=== PATIENT | male | born 1975 | race Caucasian/White ===

== ENCOUNTER 2017-07-29 07:54 | Emergency (ER) | payer OTHER, SELFPAY ==
[2017-07-29 07:55] VITALS: BP 154/94; PULSE 76; RESP 16; TEMP 36.4; O2SAT 98; BMI 36.8
--- NOTE | 2017-07-29 08:14 | ED.DCSUM_ITS ---
- ER Visit Summary Date of Service: 07/29/17 Chief Complaint: Abdominal pain with nausea, vomiting and diarrhea since night/Saturday morning History of Present Illness: The patient is a 41 M who presents with abdominal pain with nausea, vomiting diarrhea. Onset evening Saturday. He was concerned he had food poisoning and started taking Pepto-Bismol. No one else became ill. He denies fever, chills night sweats. He has not been on antibiotics in the past month. He has not been in contact or exposed to anyone who is been ill recently. The discomfort was initially diffuse. He now complains of pain in the right lower quadrant. The pain in the right lower quadrant is crampy and intermittent lasting up to 30 minutes. Walking and pushing on his abdomen intensify the discomfort. There is no radiation. He denies dysuria, frequency, urgency or hematuria. He reports decreased urine output and increased thirst. He also complains of dry mouth. He denies any hematemesis or hematochezia. He does not believe there was any mucus in his stool. He reports vomiting on average 7 times a day and numerous loose stools. He denies fever, chills night sweats. He denies any ocular, visual or auditory symptoms. He denies any cardiac or respiratory symptoms. He reports decreased urine output otherwise is negative. He denies any skin lesions. He denies history of diverticulosis or diverticulitis. Past medical history of type 2 diabetes and hypertension. Physical Examination: Vital signs are remarkable for a blood pressure 154/94. Head is atraumatic normocephalic. Pupils are equal round reactive. Extraocular muscles are intact. TMs are pearly white with landmarks noted. Nares patent with no drainage. Posterior pharynx without erythema or exudate. Uvula is midline. There is no dysphonia or dysphasia. Oral and buccal mucosa are dry. Trachea is midline. There is no stridor with auscultation of the neck. Heart is regular without murmur, gallop or rub. S1 and S2 are normal. Lungs are clear to auscultation with good movement of air bilaterally. Abdomen is soft with tenderness in the proximity McBurney's point. There is guarding. There is equivocal peritoneal findings. Negative Rovsing sign. There is no CVA tenderness noted. There are no skin lesions or evidence of trauma. Neuro exam is nonfocal. Test Results: CBC is normal. Electronic vitals unremarkable. Stool for occult blood was negative. Stool for fecal leukocytes is positive. Emergency Department Course and Treatment: IV was established she received 1 L of normal saline wide open. The black stool may be secondary to the Pepto- Bismol. Will assess stool for blood and fecal leukocytes. Because he is diabetic and BMP was obtained to assess his glucose since he has not checked his glucose and greater than 24 hours and more importantly his BUN and creatinine. White count was obtained as well. With him having discomfort in the right lower quadrant this may represent an atypical presentation for appendicitis. This may also represent mesenteric adenitis or other cause. Treatment Plan: Nausea vomiting has resolved. He did have one loose stool in the department. He was discharged with prescription for ciprofloxacin since stool was positive for fecal leukocytes and Imodium. Disposition: Discharged home in improved condition Impression: 1. Abdominal pain with nausea, vomiting diarrhea 2. Mild dehydration 3. History of type 2 diabetes 4. History of hypertension This note was generated with [employer] dictation software. It may contain incorrect words, spelling, and punctuation that were not noted in review of the chart prior to signing ED Disposition - Plan for ED Patient: Disposition: Home or Assisted Living Chief Complaint: Nausea/Vomiting/Diarrhea Instructions: ED Vomiting Diarrhea Nonspecific Ad Prescriptions: Loperamide [Imodium] 2 mg PO UD #10 cap Ciprofloxacin [Cipro] 500 mg PO BID #10 tab Referrals: Ish Rasmussen MD [Primary Care Provider] - 3-5 Days if not improving
[2017-07-29] MEDS: 0.9% Normal Saline 1,000 ML 1000 ML IV (08:16)
[2017-07-29] MEDS: Ondansetron 4 MG/2 ML Vial IV (08:17)
[2017-07-29 08:22] LABS: Absolute Lymphocyte Count 2.54 X10^3/ul (0.83-4.51); Absolute Neutrophil Count 4.7 X10^3/uL (2.0-7.7); Basophil# 0.03 X10^3/uL; Basophil% 0.4 % (0-1); Eosinophil# 0.05 X10^3/uL; Eosinophils% 0.6 % (0-5); Hemoglobin 15.8 g/dl (13.0-16.5); Lymphocyte # 2.54 X10^3/ul (4.0); Lymphocyte % 31.2 % (19-41); Mean Corp Hgb Conc 34.3 g/gl (32-36); Mean Corpuscular Hgb 29.5 pg (27.0-32.0); Mean Platelet Vol. 9.5 fl (6.2-12.0); Monocyte% 9.8 % (0-10); Neutrophil # 4.72 X10^3/uL (2.7-7.7); Neutrophil % 57.9 % (47-70); Platelet Count 181 K/mm3 (150-450); RBC Distribution Width CV 13.9 % (11.6-14.6); RBC Distribution Width SD 43.2 fl (35.1-43.9); Red Blood Count 5.35 M/mm3 (4.6-6.2); White Blood Count 8.2 K/mm3 (4.4-11.0)
[2017-07-29 08:24] LABS: POSITIVE COUNT NO; POSITIVE DIFFERENTIAL NO; POSITIVE MORPHOLOGY NO
[2017-07-29 08:33] LABS: Anion Gap 8 (5-15); BUN 17 mg/dL (7-18); BUN/Creat Ratio 19.7 RATIO (10-20); Calcium,Total 7.5 mg/dL (8.5-10.1); Chloride 110 mmol/L (98-107); Creatinine, Serum 0.86 mg/dL (0.70-1.30); EST Glomerular Filtration Rate 103 mL/min (>60); Est Glom Filt Rate - Afr Amer 125 mL/min (>60); Estimated Creatinine Clearance 120.39 ml/min; Glucose 129 mg/dL (74-106); Potassium 3.6 mmol/L (3.5-5.1); Sodium Level 139 mmol/L (136-145)
[2017-07-29 10:16] VITALS: BP 154/83; PULSE 60; O2SAT 99
[2017-07-29 11:22] VITALS: BP 148/72; PULSE 67; RESP 18; O2SAT 97
== END 2017-07-29 11:24 | disposition home or self-care (01) ==
PROVIDERS: Emergency Provider Emergency Medicine; Family Provider Family Medicine; PCP Family Medicine
DX: R11.2 Nausea with vomiting, unspecified (principal); R19.7 Diarrhea, unspecified; R10.9 Unspecified abdominal pain; E86.0 Dehydration; E11.9 Type 2 diabetes mellitus without complications; I10 Essential (primary) hypertension
CPT/HCPCS: 80048; 82274; 83630; 85025; 96361; 96374; 99284; J7030; J2405

== ENCOUNTER 2018-03-06 14:19 | Emergency (ER) | payer MEDICAID, SELFPAY ==
[2018-03-06 14:20] VITALS: BP 142/75; PULSE 96; RESP 16; TEMP 36.6; O2SAT 97; BMI 38.2
--- NOTE | 2018-03-06 14:54 | ED.VISSUMM ---
- ER Visit Summary Date of Service: 03/06/18 Chief Complaint: Mid forehead laceration History of Present Illness: The patient is a 42 M past medical history of noncemented diabetes and hypertension. Patient is on no blood thinners. He was working on some of his home when a glass globe fell struck him in the forehead causing a laceration. No foreign bodies. No LOC. He denies other injuries other than a superficial laceration to his right hand. Physical Examination: Well-appearing middle-age male. Vital signs are stable and afebrile. H EENT exam is up to [facility] last forehead. At the flap. There is mild oozing. No hematoma. Pupils round reactive light. No other signs of facial or scalp trauma neck nontender. Lungs clear to auscultation bilaterally. Heart regular rhythm no murmur. Abdomen is soft and nontender. Normal bowel sounds no peritoneal signs. He is moving all 4 extremities. There are neurovascularly intact. He has equal symmetrical fermentologist strength. He has a superficial laceration to the webspace between his right thumb and right index finger that is not deep and does not need to be repaired. I did clean that area. Neurologic exam is normal. Test Results: None Emergency Department Course and Treatment: Mid forehead laceration was cleaned. I repaired it using Dermabond. Good closure and hemostasis was obtained. Patient's tetanus will be updated. Treatment Plan: Wound care instructions. Disposition: Discharge Impression: Mid forehead laceration Dermabond repair of 2 and asked centimeters Tetanus updated This note was generated with [employer] dictation software. It may contain incorrect words, spelling, and punctuation that were not noted in review of the chart prior to signing ED Disposition - Plan for ED Patient: Chief Complaint: Laceration Referrals: Ish Rasmussen MD [Primary Care Provider] -
--- NOTE | 2018-03-06 14:58 | ED.DCSUM_ITS ---
- ER Visit Summary Date of Service: 03/06/18 Chief Complaint: Mid forehead laceration History of Present Illness: The patient is a 42 M past medical history of noncemented diabetes and hypertension. Patient is on no blood thinners. He was working on some of his home when a glass globe fell struck him in the forehead causing a laceration. No foreign bodies. No LOC. He denies other injuries other than a superficial laceration to his right hand. Physical Examination: Well-appearing middle-age male. Vital signs are stable and afebrile. H EENT exam is up to [facility] last forehead. At the flap. There is mild oozing. No hematoma. Pupils round reactive light. No other signs of facial or scalp trauma neck nontender. Lungs clear to auscultation bilaterally. Heart regular rhythm no murmur. Abdomen is soft and nontender. Normal bowel sounds no peritoneal signs. He is moving all 4 extremities. There are neurovascularly intact. 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 He has a superficial laceration to the webspace between his right thumb and right index finger that is not deep and does not need to be repaired. I did clean that area. Neurologic exam is normal. Test Results: None Emergency Department Course and Treatment: Mid forehead laceration was cleaned. I repaired it using Dermabond. Good closure and hemostasis was obtained. Patient's tetanus will be updated. Treatment Plan: Wound care instructions. Disposition: Discharge Impression: Mid forehead laceration Dermabond repair of 2 and asked centimeters Tetanus updated This note was generated with [employer] dictation software. It may contain incorrect words, spelling, and punctuation that were not noted in review of the chart prior to signing ED Disposition - Plan for ED Patient: Chief Complaint: Laceration Referrals: Ish Rasmussen MD [Primary Care Provider] -
--- NOTE | 2018-03-06 14:58 | ED.DEP ---
ED Disposition - Plan for ED Patient: Disposition: Home or Assisted Living Chief Complaint: Laceration Instructions: ED Laceration Ext Skin Glue Referrals: Ish Rasmussen MD [Primary Care Provider] - As Needed
--- NOTE | 2018-03-06 15:15 | ED.RN ---
PT MEDICATED WITH TDAP SHOT IN LEFT SHOULDER, UNABLE TO GET ORDER TO GO THROUGH ON JUN. LOT [id number] EXP 03/24/2020
[2018-03-06 15:17] VITALS: BP 139/91; PULSE 96; RESP 14
== END 2018-03-06 15:30 | disposition home or self-care (01) ==
PROVIDERS: Emergency Provider Emergency Medicine; Family Provider Family Medicine; PCP Family Medicine
DX: S01.81XA Laceration without foreign body of other part of head, initial encounter (principal); S61.411A Laceration without foreign body of right hand, initial encounter; W20.8XXA Other cause of strike by thrown, projected or falling object, initial encounter; Y93.9 Activity, unspecified; Y92.009 Unspecified place in unspecified non-institutional (private) residence as the place of occurrence of the external cause; Y99.9 Unspecified external cause status; E11.9 Type 2 diabetes mellitus without complications; Z23 Encounter for immunization; I10 Essential (primary) hypertension
CPT/HCPCS: 12011; 90471; 90715; 99282

== ENCOUNTER 2018-07-01 10:13 | Emergency (ER) | payer MEDICAID, SELFPAY ==
[2018-07-01 10:13] VITALS: BP 168/97; PULSE 86; RESP 18; TEMP 36.3; O2SAT 98; BMI 36.9
--- NOTE | 2018-07-01 10:20 | ED.DCSUM_ITS ---
- ER Visit Summary Date of Service: 07/01/18 Chief Complaint: Left knee injury History of Present Illness: The patient is a 42 M presents to the emergency department left knee injury. Patient has had prior ACL repair and MCL reconstruction of the knee. He states that he was out in his yard playing catch with his children. He stepped in hole and twisted his left knee. He states he felt like it popped. Yesterday, it was very swollen. Today, the swelling is gone down, but he still having a difficult time bearing weight. He denies other injury. He is otherwise been in his normal state of health. Physical Examination: Exam is relatively unremarkable. Patient does have a sma ll effusion of the knee. His extension is preserved. He does have some gapping with stress along the MCL and pain along the medial meniscus. There is no gross laxity. Pulses are normal. Compartments are soft. Test Results: [] Emergency Department Course and Treatment: Clinically, the patient symptoms do seem consistent with an MCL tear. He does have some instability of the knee but no gross laxity. Plain films were obtained. There is significant arthritic changes, but no fracture. Patient was placed in a knee immobilizer. Is given analgesics. He will continue ice and elevation. He will follow-up with his orthopedic surgeon for reevaluation and potential MRI versus conservative therapy. He is comfortable with this plan of care. Treatment Plan: [] Disposition: Discharge Impression: 1. Left MCL tear This note was generated with [employer] dictation software. It may contain incorrect words, spelling, and punctuation that were not noted in review of the chart prior to signing ED Disposition - Plan for ED Patient: Instructions: ED Sprain Knee Prescriptions: Hydrocodone Bitart/Apap 5-325 [[place] 5MG-325MG] 1 tab PO Q6H PRN PRN 3 Days #10 tab PRN Reason: Pain Referrals: Gwyn Dillard DO [STAFF PHYSICIAN] -
--- NOTE | 2018-07-01 11:04 | RAD_ITS ---
STUDY: X-RAY - LEFT KNEE REASON FOR EXAM: Male, 42 years old. Left knee pain after fall on Saturday TECHNIQUE: 4 view(s) of the knee. COMPARISON: 01/18/2017 FINDINGS: Normal visualized distal femur. Normal visualized proximal tibia and fibula. Normal proximal tibiofibular articulation. Prior ACL reconstruction There is moderate degenerative arthrosis of the medial femorotibial compartment with moderate joint space narrowing. There is mild degenerative arthrosis of the lateral femorotibial compartment. There is moderate degenerative arthrosis of the patellofemoral articulation. There is a soft tissue prominence in the suprapatellar region suggesting a small volume joint effusion. The soft tissue structures are unremarkable. RAD/Knee 4 or More Views IMPRESSION: No acute fracture or dislocation. Degenerative changes with small effusion. Prior ACL reconstruction. Electronically Signed: Jeremy Villarreal DO at 12:54 EDT Tel , Service support ,
[2018-07-01 12:17] VITALS: BP 172/99; PULSE 87; RESP 18; O2SAT 97
== END 2018-07-01 12:23 | disposition home or self-care (01) ==
LOC: ED 11:35
PROVIDERS: Emergency Provider Emergency Medicine; Family Provider Family Medicine; PCP Family Medicine
DX: M25.462 Effusion, left knee (principal); S83.412A Sprain of medial collateral ligament of left knee, initial encounter; X50.1XXA Overexertion from prolonged static or awkward postures, initial encounter; Y93.89 Activity, other specified; Y92.9 Unspecified place or not applicable; Y99.9 Unspecified external cause status; E11.9 Type 2 diabetes mellitus without complications; I10 Essential (primary) hypertension; E78.00 Pure hypercholesterolemia, unspecified
CPT/HCPCS: 73564; 99282

== ENCOUNTER → 2018-07-02 15:13 | Outpatient (CLI) | payer MEDICAID, SELFPAY ==
[2018-07-01 10:13] VITALS: BMI 36.9
--- NOTE | 2018-07-02 15:17 | VDLE_ITS ---
Reason For Study: PAIN IN CALF RIGHT LEFT CFV is compressible, spontaneous, phasic, GSV is normal. competent and demonstrates normal CFV is compressible, spontaneous, phasic, augmentation. competent, and demonstrates normal Procedure augmentation. Exam performed in department. FV is compressible, spontaneous, phasic, A preliminary report was called and/or faxed competent and demonstrates normal to Dr Jabari Clark. augmentation. POP V is compressible, spontaneous, phasic, competent and demonstrates normal augmentation. T/P Trunk is compressible. LT PerV is compressible. LEFT PTV is dilated and NONCOMPRESSIBLE at distal calf. The remainder of PTV is compressible. Interpretation Summary Acute deep vein thrombosis is noted in the distal left posterior tibial vein. The remainder of the left lower extremity deep venous system is patent and compressible. Valvular competence appears intact within the proximal deep venous system on the left . The left greater saphenous vein appears patent and compressible segmentally. Ordering Physician: Jabari Clark Referring Physician: CUAUHTEMOC CAMACHO Performed By: Kat Peterson, VIOLETACS, RVT
== END ==
PROVIDERS: Family Provider Family Medicine; PCP Family Medicine; Referring Provider Orthopaedic Surgery; Visit Provider Orthopaedic Surgery
DX: M79.605 Pain in left leg (principal)
CPT/HCPCS: 93971

== ENCOUNTER 2018-07-02 18:31 | Emergency (ER) | payer MEDICAID, SELFPAY ==
[2018-07-01 10:13] VITALS: BMI 36.9
[2018-07-02 18:31] VITALS: BP 165/81; PULSE 72; RESP 16; TEMP 36.3; O2SAT 98; BMI 36.9
--- NOTE | 2018-07-02 19:32 | ED.DCSUM_ITS ---
- ER Visit Summary Date of Service: 07/02/18 Chief Complaint: Prescription issue History of Present Illness: The patient is a 42 M who states that he injured his left knee a few days ago. Today he went to [facility] and they sent him here to have a rule out DVT performed. He tells me he was diagnosed with a DVT around his ankle. He states that his primary care physician called a prescription for Eliquis then but he cannot afford it because it $600. Unfortunately it was after hours and the patient was advised to the nursing line to come to the emergency department. I do not have access to the ultrasound report to see exactly where the DVT is. Physical Examination: Afebrile vital signs are stable Gen: Well-nourished well-developed Head: Normocephalic atraumatic Eyes: Perrl EOMI ENT: TMs clear no rhinorrhea moist mucous membranes Neck: Supple no lymphadenopathy no JVD nontender CVS: Regular rate rhythm no murmurs normal S1-S2 Respiratory: No distress clear to auscultation bilaterally chest nontender Abdomen: Soft nontender nondistended normal bowel sounds no masses Back: Nontender Extremity: Mild tenderness in the calf and slight edema compared to the right. Left knee is in a brace. Skin: Normal color no rash Neuro: alert orientated ?3 CN II-XII intact normal strength sensation reflexes gait cerebellar Psych: Normal affect normal mood Emergency Department Course and Treatment: Unfortunately I do not have access to the report because it has not been formally read is what I am understanding. If it is truly below the knee and the patient has significant issues with prescription coverage one option I discussed with him would be serial ultrasounds to see if it propagates above the knee. Until such time as I have access to the report or he sees his primary care physician for further discussion I will give him a dose of Lovenox here. Mr. Yu notes understanding. Impression: 1. Left leg DVT This note was generated with [employer] dictation software. It may contain incorrect words, spelling, and punctuation that were not noted in review of the chart prior to signing ED Disposition - Plan for ED Patient: Disposition: Home or Assisted Living Instructions: ED DVT Referrals: Ish Rasmussen MD [Primary Care Provider] - 1 Day
[2018-07-02] MEDS: Enoxaparin 120 MG/0.8 ML Syringe SC (19:41)
== END 2018-07-02 19:47 | disposition home or self-care (01) ==
PROVIDERS: Emergency Provider Emergency Medicine; Family Provider Family Medicine; PCP Family Medicine
DX: I82.402 Acute embolism and thrombosis of unspecified deep veins of left lower extremity (principal); E11.9 Type 2 diabetes mellitus without complications; I10 Essential (primary) hypertension
CPT/HCPCS: 93971; 99282

== ENCOUNTER → 2018-07-10 09:49 | Outpatient (CLI) | payer MEDICAID, SELFPAY ==
[2018-07-02 18:31] VITALS: BMI 36.9
[2018-07-10 10:13] LABS: Prothrombin Time (Protime)PT. 30.9 SECONDS (11.7-14.9)
== END ==
PROVIDERS: Family Provider Family Medicine; PCP Family Medicine; Referring Provider Family Medicine; Visit Provider Family Medicine
DX: Z86.718 Personal history of other venous thrombosis and embolism (principal); Z79.01 Long term (current) use of anticoagulants
CPT/HCPCS: 85610

== ENCOUNTER 2018-09-08 07:00 | Outpatient (RCR) | payer MEDICAID, SELFPAY ==
--- NOTE | 2018-08-28 18:35 | HP.PTEVAL_ITS ---
Patient's Visit Information RIGO MASTERS Jr. is a 43 year old M referred to Physical Therapy by Jabari Clark MD with a diagnosis of L knee medial mensicus tear. Date of Evaluation: 08/28/18 Physical Therapist: Levi Strong DPT, OCS, CSCS - Visit Plan Frequency: 3x /Week Duration: 4-6 Weeks Plan: 3x/week for 4-6 as needed. 1. ES and ice to ehlp with pain and inflammation. 2. ROM L knee A/P. 3. strength to tolerance L knee adn return to function/gait training. - Subjective Findings: L aCL tear 20 years ago. 2016 meniscus repair medial and lateral. This past June 2 months ago was playing catch with boys and stepped in hole. Pain right away. Constant pain since. Seeing doctor and getting approved for the last two months. Had blood clot and was off work. Doing ROM exercises. takes tylenol for pain daily. MRI showed retear of shredded chicken. Will go back on the 09/10. Plan is to fix meniscus or do knee repacement. Prefers TKA. Coumadin now for blood clot. Recent US said clot is gone. 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 Stays off of ladders. Sleeps fairly well but stiff in morning. 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 Has 18, 12 and 4 yo at home that has limited physical interaction with. Basic ADLss of dressing are OK, no stpes at home. Stepping over the tub is challenging. TM prior to injury. - Pain L knee Pain Intensity (Out of 10): 6 Pain Intensity Range: 7 Comment: medial knee swells after work. - Objective L knee -15 to 108 r knee 0-134. ankle adn hip aROM B WNL, L slightly slow. Strength ankles 4+ adn hips 4+. Knee strength L 3+ ext with pain and 4- flexion with pain. R knee flex 5/5 and ext 5/5. Walks with antalgia L and avoid fully straightening L kneee until cued. Trasnfers I but painful. + L bounce home, patella moves well. Slightly swollen L knee at joint line. Steps avoids L adn needs UE help due to pain. R knee is I on steps. - Goals Goal 1:: Full aROM L knee 0-134 AROM without pain Goal Time Frame: 4-6 Weeks Goal 2:: Walk upright without increased pain L knee adn steps reciprocal with one rail Goal Time Frame: 4-6 Weeks Goal 3:: Pt feel 75% back to normal Goal Time Frame: 4-6 Weeks Goal 4:: Painfree at rest Goal Time Frame: 4-6 Weeks - Rehabilitation Potential Physical Therapy Diagnosis: L Knee meniscal tear and degeneration. Rehabilitation Potential: Questionable - Anticipated Interventions Patient/Client Instruction: Educate patient on: Condition, Plan of Care For the Purpose of:: To decrease pain, To increase ROM, To increase tolerance to activity/condition/position Therapeutic Exercise to Include: Strength training, Flexibilty training, Gait and locomotor training, Passive ROM, Active ROM For the Purpose of:: To decrease pain, To increase ROM, To improve muscle performance and motor function, To decrease level of supervision to perform tasks Manual Therapy Techniques to Include: Soft tissue mobilization For the Purpose of:: To increase tolerance to activity/condition/position, To improve ability of physical actions for home/community/work/leisure TENS: Yes Cryotherapy (ice pack, ice massage): Yes For the Purpose of:: To decrease pain, To increase ROM, To improve ability of physical actions for home/community/work/leisure, To improve gait and locomotor functions Thank you for the opportunity to evaluate your patient. For Medicare and Medicare HMO plans, please review the plan of care and approve it. It will need to be FAXED BACK to us at [phone] for Medicare purposes. For Medicare only, by signing this I certify the plan of care. Please let me know if there are questions or concerns regarding this plan of care. Physician Signature: Date:
--- NOTE | 2018-11-07 07:43 | HP.PT.NRP ---
HP - Discharge Summary (1) - Patient Information RIGO MASTERS Jr. was seen in my office for initial evaluation on 08/28/18. The following Plan of Care was established for this patient: Initial Frequency: 3x /Week Initial Duration: 4-6 Weeks - Anticipated Interventions Patient/Client Instruction: Educate patient on: Condition, Plan of Care For the Purpose of:: To decrease pain, To increase ROM, To increase tolerance to activity/condition/position Therapeutic Exercise to Include: Strength training, Flexibilty training, Gait and locomotor training, Passive ROM, Active ROM For the Purpose of:: To decrease pain, To increase ROM, To improve muscle performance and motor function, To decrease level of supervision to perform tasks Manual Therapy Techniques to Include: Soft tissue mobilization For the Purpose of:: To increase tolerance to activity/condition/position, To improve ability of physical actions for home/community/work/leisure TENS: Yes Cryotherapy (ice pack, ice massage): Yes For the Purpose of:: To decrease pain, To increase ROM, To improve ability of physical actions for home/community/work/leisure, To improve gait and locomotor functions This patient was last seen in our office 09/08/18. Pertinent comments regarding their Physical therapy will appear below: Patient was seen for two visits of his plan of care and cancelled or no showed for the rest. He stated that his surgery was cancelled and he was going to tough it out when cancelling his last visit. At this point, it has been nearly two months and I will discontinue due to nonattendance. At this point I will be discontinuing this patient from physical therapy. I would be happy to see this patient again in the future if found appropriate by the physician. Thank you! Levi Strong, DPT, OCS, CSCS
== END 2018-09-08 19:00 | disposition home or self-care (01) ==
LOC: PT 07:00
PROVIDERS: Family Provider Family Medicine; PCP Family Medicine; Visit Provider Orthopaedic Surgery
DX: S83.232D Complex tear of medial meniscus, current injury, left knee, subsequent encounter (principal); M17.32 Unilateral post-traumatic osteoarthritis, left knee
CPT/HCPCS: 97014; 97110; 97161; G0283

== ENCOUNTER 2019-04-09 03:29 | Emergency (ER) | payer BC, MEDICAID, SELFPAY ==
[2019-04-09 03:30] VITALS: BP 158/79; PULSE 102; RESP 17; TEMP 36.4; O2SAT 99; BMI 37.5
[2019-04-09 03:47] LABS: Absolute Lymphocyte Count 2.82 X10^3/uL (0.83-4.51); Absolute Neutrophil Count 4.5 X10^3/uL (2.0-7.7); Basophil# 0.06 X10^3/uL; Basophil% 0.8 % (0-1); Eosinophil# 0.06 X10^3/uL; Eosinophils% 0.8 % (0-5); Hematocrit 46.8 % (40-54); Hemoglobin 16.3 g/dL (13.0-16.5); Lymphocyte # 2.82 X10^3/ul (4.0); Lymphocyte % 35.5 % (19-41); Mean Corp Hgb Conc 34.8 g/dL (32-36); Mean Corpuscular Hgb 29.3 pg (27.0-32.0); Mean Platelet Vol. 9.8 fl (6.2-12.0); Monocyte# 0.52 X10^3/uL; Monocyte% 6.5 % (0-10); NRBC Flagged by Analyzer 0 % (0-5); Neutrophil # 4.46 X10^3/uL (2.7-7.7); Platelet Count 187 K/mm3 (150-450); RBC Distribution Width CV 12.4 % (11.6-14.6); RBC Distribution Width SD 37.5 fl (35.1-43.9); Red Blood Count 5.57 M/mm3 (4.6-6.2)
--- NOTE | 2019-04-09 03:48 | CT_ITS ---
STUDY: CT ABDOMEN AND PELVIS WITHOUT CONTRAST REASON FOR EXAM: Male, 43 years old. Right flank and testicular pain RADIATION DOSAGE (If Supplied By Facility): CTDIvol = ( 15.52 ) mGy, DLP = ( 1466.43 ) mGycm TECHNIQUE: Transaxial images were obtained from the dome of the diaphragm to the symphysis pubis without oral contrast, and without intravenous contrast. Sagittal and coronal images were reconstructed. Individualized dose optimization techniques were used for this CT. COMPARISON: None. FINDINGS: The visualized lung bases are unremarkable. The visualized portions of the heart are within normal limits. There is decreased attenuation of the liver consistent with steatosis. Normal gallbladder and extrahepatic biliary system. Normal spleen. Normal pancreas. Normal bilateral adrenal glands. Normal right kidney. Normal left kidney. There is a duplicated left renal collecting system. Normal visualized stomach. Normal small intestine. There are multiple colonic diverticula consistent with diverticulosis. There is moderate retained stool throughout the colon. Correlate for constipation. The appendix is visualized and appears normal. Normal abdominal aorta. Normal inferior vena cava. Normal retroperitoneum. Normal urinary bladder. Normal abdominal wall. Normal osseous structures. CT/Abdomen/Pelvis without Cont IMPRESSION: Negative unenhanced CT of the abdomen and pelvis for acute intra-abdominal abnormality. Electronically Signed: Derian Piedra, at 4:48 EST Tel , Service support ,
--- NOTE | 2019-04-09 03:54 | ED.VIS.GI ---
History of Present Illness Chief Complaint: Abd Pain Informant: Patient - Abdominal Pain/Flank Pain Onset: Today Context: Sudden Onset Timing: Continuous Quality: Sharp Location: RLQ, Right Flank Narrative: Patient is a 43-year-old male with a history of diabetes mellitus and hypertension presenting with right lower quadrant pain. He states it started about an hour prior to arrival. It is sharp and radiates into his back. Patient states when he urinated just prior to arrival he also had pain radiating into his right groin/testicle. He denies any pain with urination. He has some associated nausea. He notes a couple days ago he had a stomach flu with associated nausea, vomiting and fever. The symptoms had resolved. Patient states he had a maximum temperature of 102. Patient denies any other complaints at this time. He does not have any associated chest pain, shortness of breath or difficulty breathing. He denies any injuries. Patient states he was working when his pain started. Past Medical History - Allergies and Home Meds Allergies/Adverse Reactions: Allergies Penicillins Allergy (Verified 07/02/18 18:31) Other Primary Care Physician: Ish Rasmussen MD [Primary Care Provider] - Past Medical History: - - Hypertension, diabetes mellitus Surgical History: - - Knee surgery Lives: Spouse/ Significant Other Smoking Status: Current every day smoker - Family History Maternal Family History: Reports: No pertinent history Paternal Family History: Reports: No pertinent history Review of Systems General: Reports: Fever - Resolved. Denies: Chills, Sweats Eyes: Denies: Visual changes - bilaterally, Diplopia ENT: Denies: Rhinorrhea, Sore throat Cardiovascular: Denies: Chest pain, Palpitations Respiratory: Denies: Dyspnea, Cough, Dyspnea on exertion Gastrointestinal: Reports: Abdominal pain, Nausea, Vomiting - Resolved. Denies: Diarrhea, Melena, Hematochezia Genitourinary: Denies: Dysuria, Hematuria, Frequency Musculoskeletal: Denies: Back pain, Extremity Pain Skin: Denies: Rash, Wounds Neurological: Denies: Headache, Weakness, Numbness Physical Exam Vital Signs/Narrative: Vital Signs Temp Pulse Resp BP Pulse Ox 04/09/19 03:30 97.5 F L 102 H 17 158/79 H 99 Inital Vital Signs reviewed: Yes General: Well nourished, Well developed, No Acute Distress Head: Normocephalic, Atraumatic Eyes: Perrl, EOMI ENT: Moist mucous membranes, No rhinorrhea Neck: Supple, Nontender Cardiovascular: Regular rate, Regular rhythm, No murmurs Respiratory: No distress, CTA bilaterally, Chest nontender Abdomen: Soft, Nondistended, Normal bowel sounds, Tender - Right lower quadrant. Negative for: Guarding, Rebound tenderness, Mass Back: Normal Inspection. Negative for: Nontender - Tenderness to palpation of the right lower back?paraspinal lumbar area, CVA tenderness, Spinal tenderness Extremities: Nontender, No edema Skin: Normal color, No rash Neurological: Alert, Oriented x3, Cranial nerves II-XII grossly intact, Normal Strength, Normal Sensation Psychological: Normal affect, Normal Mood Diagnostic/Tx/Re-eval Clinical Impression(s) from Imaging Studies Abdomen/Pelvis CT 04/09/19 03:48 IMPRESSION: Negative unenhanced CT of the abdomen and pelvis for acute intra-abdominal abnormality. Electronically Signed: Derian Piedra, at 4:48 EST Tel , Service support , Laboratory Data 04/09/19 04/09/19 04/09/19 03:40 03:40 03:40 WBC 8.0 RBC 5.57 Hgb 16.3 Hct 46.8 MCV 84.0 MCH 29.3 MCHC 34.8 RDW Std Deviation 37.5 RDW Coeff of Janiya 12.4 Plt Count 187 MPV 9.8 Immature Gran % (Auto) 0.400 Neut % (Auto) 56.0 Lymph % (Auto) 35.5 [place] % (Auto) 6.5 Eos % (Auto) 0.8 Baso % (Auto) 0.8 Absolute Neuts (auto) 4.5 Absolute Lymphs (auto) 2.82 Nucleated RBC % 0 Sodium 136 Potassium 4.2 Chloride 104 Carbon Dioxide 24.0 Anion Gap 8 BUN 14 Creatinine 0.95 Estim Creat Clear Calc 106.79 Est GFR (MDRD) Af Amer 111 Est GFR (MDRD) Non-Af 92 BUN/Creatinine Ratio 14.7 Glucose 270 H Calcium 8.3 L Total Bilirubin 0.60 Direct Bilirubin 0.17 AST 25 ALT 63 H Alkaline Phosphatase 75 Total Protein 7.7 Albumin 3.9 Globulin 3.8 Lipase Urine Color Urine Clarity Urine pH Ur Specific [place] Urine Protein Urine Glucose (UA) Urine Ketones Urine Occult Blood Urine Nitrite Urine Bilirubin Urine Urobilinogen Ur Leukocyte Esterase Urine RBC Urine WBC Ur Squamous Epith Cells Urine Bacteria Urine Mucus 04/09/19 04/09/19 03:40 04:27 WBC RBC Hgb Hct MCV MCH MCHC RDW Std Deviation RDW Coeff of Janiya Plt Count MPV Immature Gran % (Auto) Neut % (Auto) Lymph % (Auto) [place] % (Auto) Eos % (Auto) Baso % (Auto) Absolute Neuts (auto) Absolute Lymphs (auto) Nucleated RBC % Sodium Potassium Chloride Carbon Dioxide Anion Gap BUN Creatinine Estim Creat Clear Calc Est GFR (MDRD) Af Amer Est GFR (MDRD) Non-Af BUN/Creatinine Ratio Glucose Calcium Total Bilirubin Direct Bilirubin AST ALT Alkaline Phosphatase Total Protein Albumin Globulin Lipase 87 Urine Color Yellow Urine Clarity Clear Urine pH 6.0 Ur Specific [place] 1.015 Urine Protein Negative Urine Glucose (UA) 1000 H Urine Ketones Negative Urine Occult Blood Negative Urine Nitrite Negative Urine Bilirubin Negative Urine Urobilinogen Normal Ur Leukocyte Esterase Negative Urine RBC 0 SEEN Urine WBC 0 SEEN Ur Squamous Epith Cells 0 SEEN Urine Bacteria 0 SEEN Urine Mucus 0 SEEN - Medical Decision Making Patient is evaluated for right lower quadrant pain. He appears nontoxic in no acute distress however he does appear uncomfortable. With pain in his flank as well as radiating to his groin I have a higher suspicion for a kidney stone however appendicitis is still in the differential. Blood work is largely unremarkable. Patient does have an elevated glucose with a normal anion gap. I do not suspect HHNK or DKA. Urinalysis does not show any blood or leukocytosis but does show spillage of glucose which is consistent with his history of diabetes. CT of the abdomen and pelvis is done without contrast which does not show any acute intra-abdominal process. Patient was given IV fluids and Toradol. He was also ordered morphine but had declined it. On reevaluation patient does have improvement of his pain. He does have some slight tenderness in his right lower quadrant but it now appears to be more abdominal wall. I do not appreciate a hernia but he is counseled that there could be a small one that we did not see on CT. He is also counseled this could be abdominal wall strain. Patient again states he is not having any testicular pain 3 do not think a testicular ultrasound is indicated. He is instructed to follow-up with his PCP for reevaluation and possible referral as needed. He is instructed to return the emergency room should he have any worsening symptoms or changing symptoms. Patient is counseled on signs and symptoms requiring return to the emergency room. Patient verbalizes agreement and understand this plan. Patient discharged home in stable and improved condition. ED Disposition - Plan for ED Patient: Disposition: Home or Assisted Living Diagnosis: Abdominal pain Instructions: ABDOMINAL PAIN, Unkown Cause, (Male) Prescriptions: Ibuprofen [Motrin] 600 mg PO Q6H PRN PRN #20 tab PRN Reason: Pain Or Fever Prescription Printed Referrals: Ish Rasmussen MD [Primary Care Provider] - Additional Instructions: The exact cause of your abdominal pain is not clear. I do think you are safe to go home. Please return should your symptoms worsen or change. Please follow-up with your primary care doctor for further evaluation of the cause of this pain.
[2019-04-09 04:08] LABS: Lipase 87 U/L (73-393)
[2019-04-09] MEDS: 0.9% Normal Saline 1,000 ML 999 ML IV (04:09)
[2019-04-09] MEDS: Ondansetron 4 MG/2 ML Vial IV (04:09)
[2019-04-09 04:16] LABS: Anion Gap 8 (5-15); BUN 14 mg/dL (7-18); BUN/Creat Ratio 14.7 RATIO (10-20); Calcium,Total 8.3 mg/dL (8.5-10.1); Chloride 104 mmol/L (98-107); Creatinine, Serum 0.95 mg/dL (0.70-1.30); EST Glomerular Filtration Rate 92 mL/min (>60); Est Glom Filt Rate - Afr Amer 111 mL/min (>60); Estimated Creatinine Clearance 106.79 ml/min; Glucose 270 mg/dL (74-106); Potassium 4.2 mmol/L (3.5-5.1); Sodium Level 136 mmol/L (136-145)
[2019-04-09 04:26] LABS: AST(SGOT) 25 U/L (15-37); Alanine Aminotransfer ALT/SGPT 63 U/L (16-61); Albumin, Serum 3.9 g/dL (3.2-5.0); Alkaline Phosphatase 75 U/L (45-117); Bilirubin, Direct 0.17 mg/dL (0.00-0.30); Globulin 3.8 g/dL (2.2-4.2); Protein, Total 7.7 g/dL (6.4-8.2)
[2019-04-09] MEDS: Ketorolac 15 MG/ML Vial IV (04:31)
[2019-04-09 04:35] LABS: Bacteria 0 SEEN /hpf (None Seen); Mucous, Urine 0 SEEN /hpf (<or=2+); Red Blood Cells-Urine 0 SEEN /hpf (0-5); Squamous Epithelial Cells - UA 0 SEEN /hpf (0-5); White Blood Cells 0 SEEN /hpf (0-5)
[2019-04-09 04:55] LABS: Color, Urine Yellow (Yellow); Glucose, Dipstick 1000 mg/dl (Normal); Ketone-Dipstick Negative (Negative); Leukocyte Esterase-Dipstick Negative /ul (Negative); Nitrite-Dipstick Negative (Negative); Occult Blood-Urine Negative /ul (Negative); Protein-Dipstick Negative (Negative); Specific Gravity, Urine 1.015 (1.002-1.030); Urine Bilirubin Dipstick Negative (Negative); Urine Clarity Clear (Clear); Urine Urobilinogen Normal (Normal)
[2019-04-09 05:45] VITALS: BP 159/84; PULSE 68; RESP 16; O2SAT 95
[2019-04-09 05:46] VITALS: BP 159/84; PULSE 68; RESP 16; O2SAT 95
== END 2019-04-09 05:48 | disposition home or self-care (01) ==
PROVIDERS: Emergency Provider Emergency Medicine; Family Provider Family Medicine; PCP Family Medicine
DX: R10.31 Right lower quadrant pain (principal); R11.0 Nausea; E11.9 Type 2 diabetes mellitus without complications; I10 Essential (primary) hypertension; Z79.84 Long term (current) use of oral hypoglycemic drugs; Z79.899 Other long term (current) drug therapy; F17.200 Nicotine dependence, unspecified, uncomplicated
CPT/HCPCS: 74176; 80048; 80076; 81001; 83690; 85025; 96361; 96374; 96375; 99283; J7030; A4216; J2405

== ENCOUNTER 2019-05-20 11:24 | Observation (INO) | payer BC, SELFPAY ==
[2019-05-20] VITALS (9 sets, daily range): BP systolic 153–199; BP diastolic 61–114; PULSE 70–81; RESP 16–29; TEMP 36.6–37.2; O2SAT 96–98; BMI 39.4; BMI 37.5
--- NOTE | 2019-05-20 11:36 | EKG12_ITS ---
Test Reason : Blood Pressure : / mmHG Vent. Rate : 072 BPM Atrial Rate : 072 BPM P-R Int : 148 ms QRS Dur : 082 ms QT Int : 394 ms P-R-T Axes : 030 072 008 degrees QTc Int : 431 ms Normal sinus rhythm Normal ECG When compared with ECG of 05-FEB-2017 15:57, Nonspecific T wave abnormality now evident in Inferior leads Confirmed by MENDEZ DOUGHERTY ([id number]), editor school photograph SHADI CAI ([id number]) on 05/21/2019 10:38:48 AM Referred By: KYUNG Confirmed By:MENDEZ DOUGHERTY
--- NOTE | 2019-05-20 11:36 | RAD_ITS ---
STUDY: X-RAY CHEST REASON FOR EXAM: Male, 43 years old. GENERAL ILLNESS. PT BROUGHT IN BY SQUAD. LIMITED ABILITY TO HELP AND RESPOND TECHNIQUE: Single AP portable view of the chest. COMPARISON: Comparison is made with prior study dated March 19, 2016. FINDINGS: EKG electrodes are seen. A 2.8 mm radiopacity is seen overlying the region of the tracheal bifurcation. This most likely represents a foreign body external to the patient anteriorly.. This was seen on prior study. The lungs are clear and expanded. There is no demonstrated pleural abnormality. There is moderate cardiac enlargement. Normal mediastinum and jaziel. Normal visualized pulmonary arteries. Normal visualized aortic arch and descending thoracic aorta. Normal visualized thoracic spine. Normal visualized ribs, clavicles, and shoulders. There is no demonstrated abnormality of the visualized soft tissue structures of the upper abdomen. RAD/Chest 1 View (Portable) IMPRESSION: Cardiomegaly. Electronically Signed: Nicanor Suh, at 12:25 EST , Service support ,
[2019-05-20] MEDS: 0.9% Normal Saline 1,000 ML 150 ML IV (11:50)
--- NOTE | 2019-05-20 11:55 | CT_ITS ---
STUDY: CT BRAIN WITHOUT CONTRAST REASON FOR EXAM: Male, 43 years old. GENERAL WEAKNESS TODAY RADIATION DOSAGE (If Supplied By Facility): CTDIvol = ( 60.81 ) mGy, DLP = ( 1044.28 ) mGycm TECHNIQUE: Transaxial CT imaging of the brain was performed without administration of intravenous contrast material. Individualized dose optimization techniques were used for this CT. COMPARISON: No relevant priors. FINDINGS: Normal soft tissue structures. Normal calvarium. Normal size ventricles and extra-axial spaces for the patient''s age. Normal white matter tracts of the cerebral hemispheres. Normal basal ganglia and thalami. Normal brainstem. Normal cerebellum. There is no intracranial hemorrhage. There are no findings of an acute ischemic infarction. Normal visualized paranasal sinuses. CT/Brain/Head without Contrast IMPRESSION: Normal unenhanced CT scan of the brain. Electronically Signed: Nicanor Suh, at 12:20 EST , Service support ,
[2019-05-20 11:56] LABS: Absolute Lymphocyte Count 3.79 X10^3/uL (0.83-4.51); Absolute Neutrophil Count 3.8 X10^3/uL (2.0-7.7); Basophil# 0.06 X10^3/uL; Basophil% 0.7 % (0-1); Eosinophil# 0.12 X10^3/uL; Eosinophils% 1.4 % (0-5); Hematocrit 47.1 % (40-54); Hemoglobin 15.9 g/dL (13.0-16.5); Lymphocyte # 3.79 X10^3/ul (4.0); Lymphocyte % 44.9 % (19-41); Mean Corp Hgb Conc 33.8 g/dL (32-36); Mean Corpuscular Hgb 28.6 pg (27.0-32.0); Mean Corpuscular Volume 84.9 fL (80-94); Mean Platelet Vol. 9.3 fl (6.2-12.0); Monocyte# 0.71 X10^3/uL; Monocyte% 8.4 % (0-10); NRBC Flagged by Analyzer 0 % (0-5); Neutrophil # 3.75 X10^3/uL (2.7-7.7); Neutrophil % 44.4 % (47-70); Platelet Count 179 K/mm3 (150-450); RBC Distribution Width CV 12.7 % (11.6-14.6); RBC Distribution Width SD 38.8 fl (35.1-43.9); Red Blood Count 5.55 M/mm3 (4.6-6.2); White Blood Count 8.5 K/mm3 (4.4-11.0)
[2019-05-20 12:05] LABS: Bedside Glucose 145 mg/dL (70-110)
[2019-05-20 12:10] LABS: Anion Gap 6 (5-15); BUN 17 mg/dL (7-18); BUN/Creat Ratio 17.5 RATIO (10-20); Calcium,Total 9.1 mg/dL (8.5-10.1); Chloride 106 mmol/L (98-107); Creatinine, Serum 0.97 mg/dL (0.70-1.30); EST Glomerular Filtration Rate 89 mL/min (>60); Est Glom Filt Rate - Afr Amer 108 mL/min (>60); Estimated Creatinine Clearance 104.58 ml/min; Glucose 146 mg/dL (74-106); Potassium 3.9 mmol/L (3.5-5.1); Sodium Level 137 mmol/L (136-145)
--- NOTE | 2019-05-20 12:41 | ED.RN ---
PT STATES HE CANNOT RAISE LIMBS OFF BED BY HIMSELF, SPEAKS IN A QUIET VOICE. PT SUDDENLY CLOSED EYES, STOPPED ANSWERING QUESTIONS, DID NOT FOLLOW COMMANDS. GIRLFRIEND AND DAUGHTER AT BEDSIDE. MD CALLED TO ROOM, CT OF HEAD ORDERED. GIRLFRIEND LATER SPOKE TO THIS RN, STATES SHE FEELS ALL SYMPTOMS MAY BE STRESS RELATED. STATES PT HAS MUCH MORE STRESS LATELY, CARING FOR YOUNG NEPHEW WITH MENTAL HEALTH ISSUES.
--- NOTE | 2019-05-20 12:43 | HP.PCM_ITS ---
History of Present Illness Date of Admission: 05/20/19 Chief Complaint: chest pain, weakness The patient is a 43 year old M with a past medical history of hypertension and diabetes. He was admitted through the ED on 05/20/2019 with a complaint of weakness and lethargy and right-sided chest pain which started on morning of admission. Pain was sharp, and radiated to his right shoulder. He had associated nausea, lightheadedness and dizziness as well as palpitations. He denied any fever or chills, cough, shortness of breath, diarrhea or vomiting. Review of systems was otherwise negative. Patient says he has been under a lot of stress because he has custody of his nephew who has a multitude of mental health problems including bipolar disorder adn ADHD, among others. As such, he says caring for his nephew is very difficult, and the police have been involved on numerous occasions. In the ED, vitals were significant for blood pressure of 193/114 and saturation was 91% on room air. Chemistry was unremarkable initial troponin was negative. CBC was also unremarkable. Brain CT showed no acute intracranial process and chest x-ray showed cardiomegaly but no other acute cardiopulmonary process. He has been admitted to be managed for chest pain rule out ACS. [] Past Medical History Past Medical History (Chronic Problems): Chronic Problems Non-compliant patient (Chronic) Diabetes mellitus (Chronic) HTN (hypertension) (Chronic) Allergies Penicillins Allergy (Verified 05/20/19 11:29) Other Home Medications: Ambulatory Orders Medication Instructions Recorded Hydrochlorothiazide [Hctz] 25 mg PO DAILY #30 tablet 07/19/15 Lisinopril [Zestril] 40 mg PO DAILY #30 tablet 07/19/15 metFORMIN HCl [Glucophage] 1,000 mg PO BIDCM 03/19/16 Ibuprofen [Motrin] 600 mg PO Q6H PRN PRN #20 tab 04/09/19 Gabapentin [Neurontin] 300 mg PO DAILY 05/20/19 Glimepiride 2 mg PO DAILY 05/20/19 Melatonin 10 mg PO QHS 05/20/19 Surgical History: - - Knee surgery Smoking Status: Never smoker Alcohol: Occasional Drugs: None - *Family History Maternal History Items: No pertinent history Paternal History Items: No pertinent history Review of Systems Constitutional: Reports: Malaise, Weakness. Denies: Chills, Fever, Weight Change Eyes: Denies: Blurred vision HEENT: Denies: Head Aches, Sinus Congestion, Sinus Drainage Cardiovascular: Reports: Chest Pain, Light Headedness, Palpitations. Denies: Chest Pressure, Chest Tightness Respiratory: Denies: Cough, Shortness of Breath, Shortness of breath at rest, Shortness of breath upon exertion, Sputum production Gastrointestinal: Denies: Abdominal Pain, Nausea, Vomiting Genitourinary: Denies: Dysuria Musculoskeletal: Denies: Joint Pain, Joint Tenderness Skin: Denies: Rash, Wounds Neurological: Denies: Numbness, Tingling, Focal weakness Psychiatric: Denies: Anxiety, Depression, Homicidal Ideations, Suicidal Ideations Hematologic/ Lymphatic: Denies: Easy Bruising, Easy Bleeding VTE Information - Inpt Only VTE Present on Admission: No VTE Pharm Prophylaxis ordered?: Yes - Physical Exam Vitals/I&O's: Vital Signs Temp Pulse Resp BP Pulse Ox 99 F 77 19 H 199/106 H 98 05/20/19 11:25 05/20/19 12:40 05/20/19 12:40 05/20/19 12:40 05/20/19 12:40 Oxygen Delivery Method Room Air Weight: 282 lb 6.594 oz Body Mass Index (BMI) 39.4 Finger Stick Blood Glucose 145 General: Alert, Oriented x3, Cooperative, No apparent distress, - - looks anxious HEENT: Atraumatic, PERRLA, EOMI, Normocephalic Oral: Moist Mucosa Neck: Supple, No JVD, Negative Carotid Bruits Lungs: Clear to auscultation, Normal air movement, No rhonchi, No wheeze, No rales Cardiovascular: Regular rate, Regular Rhythm, Normal S1, Normal S2, No murmurs Abdomen: Bowel Sounds Present, Soft, Non Tender, Non-Distended, No Hepato- splenomegaly Extremities: No clubbing, No cyanosis, No edema, Capillary Refill Less than 3 Seconds Skin: No rashes, No breakdown Musculoskeletal: No Tenderness to Palpation of Joints or Extremities Lymphatic: No Cervical, Supraclavicular, or Inguinal Adenopathy Neurological: Cranial nerves II-XII grossly intact, Neuro grossly intact, Motor Exam 5/5 strength throughout Psych/Mental Status: Normal Affect, Appropriate, Alert and oriented to time, place, person, mood and affect Microbiology Past 72 Hours 05/20/19 11:40 Mucosa - Nose Influenza Types A,B Direct FA (TRISTEN) - Final Laboratory Results 05/20/19 11:40: WBC 8.5, RBC 5.55, Hgb 15.9, Hct 47.1, MCV 84.9, MCH 28.6, MCHC 33.8, RDW Std Deviation 38.8, RDW Coeff of Janiya 12.7, Plt Count 179, MPV 9.3, Immature Gran % (Auto) 0.200, Neut % (Auto) 44.4 L, Lymph % (Auto) 44.9 H, [place] % (Auto) 8.4, Eos % (Auto) 1.4, Baso % (Auto) 0.7, Absolute Neuts (auto) 3.8, Absolute Lymphs (auto) 3.79, Nucleated RBC % 0 05/20/19 11:40: D-Dimer Quant (PE/DVT) 0.40 05/20/19 11:40: Sodium 137, Potassium 3.9, Chloride 106, Carbon Dioxide 25.0, Anion Gap 6, BUN 17, Creatinine 0.97, Estim Creat Clear Calc 104.58, Est GFR (MDRD) Af Amer 108, Est GFR (MDRD) Non-Af 89, BUN/Creatinine Ratio 17.5, Glucose 146 H, Calcium 9.1, Troponin I < 0.015 05/20/19 11:53: POC Glucose 145 H Diagnostic Data Chest X-Ray 05/20/19 11:36 IMPRESSION: Cardiomegaly. Electronically Signed: Nicanor Suh, at 12:25 EST , Service support , Brain CT 05/20/19 11:55 IMPRESSION: Normal unenhanced CT scan of the brain. Electronically Signed: Nicanor Suh, at 12:20 EST , Service support , Current Medications Sodium Chloride () 1,000 mls @ 150 mls/hr IV .Q6H40M MICHAEL Last Admin: 05/20/19 11:50 Dose: 150 mls/hr Documented by: Assessment/Plan All Active Problems Hypertensive urgency (Acute) Angina at rest (Acute) 43-year-old admitted with a complaint of chest pain. 1. Atypical chest pain, to r/o ACS * admit to PCU with telemetry * patient has had similar chest pain in the past and had stress tests that were negative * initial troponin is negative * cycle troponins x 3. * Sublingual nitroglycerin as needed. P.o. aspirin 81 mg daily. * Stress test tomorrow if troponins are negative. * . Hypertensive urgency * BP markedly elevated at 193/114 on admission * takes lisinopril and HCTZ and claims compliance with it * PO clonidine 0.3mg x 1 * continue lisinopril and add on PO amlodipine o/a of markedly elevated BP * 3.Type 2 diabetes mellitus: on metforminn and glimepiride; will hold for now. ISS. Jeffy PATTERSON DVT prophylaxis: lovenox Code Visit OBSV E&M: [id number] Initial observation care L3
--- NOTE | 2019-05-20 12:49 | ED.DCSUM_ITS ---
- ER Visit Summary Date of Service: 05/20/19 Chief Complaint: [Weakness] History of Present Illness: The patient is a 43 M [presents to the emergency department complaint of generalized weakness and feeling lightheaded and dizzy since waking up this morning around an hour ago. Patient states that he normal ly works third shift. He felt fine prior to going to bed. Patient describes chest discomfort that radiates on his left arm that seems to come and go and seems to be sharp. Patient states that both arms and legs feel heavy. Patient states that his mouth feels dry. Patient presented via EMS. He denies recent illness. He denies head injuries. Patient has been under increased stress of late dealing with a family member that has psychiatric issues. Patient denies any history of anxiety or depression. He does have history of hypertension and takes lisinopril which he did take last evening.] Physical Examination: [HEENT-PERRLA, EOMI. Cranial nerves II through XII grossly intact. TMs clear. Mucous membranes moist. No adenopathy. Cardiovascular-regular rate and rhythm without murmur or ectopy Lungs-clear to auscultation, chest wall stable without crepitus or subcu emphysema Abdomen-normoactive bowel sounds, soft, nontender, no rebound or rigidity, no peritoneal signs. Neuro hbzd-[id number]-gy-nose and heel quez[place] testing unable to perform as patient states that he is too weak. No focal weakness noted as patient does have movement against gravity with both upper and lower extremities. No facial droop noted. Extremities-intact ?4, normal range of motion, normal pulses, atraumatic] Test Results: [CT scan of the brain without contrast obtained was normal due to the fact that patient had an episode where he essentially became unresponsive and would not speak to myself or family members. When I attempted to open his eyes he would fight me and would stare down towards his toes. CT scan of the brain was unremarkable. Patient had EKG on arrival showed a sinus rhythm with a ventricular rate of 74 bpm with no acute ST segment changes. CBC with differential is normal. Chemistries normal. Troponin less than 0.015. D-dimer was normal 0.4. Influenza was negative. Chest x-ray showed nothing acute.] Emergency Department Course and Treatment: [Patient was placed on carbon dioxide operator on arrival and had an IV line established.] Treatment Plan: [Admit for further work-up and evaluation of his chest pain and hypertension. I suspect a lot of his symptomatology may be stress related.] Disposition: [Admit] Impression: [Has pain Hypertension Generalized weakness] This note was generated with [employer] dictation software. It may contain incorrect words, spelling, and punctuation that were not noted in review of the chart prior to signing ED Disposition - Plan for ED Patient: Referrals: Ish Rasmussen MD [Primary Care Provider] -
[2019-05-20] MEDS: LORazepam 2 MG/ML Syringe 1 MG IV (13:04)
--- NOTE | 2019-05-20 14:22 | EKG12_ITS ---
Test Reason : CP Blood Pressure : / mmHG Vent. Rate : 074 BPM Atrial Rate : 074 BPM P-R Int : 158 ms QRS Dur : 078 ms QT Int : 370 ms P-R-T Axes : 035 043 020 degrees QTc Int : 410 ms Normal sinus rhythm Normal ECG Confirmed by JIE FLANNERY, SULMA ([id number]), editor managing director SHADI CAI ([id number]) on 05/22/2019 1:11:27 PM Referred By: OLGA Confirmed By:ROBER CERON MD
--- NOTE | 2019-05-20 14:27 | ECHOD_ITS ---
Reason For Study: HYPERTENSION Procedure This was a 2D Doppler, Color Flow transthoracic echocardiogram. Exam performed portable in patient room. Left Ventricle Mild concentric left ventricular hypertrophy. The estimated ejection fraction is 65 %. Normal diastology for age. No regional wall motion abnormalities noted. Right Ventricle Normal size and thickness. Normal systolic function. Atria The left atrium is mildly enlarged. Normal right atrium. Normal atrial septum. Mitral Valve The mitral valve is structurally normal. No prolapse or stenosis seen. Trivial mitral valve insufficiency. Tricuspid Valve Normal tricuspid valve. Trivial tricuspid valve insufficiency. Right ventricular systolic pressure estimated to be 33 mmHg. Aortic Valve Normal aortic valve. Trisinus/trileaflet aortic valve. Pulmonic Valve Normal pulmonic valve. Great Vessels Normal aortic root. Normal arch. Normal inferior vena cava. Inferior vena cava collapse with sniff. Pericardium/Pleural No pericardial effusion. MMode/2D Measurements & Calculations LVIDd: 4.9 cm IVSd: 1.4 cm Ao root diam: 3.8 cm LVIDs: 3.1 cm LVPWd: 1.3 cm RVDd: 3.0 cm FS: 35.8 % LAV(MOD-bp): 69.2 ml EDV(MOD-sp4): 124.5 ml EDV(MOD-sp2): 100.5 ml LAV(MOD-bp) Indexed: 29.3 ml/m2 ESV(MOD-sp4): 47.4 ml EF(MOD-sp2): 59.5 % LAV(MOD-sp2): 54.7 ml EF(MOD-sp4): 62.0 % LAV(MOD-sp4): 71.3 ml SV(MOD-sp4): 77.1 ml SV(MOD-sp2): 59.8 ml LA A4 area: 22.5 cm2 LA dimension(2D): 3.8 cm RA A4 area: 14.5 cm2 Time Measurements MV dec time: 0.15 sec Doppler Measurements & Calculations MV E max andrea: 71.1 cm/sec Lat Peak E' Andrea: 13.3 cm/sec Med Peak E' Andrea: 10.1 cm/sec MV A max andrea: 50.8 cm/sec E/E' lat: 5.3 E/E' med: 7.1 MV E/A: 1.4 Ao V2 max: 118.5 cm/sec LV V1 max: 103.3 cm/sec PA V2 max: 92.9 cm/sec Ao max P.6 mmHg LV V1 max P.3 mmHg TR max andrea: 264.0 cm/sec TR max P.9 mmHg Interpretation Summary Mild concentric left ventricular hypertrophy. The estimated ejection fraction is 65 %. Normal diastology for age. The left atrium is mildly enlarged. Trivial mitral valve insufficiency. Trivial tricuspid valve insufficiency. Right ventricular systolic pressure estimated to be 33 mmHg. There is no comparison study available. Ordering Physician: Ingrid Villa Referring Physician: Ish Rasmussen Performed By: Lucía Devine, LONG, RVT
[2019-05-20 15:07] LABS: Cholesterol 125 mg/dL (200); High Density Lipoprotein 23 mg/dL; Triglycerides 176 mg/dL; Very Low Density Lipoprotein 35 mg/dL (5-40)
[2019-05-20] MEDS: Lisinopril 40 MG Tablet PO (16:27)
[2019-05-20 17:21] LABS: Bedside Glucose 208 mg/dL (70-110)
[2019-05-20] MEDS: MELATONIN 10 MG TABLET PO (22:16)
[2019-05-20 22:26] LABS: Bedside Glucose 242 mg/dL (70-110)
[2019-05-21] VITALS (8 sets, daily range): BP systolic 124–177; BP diastolic 58–109; PULSE 62–69; RESP 16–30; TEMP 36.3–36.8; O2SAT 95–99
[2019-05-21 05:45] LABS: Absolute Lymphocyte Count 3.19 X10^3/uL (0.83-4.51); Absolute Neutrophil Count 3.2 X10^3/uL (2.0-7.7); Basophil# 0.05 X10^3/uL; Basophil% 0.7 % (0-1); Eosinophil# 0.13 X10^3/uL; Eosinophils% 1.8 % (0-5); Hematocrit 47.8 % (40-54); Hemoglobin 15.9 g/dL (13.0-16.5); Lymphocyte # 3.19 X10^3/ul (4.0); Lymphocyte % 44.6 % (19-41); Mean Corp Hgb Conc 33.3 g/dL (32-36); Mean Corpuscular Hgb 28.5 pg (27.0-32.0); Mean Corpuscular Volume 85.7 fL (80-94); Mean Platelet Vol. 9.7 fl (6.2-12.0); Monocyte# 0.55 X10^3/uL; Monocyte% 7.7 % (0-10); NRBC Flagged by Analyzer 0 % (0-5); Neutrophil # 3.22 X10^3/uL (2.7-7.7); Neutrophil % 44.9 % (47-70); Platelet Count 178 K/mm3 (150-450); RBC Distribution Width SD 39.9 fl (35.1-43.9); Red Blood Count 5.58 M/mm3 (4.6-6.2); White Blood Count 7.2 K/mm3 (4.4-11.0)
[2019-05-21 05:55] LABS: Anion Gap 5 (5-15); BUN 16 mg/dL (7-18); BUN/Creat Ratio 17.3 RATIO (10-20); Calcium,Total 8.6 mg/dL (8.5-10.1); Chloride 106 mmol/L (98-107); Creatinine, Serum 0.92 mg/dL (0.70-1.30); EST Glomerular Filtration Rate 95 mL/min (>60); Est Glom Filt Rate - Afr Amer 115 mL/min (>60); Glucose 209 mg/dL (74-106); Potassium 4.2 mmol/L (3.5-5.1); Sodium Level 137 mmol/L (136-145)
--- NOTE | 2019-05-21 05:55 | EKG12_ITS ---
Test Reason : AM EKG Blood Pressure : / mmHG Vent. Rate : 057 BPM Atrial Rate : 057 BPM P-R Int : 150 ms QRS Dur : 084 ms QT Int : 432 ms P-R-T Axes : 035 082 054 degrees QTc Int : 420 ms Sinus bradycardia Otherwise normal ECG When compared with ECG of 20-MAY-2019 14:00, MANUAL COMPARISON REQUIRED, DATA IS UNCONFIRMED Confirmed by SOLE FLANNERY, LUCAS ([id number]), offline editor GILES WING ([id number]) on 05/26/2019 8:41:35 AM Referred By: DR TRACEY Confirmed By:LUCAS WHIPPLE MD
[2019-05-21] MEDS: Aspirin 81 MG TAB.CHEW PO (06:22)
[2019-05-21] MEDS: Lisinopril 40 MG Tablet PO (06:22)
--- NOTE | 2019-05-21 08:32 | NURSING ---
Pt taken for stress test by Kaley REYES.
[2019-05-21 09:55] LABS: Bedside Glucose 218 mg/dL (70-110)
[2019-05-21] MEDS: hydroCHLOROthiazide 25 MG Tablet PO (11:03)
[2019-05-21] MEDS: Gabapentin 300 MG Capsule PO (11:03)
[2019-05-21 11:16] LABS: Bedside Glucose 215 mg/dL (70-110)
[2019-05-21] MEDS: Nitroglycerin (INPATIENT USE) 0.4 MG TAB.SUBL SUBLINGUAL (11:16)
--- NOTE | 2019-05-21 11:18 | NURSING ---
Pt c/o intense crushing chest pain. VS 149/101 HR74 RR18 SpO2 97% on RA. 2L N/C Oxygen applied. Pt then states I have a crushing headache in the back of my head. RT called for stat EKG. Dr. Villa notified and patient given PRN Nitro per her instruction. EKG show NSR. VS repeated 149/89 HR 79 RR18 SpO2 97% 2L n/c.
--- NOTE | 2019-05-21 12:01 | MRI_ITS ---
STUDY: MRI BRAIN WITH AND WITHOUT CONTRAST REASON FOR EXAM: Male, 43 years old. cva R facial droop, lethargy TECHNIQUE: Standardized multiplanar fat and water weighted pulse sequences were obtained. IV Dotarem 25ml was administered for the contrast portion of the examination. COMPARISON: CT brain May 20, 2019 FINDINGS: Normal size of the ventricles and extra-axial spaces for the patient''s age. Normal white matter tracts of the supratentorial brain. There is no evidence for recent intracranial ischemia or other cause of cytotoxic edema on diffusion weighted imaging (DWI). Normal bilateral basal ganglia. Normal thalami. There is no extra-axial fluid accumulation. Normal flow voids within the major intracranial circulation suggesting patency by spin echo criteria. Normal venous enhancement. There is no enhancing intra-axial or extra-axial abnormality. Normal sella turcica, pituitary gland, infundibular stalk, optic chiasm and hypothalamus. Normal tectal plate and pineal gland. Normal midbrain, constance and medulla. Normal cerebellum. Normal basal cisterns. Mastoid air cells on the left. Normal bilateral internal auditory canals. No demonstrated orbital abnormality, within the constraints of a routine brain study. Mucosal polyp or cyst left maxillary sinus. Normal calvarium and skull base. Normal visualized soft tissue structures. Normal visualized upper cervical spine. MRI/Brain W/WO Contrast IMPRESSION: No acute stroke. Left maxillary polyps and mastoid effusion. Electronically Signed: Yan Stephen MD at 16:10 EST , Service support ,
[2019-05-21] MEDS: Ketorolac 15 MG/ML Vial IV (12:15)
--- NOTE | 2019-05-21 13:48 | PN_ITS ---
<Elda Hill - Last Filed: 05/21/19 13:57> Subjective: Patient seen and examined. Complains of severe headache following stress test this morning. Also reports continued intermittent chest pain which was relieved by nitro. - Physical Exam Vitals/I&O's: Vital Signs Temp Pulse Resp BP Pulse Ox 97.4 F L 69 16 149/109 H 99 05/21/19 07:45 05/21/19 11:16 05/21/19 07:45 05/21/19 11:16 05/21/19 07:45 Oxygen Delivery Method Room Air Weight: 268 lb 1.314 oz Body Mass Index (BMI) 37.5 Finger Stick Blood Glucose 145 Intake and Output for Last 24 Hours 05/19/19 05/20/19 05/21/19 23:59 23:59 23:59 Intake Total 2572.5 / 2572.5 0 / 0 Output Total 300 / 300 Balance 2272.5 / 2272.5 0 / 0 General: Alert, Oriented x3, Cooperative HEENT: Atraumatic, PERRLA, EOMI, Normocephalic Neck: Supple, No JVD, Negative Carotid Bruits Lungs: Clear to auscultation, Normal air movement Cardiovascular: Regular rate, Regular Rhythm, Normal S1, Normal S2, No murmurs Abdomen: Bowel Sounds Present, Soft, Non Tender, Non-Distended Extremities: No clubbing, No cyanosis, No edema, Capillary Refill Less than 3 Seconds Skin: No rashes, No breakdown Musculoskeletal: No Tenderness to Palpation of Joints or Extremities Neurological: Cranial nerves II-XII grossly intact, Neuro grossly intact Psych/Mental Status: Normal Affect, Appropriate Microbiology Past 72 Hours 05/20/19 11:40 Mucosa - Nose Influenza Types A,B Direct FA (TIRSTEN) - Final Laboratory Results 05/20/19 11:40: Hemoglobin A1c 10.0 H 05/20/19 14:25: Troponin I < 0.015 05/20/19 14:25: Triglycerides 176, Cholesterol 125, LDL Cholesterol 67, VLDL Cholesterol 35, HDL Cholesterol 23 L 05/20/19 16:44: POC Glucose 208 H 05/20/19 17:07: Troponin I < 0.015 05/20/19 22:15: POC Glucose 242 H 05/21/19 05:17: WBC 7.2, RBC 5.58, Hgb 15.9, Hct 47.8, MCV 85.7, MCH 28.5, MCHC 33.3, RDW Std Deviation 39.9, RDW Coeff of Janiya 13.0, Plt Count 178, MPV 9.7, Immature Gran % (Auto) 0.300, Neut % (Auto) 44.9 L, Lymph % (Auto) 44.6 H, [place] % (Auto) 7.7, Eos % (Auto) 1.8, Baso % (Auto) 0.7, Absolute Neuts (auto) 3.2, Absolute Lymphs (auto) 3.19, Nucleated RBC % 0 05/21/19 05:17: Sodium 137, Potassium 4.2, Chloride 106, Carbon Dioxide 26.0, Anion Gap 5, BUN 16, Creatinine 0.92, Estim Creat Clear Calc 106.90, Est GFR (MDRD) Af Amer 115, Est GFR (MDRD) Non-Af 95, BUN/Creatinine Ratio 17.3, Glucose 209 H, Calcium 8.6 05/21/19 06:47: POC Glucose 218 H 05/21/19 11:05: POC Glucose 215 H Current Medications Acetaminophen (Tylenol Liquid) 650 mg PO Q4H PRN PRN PRN Reason: HEADACHE Aspirin (Aspirin, Baby) 81 mg PO DAILY@0800 [facility] Last Admin: 05/21/19 06:22 Dose: 81 mg Documented by: Enoxaparin Sodium (Lovenox) 40 mg SC DAILY [facility] Last Admin: 05/21/19 12:03 Dose: Not Given Documented by: Gabapentin (Neurontin) 300 mg PO DAILY@0800 [facility] Last Admin: 05/21/19 11:03 Dose: 300 mg Documented by: Glucagon () 1 mg IM .X1 PRN PRN Reason: Hypoglycemia Hydrochlorothiazide (Hctz) 25 mg PO DAILY [facility] Last Admin: 05/21/19 11:03 Dose: 25 mg Documented by: Dextrose (Dextrose 10%-Water) 250 mls @ 999 mls/hr IV .Q16M PRN; Protocol PRN Reason: HYPOGLYCEMIA Insulin Human Lispro (Humalog Kwikpen (Bkc)) 0 unit SC [facility]; Protocol Last Admin: 05/21/19 12:15 Dose: Not Given Documented by: Lisinopril (Zestril) 40 mg PO DAILY [facility] Last Admin: 05/21/19 06:22 Dose: 40 mg Documented by: Melatonin (Melatonin) 10 mg PO QHS [facility] Last Admin: 05/20/19 22:16 Dose: 10 mg Documented by: Nitroglycerin (Nitrostat) 0.4 mg SUBLINGUAL Q5M PRN PRN Reason: CHEST PAIN Last Admin: 05/21/19 11:16 Dose: 0.4 mg Documented by: Sodium Chloride () 10 - 40 ml IV UD PRN PRN Reason: SALINE FLUSH Medical Necessity - Tobacco Use Smoking Status: Never smoker Assessment/Plan All Active Problems Hypertensive urgency (Acute) Angina at rest (Acute) 1. Chest pain, rule out ACS-troponin negative. EKG without ST-T changes. Awaiting stress test results. Continue PRN nitro and daily aspirin. Echocardiogram demonstrated an EF of 65%. 2. Strokelike symptoms-resolved prior to ER. Family reports right-sided facial droop, slurred speech and bilateral upper extremity weakness which resolved prior to admission. Initiate aspirin, statin. Obtain MRI of brain. PT/OT/ST. 3. Hypertensive urgency-improved. Continue home HCTZ, lisinopril regimen. Hold on further BP reduction pending MRI. 4. Type 2 diabetes mellitus-oral regimen on hold. Accu-Cheks with sliding scale insulin. Check hemoglobin A1c. DVT prophylaxis-Lovenox subcu This patient was seen by ZARINA Olea under the supervision of Dr. Villa. <Ingrid Villa - Last Filed: 05/21/19 16:59> - Physical Exam Vitals/I&O's: Vital Signs Temp Pulse Resp BP Pulse Ox 98.3 F 65 18 140/78 H 96 05/21/19 13:45 05/21/19 13:45 05/21/19 13:45 05/21/19 13:45 05/21/19 13:45 Oxygen Delivery Method Room Air Weight: 268 lb 1.314 oz Body Mass Index (BMI) 37.5 Finger Stick Blood Glucose 145 Intake and Output for Last 24 Hours 05/19/19 05/20/19 05/21/19 23:59 23:59 23:59 Intake Total 2572.5 / 2572.5 0 / 0 Output Total 300 / 300 Balance 2272.5 / 2272.5 0 / 0 Microbiology Past 72 Hours 05/20/19 11:40 Mucosa - Nose Influenza Types A,B Direct FA (TRISTEN) - Final Laboratory Results 05/20/19 11:40: Hemoglobin A1c 10.0 H 05/20/19 16:44: POC Glucose 208 H 05/20/19 17:07: Troponin I < 0.015 05/20/19 22:15: POC Glucose 242 H 05/21/19 05:17: WBC 7.2, RBC 5.58, Hgb 15.9, Hct 47.8, MCV 85.7, MCH 28.5, MCHC 33.3, RDW Std Deviation 39.9, RDW Coeff of Janiya 13.0, Plt Count 178, MPV 9.7, Immature Gran % (Auto) 0.300, Neut % (Auto) 44.9 L, Lymph % (Auto) 44.6 H, [place] % (Auto) 7.7, Eos % (Auto) 1.8, Baso % (Auto) 0.7, Absolute Neuts (auto) 3.2, Absolute Lymphs (auto) 3.19, Nucleated RBC % 0 05/21/19 05:17: Sodium 137, Potassium 4.2, Chloride 106, Carbon Dioxide 26.0, Anion Gap 5, BUN 16, Creatinine 0.92, Estim Creat Clear Calc 106.90, Est GFR (MDRD) Af Amer 115, Est GFR (MDRD) Non-Af 95, BUN/Creatinine Ratio 17.3, Glucose 209 H, Calcium 8.6 05/21/19 05:17: Hemoglobin A1c 10.2 H 05/21/19 06:47: POC Glucose 218 H 05/21/19 11:05: POC Glucose 215 H Assessment/Plan Patient seen by ZARINA Olea under my supervision. Patient seen and examined. He was stable at time of review. He was seen after he had a stress test. Subsequently complained of some mild headache. Review systems otherwise negative. Family is complaining that he has strokelike symptoms mainly facial droop which resolved by the time he came in. Labs and vitals reviewed. o/e: Vital Signs Height 5 ft 10.87 in Weight: 268 lb 1.314 oz Weight in Pounds 268.1 lbs Pulse Ox 96 Temperature 98.3 F Pulse Rate 65 Respiratory Rate 18 Blood Pressure [BP] 141/81 Blood Pressure 140/78 Blood Pressure Position [BP] Right Lateral Blood Pressure Position Semi-Fowlers General: Alert, Oriented x3, Cooperative HEENT: Atraumatic, PERRLA, EOMI, Normocephalic Neck: Supple, No JVD, Negative Carotid Bruits Lungs: Clear to auscultation, Normal air movement Cardiovascular: Regular rate, Regular Rhythm, Normal S1, Normal S2, No murmurs Abdomen: Bowel Sounds Present, Soft, Non Tender, Non-Distended Extremities: No clubbing, No cyanosis, No edema, Capillary Refill Less than 3 Seconds Skin: No rashes, No breakdown Musculoskeletal: No Tenderness to Palpation of Joints or Extremities Neurological: Cranial nerves II-XII grossly intact, Neuro grossly intact Psych/Mental Status: Normal Affect, Appropriate Plan is to get MRI of the brain to evaluate. CT of the brain was negative for stroke. A1c is 10 so we will add on Lantus 10 units daily to his regimen in addition to the metformin and glimepiride. If MRI is negative, will discharge patient home. Blood pressure is also trended down to his continue his hydrochlorothiazide and lisinopril, counseled on compliance. Rest of management as per ZARINA Olea's notes which I have reviewed and endorsed. Code Visit OBSV E&M: 87808 Subsequent observation care L2
--- NOTE | 2019-05-21 14:09 | STRESSREP_ITS ---
Stress Test Report Date: 05/21/2019 Procedure: Pharmacologic stress nuclear imaging study Indications: Chest pain Consent: Per the patient Procedure: The patient underwent pharmacologic (Regadenoson) evaluation with a peak heart rate of 78 beats per minute (44 %predicted maximal heart rate) and a peak blood pressure of 146/102 mmHg. The baseline ECG demonstrated normal sinus rhythm. EKG during lexiscan infusion revealed no significant ischemic changes. EKG post infusion revealed no significant ischemic changes [There were no cardiac dysrhythmias pretest, during pharmacologic infusion, or recovery]. [There was no complaint of chest discomfort during pharmacologic infusion or recovery]. The examination was discontinued secondary to completion of protocol. Impression: 1. Lexiscan stress test test is negative for Lexiscan infusion induced EKG changes of ischemia. 2. Lexiscan stress test test is negative for Lexiscan infusion induced chest pain. 3. Results of the nuclear portion of the test is as below Myocardial perfusion imaging study: Technique: The patient was injected with [] millicuries of technetium 99m Cardiolite and subsequently rest SPECT Cardiolite nuclear imaging was obtained in the horizontal long, vertical long, and short axis views. The patient underwent pharmacologic (Regadenoson) evaluation. Please see above for details. The patient was injected with [] millicuries of technetium 99m Cardiolite and subsequently stress SPECT Cardiolite nuclear imaging was obtained in the horizontal long, vertical long, and short axis views. A gated Cardiolite study at peak stress was obtained. Interpretation: Rest and stress SPECT Cardiolite nuclear imaging status post realignment, normalization, and attenuation correction demonstrate more myocardial radioisotope uptake on the rest and stress images after attenuation correction. Gated images reveal no significant regional wall motion abnormalities. The reported LVEF is 58 %. Impression: 1. There is no evidence of significant ischemia or infarction. 2. Estimated ejection fraction is 58%. This note was generated with [employer] software. It may contain incorrect words, spelling, and punctuation that were not noted in checking the note before signing.
[2019-05-21 14:49] LABS: Hemoglobin A1c 10.2 % (4.2-6.3)
--- NOTE | 2019-05-21 15:17 | EKG12_ITS ---
Test Reason : CP Blood Pressure : / mmHG Vent. Rate : 063 BPM Atrial Rate : 063 BPM P-R Int : 150 ms QRS Dur : 082 ms QT Int : 406 ms P-R-T Axes : 045 080 034 degrees QTc Int : 415 ms Normal sinus rhythm Normal ECG When compared with ECG of 21-MAY-2019 05:34, MANUAL COMPARISON REQUIRED, DATA IS UNCONFIRMED Confirmed by SOLE FLANNERY, LUCAS ([id number]), supervising editor trailer GILES WING ([id number]) on 05/26/2019 8:56:32 AM Referred By: KYUNG Confirmed By:LUCAS WHIPPLE MD
--- NOTE | 2019-05-21 16:17 | DCINST_ITS ---
You will use the following diet at home:: Calorie/Carbohydrate Controlled (specify 1200, 1400, etc) Discharge Activity: Return to Normal Activity Call your doctor if you observe: Shortness of breath, Dizziness, Fainting spells, Chest pain Additional Instructions: Your hemoglobin A1c was noted to be 10.2% and you were placed on long-acting insulin. You will need to check your blood glucose at least twice daily and follow closely with primary care provider to titrate insulin to reach target hemoglobin A1c. Allergies/Adverse Reactions: Allergies Penicillins Allergy (Verified 05/20/19 11:29) Other Medications to take at Discharge Hydrochlorothiazide [Hctz] 25 mg PO DAILY #30 tablet 07/19/15 Lisinopril [Zestril] 40 mg PO DAILY #30 tablet 07/19/15 metFORMIN HCl [Glucophage] 1,000 mg PO BIDCM 03/19/16 Ibuprofen [Motrin] 600 mg PO Q6H PRN PRN #20 tab 04/09/19 Aspirin 81 mg PO DAILY 05/20/19 Gabapentin [Neurontin] 300 mg PO DAILY 05/20/19 Glimepiride 2 mg PO DAILY 05/20/19 Melatonin 10 mg PO QHS 05/20/19 Insulin Glargine [Lantus SoloStar Pen] 10 units SUBCUT BID #1 box 05/21/19 The following prescriptions were given: Insulin Glargine [Lantus SoloStar Pen] 10 units SUBCUT BID #1 box Transmission Status: Pending to [facility] Orders to be completed after discharge: Glucometer Location: None Selected Primary Care Physician: Ish Rasmussen MD [Primary Care Provider] - Please follow up with your Primary Care Physician in: 3-5 Days Test Results: Test results from this visit will be discussed in further detail at your follow- up appointment, if applicable. Proposed Discharge Date: 05/21/19
--- NOTE | 2019-05-21 16:20 | DS.PCM_ITS ---
<Elda Hlil - Last Filed: 05/21/19 16:26> Discharge Date and Diagnosis Date of Admission: 05/20/19 Date of Discharge: 05/21/19 - Primary Discharge Diagnosis 1. Atypical chest pain, ACS ruled out 2. Strokelike symptoms, CVA ruled out-possible atypical migraine 3. Hypertensive urgency 4. Type 2 diabetes mellitus, poorly controlled - Secondary Discharge Diagnosis Chronic Problems Non-compliant patient (Chronic) Diabetes mellitus (Chronic) HTN (hypertension) (Chronic) Hospital Course and Treatment Imaging Results: Diagnostic Data Chest X-Ray 05/20/19 11:36 IMPRESSION: Cardiomegaly. Electronically Signed: Nicanor Suh, at 12:25 EST , Service support , Brain CT 05/20/19 11:55 IMPRESSION: Normal unenhanced CT scan of the brain. Electronically Signed: Nicanor Suh, at 12:20 EST , Service support , Brain MRI 05/21/19 12:01 IMPRESSION: No acute stroke. Left maxillary polyps and mastoid effusion. Electronically Signed: Yan Stephen MD at 16:10 EST , Service support , Operations: None Procedures: 2-D Echocardiogram, Stress test Summary of Care Provided: The patient is a 43 year old M admitted 05/20/2019 due to chest pain and weakness. 1. Chest pain, ACS ruled out-troponin negative. EKG without ST-T changes. Stress test negative for ischemia. Echocardiogram demonstrated an EF of 65%. Chest pain possibly due to hypertensive urgency versus anxiety related. Follow- up with primary care provider in 3 to 5 days. 2. Strokelike symptoms-resolved prior to ER. Family reports right-sided facial droop, slurred speech and bilateral upper extremity weakness which resolved prior to admission. Brain CT and MRI of brain unremarkable. Possible atypical migraine? Follow-up with primary care provider as noted above. 3. Hypertensive urgency-improved. Continue home HCTZ, lisinopril regimen. Blood pressure improved and no further medication adjustments were made at this time. Recommend patient check blood pressure twice daily at home and report findings to primary care provider at follow-up. 4. Type 2 diabetes mellitus- Hemoglobin A1c 10.2%. Continue home oral regimen. Additionally started on Lantus 10 units twice daily with further titration as outpatient to reach target hemoglobin A1c. General: Alert, Oriented x3, Cooperative HEENT: Atraumatic, PERRLA, EOMI, Normocephalic Neck: Supple, No JVD, Negative Carotid Bruits Lungs: Clear to auscultation, Normal air movement Cardiovascular: Regular rate, Regular Rhythm, Normal S1, Normal S2, No murmurs Abdomen: Bowel Sounds Present, Soft, Non Tender, Non-Distended Extremities: No clubbing, No cyanosis, No edema, Capillary Refill Less than 3 Seconds Skin: No rashes, No breakdown Musculoskeletal: No Tenderness to Palpation of Joints or Extremities Neurological: Cranial nerves II-XII grossly intact, Neuro grossly intact Psych/Mental Status: Normal Affect, Appropriate Patient seen and examined prior to discharge. Physical assessment as noted above. Patient is stable for discharge with follow up recommendations as noted above. This patient was seen by ZARINA Olea under the supervision of Dr. Villa. - Physical Exam Vitals/I&O's: Vital Signs Temp Pulse Resp BP Pulse Ox 98.3 F 65 18 140/78 H 96 05/21/19 13:45 05/21/19 13:45 05/21/19 13:45 05/21/19 13:45 05/21/19 13:45 Oxygen Delivery Method Room Air Weight: 268 lb 1.314 oz Body Mass Index (BMI) 37.5 Finger Stick Blood Glucose 145 Intake and Output for Last 24 Hours 05/19/19 05/20/19 05/21/19 23:59 23:59 23:59 Intake Total 2572.5 / 2572.5 0 / 0 Output Total 300 / 300 Balance 2272.5 / 2272.5 0 / 0 Microbiology Past 72 Hours 05/20/19 11:40 Mucosa - Nose Influenza Types A,B Direct FA (TRISTEN) - Final Laboratory Results 05/20/19 11:40: Hemoglobin A1c 10.0 H 05/20/19 16:44: POC Glucose 208 H 05/20/19 17:07: Troponin I < 0.015 05/20/19 22:15: POC Glucose 242 H 05/21/19 05:17: WBC 7.2, RBC 5.58, Hgb 15.9, Hct 47.8, MCV 85.7, MCH 28.5, MCHC 33.3, RDW Std Deviation 39.9, RDW Coeff of Janiya 13.0, Plt Count 178, MPV 9.7, Immature Gran % (Auto) 0.300, Neut % (Auto) 44.9 L, Lymph % (Auto) 44.6 H, [place] % (Auto) 7.7, Eos % (Auto) 1.8, Baso % (Auto) 0.7, Absolute Neuts (auto) 3.2, Absolute Lymphs (auto) 3.19, Nucleated RBC % 0 05/21/19 05:17: Sodium 137, Potassium 4.2, Chloride 106, Carbon Dioxide 26.0, Anion Gap 5, BUN 16, Creatinine 0.92, Estim Creat Clear Calc 106.90, Est GFR (MDRD) Af Amer 115, Est GFR (MDRD) Non-Af 95, BUN/Creatinine Ratio 17.3, Glucose 209 H, Calcium 8.6 05/21/19 05:17: Hemoglobin A1c 10.2 H 05/21/19 06:47: POC Glucose 218 H 05/21/19 11:05: POC Glucose 215 H Current Medications Acetaminophen (Tylenol Liquid) 650 mg PO Q4H PRN PRN PRN Reason: HEADACHE Aspirin (Aspirin, Baby) 81 mg PO DAILY@0800 [facility] Last Admin: 05/21/19 06:22 Dose: 81 mg Documented by: Atorvastatin Calcium (Lipitor) 80 mg PO QHS [facility] Enoxaparin Sodium (Lovenox) 40 mg SC DAILY [facility] Last Admin: 05/21/19 12:03 Dose: Not Given Documented by: Gabapentin (Neurontin) 300 mg PO DAILY@0800 [facility] Last Admin: 05/21/19 11:03 Dose: 300 mg Documented by: Glucagon () 1 mg IM .X1 PRN PRN Reason: Hypoglycemia Hydrochlorothiazide (Hctz) 25 mg PO DAILY [facility] Last Admin: 05/21/19 11:03 Dose: 25 mg Documented by: Dextrose (Dextrose 10%-Water) 250 mls @ 999 mls/hr IV .Q16M PRN; Protocol PRN Reason: HYPOGLYCEMIA Insulin Glargine (Lantus (Bk)) 10 units SC BID [facility] Insulin Human Lispro (Humalog Kwikpen (Bk)) 0 unit SC ACHS [facility]; Protocol Last Admin: 05/21/19 12:15 Dose: Not Given Documented by: Lisinopril (Zestril) 40 mg PO DAILY [facility] Last Admin: 05/21/19 06:22 Dose: 40 mg Documented by: Melatonin (Melatonin) 10 mg PO QHS [facility] Last Admin: 05/20/19 22:16 Dose: 10 mg Documented by: Nitroglycerin (Nitrostat) 0.4 mg SUBLINGUAL Q5M PRN PRN Reason: CHEST PAIN Last Admin: 05/21/19 11:16 Dose: 0.4 mg Documented by: Sodium Chloride () 10 - 40 ml IV UD PRN PRN Reason: SALINE FLUSH Discharge Diet: Carb Control Diet Discharge Activity: Return to Normal Activity Call your doctor if you observe: Shortness of breath, Dizziness, Fainting spells, Chest pain Home Medications: Medications to take at Discharge Hydrochlorothiazide [Hctz] 25 mg PO DAILY #30 tablet 07/19/15 Lisinopril [Zestril] 40 mg PO DAILY #30 tablet 07/19/15 metFORMIN HCl [Glucophage] 1,000 mg PO BIDCM 03/19/16 Ibuprofen [Motrin] 600 mg PO Q6H PRN PRN #20 tab 04/09/19 Aspirin 81 mg PO DAILY 05/20/19 Gabapentin [Neurontin] 300 mg PO DAILY 05/20/19 Glimepiride 2 mg PO DAILY 05/20/19 Melatonin 10 mg PO QHS 05/20/19 Insulin Glargine [Lantus SoloStar Pen] 10 units SUBCUT BID #1 box 05/21/19 Following Prescrptions Were Given to Patient: Insulin Glargine [Lantus SoloStar Pen] 10 units SUBCUT BID #1 box Transmission Status: Received by [facility] Other Amb Orders: Glucometer Location: None Selected Primary Care Physician: Ish Rasmussen MD [Primary Care Provider] - Please follow up with your Primary Care Physician in: 3-5 Days Disposition: Home Minutes spent on discharge:: 35 Patient Condition:: Stable Medical Necessity - Tobacco Use Smoking Status: Never smoker Meaningful Use Info Meaningful Use Diagnoses (Choose all that apply): None applicable <Ingrid Villa - Last Filed: 05/21/19 16:49> Discharge Date and Diagnosis - Secondary Discharge Diagnosis Chronic Problems Non-compliant patient (Chronic) Diabetes mellitus (Chronic) HTN (hypertension) (Chronic) Hospital Course and Treatment Imaging Results: 05/21/19 12:01 MRI Brain [Brain W/WO Contrast] [MRI] Stat Summary of Care Provided: Patient seen by Elda SRINIVASAN under my supervision The patient is a 43 year old M who was admitted with a complaint of chest pain and weakness. Chest pain was mainly right-sided and started on morning of admission. He had assisted nausea, lightheadedness and dizziness for last palpitations. Patient had been under a lot of stress because he had custody of his nephew who had ADHD and other mental health disorders that he found caring for him very stressful. He was admitted and managed for chest pain rule out ACS. Troponins x3 were negative and EKG showed no acute ST changes. He had a stress test on 05/21/2019 which was negative for ischemia and a 2D echo done showed EF of 65% with mild left ventricular concentric hypertrophy. On admission, patient was noted to have markedly elevated blood pressure was also managed for hypertensive urgency. Blood pressure gradually trended down. He was to continue his home hydrochlorothiazide and lisinopril and counseled to be compliant with his medication. Family also complained that patient had some strokelike symptoms at home which included right facial droop and slurred speech as well as bilateral upper extremity weakness which had resolved prior to admission. CT of the brain was ordered which showed no acute intracranial process. MRI of the brain was also ordered which showed no evidence of acute stroke and showed left maxillary polyps and mastoid effusion. Patient remained stable and was discharged home on 05/21/2019. Of note, his A1c was 10. He was on metformin and glimepiride. Patient was started on Lantus 10 units daily. . He is to follow up with his PCP, and is to be referred to an senior pricing analyst for management of his diabetes. Patient seen and examined prior to discharge. Chest pain hadnt recurred, and he denied any dizziness, lightheadedness, chest pain or palpitations, abdominal pain, diarrhea vomiting. Review of symptoms otherwise negative. Labs and vitals reviewed. Home medication reviewed and reconciled. o/e: Vital Signs Height 5 ft 10.87 in Weight: 268 lb 1.314 oz Weight in Pounds 268.1 lbs Pulse Ox 96 Temperature 98.3 F Pulse Rate 65 Respiratory Rate 18 Blood Pressure [BP] 141/81 Blood Pressure 140/78 Blood Pressure Position [BP] Right Lateral Blood Pressure Position Semi-Fowlers [] General: Alert, Oriented x3, Cooperative, No apparent distress HEENT: Atraumatic, PERRLA, EOMI, Normocephalic Oral: Moist Mucosa Neck: Supple, No JVD, Negative Carotid Bruits Lungs: Clear to auscultation, Normal air movement, No rhonchi, No wheeze, No rales Cardiovascular: Regular rate, Regular Rhythm, Normal S1, Normal S2, No murmurs Abdomen: Bowel Sounds Present, Soft, Non Tender, Non-Distended, No Hepato- splenomegaly Extremities: No clubbing, No cyanosis, No edema, Capillary Refill Less than 3 Seconds Skin: No rashes, No breakdown Musculoskeletal: No Tenderness to Palpation of Joints or Extremities Lymphatic: No Cervical, Supraclavicular, or Inguinal Adenopathy Neurological: Cranial nerves II-XII grossly intact, Neuro grossly intact, Motor Exam 5/5 strength throughout Psych/Mental Status: Normal Affect, Appropriate, Alert and oriented to time, place, person, mood and affect Plan is for dc home today. - Physical Exam Vitals/I&O's: Vital Signs Temp Pulse Resp BP Pulse Ox 98.3 F 65 18 140/78 H 96 05/21/19 13:45 05/21/19 13:45 05/21/19 13:45 05/21/19 13:45 05/21/19 13:45 Oxygen Delivery Method Room Air Weight: 268 lb 1.314 oz Body Mass Index (BMI) 37.5 Finger Stick Blood Glucose 145 Intake and Output for Last 24 Hours 05/19/19 05/20/19 05/21/19 23:59 23:59 23:59 Intake Total 2572.5 / 2572.5 0 / 0 Output Total 300 / 300 Balance 2272.5 / 2272.5 0 / 0 Microbiology Past 72 Hours 05/20/19 11:40 Mucosa - Nose Influenza Types A,B Direct FA (TRISTEN) - Final Laboratory Results 05/20/19 11:40: Hemoglobin A1c 10.0 H 05/20/19 16:44: POC Glucose 208 H 05/20/19 17:07: Troponin I < 0.015 05/20/19 22:15: POC Glucose 242 H 05/21/19 05:17: WBC 7.2, RBC 5.58, Hgb 15.9, Hct 47.8, MCV 85.7, MCH 28.5, MCHC 33.3, RDW Std Deviation 39.9, RDW Coeff of Janiya 13.0, Plt Count 178, MPV 9.7, Immature Gran % (Auto) 0.300, Neut % (Auto) 44.9 L, Lymph % (Auto) 44.6 H, Licking % (Auto) 7.7, Eos % (Auto) 1.8, Baso % (Auto) 0.7, Absolute Neuts (auto) 3.2, Absolute Lymphs (auto) 3.19, Nucleated RBC % 0 05/21/19 05:17: Sodium 137, Potassium 4.2, Chloride 106, Carbon Dioxide 26.0, Anion Gap 5, BUN 16, Creatinine 0.92, Estim Creat Clear Calc 106.90, Est GFR (MDRD) Af Amer 115, Est GFR (MDRD) Non-Af 95, BUN/Creatinine Ratio 17.3, Glucose 209 H, Calcium 8.6 05/21/19 05:17: Hemoglobin A1c 10.2 H 05/21/19 06:47: POC Glucose 218 H 05/21/19 11:05: POC Glucose 215 H Current Medications Acetaminophen (Tylenol Liquid) 650 mg PO Q4H PRN PRN PRN Reason: HEADACHE Aspirin (Aspirin, Baby) 81 mg PO DAILY@0800 [facility] Last Admin: 05/21/19 06:22 Dose: 81 mg Documented by: Atorvastatin Calcium (Lipitor) 80 mg PO QHS [facility] Enoxaparin Sodium (Lovenox) 40 mg SC DAILY [facility] Last Admin: 05/21/19 12:03 Dose: Not Given Documented by: Gabapentin (Neurontin) 300 mg PO DAILY@0800 [facility] Last Admin: 05/21/19 11:03 Dose: 300 mg Documented by: Glucagon () 1 mg IM .X1 PRN PRN Reason: Hypoglycemia Hydrochlorothiazide (Hctz) 25 mg PO DAILY [facility] Last Admin: 05/21/19 11:03 Dose: 25 mg Documented by: Dextrose (Dextrose 10%-Water) 250 mls @ 999 mls/hr IV .Q16M PRN; Protocol PRN Reason: HYPOGLYCEMIA Insulin Glargine (Lantus (Bk)) 10 units SC BID [facility] Insulin Human Lispro (Humalog Kwikpen ([facility])) 0 unit SC ACHS [facility]; Protocol Last Admin: 05/21/19 12:15 Dose: Not Given Documented by: Lisinopril (Zestril) 40 mg PO DAILY [facility] Last Admin: 05/21/19 06:22 Dose: 40 mg Documented by: Melatonin (Melatonin) 10 mg PO QHS [facility] Last Admin: 05/20/19 22:16 Dose: 10 mg Documented by: Nitroglycerin (Nitrostat) 0.4 mg SUBLINGUAL Q5M PRN PRN Reason: CHEST PAIN Last Admin: 05/21/19 11:16 Dose: 0.4 mg Documented by: Sodium Chloride () 10 - 40 ml IV UD PRN PRN Reason: SALINE FLUSH Code Visit OBSV E&M: 92538 Observation care discharge
--- NOTE | 2019-05-22 09:45 | CASEMGMT ---
ACNDIDO MONTERO NOTE: Per Elda Hill NP, pt was discharged home yesterday with new prescription for Lantus, but [facility] pharmacist states pt did not parts picker d/t cost of medication was approx $180. Per [place] 2020 Formulary website, Lantus Solostar is a preferred product and is Tier 2. Call placed to Mor pharmacist @ [facility] pharmacy, and he confirms Lantus is a preferred product and cost of Lantus is $167.90 and this amt is going towards pt's deductible. He states no other preferred products listed. Call placed to pt and he was made aware Lantus is a preferred product and that the $167.90 is going towards his deductible. He was also made aware there is not another product that would be cheaper. Pt provided with [facility] contact info: website and phone number. Pt stated he appreciated the information. Lizeth CADENA RN, CM
== END 2019-05-21 16:47 | disposition home or self-care (01) ==
LOC: ED 12:48 → PCU 13:09
PROVIDERS: Nurse Practitioner Family; Admitting Provider Student in an Organized Health Care Education/Training Program; Emergency Provider Emergency Medicine; PCP Family Medicine; Visit Provider Student in an Organized Health Care Education/Training Program
DX: R07.89 Other chest pain (principal); I16.0 Hypertensive urgency; I10 Essential (primary) hypertension; R53.1 Weakness; R47.81 Slurred speech; R29.810 Facial weakness; E11.65 Type 2 diabetes mellitus with hyperglycemia; Z91.19 Patient's noncompliance with other medical treatment and regimen; Z79.899 Other long term (current) drug therapy; Z79.84 Long term (current) use of oral hypoglycemic drugs; Z79.82 Long term (current) use of aspirin; Z86.718 Personal history of other venous thrombosis and embolism
CPT/HCPCS: 36415; 70450; 70553; 71045; 78452; 80048; 80061; 82962; 83036; 84484; 85025; 85379; 87804; 93005; 93017; 93306; 96361; 96374; 96375; 99218; 99285; A9500; A9575; J7030; Q9957; A4216; G0378; J2785

== ENCOUNTER → 2020-07-18 06:41 | Outpatient (CLI) | payer MEDICAID, SELFPAY ==
[2020-05-02 09:29] VITALS: BMI 36.9
--- NOTE | 2020-07-18 06:51 | CT_ITS ---
STUDY: CT SCAN LOWER EXTREMITY LEFT REASON FOR EXAM: Male, [address] templating for TKA RADIATION DOSAGE (If Supplied By Facility): CTDIvol = ( 20.10 ) mGy, DLP = ( 1189.61 ) mGycm. Individualized dose optimization techniques were used for this CT.? TECHNIQUE: Multiple axial tomographic images of the left lower extremity was obtained without intravenous contrast administration. COMPARISON: None. FINDINGS: Imaging of the left hip was obtained. There is evidence of a bony spur along the anterior aspect of the left acetabulum. The joint space is unremarkable. Imaging of the knee joint was obtained. There is a mild degree of joint space narrowing involving the medial compartment of the knee joint with degenerative spur formation of the distal femoral condyle as well as the proximal medial tibial plateau. There is a moderate degree of joint space narrowing involving the lateral knee joint as well as spur formation of the distal lateral femoral condyle and lateral tibial plateau. There is also evidence of a 5.6 mm osteochondral defect along the lateral tibial plateau. There is evidence of prior anterior cruciate ligament repair. Mild degree of a joint space narrowing involving the femoral patellar joint with the spur formation. No significant effusion is seen. Imaging of the ankle joint was performed as well. There is evidence of an old avulsion fracture of the medial malleolus. The joint spaces well-maintained. Well corticated bony densities are seen within the Achilles tendon. CT/Extremity Lower without Contra IMPRESSION: Degenerative changes of the knee joint as described with evidence of prior anterior cruciate ligament repair. Electronically Signed: Nicanor Suh MD at 8:14 EDT , Service support ,
== END ==
PROVIDERS: PCP Family Medicine; Referring Provider Orthopaedic Surgery; Visit Provider Orthopaedic Surgery
DX: M17.12 Unilateral primary osteoarthritis, left knee (principal)
CPT/HCPCS: 73700

== ENCOUNTER 2020-07-26 05:22 | Day surgery (SDC) | payer MEDICAID, SELFPAY ==
[2020-05-02 09:29] VITALS: BMI 36.9
--- NOTE | 2020-07-18 06:52 | EKG12_ITS ---
Test Reason : REOP Blood Pressure : / mmHG Vent. Rate : 062 BPM Atrial Rate : 062 BPM P-R Int : 154 ms QRS Dur : 080 ms QT Int : 396 ms P-R-T Axes : 033 067 035 degrees QTc Int : 401 ms Normal sinus rhythm Poor R wave progression Confirmed by ANGELICA FLANNERY, PERNELL ([id number]), editor index GILES WING ([id number]) on 07/19/2020 10:44:17 AM Referred By: Jorge Alberto Ivan Confirmed By:PERNELL DOMINGUEZ MD
[2020-07-18 07:01] LABS: Absolute Neutrophil Count 6.2 X10^3/uL (2.0-7.7); Basophil# 0.06 X10^3/uL; Basophil% 0.6 % (0-1); Eosinophil# 0.14 X10^3/uL; Eosinophils% 1.4 % (0-5); Hematocrit 47.5 % (40-54); Hemoglobin 15.7 g/dL (13.0-16.5); Lymphocyte % 31.2 % (19-41); Mean Corp Hgb Conc 33.1 g/dL (32-36); Mean Corpuscular Hgb 28.2 pg (27.0-32.0); Mean Corpuscular Volume 85.3 fL (80-94); Mean Platelet Vol. 9.5 fl (6.2-12.0); Monocyte# 0.66 X10^3/uL; Monocyte% 6.4 % (0-10); NRBC Flagged by Analyzer 0 % (0-5); Neutrophil # 6.17 X10^3/uL (2.7-7.7); Platelet Count 200 K/mm3 (150-450); RBC Distribution Width CV 13.2 % (11.6-14.6); RBC Distribution Width SD 41.2 fl (35.1-43.9); Red Blood Count 5.57 M/mm3 (4.6-6.2); White Blood Count 10.3 K/mm3 (4.4-11.0)
[2020-07-18 07:12] LABS: International Normalized Ratio 1.1; Partial Thromboplast Time 27.7 Seconds (24.1-36.2); Prothrombin Time (Protime)PT. 13.6 SECONDS (11.7-14.9)
[2020-07-18 07:20] LABS: Hemoglobin A1c 6.1 % (3.8-5.6)
[2020-07-18 07:30] LABS: Anion Gap 7 (5-15); BUN 26 mg/dL (7-18); BUN/Creat Ratio 26.3 RATIO (10-20); Calcium,Total 8.9 mg/dL (8.5-10.1); Chloride 107 mmol/L (98-107); Creatinine, Serum 0.99 mg/dL (0.70-1.30); EST Glomerular Filtration Rate 87 mL/min (>60); Est Glom Filt Rate - Afr Amer 105 mL/min (>60); Glucose 100 mg/dL (74-106); Potassium 4.2 mmol/L (3.5-5.1); Sodium Level 137 mmol/L (136-145)
[2020-07-18 07:35] LABS: Magnesium 1.9 mg/dL (1.6-2.6)
[2020-07-19 11:14] LABS: Fructosamine 212 umol/L (0-285)
[2020-07-26] VITALS (11 sets, daily range): BP systolic 106–149; BP diastolic 51–88; PULSE 58–73; RESP 16–18; TEMP 36.1–36.7; O2SAT 96–100; BMI 36.3
[2020-07-26] MEDS: Lactated Ringers 1,000 ML 999 ML IV (06:07)
[2020-07-26] MEDS: Celecoxib 200 MG Capsule 400 MG PO (06:07)
[2020-07-26] MEDS: Gabapentin 600 MG Tablet PO (06:08)
[2020-07-26] MEDS: Scopolamine 1mg/72hr Patch 1 PATCH TD (06:08)
[2020-07-26] MEDS: Acetaminophen 500 MG Tablet 1000 MG PO ×2 (06:09→14:17)
--- NOTE | 2020-07-26 07:03 | HP.PCM_ITS ---
History and Physical Date of Admission: 07/26/20 Intake Intake Visit Reasons: LEFT KNEE Accompanied by: Self Is patient in pain?: Yes Allergies Penicillins Allergy (Verified 07/06/20 08:37) Other Medications Hydrochlorothiazide [Hctz] 25 mg PO DAILY #30 tab 07/19/15 [Rx Confirmed 07/06/20] Lisinopril [Zestril] 40 mg PO DAILY #30 tab 07/19/15 [Rx Confirmed 07/06/20] metFORMIN HCl [Glucophage] 1,000 mg PO BIDCM 03/19/16 [History Confirmed 07/06/20] Ibuprofen [Motrin] 600 mg PO Q6H PRN PRN #20 tab 04/09/19 [Rx Confirmed 07/06/20] Aspirin 81 mg PO DAILY 05/20/19 [History Confirmed 07/06/20] Gabapentin [Neurontin] 300 mg PO DAILY 05/20/19 [History Confirmed 07/06/20] Glimepiride 2 mg PO DAILY 05/20/19 [History Confirmed 07/06/20] cinnamon bark 500 mg capsule 1,000 mg PO BID cap 07/06/20 [History Confirmed 07/06/20] insulin glargine 100 unit/mL (3 mL) subcutaneous pen 30 unit SUBCUT BID ml 07/06/20 [History] metoprolol tartrate 50 mg tablet tablet PO 07/06/20 [History Confirmed 07/06/20] PFSH Social History (Updated 07/06/20 @ 10:[address] Jorge Alberto Ivan DO) Smoking Status: Never smoker HPI LEFT KNEE: Details: Parts of this documentation were recorded by a scribe, this documentation accurately reflects the service provided and the decisions made by me, Dr. Jorge Alberto Ivan DO 07/06/20 2245. 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 Last left knee x-ray: 05/02/20. Patient states his pain is all anterior, lateral, medial and posterior. Patient went to get out of his truck last week, missed the step and fell on his left hip. Patient voiced when ambulating, he hears a click. Patient voiced his knee does give out. Pain is worse in the morning and after work. Patient voiced he was told to return when his A1C was below 7.0, patient states he has it now at 6.8 and would like to discuss surgery. Patient hit his high glute when he fell last week. Meniscus surgery with his left knee previously. Ortho Exam General General: Yes no acute distress Neurologic: Yes alert Psychologic: Yes reasonable and appropriate Left Knee Knee ROM: No ROM-Extension -20 to 0 (15, contracture), No ROM-Flexion 0-140 KNEE: Left Knee Skin/Wound: Yes CDI, No ecchymosis, No erythema, No swelling Homans Sign: No Knee ROM: Yes ROM-Extension -20 to 0 (-15), Yes ROM-Flexion 0-140 (82) Examination: Yes med jt line tenderness, Yes Lat jt line tenderness, Yes TTP inf pole patella, Yes Crepitus, Yes Pain with flexion Stability: NML: Anterior Drawer, NML: Posterior Drawer, NML: Valgus 30, NML: Varus 30 Apprehension with Lateral Translation: No Patella Translation: 1 Patella Grind: Yes Left Hip HIP: HIP left : 25 degrees with external rotation, 40 degrees with internal rotation no groin pain no mass ecchymosis there is some soft tissue swelling posterior upper glutes with tenderness in this area only Supplemental Info 07/06/2020 x-ray left hip: Osteophytes posterior superior acetabulum with cam lesion no acute findings 05/02/2020 x-ray left knee:Status post ACL reconstruction with bony tunnels screws must be bio compositeAdvanced arthrosis medial patellofemoral moderate lateral 07/24/2018 [facility]: advanced cartilage wear throughout the knee with complex tear medial meniscus posterior horn status post ACL reconstruction with interference screws tibia and femur bio composite Assessment & Plan Problems 1. Primary osteoarthritis of left knee M17.12 2. Contusion of left hip, initial encounter S70.02XA Plan Personally reviewed the patient's medical history, medications, surgeries and recent exams if available. Obtained X-rays of patient's left hip. Personally reviewed X-rays. See chart for further details. Obtained recent blood work through Dr. Rasmussen's office. Explained patient has some arthritis present on his left hip x-ray. Explained it would be ideal for patient to have physical therapy prior to surgery to avoid stiffness post-op. Patient would like to proceed with surgery soon d/t an upcoming vacation. Patient can be provided as well with home exercises. Provided physical therapy order today. Risks, benefits and alternatives of surgery reviewed including but not limited to bleeding, infection, nerve, artery and/or tissue damage, fracture, VTE, mechanical feel of the knee, continued pain, stiffness and expected post- operative course. Explained on the severity of stiffness post-op, may have to do a manipulation. 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 Explained the Iovera treatment prior to surgery, to help with surgical pain and lower narcotic use. Patient would like to proceed. Patient will need a CT scan prior to surgery as well. All questions answered. Patient in agreement of plan. Follow up in post-op or sooner if pain, swelling, numbness or associated symptoms, or concerns develop. Orders Orders: HIP, UNI W/ Pelvis 2-3 Views Today M25.552 Coding Level of Care Code Off vis,est,level 3 Diagnoses Primary osteoarthritis of left knee M17.12 Contusion of left hip, initial encounter S70.02XA ??Encounter type: initial encounter I have re-examined the patient. There are no clinical changes since date of exam Procedure Criteria Procedure Type: Elective COVID Risk Discussion: The surgeon/proceduralist and patient have discussed in detail the risk of exposure to and/or potential harm posed by the COVID-19 virus with having a surgery/procedure at this time versus the risk of delaying the surgery/procedure. It is not possible to know either the risk of delaying the surgery or procedure or chance of getting an infection with perfect accuracy, but a joint decision was made between the patient and the surgeon/proceduralist to proceed at this time with the scheduled surgery/procedure as indicated on the consent form.
[2020-07-26 07:11] LABS: Bedside Glucose 100 mg/dL (70-110)
[2020-07-26] MEDS: Cefazolin 2 GM in 0.9% Normal Saline 100 ML IV (07:30)
[2020-07-26] MEDS: Bupivacaine Mpf 0.5% 30 ML VIAL (09:47)
[2020-07-26] MEDS: Epinephrine (1 mg/ml) 1 MG/ML VIAL (09:47)
[2020-07-26] MEDS: 0.9% Normal Saline (Pres. free 10 ML Vial (09:47)
--- NOTE | 2020-07-26 10:20 | PCM.DC.ORTHO ---
Discharge Diet: 2000 Calorie Control Diet, - - high surgar diet increases risk of infection, minimize sweets Call your doctor if you observe: Shortness of breath, Chest pain Additional Instructions: Ice and elevate one week while not ambulating. Ambulation is encouraged. Weightbearing as tolerated. Use assistive devise for stability. Encourage FULL knee extension and flexion 1 time EVERY time you get up and down and MULTIPLE times per day. No showering 72 hours after surgery. Begin showering postop day #3. Remove the dressing prior to shower and gently wash with warm water and antibacterial soap then pat dry and place abdominal pad (or plain gauze) and ADDIE hose over top. This is to be done daily. Do not submerge for 3 weeks. If not showering daily after the initial 72 hours then you must clean incision and change dressing daily. Do not allow animals near the incision area. Keep clean. Follow anticoagulation recommendations as prescribed. Do not take any NSAIDs while on blood thinner. Do not take any additional narcotic pain medication other than what was prescribed on you surgery day without discussing with physician. Start physical therapy. If you are not currently scheduled for physical therapy or you are unsure of appointment time please call office [facility] to arrange. Call Dr. Ivan with any concerns. Allergies/Adverse Reactions: Allergies strawberry Allergy (Intermediate, Verified 07/15/20 07:49) Hives Penicillins Allergy (Verified 07/12/20 10:25) Other took as a young child- doesnt know reaction Medications to take at Discharge Hydrochlorothiazide [Hctz] 25 mg PO DAILY #30 tab 07/19/15 Lisinopril [Zestril] 40 mg PO DAILY #30 tab 07/19/15 metFORMIN HCl [Glucophage] 1,000 mg PO BIDCM 03/19/16 Ibuprofen [Motrin] 600 mg PO Q6H PRN PRN #20 tab 04/09/19 Aspirin 81 mg PO DAILY 05/20/19 Gabapentin [Neurontin] 300 mg PO DAILY 05/20/19 Glimepiride 4 mg PO DAILY 05/20/19 cinnamon bark 500 mg capsule 1,000 mg PO BID cap 07/06/20 insulin glargine 100 unit/mL (3 mL) subcutaneous pen 30 unit SUBCUT BID ml 07/06/20 metoprolol tartrate 50 mg tablet 50 mg PO QHS 07/06/20 Acetaminophen [Tylenol Extra Strength] 1,000 mg PO Q6H PRN #100 tab 07/26/20 Apixaban [Eliquis] 2.5 mg PO BID #30 tablet 07/26/20 Celecoxib [Celebrex] 200 mg PO DAILY #30 capsule 07/26/20 Cephalexin [Keflex] 1,000 mg PO Q8 #4 capsule 07/26/20 Ondansetron HCl [Zofran] 4 mg PO Q6H PRN PRN 5 Days #10 tablet 07/26/20 Oxycodone [Oxyir] 5 mg PO Q4H PRN PRN #60 tab 07/26/20 The following prescriptions were given: Celecoxib [Celebrex] 200 mg PO DAILY #30 capsule Transmission Status: Sent to [facility] Apixaban [Eliquis] 2.5 mg PO BID #30 tablet Transmission Status: Sent to [facility] Cephalexin [Keflex] 1,000 mg PO Q8 #4 capsule Transmission Status: Sent to [facility] Oxycodone [Oxyir] 5 mg PO Q4H PRN PRN #60 tab PRN Reason: Pain Score 6-10 Transmission Status: Sent to [facility] Acetaminophen [Tylenol Extra Strength] 1,000 mg PO Q6H PRN #100 tab Transmission Status: Sent to [facility] Ondansetron HCl [Zofran] 4 mg PO Q6H PRN PRN 5 Days #10 tablet PRN Reason: Nausea Transmission Status: Sent to [facility] Primary Care Physician: Ish Rasmussen MD [Primary Care Provider] - Test Results: Test results from this visit will be discussed in further detail at your follow-up appointment, if applicable.
--- NOTE | 2020-07-26 10:24 | OP.PCM_ITS ---
Report of Operation Date of Procedure: 07/26/20 Description of Surgical Findings:: Preoperative diagnosis: Left knee DJD Postoperative diagnosis: Same Procedure: Left total knee arthroplasty CT guided Robotic Assisted Implant: William triathlon press fit femoral component size5, press-fit tibial baseplate size 6, press fit asymmetric patella size 35, polyethylene X3 size 10 CS Anesthesia: Spinal with adductor canal block Tourniquet time: 12 minutes at 300 mmHg Complications: None Condition: Stable to PACU Estimated blood loss: 100 cc Indication for procedure: This is a 44-year-old male w who had previous injury to his knee requiring ACL reconstruction he subsequently developed posttraumatic arthritis in his knee and he has failed conservative treatment and wished to proceed with elective total knee arthroplasty. Risk benefits and alternatives were reviewed including; risk of bleeding, infection, nerve artery and tissue damage, continued pain, postoperative stiffness, venous thromboembolism, need for postoperative rehabilitation, mechanical feel to the knee, and expected postoperative course. The operative CT and templating was performed with component sizing Procedure: The patient was met in the preoperative holding area. The operative extremity was identified by both patient and physician and was marked. Patient was met by anesthesia. An adductor canal block was placed by anesthesia postoperatively the patient was brought back to the operating room on a wheeled cart and transferred to the operating table in the supine position. Anesthesia was started. A well-padded tourniquet was placed on the operative extremity. The patient was prepped and draped in the usual sterile fashion. A timeout was called to ensure the proper patient procedure and extremity were being contemplated. An Esmarch was used to exsanguinate the extremity. The tourniquet was inflated. A 10 blade scalpel was used to make a midline incision down through the skin and subcutaneous tissue. Skin retractors placed. Bovie was used to perform meticulous hemostasis. full-thickness flaps were elevated medial and lateral along the joint capsule. A deep blade scalpel was used to perform a medial parapatellar arthrotomy. The knee was brought to full extension. A Bovie was used to release the soft tissues off the most proximal aspect of the medial tibial plateau, a three-quarter inch curved osteotome was also used for this process. The infrapatellar fat pad was excised. The superior fat pad was excised partially anteriorolateraly and portion the anterioromedial pad was elevated from the femur. At this point our intra- articular femoral array was placed of a 45 degree angle proximal and posterior to the medial epicondyle. Our tibial array was placed greater than 1 hands breath below the incision at a 20 degree angle stab incisions were used for this case were attached and checked with the robotic software. Tourniquet was let down. At this point registration lechuga were taken throughout the knee as well as checkpoints placed in the femur and tibia once the knee was registered then tensioned the medial and lateral ligaments in extension and 90 degrees of flexion. We then used these numbers to adjust our components within parameters to balance the knee in both flexion and extension once this was done on our monitor we then proceeded with using the robotic arm to make our tibial plateau cut and anterior posterior and chamfer cuts and distal on the femur we then trialed and achieved the desired plan with a well-balanced knee. Lug holes were drilled in the femur the tibia preparation was completed with a fin punch and the patella was prepared by first using a caliper to ensure sufficient bone stock and a patellar reamer to remove the desired amount of bone locals were drilled for an asymmetric poly-. We then brought the knee through range of motion with excellent patellar tracking. We thoroughly irrigated the knee with a trial components were removed a posterior capsular injection with her standard cocktail was performed the aqua Mantis was also used to aid in hemostasis. Betadine rinse was allowed to sit and washed out components were press-fit into place. Aricept rinse was then used followed by several more rate liters of irrigation after it was allowed to sit. Joint capsule was closed with #1 Ethibond [id number]'s followed by Vicryl in the subcutaneous tissues staple in the skin arrays and checkpoints were removed prior to closure all counts were correct stab incisions were closed with a stable standard dressing in the form of Mepilex for the main incision Xeroform 4 x 4 and Tegaderm over pin site holes. Thigh-high ADDIE hose applied over top of dressing. Patient tolerated the procedure well and was directed to PACU in stable condition no intraoperative complications
--- NOTE | 2020-07-26 10:40 | RAD_ITS ---
STUDY: X-RAY - LEFT KNEE REASON FOR EXAM: Male, 44 years old. Post op from knee replacement surgery TECHNIQUE: 2 view(s) of the knee. COMPARISON: None. FINDINGS: 2 views of the left knee were performed after replacement of the left knee joint. Components demonstrate anatomic alignment. No plain film evidence of hardware convocation, failure, or acute traumatic abdomen. Normal soft tissue swelling and subcutaneous emphysema. RAD/Knee 1 or 2 Views IMPRESSION: Replaced left knee joint demonstrates anatomic alignment, no plain film evidence of postoperative complication Electronically Signed: Jh Ferrell MD at 10:53 EDT , Service support ,
[2020-07-26 10:45] LABS: Bedside Glucose 105 mg/dL (70-110)
[2020-07-26] MEDS: Cefazolin 1 GM/50 ML BAG IV (11:05)
[2020-07-26] MEDS: oxyCODONE 5 MG Tablet PO (11:42)
== END 2020-07-26 14:31 | disposition home or self-care (01) ==
LOC: SDC 05:22 → AC 05:22
PROVIDERS: Anesthesiology; PCP Family Medicine; Referring Provider Orthopaedic Surgery; Visit Provider Orthopaedic Surgery
PROC: 0SRD0JZ Replacement of Left Knee Joint with Synthetic Substitute, Open Approach (ICD-10-PCS; CPT 27447; principal; 2020-07-26 07:00)
DX: M17.12 Unilateral primary osteoarthritis, left knee (principal); S70.02XA Contusion of left hip, initial encounter; Z79.1 Long term (current) use of non-steroidal anti-inflammatories (NSAID); Z79.4 Long term (current) use of insulin; Z79.82 Long term (current) use of aspirin; Z88.0 Allergy status to penicillin; W10.9XXA Fall (on) (from) unspecified stairs and steps, initial encounter; Y93.9 Activity, unspecified; Y92.89 Other specified places as the place of occurrence of the external cause; Y99.9 Unspecified external cause status
CPT/HCPCS: 27447; 36415; 73560; 80048; 82962; 82985; 83036; 83735; 85025; 85610; 85730; 86850; 86900; 86901; 87081; 87426; 93005; 97161; C1776; C9803; J7120; J0702; J2405; J3490

== ENCOUNTER 2020-10-05 08:00 | Outpatient (RCR) | payer MEDICAID, SELFPAY ==
[2020-05-02 09:29] VITALS: BMI 36.9
--- NOTE | 2020-07-11 07:50 | HP.PTEVAL_ITS ---
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 Jorge Alberto Ivan DO with a diagnosis of L knee primary OA. Date of Evaluation: 07/11/20 Physical Therapist: Levi Strong, REJI, OCS, CSCS - Visit Plan Frequency: 2-3 presurgical visits Plan: Pt to have two preop visits including today. Next session, teach NWB strength of SLR, clamshells bridges, ensure safety with walker/crutches, ensure prirformis stretch helped sciatica and hold until after surgery if doing well. - Subjective Will have L knee replaced on July 26. Needs to move better. Pain is every day and johnathon step 7/10 for about a year. Tore aCL 27 years ago and tore meniscus 5 yrs ago. Sleep is interrupted sometimes. 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 Will look for different job after surgery. Hobbies include tossing football without pain is his goal. Get back in gym. Exercises now have stopped TM and bike due to damage to knee. L hip also has OA. Hard to get up out of bed, it is stiff in am and after work. - Pain L knee Pain Intensity (Out of 10): 2 Pain Intensity Range: 1, 8 Comment: low at rest. - Objective Marked L antalgia with ambulation avoiding knee flexiona dn end range ext at heel strike, Transfers bed and chair I. Steps using R only and needs rail. L is bvery painful. L knee AROM -8 to 104, R knee 0 to 130. L knee strength quad 54# and HSC 44# both are painful, R knee 5/5. Hip IR on L painful in hip and limited , ext rotation limited to 20 degrees. 12 second TUG today. girth 16.5 patella and 21 6 suprapatellar. 61 WOMAC score - Goals Goal 1:: I approp HEP to minimize future problems and prepare for surgery. Goal Time Frame: 2 Weeks - Rehabilitation Potential Physical Therapy Diagnosis: L knee OA Rehabilitation Potential: Good - Anticipated Interventions Patient/Client Instruction: Educate patient on: Condition, Plan of Care For the Purpose of:: To decrease pain, To increase ROM, To improve muscle performance and motor function Therapeutic Exercise to Include: Strength training, Flexibilty training, Gait and locomotor training, Passive ROM, Active ROM For the Purpose of:: To decrease pain, To increase ROM, To improve muscle performance and motor function, To increase tolerance to activity/cond ition/position, To improve ability of physical actions for home/community/work/leisure, To improve gait and locomotor functions Manual Therapy Techniques to Include: Mobilization, Passive ROM For the Purpose of:: To increase ROM Cryotherapy (ice pack, ice massage): Yes For the Purpose of:: To decrease swelling/inflammation Thank you for the opportunity to evaluate your patient. For Medicare and Medicare HMO plans, please review the plan of care and approve it. It will need to be FAXED BACK to us at [phone] for Medicare purposes. For Medicare only, by signing this I certify the plan of care. Please let me know if there are questions or concerns regarding this plan of care. Physician Signature: Date:
--- NOTE | 2020-07-28 10:35 | HP.PTREVAL ---
Dr. 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 Please see the progress note below for an update on the physical therapy plan of care! Subjective: Surgery L TKA on 07/26 two days ago. 5/10 pain today in L anterior knee and inside. Has some scitica in R hip intermittently. Slept better last night. USing wh walker to get around. Not doing much. Feels tight in front of knee. Doing AP, strap knee bends, laq, and QS acouple times per day. Objective/Function: -8 ext L knee and 70 flexiona fter stretching. Patella stiff on L vs R. Incision is dressed properly and healing well, no signs of excessive redness or heat. Mildly swollen entire l L knee as expected. - homans. Walks with wh walker 300 feet with mod I and stiffness in L LE but can correct to heel srike adn toe off with VC. Pt worried about stiffness in knee but seems normal. Slightly anxious about stiffness btu functional. Overall looks real well for 2 days post op. New goals set with fair prognosis. Plan Plan: 3x/week for 4-6 weeks for. 1. patellar mobs. 2. A/PROM L knee. 3. strength progressionand gait progression L knee. 4. ice as [id number] has ice machine at home and declined today in favor of going home) May rollout quad and stretch quad as needed. Goals Goal 1:: I approp HEP to minimize future problems and prepare for surgery. Goal Time Frame: 2 Weeks Goal Progress: Goal Met Goal 2:: AROM L knee 0-120 to maximize function Goal Time Frame: 4-6 Weeks Goal 3:: Walk without ad without gait deviations and steps without rail reciprocally Goal Time Frame: 4-6 Weeks Goal 4:: LEFS score 50/80 Goal Time Frame: 4-6 Weeks Goal 5:: Pt feel 80% back to normal activities Goal Time Frame: 4-6 Weeks Anticipated Interventions Patient/Client Instruction: Educate patient on: Condition, Plan of Care For the Purpose of:: To decrease pain, To increase ROM, To improve muscle performance and motor function Therapeutic Exercise to Include: Strength training, Flexibilty training, Gait and locomotor training, Passive ROM, Active ROM For the Purpose of:: To decrease pain, To increase ROM, To improve muscle performance and motor function, To increase tolerance to activity/condition/position, To improve ability of physical actions for home/community/work/leisure, To improve gait and locomotor functions Manual Therapy Techniques to Include: Mobilization, Passive ROM For the Purpose of:: To increase ROM Cryotherapy (ice pack, ice massage): Yes For the Purpose of:: To decrease swelling/inflammation Please do not hesitate to contact me at [phone] by phone or if you have questions or concerns regarding this new plan of care! Sincerely, Levi Strong, DPT, OCS, CSCS
--- NOTE | 2020-09-02 16:06 | HP.PTREVAL ---
Dr. 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 Please see the progress note below for an update on the physical therapy plan of care! Subjective: Pain is worse at night but he is doing more walking adn more steps. Pain at night is to 3/10 and stiff in the am. Loosens up after 10 minutes. Sleep is mildly uncomfortable with numbness if he lies on L side. Getting in adn out of shower OK, takes out trash, dresses OK, bathroom OK. Hobbies include BBQ and has not tried this as it is a lot of standing. 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 Objective/Function: Patella moves well medial and lateral, slight tightupward movement. Walks at times with stiff L leg but has the motion to walk normally and does better a ttimes. Steps reciprocal with one rail, stiff but able. girth at patella 16 inches, 6 inches sp is 18 3/4 inches. TUG is 7.5 sec. Knee AROM after stretching -3 to 119 today. Strength L knee ext 82# and flexion 63#. Overall doing well but still feels like he needs to be stronger to return to work climbing adn getting down on ground. goals appropriate with new goal set adn fair prognosis. Pt is progressing slowy due to his long history of knee limitations and problems. Plan Plan: 2-3x/week for 4 weeks to continue ROM wor and progress to I gym program to be done at [employer] once I achieved. Goals Goal 1:: I approp HEP to minimize future problems and prepare for surgery. Goal Time Frame: 2 Weeks Goal Progress: Goal Met Goal 2:: AROM L knee 0-120 to maximize function Goal Time Frame: 4-6 Weeks Goal Progress: -3to 119 Goal 3:: Walk without ad without gait deviations and steps without rail reciprocally Goal Time Frame: 4-6 Weeks Goal Progress: Progressing Goal 4:: LEFS score 50/80 Goal Time Frame: 4-6 Weeks Goal Progress: Progressing Goal 5:: Pt feel 80% back to normal activities Goal Time Frame: 4-6 Weeks Goal Progress: 75% Goal 6:: I approp gym based strength protoocl for LE and core to facilitate safe return to work. Goal Time Frame: 2-4 Weeks Goal Progress: NEW GOAL Anticipated Interventions Patient/Client Instruction: Educate patient on: Condition, Plan of Care For the Purpose of:: To decrease pain, To increase ROM, To improve muscle performance and motor function Therapeutic Exercise to Include: Strength training, Flexibilty training, Gait and locomotor training, Passive ROM, Active ROM For the Purpose of:: To decrease pain, To increase ROM, To improve muscle performance and motor function, To increase tolerance to activity/condition/position, To improve ability of physical actions for home/community/work/leisure, To improve gait and locomotor functions Manual Therapy Techniques to Include: Mobilization, Passive ROM For the Purpose of:: To increase ROM Cryotherapy (ice pack, ice massage): Yes For the Purpose of:: To decrease swelling/inflammation Please do not hesitate to contact me at [phone] by phone or if you have questions or concerns regarding this new plan of care! Sincerely, Levi Strong, DPT, OCS, CSCS
--- NOTE | 2020-10-05 08:55 | HP.PTREVAL ---
Dr. 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 Please see the progress note below for an update on the physical therapy plan of care! Subjective: Went to chiropractor for back , will take a few sessions to fix but 07/30 today v 10/29. Outside of L knee is sore since chiropractic visit. To surgeon 10/17/20. Doing ROM exercises at home adn stretches. Will start at [employer] but do not have hip flexion r same leg press. May go back to [employer] after the visit with doctor. 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 Objective/Function: 0-113 AROM L knee and no ext lag with LSR. Walking well with just very slight L trendelenberg. Steps are without rail and reciprocal but obviously wekaer on L eccentrically but safe. Overall doing very well. He feels like he can continue to strengthen at [employer] and will get in family pool. Will continue ROM at home and f/u with doctor next week. Goal is to cotninue progression toward improvement and meeting of goals I at home/gym with fair prognosis Plan Plan: Pt to cotninue I at [employer] [facility] dn home stretches/pool. Will f/u in 3 weeks to ensure cotninued progression with strength and ROM. Will call prior if problems or concerns. Goals Goal 1:: I approp HEP to minimize future problems and prepare for surgery. Goal Time Frame: 2 Weeks Goal Progress: Goal Met Goal 2:: AROM L knee 0-120 to maximize function Goal Time Frame: 4-6 Weeks Goal Progress: 0-113 today Goal 3:: Walk without ad without gait deviations and steps without rail reciprocally Goal Time Frame: 4-6 Weeks Goal Progress: slight trendelneberg Goal 4:: LEFS score 50/80 Goal Time Frame: 4-6 Weeks Goal Progress: Goal Met Goal 5:: Pt feel 80% back to normal activities Goal Time Frame: 4-6 Weeks Goal Progress: 75% Goal 6:: I approp gym based strength protoocl for LE and core to facilitate safe return to work. Goal Time Frame: 2-4 Weeks Goal Progress: Goal Met Anticipated Interventions Patient/Client Instruction: Educate patient on: Condition, Plan of Care For the Purpose of:: To decrease pain, To increase ROM, To improve muscle performance and motor function Therapeutic Exercise to Include: Strength training, Flexibilty training, Gait and locomotor training, Passive ROM, Active ROM For the Purpose of:: To decrease pain, To increase ROM, To improve muscle performance and motor function, To increase tolerance to activity/condition/position, To improve ability of physical actions for home/community/work/leisure, To improve gait and locomotor functions Manual Therapy Techniques to Include: Mobilization, Passive ROM For the Purpose of:: To increase ROM Cryotherapy (ice pack, ice massage): Yes For the Purpose of:: To decrease swelling/inflammation Please do not hesitate to contact me at [phone] by phone or if you have questions or concerns regarding this new plan of care! Sincerely, Levi Strong, DPT, OCS, CSCS
--- NOTE | 2020-11-25 12:18 | HP.PT.NRP ---
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 The following Plan of Care was established for this patient: Initial Frequency: 2-3 presurgical visits Patient/Client Instruction: Educate patient on: Condition, Plan of Care For the Purpose of:: To decrease pain, To increase ROM, To improve muscle performance and motor function Therapeutic Exercise to Include: Strength training, Flexibilty training, Gait and locomotor training, Passive ROM, Active ROM For the Purpose of:: To decrease pain, To increase ROM, To improve muscle performance and motor function, To increase tolerance to activity/condition/position, To improve ability of physical actions for home/community/work/leisure, To improve gait and locomotor functions Manual Therapy Techniques to Include: Mobilization, Passive ROM For the Purpose of:: To increase ROM Cryotherapy (ice pack, ice massage): Yes For the Purpose of:: To decrease swelling/inflammation This patient was last seen in our office 10/05/20. Pertinent comments regarding their Physical therapy will appear below: Pt seen 25 visits of his POC adn was 75% improved. He had worked to I at [facility]. He was to f/u 3 weeks after his last session to ensure progress but cancelled and neglected to reschedule. at this point, it has been over 6 weeks adn I will disocntinue due to nonattendance. At this point I will be discontinuing this patient from physical therapy. I would be happy to see this patient again in the future if found appropriate by the physician. Thank you! Levi Strong, DPT, OCS, CSCS Balance/Gait/Functional tests - Balance/Special Test Scores Lower Extremity Functional Score: 51
== END 2020-10-05 19:00 | disposition home or self-care (01) ==
LOC: PT 08:00
PROVIDERS: PCP Family Medicine; Referring Provider Orthopaedic Surgery; Visit Provider Orthopaedic Surgery
DX: Z96.652 Presence of left artificial knee joint (principal); M17.12 Unilateral primary osteoarthritis, left knee
CPT/HCPCS: 97110; 97140; 97161; 97164; 97530

== ENCOUNTER 2021-10-13 06:10 | Emergency (ER) | payer MEDICAID, SELFPAY ==
[2021-10-13 06:10] VITALS: BP 142/60; PULSE 75; RESP 16; TEMP 36.4; O2SAT 97; BMI 34.4
[2021-10-13] MEDS: Ketorolac 30 MG/ML Syringe IM (07:07)
[2021-10-13] MEDS: Orphenadrine 60 MG/2 ML Ampul IM (07:07)
--- NOTE | 2021-10-13 07:18 | EDS_ITS ---
HPI History of Present Illness Chief Complaint: Back Narrative Narrative: Patient is a 46-year-old male with past medical history of hypertension and diabetes. He states that he awoke from sleep Saturday morning and noticed he had some pain in the left lower back. He states that there was no recent trauma no excessive activity and he denies any loss of bowel or bladder control or IV drug use. He states that the pain worsens with motion and has been trying [id number] medication with minimal symptom improvement and secondary to this comes in for evaluation. PFSH PFS Home Medications hydrochlorothiazide 25 mg tablet 25 mg PO DAILY #30 tabs 07/19/15 [Rx Last Taken 07/28/17] lisinopril 40 mg tablet 40 mg PO DAILY #30 tabs 07/19/15 [Rx Last Taken 07/26/20] metformin 500 mg tablet 1,000 mg PO BIDCM diabetes 03/19/16 [History Last Taken 07/28/17] gabapentin 300 mg capsule 300 mg PO DAILY nerve pain 05/20/19 [History Last Taken Unknown] glimepiride 2 mg tablet 4 mg PO DAILY diabetes 05/20/19 [History Last Taken Unknown] cinnamon bark 500 mg capsule (Cinnamon) 1,000 mg PO BID 07/06/20 [History Last Taken Unknown] metoprolol tartrate 50 mg tablet 50 mg PO QHS 07/06/20 [History Last Taken Unknown] acetaminophen 500 mg tablet 1,000 mg PO Q6H PRN #100 TABLETS 07/26/20 [Rx Last Taken Unknown] insulin glargine 100 unit/mL (3 mL) subcutaneous pen 48 unit subcut BID 09/05/20 [History Last Taken Unknown] methocarbamol 500 mg tablet 1,000 mg PO 4X/DAY PRN PRN Muscle pain/spasm 7 days #56 tabs 10/13/21 [Rx Last Taken Unknown] metoprolol tartrate 50 mg tablet 50 mg PO DAILY 10/13/21 [History Last Taken Unknown] oxycodone-acetaminophen 5 mg-325 mg tablet (Percocet) 1 tab PO Q6H PRN pain 3 days #12 tabs 10/13/21 [Rx Last Taken Unknown] Allergy/AdvReac Type Severity Reaction Status Date / Time strawberry Allergy Intermediate Hives Verified 10/13/21 06:12 Penicillins Allergy Other Verified 10/13/21 06:12 acetaminophen [From [place]] AdvReac Upset Verified 10/13/21 06:12 Stomach hydrocodone [From [place]] AdvReac Upset Verified 10/13/21 06:12 Stomach Social History (Updated 08/12/20 @ 13:03 by Ken PATEL, PA) Smoking Status: Former smoker ROS ROS ED Constitutional Constitutional ED: Denies chills or fever(s) ENT ENT ED: Denies sore throat Cardiovascular Cardiovascular: Denies chest pain Respiratory/Chest Respiratory/Chest: Denies cough or dyspnea Gastrointestinal Gastrointestinal: Denies abdominal pain, diarrhea, nausea or vomiting Genitourinary Genitourinary ED: Denies dysuria or hematuria Musculoskeletal Musculoskeletal: Reports back pain; Denies myalgias Integumentary Denies rash Neurologic Neurologic: Denies headache(s) Hematologic/Lymphatic Hematologic/Lymphatic: Denies easy bleeding or easy bruising EXAM Physical Exam Const Vital Signs: 10/13/21 06:10 Temperature 97.6 F L Temperature Source Temporal Pulse Rate 75 Respiratory Rate 16 Blood Pressure 142/60 H Blood Pressure Mean 87 Pulse Ox 97 Oxygen Delivery Method Room Air Positive well nourished, well developed and obese General Appearance ED: well developed Nutritional Appearance: obese Eyes PERRL and EOMs intact bilaterally Neck supple Resp normal respiratory effort and clear to auscultation bilaterally Cardio regular rate and regular rhythm Rate: other Other Details: Radial pulses are +2-4 bilaterally are equal and symmetric GI non-tender and non-distended Auscultation: normoactive bowel sounds Palpation: soft Back/Spine Back/Spine Narrative: No bony deformity or step-off of the thoracic or lumbar spine but there is mild midline pain on palpation of the lumbar spine. There is also pain and spasm noted in the left paralumbar muscle belly region that worsens with extension and rotation. No saddle anesthesia. Negative straight leg raise. No Babinski. Mild clonus noted of the left foot. Patellar reflexes are plus 1 out of 4 bilaterally. Extremity normal to inspection Neuro oriented x3 and CN's II-XII intact bilaterally Sensorium / Orientation: alert Psych mental status grossly normal Skin no rashes or lesions noted Skin Narrative: No overlying soft tissue skin changes to suggest trauma or infection MDM MDM MDM Narrative Medical decision making narrative: Patient presented to the ER with out physical exam findings or risk factors for cauda equina or epidural abscess. He denied any recent trauma and there are no signs of this on exam nor signs of soft tissue infection. Patient denied any hematuria or dysuria and he does not have flank pain and therefore do not feel there is need for laboratory study. At this time there are no obvious signs of nervous compression and I do not feel that a emergent MRI is warranted. As patient reports that symptoms seem to improve when he is held in a flexed position and worse with extension and rotation I do feel this is most likely irritation to his psoas muscle. Patient be given Toradol and Norflex in the ER and be discharged with symptomatic medication. If his symptoms worsen or fail to improve he agrees to return to the ER for repeat evaluation Discharge Plan Triage Chief Complaint: Back ED Provider: Oleg Koch Dx/Rx/DC Orders Clinical Impression: Acute myofascial strain of lumbosacral region, Diabetes mellitus Instructions: ED Back Sprain/Strain Prescriptions: New oxycodone-acetaminophen [Percocet] 5-325 mg tablet 1 tab PO Q6H PRN (Reason: pain) 3 Days Qty: 12 0RF methocarbamol 500 mg tablet 1,000 mg PO 4X/DAY PRN PRN (Reason: Muscle pain/spasm) 7 Days Qty: 56 0RF No Action metoprolol tartrate 50 mg tablet 50 mg PO QHS cinnamon bark [Cinnamon] 500 mg capsule 1,000 mg PO BID insulin glargine 100 unit/mL (3 mL) insulin pen 48 unit subcut BID hydrochlorothiazide 25 MG tablet 25 mg PO DAILY Qty: 30 0RF Label Comments: blood pressure lisinopril 40 MG tablet 40 mg PO DAILY Qty: 30 0RF Label Comments: blood pressure metformin 500 MG tablet 1,000 mg PO BIDCM Label Comments: diabetes glimepiride 2 MG tablet 4 mg PO DAILY Label Comments: TAKE 1 TABLET BY MOUTH ONCE DAILY WITH BREAKFAST gabapentin 300 MG capsule 300 mg PO DAILY Label Comments: TAKE 1 CAPSULE BY MOUTH ONCE DAILY AT BEDTIME FOR 90 DAYS acetaminophen 500 MG tablet 1,000 mg PO Q6H PRN Qty: 100 0RF metoprolol tartrate 50 mg Tablet 50 mg PO DAILY Primary Care Provider: Ish Rasmussen Referrals: Ish Rasmussen MD [Primary Care Provider] - Activity Restrictions/Additional Instructions: Please continue to stretch and heat your low back to help reduce pain and speed healing. If you develop increased pain despite taking her medication or a fever over 100.4 please return to the ER for repeat evaluation
[2021-10-13 07:34] VITALS: BP 133/80; PULSE 66; RESP 16; O2SAT 99
== END 2021-10-13 07:34 | disposition home or self-care (01) ==
LOC: ED 07:03
PROVIDERS: Emergency Provider Emergency Medicine; PCP Family Medicine; Visit Provider Emergency Medicine
DX: S39.012A Strain of muscle, fascia and tendon of lower back, initial encounter (principal); E11.9 Type 2 diabetes mellitus without complications; I10 Essential (primary) hypertension; Z87.891 Personal history of nicotine dependence; X58.XXXA Exposure to other specified factors, initial encounter
CPT/HCPCS: 99282

== ENCOUNTER → 2021-10-26 | Outpatient (CLI) | payer MEDICAID, SELFPAY ==
--- NOTE | 2021-10-26 16:55 | RAD_ITS ---
INDICATION: LUMBAR SPRAIN EXAMINATION/TECHNIQUE: X-RAY - XR Spine Lumbar Min 4 Views COMPARISON: CT abdomen and pelvis 04/09/2018. FINDINGS: VERTEBRAE: Preserved vertebral body height. No fracture. No spondylolisthesis. Preservation of the normal lumbar lordosis. No significant facet arthropathy. DISCS: Mild intervertebral disc height loss at L5-S1. There is multilevel mild endplate sclerosis and early developing osteophyte formation from mild degenerative disc disease without significant height loss throughout the rest of the spine. INCLUDED ABDOMEN: abdominal aortic and iliac branch vessel atherosclerosis RAD/L/S Spine Min 4 Views IMPRESSION: No evidence of lumbar spinal fracture or spondylolisthesis. Minimal degenerative disc and endplate changes as above. Electronically Signed: Gwyn Keys DO at 21:44 EDT ,
== END | disposition home or self-care (01) ==
LOC: RAD 16:49
PROVIDERS: PCP Family Medicine; Referring Provider Chiropractor; Visit Provider Chiropractor
DX: S33.5XXA Sprain of ligaments of lumbar spine, initial encounter (principal); M51.37 Other intervertebral disc degeneration, lumbosacral region
CPT/HCPCS: 72110

== ENCOUNTER 2021-12-20 11:00 | Outpatient (RCR) | payer MEDICAID, SELFPAY ==
--- NOTE | 2021-11-08 14:12 | HP.PTEVAL_ITS ---
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 Fredy Robertson DC with a diagnosis of LUMBAR STRAIN. Date of Evaluation: 11/08/21 Physical Therapist: Jensen Foy, PT, Cert MDT, OCS - Visit Plan Frequency: 2x /Week Duration: 6 Weeks Plan: PT INTERVETIONS MODALTIES ,GRADED POSTURAL EX' S,DLS AND ASSESS DIRECTIONAL PREVERENCE MERA WITH ROM ,LE FLEABLITY AND ACTIVITY MODIFICATION - Subjective This 46 y/o male presents to physical with lumbar radicular . Patient developed lumbar pain ~ 1 month woke with pain. Symptoms progressively worse with pressure in back . Symptoms became worse at work . Seen chiropractor did x-rays and did adjustments . Patient has seen ER and had muscle relaxers. Aggravating walking ,standing ,bending ,lifting and job demands ,siting. Alleviating factors rest MEDS. Patient has pressure bowel/bladder . Denies paresthesia/tingling. Bowel/bladder. Patient symptoms affects QOL and function. Patient symptoms affects sleeping. Patient symptoms affects QOL and kirby demands. No injury or trauma. Patient did have TKR left last year. Patient is off work 2weeks. SOCAIL: . VOCATION: [employer] Body - Pain Bilateral Back Pain Intensity (Out of 10): 8 Pain Intensity Range: 10 Left Lower Extremity Pain Intensity (Out of 10): 5 Pain Intensity Range: 10 Comment: thigh - Objective POSTURE: guarded posture forward. NEURO: denies paresthesia/tingling ,reflexes L3-4,L4-5 ,L5- S1 1/3. GAIT: guarded gait slow [place]anna reciprocal pattern. SYMMTRIES: align. MMT: quads/hams 4/5 ,hip abduction 4/5,hip flexion 4/5 ,ankle 5/5. LUMBAR ROM: flexion min pain .extension min loss pain ,side glides min loss. FLEXABLITY : mod loss hamstrings - Special Tests L/S Slump test left side: Positive L/S Slump test right side: Negative L/S Left Straight Leg Raise: Positive L/S Right Straight Leg Raise: Negative Lumbar Standing: Flexion - Mechanical Response: No effect Lumbar Standing: Flexion - Symptoms After Testing: Worse Lumbar Standing: Extension - Mechanical Response: No effect Lumbar Standing: Extension - Symptoms During Testing: Increases Lumbar Standing: Extension - Symptoms After Testing: Worse Lumbar Standing: Right Side Glides - Mechanical Response: No effect Lumbar Standing: Right Side [place] - Symptoms During Testing: No effect Lumbar Standing: Right Side [place] - Symptoms After Testing: No effect Lumbar Standing: Left Side [place] - Mechanical Response: No effect Lumbar Standing: Left Side [place] - Symptoms During Testing: No effect Lumbar Standing: Left Side [place] - Symptoms After Testing: No effect Lumbar Lying: Flexion - Mechanical Response: No effect Lumbar Lying: Flexion - Symptoms During Testing: Increases Lumbar Lying: Flexion - Symptoms After Testing: Worse Lumbar Lying: Extension - Mechanical Response: No effect Lumbar Lying: Extension - Symptoms During Testing: Increases Lumbar Lying: Extension - Symptoms After Testing: No worse - Balance/Special Test Scores Oswestry Low Back Score: 36 - Goals Goal 1:: I with HEP for lumbar spine Goal Time Frame: 4-6 Weeks Goal 2:: Patient to demonstrate 50% to improve function and RTW Goal Time Frame: 4-6 Weeks Goal 3:: Patient to improve LUMBAR ROM for function of recovery to lift with good body mechanics Goal Time Frame: 4-6 Weeks Goal 4:: Patient to improve to improve back oswestry score by 5 points to improve QOL. Goal Time Frame: 4-6 Weeks Goal 5:: Patient to normalize gait with less pain Goal Time Frame: 4-6 Weeks - Rehabilitation Potential Physical Therapy Diagnosis: This patient has possible lumbar derangement above knee with possible disc with pain with position ,motion testing ,affections motion wosre with activity walking and standing and unable to RTW and ADL'S thus benefit from skilled PT Rehabilitation Potential: Good - Anticipated Interventions Patient/Client Instruction: Educate patient on: Condition, Plan of Care For the Purpose of:: To decrease pain, To increase ROM, To improve muscle performance and motor function, To improve ability to perform ADL's, To increase tolerance to activity/condition/position, To improve ability of physical actions for home/community/work/leisure, To improve health of tissue, To decrease soft tissue restriction, To increase flexibility/ROM, To improve balance, To reduce risk of recurrence, To prevent re-injury, To improve tolerance to ADL's Therapeutic Exercise to Include: Strength training, Endurance training, Postural training, Flexibilty training, Active ROM, Dynamic Lumbar Stabilization, [place] Exercises For the Purpose of:: To decrease pain, To increase ROM, To improve muscle performance and motor function, To improve ability to perform ADL's, To increase tolerance to activity/condition/position, To improve ability of physical actions for home/community/work/leisure, To improve health of tissue, To decrease soft tissue restriction, To increase flexibility/ROM, To prevent re-injury TENS: Yes IF ES: Yes Cryotherapy (ice pack, ice massage): Yes Thermo therapy (hot pack): Yes Ultrasound (thermal/non thermal): Yes For the Purpose of:: To decrease pain, To increase ROM, To improve nutrient delivery to tissue, To increase oxygenation perfusion, To improve health of tissue, To decrease soft tissue restriction Thank you for the opportunity to evaluate your patient. For Medicare and Medicare HMO plans, please review the plan of care and approve it. It will need to be FAXED BACK to us at [phone] for Medicare purposes. For Medicare only, by signing this I certify the plan of care. Please let me know if there are questions or concerns regarding this plan of care. Physician Signature: Date:
--- NOTE | 2021-11-08 14:15 | HP.PTEVAL ---
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 Fredy Robertson DC with a diagnosis of LUMBAR STRAIN. Date of Evaluation: 11/08/21 Physical Therapist: Jensen Foy, PT, Cert MDT, OCS - Visit Plan Frequency: 2-3x /Week Duration: 3 Weeks Plan: PT INTERVETIONS MODALTIES ,GRADED POSTURAL EX' S,DLS AND ASSESS DIRECTIONAL PREVERENCE MERA WITH ROM ,LE FLEABLITY AND ACTIVITY MODIFICATION - Subjective This 46 y/o male presents to physical with lumbar radicular . Patient developed lumbar pain ~ 1 month woke with pain. Symptoms progressively worse with pressure in back . Symptoms became worse at work . Seen chiropractor did x-rays and did adjustments . Patient has seen ER and had muscle relaxers. Aggravating walking ,standing ,bending ,lifting and job demands ,siting. Alleviating factors rest MEDS. Patient has pressure bowel/bladder . Denies paresthesia/tingling. Bowel/bladder. Patient symptoms affects QOL and function. Patient symptoms affects sleeping. Patient symptoms affects QOL and kirby demands. No injury or trauma. Patient did have TKR left last year. Patient is off work 2weeks. SOCAIL: . VOCATION: [employer] Body - Pain Bilateral Back Pain Intensity (Out of 10): 8 Pain Intensity Range: 10 Left Lower Extremity Pain Intensity (Out of 10): 5 Pain Intensity Range: 10 Comment: thigh - Objective POSTURE: guarded posture forward. NEURO: denies paresthesia/tingling ,reflexes L3-4,L4-5 ,L5- S1 1/3. GAIT: guarded gait slow breanna reciprocal pattern. SYMMTRIES: align. MMT: quads/hams 4/5 ,hip abduction 4/5,hip flexion 4/5 ,ankle 5/5. LUMBAR ROM: flexion min pain .extension min loss pain ,side glides min loss. FLEXABLITY : mod loss hamstrings - Special Tests L/S Slump test left side: Positive L/S Slump test right side: Negative L/S Left Straight Leg Raise: Positive L/S Right Straight Leg Raise: Negative Lumbar Standing: Flexion - Mechanical Response: No effect Lumbar Standing: Flexion - Symptoms After Testing: Worse Lumbar Standing: Extension - Mechanical Response: No effect Lumbar Standing: Extension - Symptoms During Testing: Increases Lumbar Standing: Extension - Symptoms After Testing: Worse Lumbar Standing: Right Side Glides - Mechanical Response: No effect Lumbar Standing: Right Side [place] - Symptoms During Testing: No effect Lumbar Standing: Right Side [place] - Symptoms After Testing: No effect Lumbar Standing: Left Side [place] - Mechanical Response: No effect Lumbar Standing: Left Side [place] - Symptoms During Testing: No effect Lumbar Standing: Left Side [place] - Symptoms After Testing: No effect Lumbar Lying: Flexion - Mechanical Response: No effect Lumbar Lying: Flexion - Symptoms During Testing: Increases Lumbar Lying: Flexion - Symptoms After Testing: Worse Lumbar Lying: Extension - Mechanical Response: No effect Lumbar Lying: Extension - Symptoms During Testing: Increases Lumbar Lying: Extension - Symptoms After Testing: No worse - Balance/Special Test Scores Oswestry Low Back Score: 36 - Goals Goal 1:: I with HEP for lumbar spine Goal Time Frame: 4-6 Weeks Goal 2:: Patient to demonstrate 50% to improve function and RTW Goal Time Frame: 4-6 Weeks Goal 3:: Patient to improve LUMBAR ROM for function of recovery to lift with good body mechanics Goal Time Frame: 4-6 Weeks Goal 4:: Patient to improve to improve back oswestry score by 5 points to improve QOL. Goal Time Frame: 4-6 Weeks Goal 5:: Patient to normalize gait with less pain Goal Time Frame: 4-6 Weeks - Rehabilitation Potential Physical Therapy Diagnosis: This patient has possible lumbar derangement above knee with possible disc with pain with position ,motion testing ,affections motion wosre with activity walking and standing and unable to RTW and ADL'S thus benefit from skilled PT Rehabilitation Potential: Good - Anticipated Interventions Patient/Client Instruction: Educate patient on: Condition, Plan of Care For the Purpose of:: To decrease pain, To increase ROM, To improve muscle performance and motor function, To improve ability to perform ADL's, To increase tolerance to activity/condition/position, To improve ability of physical actions for home/community/work/leisure, To improve health of tissue, To decrease soft tissue restriction, To increase flexibility/ROM, To improve balance, To reduce risk of recurrence, To prevent re-injury, To improve tolerance to ADL's Therapeutic Exercise to Include: Strength training, Endurance training, Postural training, Flexibilty training, Active ROM, Dynamic Lumbar Stabilization, [place] Exercises For the Purpose of:: To decrease pain, To increase ROM, To improve muscle performance and motor function, To improve ability to perform ADL's, To increase tolerance to activity/condition/position, To improve ability of physical actions for home/community/work/leisure, To improve health of tissue, To decrease soft tissue restriction, To increase flexibility/ROM, To prevent re-injury TENS: Yes IF ES: Yes Cryotherapy (ice pack, ice massage): Yes Thermo therapy (hot pack): Yes Ultrasound (thermal/non thermal): Yes For the Purpose of:: To decrease pain, To increase ROM, To improve nutrient delivery to tissue, To increase oxygenation perfusion, To improve health of tissue, To decrease soft tissue restriction Thank you for the opportunity to evaluate your patient. For Medicare and Medicare HMO plans, please review the plan of care and approve it. It will need to be FAXED BACK to us at [phone] for Medicare purposes. For Medicare only, by signing this I certify the plan of care. Please let me know if there are questions or concerns regarding this plan of care. Physician Signature: Date:
--- NOTE | 2021-12-11 18:11 | HP.PTREVAL ---
Dr. rFedy Robertson, IRLANDA, It has been my pleasure to treat RIGO MASTERS over the last 7 visits for LUMBAR STRAIN. Please see the progress note below for an update on the physical therapy plan of care! Subjective: Doing better . overall. If you think I need more PT send note to Objective/Function: POSTURE: WFL. GAIT: reciprocal pattern mild forward posture slight antalgic gait. LUMBAR ROM: flexion WFL ,extension min loss ,side glides min loss. MMT: quads/ham left 4-/5 ,hip flexion 4-/5 Plan Plan: PATIENT COULD CONT TO BENEIT FROM SKILLED PT FOR ANOTHER 6 VISITS AND MRI. PT INTERVETIONS MODALTIES ,GRADED POSTURAL EX' S,DLS AND ASSESS DIRECTIONAL PREVERENCE MERA WITH ROM ,LE FLEABLITY AND ACTIVITY MODIFICATION Balance/Gait/Functional tests - Balance/Special Test Scores Oswestry Low Back Score: 36 Goals Goal 1:: I with HEP for lumbar spine Goal Time Frame: 4-6 Weeks Goal 2:: Patient to demonstrate 50% to improve function and RTW Goal Time Frame: 4-6 Weeks Goal 3:: Patient to improve LUMBAR ROM for function of recovery to lift with good body mechanics Goal Time Frame: 4-6 Weeks Goal 4:: Patient to improve to improve back oswestry score by 5 points to improve QOL. Goal Time Frame: 4-6 Weeks Goal 5:: Patient to normalize gait with less pain Goal Time Frame: 4-6 Weeks Anticipated Interventions Patient/Client Instruction: Educate patient on: Condition, Plan of Care For the Purpose of:: To decrease pain, To increase ROM, To improve muscle performance and motor function, To improve ability to perform ADL's, To increase tolerance to activity/condition/position, To improve ability of physical actions for home/community/work/leisure, To improve health of tissue, To decrease soft tissue restriction, To increase flexibility/ROM, To improve balance, To reduce risk of recurrence, To prevent re-injury, To improve tolerance to ADL's Therapeutic Exercise to Include: Strength training, Endurance training, Postural training, Flexibilty training, Active ROM, Dynamic Lumbar Stabilization, [place] Exercises For the Purpose of:: To decrease pain, To increase ROM, To improve muscle performance and motor function, To improve ability to perform ADL's, To increase tolerance to activity/condition/position, To improve ability of physical actions for home/community/work/leisure, To improve health of tissue, To decrease soft tissue restriction, To increase flexibility/ROM, To prevent re-injury TENS: Yes IF ES: Yes Cryotherapy (ice pack, ice massage): Yes Thermo therapy (hot pack): Yes Ultrasound (thermal/non thermal): Yes For the Purpose of:: To decrease pain, To increase ROM, To improve nutrient delivery to tissue, To increase oxygenation perfusion, To improve health of tissue, To decrease soft tissue restriction Please do not hesitate to contact me at [phone] by phone or if you have questions or concerns regarding this new plan of care! Sincerely, Jensen Foy, PT, Cert MDT, OCS
--- NOTE | 2022-03-23 07:56 | HP.PT.NRP ---
[facility] was seen in my office for initial evaluation on 11/08/21. The following Plan of Care was established for this patient: Initial Frequency: 2-3x /Week Initial Duration: 3 Weeks Patient/Client Instruction: Educate patient on: Condition, Plan of Care For the Purpose of:: To decrease pain, To increase ROM, To improve muscle performance and motor function, To improve ability to perform ADL's, To increase tolerance to activity/condition/position, To improve ability of physical actions for home/community/work/leisure, To improve health of tissue, To decrease soft tissue restriction, To increase flexibility/ROM, To improve balance, To reduce risk of recurrence, To prevent re-injury, To improve tolerance to ADL's Therapeutic Exercise to Include: Strength training, Endurance training, Postural training, Flexibilty training, Active ROM, Dynamic Lumbar Stabilization, [place] Exercises For the Purpose of:: To decrease pain, To increase ROM, To improve muscle performance and motor function, To improve ability to perform ADL's, To increase tolerance to activity/condition/position, To improve ability of physical actions for home/community/work/leisure, To improve health of tissue, To decrease soft tissue restriction, To increase flexibility/ROM, To prevent re-injury TENS: Yes IF ES: Yes Cryotherapy (ice pack, ice massage): Yes Thermo therapy (hot pack): Yes Ultrasound (thermal/non thermal): Yes For the Purpose of:: To decrease pain, To increase ROM, To improve nutrient delivery to tissue, To increase oxygenation perfusion, To improve health of tissue, To decrease soft tissue restriction This patient was last seen in our office . Pertinent comments regarding their Physical therapy will appear below: Patient seen for PT for lumbar radiculopathy with PT focusing on modalities ,[place] ex's and progress to DLS then had MRI At this point I will be discontinuing this patient from physical therapy. I would be happy to see this patient again in the future if found appropriate by the physician. Thank you! Jensen Foy, PT, Cert MDT, OCS Balance/Gait/Functional tests - Balance/Special Test Scores Oswestry Low Back Score: 9
== END 2021-12-20 19:00 | disposition home or self-care (01) ==
LOC: PT 11:00
PROVIDERS: PCP Family Medicine; Referring Provider Chiropractor; Visit Provider Chiropractor
DX: S33.5XXD Sprain of ligaments of lumbar spine, subsequent encounter (principal); X58.XXXD Exposure to other specified factors, subsequent encounter
CPT/HCPCS: 97035; 97110; 97162

== ENCOUNTER → 2022-01-13 | Outpatient (CLI) | payer MEDICAID, SELFPAY ==
--- NOTE | 2022-01-13 07:29 | MRI_ITS ---
STUDY: MRI LUMBAR SPINE WITHOUT CONTRAST REASON FOR EXAM: Male, 46 years old. SPRAIN OF LIGAMENTS OF LUMBAR TECHNIQUE: Standardized fat and water weighted pulse sequences were obtained in the sagittal and axial planes. COMPARISON: CT abdomen and pelvis without contrast 04/09/2019. FINDINGS: T11-T12 and T12-L1: (Sagittal only). Normal endplates. Normal disc height, hydration and morphology. No ventral extradural defects. Normal central canal and bilateral intervertebral neural foramina. Normal lumbar lordosis. There is no substantial scoliosis. Normal conus medullaris that terminates at the mid L1 vertebral body level. L1-2: Normal endplates. Normal disc height, hydration and morphology. Normal bilateral facet joints. Normal central canal and bilateral lateral recesses. Normal bilateral intervertebral neural foramina. L2-3: Normal endplates. Normal disc height, hydration and morphology. Normal bilateral facet joints. Normal central canal and bilateral lateral recesses. Normal bilateral intervertebral neural foramina. L3-4: Normal endplates. Normal disc height, hydration and morphology. Normal bilateral facet joints. Normal central canal and bilateral lateral recesses. Normal bilateral intervertebral neural foramina. L4-5: Normal endplates. Normal disc height, hydration and morphology. Normal bilateral facet joints. Normal central canal and bilateral lateral recesses. Normal bilateral intervertebral neural foramina. L5-S1: Normal endplates. Normal disc height. Small left calcified disc protrusion (series 2, image 7). This is also visible on the CT abdomen pelvis without 04/09/2019. No displacement of the left S1 nerve root sleeve. Moderate central canal stenosis with an AP canal diameter of 8 mm secondary to developmentally short pedicles and mild surrounding epidural lipomatosis. Mild right degenerative facet arthropathy. Normal left facet joint. Normal bilateral lateral recesses. Normal bilateral intervertebral neural foramina. Normal visualized sacral ala. Normal visualized paraspinous soft tissue structures. MRI/Spine Lumbar (Routine) IMPRESSION: 1. Small left L5-S1 calcified disc protrusion without obvious displacement of the left S1 nerve root sleeve (series 2, image 7). This is unchanged when compared to CT abdomen and pelvis of 04/09/2019. Additionally, moderate central canal stenosis with an AP canal diameter of 8 mm secondary to developmentally short pedicles and mild surrounding epidural lipomatosis. These are also unchanged. 2. No MRI evidence of lumbar extruded disc fragment and no other significant abnormality of the lumbar spine when compared to CT abdomen and pelvis of 04/09/2019. Electronically Signed: Rey Sanchez MD at 13:43 EDT ,
== END | disposition home or self-care (01) ==
LOC: MRI 07:15
PROVIDERS: PCP Family Medicine; Referring Provider Chiropractor; Visit Provider Chiropractor
DX: S33.5XXA Sprain of ligaments of lumbar spine, initial encounter (principal)
CPT/HCPCS: 72148

== ENCOUNTER → 2022-05-06 | Outpatient (CLI) | payer MEDICAID, SELFPAY ==
--- NOTE | 2022-05-06 07:59 | MRI_ITS ---
STUDY: MRI LUMBAR SPINE WITHOUT CONTRAST REASON FOR EXAM: Male, 46 years old. Lower back pain into groin and down bilateral legs. TECHNIQUE: Standardized fat and water weighted pulse sequences were obtained in the sagittal and axial planes. COMPARISON: MRI of the lumbar spine without contrast 01/13/2022. FINDINGS: T11-T12: (Sagittal only). Normal endplates. Mild disc space height narrowing. Normal disc hydration and morphology. Normal central canal and bilateral intervertebral neural foramina. T12-L1: (Sagittal only). Normal endplates. Normal disc height, hydration and morphology. Normal central canal and bilateral intervertebral neural foramina. Normal lumbar lordosis. There is no substantial scoliosis. Normal conus medullaris that terminates at the lower L1 vertebral body level. L1-2: Normal endplates. Normal disc height, hydration and morphology. Normal bilateral facet joints. Normal central canal and bilateral lateral recesses. Normal bilateral intervertebral neural foramina. L2-3: Normal endplates. Normal disc height, hydration and morphology. Normal bilateral facet joints. Normal central canal and bilateral lateral recesses. Normal bilateral intervertebral neural foramina. L3-4: Normal endplates. Normal disc height, hydration and morphology. Normal bilateral facet joints. Normal central canal and bilateral lateral recesses. Normal bilateral intervertebral neural foramina. L4-5: Normal endplates. Normal disc height, hydration and morphology. Normal bilateral facet joints. Normal central canal and bilateral lateral recesses. Normal bilateral intervertebral neural foramina. L5-S1: Normal endplates. Normal disc height. Small left posterior paramedian ventral extradural defect is unchanged. Mild right degenerative facet arthropathy. Normal left facet joint. Mild dorsal epidural lipomatosis. Moderate asymmetric central canal stenosis with an AP canal diameter 7 mm is unchanged. Normal bilateral lateral recesses. Normal bilateral intervertebral neural foramina. Normal visualized sacral ala. Normal visualized paraspinous soft tissue structures. MRI/Spine Lumbar (Routine) IMPRESSION: 1. Moderate central canal stenosis at L5-S1 disc space level secondary to developmentally short pedicles and mild dorsal epidural lipomatosis. Small left posterior paramedian ventral extradural defect due to small posterior bulging annulus. This level is unchanged. 2. No MRI evidence of lumbar extruded disc fragment. 3. Normal remainder of lumbar spine. Electronically Signed: Rey Sanchez MD at 9:40 EST ,
== END | disposition home or self-care (01) ==
LOC: MRI 05-07 07:49
PROVIDERS: PCP Family Medicine; Referring Provider Orthopaedic Surgery; Visit Provider Orthopaedic Surgery
DX: M48.061 Spinal stenosis, lumbar region without neurogenic claudication (principal); M48.07 Spinal stenosis, lumbosacral region; M47.816 Spondylosis without myelopathy or radiculopathy, lumbar region; M51.36 Other intervertebral disc degeneration, lumbar region; M51.26 Other intervertebral disc displacement, lumbar region
CPT/HCPCS: 72148

== ENCOUNTER → 2023-01-23 | Outpatient (CLI) | payer MEDICAID, SELFPAY ==
--- NOTE | 2023-01-23 07:00 | MRI_ITS ---
EXAM: MR LUMBAR SPINE WITHOUT INTRAVENOUS CONTRAST CLINICAL INDICATION: pain, back pain in lower and middle back and in L leg for over 1yrs, TECHNIQUE: Multiplanar and multisequence MR images of the lumbar spine without intravenous contrast. COMPARISON: 05/06/2022. FINDINGS: VERTEBRAE: Unremarkable. Vertebral body heights are preserved. Normal vertebral bodies and posterior elements. Normal alignment. No spondylolisthesis. There is preservation of the normal lumbar lordosis. SPINAL CORD: Unremarkable. Normal position and signal intensity of the conus medullaris. SOFT TISSUES: Unremarkable. DISCS/SPINAL CANAL/NEURAL FORAMINA: T12-L1: Normal disc height and morphology. Normal bilateral facet joints. Normal central canal. Normal bilateral lateral recesses. Normal intervertebral neural foramina. L1-2: Normal disc height and morphology. Normal bilateral facet joints. Normal central canal. Normal bilateral lateral recesses. Normal intervertebral neural foramina. L2-3: Normal disc height and morphology. Normal bilateral facet joints. Normal central canal. Normal bilateral lateral recesses. Normal intervertebral neural foramina. L3-4: Normal disc height and morphology. Normal bilateral facet joints. Normal central canal. Normal bilateral lateral recesses. Normal intervertebral neural foramina. L4-5: Normal disc height and morphology. Normal bilateral facet joints. Normal central canal. Normal bilateral lateral recesses. Normal intervertebral neural foramina. L5-S1: Disc dehydration. Small, central, noncompressive disc protrusion. This is stable to slightly decreased compared to the prior study. Normal bilateral facet joints. Normal central canal. Normal bilateral lateral recesses. Normal intervertebral neural foramina. MRI/Spine Lumbar (Routine) IMPRESSION: Small L5-S1 disc protrusion, stable to minimally decreased compared to the prior study. Electronically Signed: Estela Sparrow MD at 16:09 EDT Reading Location ID and State: [id number] / Tel , Service support ,
== END | disposition home or self-care (01) ==
LOC: MRI 06:37
PROVIDERS: PCP Family Medicine; Referring Provider Orthopaedic Surgery; Visit Provider Orthopaedic Surgery
DX: M51.27 Other intervertebral disc displacement, lumbosacral region (principal)
CPT/HCPCS: 72148

== ENCOUNTER → 2023-04-04 | Outpatient (CLI) | payer MEDICAID, SELFPAY ==
[2023-04-04 12:24] LABS: Absolute Lymphocyte Count 3.69 X10^3/uL (0.83-4.51); Absolute Neutrophil Count 8.1 X10^3/uL (2.0-7.7); Basophil# 0.13 X10^3/uL; Eosinophil# 0.06 X10^3/uL; Eosinophils% 0.5 % (0-5); Hematocrit 50.7 % (40-54); Hemoglobin 17.1 g/dL (13.0-16.5); Lymphocyte # 3.69 X10^3/ul (0.83-4.51); Lymphocyte % 28.8 % (19-41); Mean Corp Hgb Conc 33.7 g/dL (32-36); Mean Corpuscular Hgb 28.5 pg (27.0-32.0); Mean Corpuscular Volume 84.6 fL (80-94); Mean Platelet Vol. 9.6 fl (6.2-12.0); Monocyte# 0.78 X10^3/uL; Monocyte% 6.1 % (0-10); NRBC Flagged by Analyzer 0 % (0-5); Neutrophil # 8.09 X10^3/uL (2.7-7.7); Neutrophil % 63.2 % (47-70); Platelet Count 275 K/mm3 (150-450); RBC Distribution Width CV 12.6 % (11.6-14.6); RBC Distribution Width SD 38.5 fl (35.1-43.9); Red Blood Count 5.99 M/mm3 (4.6-6.2); White Blood Count 12.8 K/mm3 (4.4-11.0)
[2023-04-04 12:34] LABS: Erythrocyte Sedimentation Rate 9 mm/hr (0-20)
[2023-04-04 12:42] LABS: CRP < 2.90 mg/L (0.0-3.0)
== END | disposition home or self-care (01) ==
LOC: MTLAB 10:34
PROVIDERS: PCP Family Medicine; Referring Provider Orthopaedic Surgery Orthopaedic Surgery of the Spine; Visit Provider Orthopaedic Surgery Orthopaedic Surgery of the Spine
DX: E11.9 Type 2 diabetes mellitus without complications (principal)
CPT/HCPCS: 36415; 85025; 85652; 86140

== ENCOUNTER → 2023-07-06 | Outpatient (CLI) | payer MEDICAID, SELFPAY ==
--- OUTSIDE RECORDS SUMMARY | 2023-07-06 07:31 | XMS RPT_ITS | CCD ---
Author Name Unknown Address [address] [place] [address] Organization [facility] Care Team Providers Care Cvt Tech Name Role Phone Cuauhtemoc Rasmussen MD Primary Care Provider [facility], Maria C Unavailable Cuauhtemoc Rasmussen MD Primary Care Provider [facility], Keli Unavailable FRED, HUGO Referring Unavailable ELDERBROCK, CUAUHTEMOC Caro Primary Care Unavailable ELDERBROTAYE, CUAUHTEMOC Caro Primary Care Unavailable FRED, HUGO Referring Unavailable ELDERBROCK, CUAUHTEMOC Caro Primary Care Unavailable ELDERBROCK, CUAHUTEMOC Caro Primary Care Unavailable FÁTIMAHOBESSIE QuintanillaLEY Attending Unavailable ELDERBROCK, CUAUHTEMOC D Primary Care Unavailable ELDERBROCK, CUAUHTEMOC D Primary Care Unavailable FRED, HUGO Attending Unavailable ELDERBROCK, CUAUHTEMOC D Primary Care Unavailable FRED, HUGO Referring Unavailable ELDERBROCK, CUAUHTEMOC D Primary Care Unavailable FRED, HUGO Attending Unavailable ELDERBROCK, CUAUHTEMOC D Primary Care Unavailable FRED, HUGO Attending Unavailable ELDERBROCK, CUAUHTEMOC D Primary Care Unavailable ELDERBROCK, CUAUHTEMOC D Primary Care Unavailable TANNHOF ELIAZAR Referring Unavailable ELDERBROCK, CUAUHTEMOC D Primary Care Unavailable FRED, HUGO Referring Unavailable FRED, HUGO Attending Unavailable ELDERBROCK, CUAUHTEMOC D Primary Care Unavailable Allergies Allergy Classification Reported Allergen(s) Allergy Type Date of Onset Reaction(s) Facility (19 sources) Amitriptyline; Translations: [AMITRIPTYLINE] Drug Allergy 8 Diarrhea [facility] (2 sources) Penicillins; Translations: [PENICILLINS] Drug Intolerance 1 Intolerance [facility] Work Phone: (17 sources) Penicillins Drug Intolerance 1 Intolerance [facility] Work Phone: (10 sources) dulaglutide; Translations: [DULAGLUTIDE] Drug Allergy 3 Diarrhea [facility] Medications Current Medications Medication Drug Class(es) Dates Sig (Normalized) Sig (Original) Ascorbic Acid (8 sources) Vitamin C End: 10-16-2022 ASCORBIC ACID (VITAMIN C ORAL) Take by mouth. 0 10/16/2022 Discontinued (Course of therapy completed) Completed/Discontinued Medications Medication Drug Class(es) Dates Sig (Normalized) Sig (Original) acetaminophen 500 mg oral tablet (18 sources) Start: 10-07-2020 take 1 tablet by mouth every six hours as needed acetaminophen (TYLENOL EXTRA STRENGTH) 500 mg tablet Take 1 tablet by mouth every 6 hours as needed for pain. 0 10/07/2020 Active Problems Active Problems Problem Classification Problem Date Documented Da te Episodic/Chronic Anxiety disorders (18 sources) Mixed anxiety and depressive disorder; Translations: [Other specified anxiety disorders] Onset: 05-26-2019 05-26-2019 Chronic Diabetes mellitus with complications (3 sources) Type 2 diabetes mellitus; Translations: [Type 2 diabetes mellitus with hyperglycemia] Onset: 02-04-2023 01-30-2023 Chronic Diabetes mellitus without complication (20 sources) Type 2 diabetes mellitus without complication; Translations: [Type 2 diabetes mellitus without complications] Onset: 12-15-2010 Chronic Disorders of lipid metabolism (20 sources) Mixed hyperlipidemia; Translations: [Mixed hyperlipidemia] Onset: 09-09-2015 09-09-2015 Chronic Essential hypertension (20 sources) Essential hypertension; Translations: [Essential (primary) hypertension] Onset: 07-04-2011 Chronic Other nervous system disorders (1 source) Neuropathy; Translations: [Polyneuropathy, unspecified] 06-24-2023 Chronic Other nervous system disorders (1 source) Polyneuropathy, unspecified; Translations: [Neuropathy] Onset: 06-24-2023 Chronic Other screening for suspected conditions (not mental disorders or infectious disease) (7 sources) Patient encounter status; Translations: [Encounter for screening for malignant neoplasm of prostate] Onset: 03-22-2023 Episodic Other upper respiratory disease (1 source) Seasonal allergy; Translations: [Other seasonal allergic rhinitis] 06-24-2023 Chronic Other upper respiratory disease (1 source) Other seasonal allergic rhinitis; Translations: [Seasonal allergies] Onset: 06-24-2023 Chronic Residual codes; unclassified (18 sources) Obstructive sleep apnea syndrome; Translations: [Obstructive sleep apnea (adult) (pediatric)] Onset: 09-09-2015 09-09-2015 Chronic Spondylosis; intervertebral disc disorders; other back problems (3 sources) Chronic low back pain; Translations: [Chronic midline low back pain without sciatica] Episodic Unclassified (1 source) Back pain at L4-L5 level; Translations: [Back pain at L4-L5 level] Onset: 06-24-2023 Past or Other Problems Problem Classification Problem Date Documented Da te Episodic/Chronic Other aftercare (18 sources) Long-term current use of anticoagulant; Translations: [snf (current) use of anticoagulants] Onset: 07-07-2018 07-07-2018 Episodic Other aftercare (2 sources) snf (current) use of insulin; Translations: [Type 2 diabetes mellitus without complication, with long-term current use of insulin (HCC)] Onset: 02-04-2023 Episodic Other aftercare (1 source) 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; Translations: [Medication management] Onset: 03-04-2023 Episodic Phlebitis; thrombophlebitis and thromboembolism (18 sources) H/O: Deep vein thrombosis; Translations: [Personal history of other venous thrombosis and embolism] Onset: 07-07-2018 07-07-2018 Episodic Results Test Name Value Interpretation Reference Range Facil ity Vital Signs Date Time Vital Sign Value Performing Clinician Babita kenyon 06-24-2023 10:04-0500 Body weight 112.49 kg Eliazar Maldonado APRN.CNP Work Phone: [facility] 06-24-2023 10:04-0500 Diastolic blood pressure 80 mm[Hg] Eliazar Maldonado APRN.CNP Work Phone: [facility] 06-24-2023 10:04-0500 Heart rate 79 /min Eliazar Maldonado APRN.CNP Work Phone: [facility] 06-24-2023 10:04-0500 Respiratory rate 16 /min Eliazar Maldonado APRN.CNP Work Phone: [facility] 06-24-2023 10:04-0500 SaO2% (BldA) [Mass fraction] 97 % Eliazar Tannhof [employer].INSTITUTIONAL CUSTODIAN Work Phone: [facility] 06-24-2023 10:04-0500 Systolic blood pressure 108 mm[Hg] Eliazar Tannhof [employer].INSTITUTIONAL CUSTODIAN Work Phone: [facility] 10-16-2022 07:49-0400 Body temperature 97.39 [degF] Hugo Fred [employer].INSTITUTIONAL CUSTODIAN Work Phone: [facility] 10-16-2022 07:49-0400 Body weight 115.12 kg Hugo Fred [employer].INSTITUTIONAL CUSTODIAN Work Phone: [facility] 10-16-2022 07:49-0400 Diastolic blood pressure 90 mm[Hg] Hugo Fred [employer].INSTITUTIONAL CUSTODIAN Work Phone: [facility] 10-16-2022 07:49-0400 Heart rate 72 /min Hugo Fred [employer].INSTITUTIONAL CUSTODIAN Work Phone: [facility] 10-16-2022 07:49-0400 Respiratory rate 16 /min Hugo Fred [employer].INSTITUTIONAL CUSTODIAN Work Phone: [facility] 10-16-2022 07:49-0400 SaO2% (BldA) [Mass fraction] 97 % Hugo Fred [employer].INSTITUTIONAL CUSTODIAN Work Phone: [facility] 10-16-2022 07:49-0400 Systolic blood pressure 139 mm[Hg] Hugo Fred [employer].INSTITUTIONAL CUSTODIAN Work Phone: [facility] 04-11-2022 17:57-0500 Body weight 115.76 kg Eliazar Tannhof [employer].INSTITUTIONAL CUSTODIAN Work Phone: [facility] 04-11-2022 17:57-0500 Diastolic blood pressure 74 mm[Hg] Eliazar Tannhof [employer].INSTITUTIONAL CUSTODIAN Work Phone: [facility] 04-11-2022 17:57-0500 Heart rate 73 /min Eliazar Tannhof [employer].INSTITUTIONAL CUSTODIAN Work Phone: [facility] 04-11-2022 17:57-0500 Respiratory rate 16 /min Eliazar Tannhof [employer].INSTITUTIONAL CUSTODIAN Work Phone: [facility] 04-11-2022 17:57-0500 SaO2% (BldA) [Mass fraction] 97 % Eliazar Tannhof [employer].INSTITUTIONAL CUSTODIAN Work Phone: [facility] 04-11-2022 17:57-0500 Systolic blood pressure 134 mm[Hg] Eliazar Tannhof [employer].INSTITUTIONAL CUSTODIAN Work Phone: [facility] 01-10-2022 16:29-0400 Body height 177 cm Eliazar Tannhof [employer].INSTITUTIONAL CUSTODIAN Work Phone: [facility] 01-10-2022 16:29-0400 Body weight 112.49 kg Eliazar Tannhof [employer].INSTITUTIONAL CUSTODIAN Work Phone: [facility] 01-10-2022 16:29-0400 Diastolic blood pressure 90 mm[Hg] Eliazar Tannhof [employer].INSTITUTIONAL CUSTODIAN Work Phone: [facility] 01-10-2022 16:29-0400 Heart rate 75 /min Eliazar Tannhof [employer].INSTITUTIONAL CUSTODIAN Work Phone: [facility] 01-10-2022 16:29-0400 Respiratory rate 16 /min Eliazar Tannhof [employer].INSTITUTIONAL CUSTODIAN Work Phone: [facility] 01-10-2022 16:29-0400 SaO2% (BldA) [Mass fraction] 97 % Eliazar Tannhof [employer].INSTITUTIONAL CUSTODIAN Work Phone: [facility] 01-10-2022 16:29-0400 Systolic blood pressure 132 mm[Hg] Eliazar Tannhof [employer].INSTITUTIONAL CUSTODIAN Work Phone: [facility] Encounters Encounter Date Encounter Type Care Provider Facility Start: 07-01-2023 ambulatory CUAUHTEMOC Guzman ity:[facility] Start: 07-01-2023 End: 07-01-2023 ambulatory Keli [facility] Work Phone: [facility] Plan of Treatment Date Care Activity Detail Author Start: 03-06-2028 Urine microalbumin profile [facility] Start: 06-23-2024 Annual PCP Team Library Monitor melisa Disease Visit Annual PCP Team Chronic Disease Visit [facility] Start: 06-23-2024 BP Controlled (<130/80) BP Controlle d (<130/80) [facility] Start: 06-23-2024 Hepatitis B Vaccine (1 of 3 - 19+ 3-dose series) Hepatitis B Vaccine (1 of 3 - 19+ 3-dose series) [facility] Immunizations Immunization Date Immunization Notes Care Provider Fa cility 03-24-2019 influenza virus vacc ine, unspecified formulation Cuauhtemoc Rasmussen MD Work Phone: [facility] 03-06-2018 tetanus toxoid, redu paulette diphtheria toxoid, and acellular pertussis vaccine, adsorbed Cuauhtemoc Rasmussen MD Work Phone: [facility] 01-20-2017 influenza, seasonal, injectable Cuauhtemoc Rasmussen MD Work Phone: [facility] 12-15-2010 pneumococcal polysaccharide vaccine, 23 valent Cuauhtemoc Rasmussen MD Work Phone: [facility] 11-24-2010 tetanus toxoid, redu paulette diphtheria toxoid, and acellular pertussis vaccine, adsorbed Cuauhtemoc Rasmussen MD Work Phone: [facility] Payers Date Payer Category Payer Medicaid [id number] 2019 Medicaid [employer] [id number] 2019-Present [phone] [address] [place] [address] Medicaid [id number] 2019 Medicaid [id number] Social History Date Type Detail Facility Start: 12-15-2010 End: 01-10-2022 Tobacco smoking status NHIS Never smoked tobacco [facility] Work Phone: End: 01-14-2010 History of tobacco use User of smokeless tobacco [facility] Work Phone: Start: 10-07-2020 End: 06-24-2023 Alcohol intake Current drinker of alcohol (finding) [facility] Start: 08-22-2010 History SDOH Alcohol Comment weekends [facility] Start: 1975 Sex Assigned At Not on file [facility] [place] Start: 12-15-2010 End: 01-10-2022 Tobacco use and exposure Former smokeless tobacco user [facility] Work Phone: Start: 12-31-2021 End: 01-10-2022 Exposure to SARS-CoV-2 (event) Not sure [facility] Start: 09-04-2022 End: 10-16-2022 History of Social function [facility] Start: 09-04-2022 End: 10-16-2022 Tobacco use panel [facility] National Score (1-100), lower number is lower risk 70 [facility] Medical Equipment Procedure Code Equipment Code Equipment Origin al Text Equipment Identifier Dates Start: 05-31-2020 End: 02-04-2023 Clinical Notes 10-06-2021 to 07-01-2023 Keli Arellano RPh - 07/01/2023 9:30 AM EDTPatient InstructionsEliazar Maldonado APRN.[facility] - 06/24/2023 10:20 AM ESTTelephone Encounter - Hugo Ibarra APRN.[facility] - 05/27/2023 12:14 PM EST Note Date & Type Note Facility 07-01-2023 Note HNO ID: [id number] Author: KELI ARELLANO RPh Service: ? Author Type: Pharmacist Type: Progress Notes Filed: 07/01/2023 10:11 Note Text: Primary Care Pharmacy Visit CC (Reason for Consult): Diabetes (E11.9) Type 2 diabetes mellitus without complication, without long-term current use of insulin (HCC) (primary encounter diagnosis) Goal: A1c < 7% Last Collaborating Provider Visit: 06/24/23 Yosvany Yu is a 47 year old male presenting for follow up visit telephone call. Patient consents to pharmacy collaborative practice agreement. Interim Events: 12/21: Ozempic increased to 2mg weekly. This was later denied by insurance even after appeal. Insulin dose adjustments made, switched to Victoza, and PharmD referral placed 02/04: initial PharmD visit; glimepiride stopped, Victoza and insulin increased; also advised to switch timing of Lantus to dinner time to improve adherence; Dexcom G7 ordered 03/04: Lantus decreased due to lower blood sugars 03/25: gabapentin increased 04/01: Jardiance started 06/23: INSTITUTIONAL CUSTODIAN appt; Zyrtec D started for allergies HPI: Feels things are going well. Stopped Zyrtec D because he developed a headache. DISLA went away after stopping medication. No vision changes or chest pains, just headache. Did not check BP when he was taking medication. Allergies are really bad. He is still taking Benadryl + Congestion (diphenhydramine + pseudoephedrine) Taking Jardiance, tolerating well. No cost issues. No frequent urination or other issues. Down 2 lbs. Wants more weight loss. Says back doctor did more x-rays, thinks most of issue may be related to hips --> may need double hip replacement before back surgery. Current DM Medications: Metformin ER 500mg tabs - 1000mg BID Liraglutide (Victoza) 1.8mg daily Empagliflozin (Jardiance) 10mg daily Insulin glargine (Lantus) 80 units daily + self-titration (increase by 2 units every 3 days for goal FBG <130) (taking 80 units) Past DM medications: Trulicity - diarrhea, last tried >1 year ago Ozempic - insurance stopped covering [facility] CGM Data *Occasionally gets lows in AM if gets up and forgets breakfast; feels horrible if BG <60; treats with Asa D or candy bars Preventative Medications: On ANICETO/ARB: Yes On Statin: No ROS: Patient denies CP, SOB, DISLA, blurred vision, dizziness or lightheadedness Patient denies symptoms of hypoglycemia (sweating, anxiety, palpitations, hunger, and tremor) Patient denies symptoms of hyperglycemia (polyuria, polydipsia, polyphagia) Patient denies potential medication adverse effects DIET/EXERCISE/SOCIAL Hx: Exercise: Walks dog, but has difficulty because needs back surgery and possible double hip replacement MEDICATIONS: Pill bottles are not present. Adherence: denies missed doses. Pharmacy: [facility] [address] [place] [id number] [id number] [facility] [phone] [id number] Rx coverage: Payor: [facility] MEDICAID / Plan: [facility] MEDICAID / Product Type: Medicaid / Medications affordable? Yes Diabetes Supplies: Yes Organization system: ACTIVE PROBLEM LIST Type 2 Diabetes Mellitus Without Complication, Without Long-Term Current Use of Insulin (Hcc) Hypertension Obstructive Sleep Apnea Syndrome Mixed Hyperlipidemia snf current use of anticoagulant Personal History of Dvt (Deep Vein Thrombosis) Anxiety With Depression PAST MEDICAL HISTORY Diagnosis Date DM II (diabetes mellitus, type II), controlled (HCC) Hypertension past med Enlarged heart Past medical history reviewed. ALLERGIES Allergen Reactions Amitriptyline Diarrhea Penicillins Intolerance Trulicity [Dulaglut* Diarrhea Medication List Medication Directions Comments Action/Plan acetaminophen (TYLENOL EXTRA STRENGTH) 500 mg tablet Take 1 tablet by mouth every 6 hours as needed for pain. Taking PRN aspirin 81 mg chewable tablet Take 1 tablet by mouth once daily. Thinks he has hx mini stroke Blood-Glucose Meter,Continuous (DEXCOM G7 SALESPERSON HEARING AIDS) misc Use to check blood sugar at least four (4) times daily. supplies Blood-Glucose Sensor (DEXCOM G7 SENSOR) madhavi Apply new sensor every ten (10) days. supplies cetirizine-pseudoephedrine (ALLERGY RELIEF-D, CETIRIZINE,) 5-120 mg per tablet Take 1 tablet by mouth two times a day. Not taking cyanocobalamin (VITAMIN B-12) 100 mcg tab Take 100 mcg by mouth once daily. Patient not taking: Reported on 06/24/2023 Not taking Removed from med list empagliflozin (JARDIANCE) 10 mg tablet Take 1 tablet by mouth daily with breakfast. taking Discontinued: 06/24/2023 10:12 AM gabapentin (NEURONTIN) 600 mg tablet Take 1 tablet by mouth three times a day for 180 days. taking hydroCHLOROthiazide 25 mg tablet Take 1 tablet by mouth once daily. taking ibuprofen (MOTRIN) 200 mg tablet Take 200 mg by mouth every 6 hours. As needed Using PRN insulin glargine (LANTUS SOLOSTAR U-100 INSULIN) 100 unit/mL (3 mL) Inject 80 Units (more content not included)... [facility] 07-01-2023 History of Present illness Narrative Images from the original note were not included. Primary Care Pharmacy Visit CC (Reason for Consult): Diabetes (E11.9) Type 2 diabetes mellitus without complication, without long-term current use of insulin ([facility]) (primary encounter diagnosis) Goal: A1c < 7% Last Collaborating Provider Visit: 06/24/23 Yosvany Yu is a 47 year old male presenting for follow up visit telephone call. Patient consents to pharmacy collaborative practice agreement. Interim Events: 12/21: Ozempic increased to 2mg weekly. This was later denied by insurance even after appeal. Insulin dose adjustments made, switched to Victoza, and PharmD referral placed 02/04: initial PharmD visit; glimepiride stopped, Victoza and insulin increased; also advised to switch timing of Lantus to dinner time to improve adherence; Dexcom G7 ordered 03/04: Lantus decreased due to lower blood sugars 03/25: gabapentin increased 04/01: Jardiance started 06/23: INSTITUTIONAL CUSTODIAN appt; Zyrtec D started for allergies HPI: Feels things are going well. Stopped Zyrtec D because he developed a headache. DISLA went away after stopping medication. No vision changes or chest pains, just headache. Did not check BP when he was taking medication. Allergies are really bad. He is still taking Benadryl + Congestion (diphenhydramine + pseudoephedrine) Taking Jardiance, tolerating well. No cost issues. No frequent urination or other issues. Down 2 lbs. Wants more weight loss. Says back doctor did more x-rays, thinks most of issue may be related to hips --> may need double hip replacement before back surgery. Current DM Medications: Metformin ER 500mg tabs - 1000mg BID Liraglutide (Victoza) 1.8mg daily Empagliflozin (Jardiance) 10mg daily Insulin glargine (Lantus) 80 units daily + self-titration (increase by 2 units every 3 days for goal FBG <130) (taking 80 units) Past DM medications: Trulicity - diarrhea, last tried >1 year ago Ozempic - insurance stopped covering Januvia CGM Data *Occasionally gets lows in AM if gets up and forgets breakfast; feels horrible if BG <60; treats with Asa D or candy bars Preventative Medications: On ANICETO/ARB: Yes On Statin: No ROS: Patient denies CP, SOB, DISLA, blurred vision, dizziness or lightheadedness Patient denies symptoms of hypoglycemia (sweating, anxiety, palpitations, hunger, and tremor) Patient denies symptoms of hyperglycemia (polyuria, polydipsia, polyphagia) Patient denies potential medication adverse effects DIET/EXERCISE/SOCIAL Hx: Exercise: Walks dog, but has difficulty because needs back surgery and possible double hip replacement MEDICATIONS: Pill bottles are not present. Adherence: denies missed doses. Pharmacy: [facility] [address] [place] [id number] [address] [facility] [phone] [id number] Rx coverage: Payor: [facility] MEDICAID / Plan: [facility] / Product Type: Medicaid / Medications affordable? 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 ALLERGIES Allergen Reactions Amitriptyline Diarrhea Penicillins Intolerance Trulicity [Dulaglut* Diarrhea Medication List Medication Directions Comments Action/Plan acetaminophen (TYLENOL EXTRA STRENGTH) 500 mg tablet Take 1 tablet by mouth every 6 hours as needed for pain. Taking PRN aspirin 81 mg chewable tablet Take 1 tablet by mouth once daily. Thinks he has hx mini stroke Blood-Glucose Meter,Continuous (DEXCOM G7 SALESPERSON HEARING AIDS) misc Use to check blood sugar at least four (4) times daily. supplies Blood-Glucose Sensor (DEXCOM G7 SENSOR) madhavi Apply new sensor every ten (10) days. supplies cetirizine-pseudoephedrine (ALLERGY RELIEF-D, CETIRIZINE,) 5-120 mg per tablet Take 1 tablet by mouth two times a day. Not taking cyanocobalamin (VITAMIN B-12) 100 mcg tab Take 100 mcg by mouth once daily. Patient not taking: Reported on 06/24/2023 Not taking Removed from med list empagliflozin (JARDIANCE) 10 mg tablet Take 1 tablet by mouth daily with breakfast. taking Discontinued: 06/24/2023 10:12 AM gabapentin (NEURONTIN) 600 mg tablet Take 1 tablet by mouth three times a day for 180 days. taking hydroCHLOROthiazide 25 mg tablet Take 1 tablet by mouth once daily. taking ibuprofen (MOTRIN) 200 mg tablet Take 200 mg by mouth every 6 hours. As needed Using PRN insulin glargine (LANTUS SOLOSTAR U-100 INSULIN) 100 unit/mL (3 mL) Inject 80 Units subcutaneously daily at bedtime. taking insulin needles, DISPOSABLE, (PEN NEEDLE) 31 gauge x 5/16 Use to inject insulin and victoza daily (2 injections per day) supplies liraglutide (VICTOZA) 0.6 mg/ 0.1 ml subcutaneous pen injector Inject 1.8 mg subcutaneously once daily. taking lisinopril (ZESTRIL) 40 mg tablet Take 1 tablet by mouth once daily. taking metFORMIN ER (GLUCOPHAGE XR) 500 mg 24 hr tablet Take 2 tablets by mouth two times a day before meals. taking metoprolol tartrate, short acting, (LOPRESSOR) 50 mg tablet Take 1 tablet by mouth once daily. taking *Taking Cinnamon 500mg daily Exam: There were no vitals taken for this visit. Last 3 Encounter BP Readings: Date: BP: 06/24/2023 108/80 03/25/2023 132/90 12/21/2022 118/78 Wt: 112.5 kg (248 lb) BMI: 35.91 kg/(m^2) LABS: Reviewed Lab Results Component Value Date HBA1C 6.3 06/15/2023 HBA1C 7.3 03/22/2023 HBA1C 9.4 12/19/2022 HBA1C 7.2 09/30/2020 HBA1C 6.8 06/30/2020 HBA1C 10.5 05/02/2020 CMP: Glucose 70 06/15/2023 BUN 19 06/15/2023 Creatinine 0.90 06/15/2023 Sodium 140 06/15/2023 Potassium 4.3 06/15/2023 Chloride 105 06/15/2023 CO2 24 06/15/2023 Protein, Total 6.9 06/15/2023 Albumin 4.2 06/15/2023 Calcium 9.2 06/15/2023 Alkaline Phosphatase 34 06/15/2023 Bilirubin, Total 0.5 06/15/2023 AST 36 06/15/2023 ALT 56 06/15/2023 No results found for: GFR CrCl cannot be calculated (Unknown ideal weight.). Lab Results Component Value Date CHOL 123 06/15/2023 CHOL 136 09/30/2020 LDL 66 06/15/2023 LDL 64 09/30/2020 HDL 24 06/15/2023 HDL 19 09/30/2020 TG 167 06/15/2023 TG 267 09/30/2020 The ASCVD Risk score (Charleen RODRIGUEZ, et al., 2019) failed to calculate for the following reasons: The valid total cholesterol range is 130 to 320 mg/dL Albumin/Creat Ratio (mg/g) Date Value 12/19/2022 13 PHARMACOTHERAPY ASSESSMENT/PLAN: 1. Type 2 diabetes mellitus without complication, without long-term current use of insulin (HCC) - ICD9: 250.00, ICD10: E11.9 (primary diagnosis) A1c goal < 7%; controlled (last A1c 6.3%); SMBGs at goal; occasionally having some lows when skipping meals; will increase Jardiance and decrease Lantus to promote further weight loss; f/up in 1 mo --> at that time will plan to switch Victoza for Ozempic; indicated for statin; pt thinks he had a mini-stroke in his past (though no documentation of it in Epic) --> will start high-intensity statin INCREASE Jardiance to 25mg daily (may take 2 tabs of 10mg pills until supply runs out) DECREASE Lantus to 70 units daily INITIATE rosuvastatin 20mg daily Counseled on possible muscle aches/pains; advised to contact office if notices yellowing of skin or sclera Lipid panel and CMP with next labs Continue all other medications Educated on appropriate mngt of hypoglycemia; advised not to skip meals - ROSUVASTATIN 20 MG TABLET - LIPID PANEL BASIC 2. Medication management - ICD9: V58.69, ICD10: Z79.899 Reviewed all medications, indications, dosing, frequency, administration with patient. Medication list updated as described above. 3. Allergies/congestion Developed DISLA when started Zyrtec D, no vision changes, CP, palpitations; did not check BP; currently taking Benadryl + phenylephrine with minimal relief and it causes drowsiness Advised to increase hydration. STOP Benadryl + phenylephrine (PE is not effective and Benadryl causes drowsiness); suggested to retry Zyrtec D --> check BP while on medication; if BP elevates or DISLA persists advised to stop med and try OTC cetirizine or loratadine; discussed s/sx of [place]/Stroke, advised to call 911 if issue Follow-up Patient is scheduled to see PCP team on 09/24. Patient to have f/up with PharmD team on 08/04. Patient verbalized understanding of instructions. Keli Arellano, Miranda, [facility] Primary Care Clinical Pharmacist The majority of the pharmacy visit (> 50%) was spent counseling and/or coordinating care for the patient. interaction: telephonic time was 30 minutes. documented in this encounter [facility] 06-24-2023 Note HNO ID: [id number] Author: ELIAZAR MALDONADO APRN.INSTITUTIONAL CUSTODIAN Service: ? Author Type: Nurse Practitioner Type: Progress Notes Filed: 06/24/2023 10:38 Note Text: This is a 47 year old male who presents today with: Patient presents with: Follow Up: 3 month of follow up HISTORY OF PRESENT ILLNESS: Yosvany Yu is a 47 year old male. Patient presents with: Follow Up: 3 month of follow up 3 month follow up HTN: Taking lisinopril 40 mg, Lopressor 50 mg, and hydrochlorothiazide 25 mg daily. Not currently checking blood pressure at home. Denies chest pain, palpitations, dizziness, or edema. DM: Reports overall feeling well. Medication side effects: No. Home sugar checks: 107-110 Hypoglycemic spells: No. Watching diet: Yes. Unexpected weight loss: No. Polyuria, polydipsia: No. Vision Changes: No. Foot lesions or numbness or pain: Yes. Had consult with clinical pharmacy. Still taking Victoza 1.8 mg daily, metformin extended release 1000 mg twice daily, and Lantus 80 units daily. Added on Jardiance 10 mg daily. Next follow-up will be June 30. Goal is to get A1c under 7% so that he can have back surgery. A1C 6.3! Back pain/Neuropathy: At last office visit increase gabapentin to 300 mg 3 times daily. Has not noticed much improvement with pain or numbness/tingling in the feet. Had consult today with Ortho, concerned that the pain could be caused from the hips and not the back. Had xrays completed and MRI has been ordered. Allergies: Having runny nose and sinus pressure. Has been using Benadryl and flonase. Colonoscopy: Has never had completed. Paternal Uncle had colon cancer. Family history of prostate Vaccines: Denied wanting any vaccines at this time. PAST MEDICAL HISTORY: PAST MEDICAL HISTORY Diagnosis Date DM II (diabetes mellitus, type II), controlled (HCC) Hypertension past med Enlarged heart PAST SURGICAL HISTORY Procedure Laterality Date KNEE SURGERY HX Left 07/26/[address] guided Robotic Assisted-Dr. Ivan PAST SURGICAL HISTORY OF 2000? torn acl/mcl, surgery R knee PAST SURGICAL HISTORY OF 06/29/2016 bx, vestibule of mouth PAST SURGICAL HISTORY OF Left 02/08/2017 left knee surgery-[facility]. Dr. Johnson ALLERGIES Amitriptyline, Penicillins, and Trulicity [Dulaglutide] MEDICATIONS Current Outpatient Medications Medication Sig metFORMIN ER (GLUCOPHAGE XR) 500 mg 24 hr tablet Take 2 tablets by mouth two times a day before meals. empagliflozin (JARDIANCE) 10 mg tablet Take 1 tablet by mouth daily with breakfast. insulin glargine (LANTUS SOLOSTAR U-100 INSULIN) 100 unit/mL (3 mL) Inject 80 Units subcutaneously daily at bedtime. gabapentin (NEURONTIN) 300 mg capsule Take 1 capsule by mouth three times a day for 180 days. liraglutide (VICTOZA) 0.6 mg/ 0.1 ml subcutaneous pen injector Inject 1.8 mg subcutaneously once daily. ibuprofen (MOTRIN) 200 mg tablet Take 200 mg by mouth every 6 hours. As needed Blood-Glucose Meter,Continuous (DEXCOM G7 SALESPERSON HEARING AIDS) [facility] [place] to check blood sugar at least four (4) times daily. Blood-Glucose Sensor (DEXCOM G7 SENSOR) madhavi Apply new sensor every ten (10) days. insulin needles, DISPOSABLE, (PEN NEEDLE) 31 gauge x 5/16 Use to inject insulin and victoza daily (2 injections per day) lisinopril (ZESTRIL) 40 mg tablet Take 1 tablet by mouth once daily. metoprolol tartrate, short acting, (LOPRESSOR) 50 mg tablet Take 1 tablet by mouth once daily. hydroCHLOROthiazide 25 mg tablet Take 1 tablet by mouth once daily. acetaminophen (TYLENOL EXTRA STRENGTH) 500 mg tablet Take 1 tablet by mouth every 6 hours as needed for pain. aspirin 81 mg chewable tablet Take 1 tablet by mouth once daily. cyanocobalamin (VITAMIN B-12) 100 mcg tab Take 100 mcg by mouth once daily. No current facility-administered medications for this visit. FAMILY HISTORY Problem Relation Age of Onset Stroke Paternal Grandmother Hypertension Father Diabetes Maternal Grandmother other (obesity [Other]) Maternal Grandmother Social History Tobacco Use Smoking status: Never Smokeless tobacco: Former Quit date: 01/14/2010 Vaping Use Vaping Use: Never used Substance Use Topics Alcohol use: Yes Comment: weekends Drug use: No REVIEW OF SYSTEMS GENERAL: No weight loss, malaise or fevers/chills HEENT: + Runny nos/Sinus pressure NECK: Negative for lumps, goiter, pain and significant neck swelling RESPIRATORY: Negative for cough, hemoptysis, wheezing, dyspnea or shortness of breath CARDIOVASCULAR: Negative for chest pain, leg swelling, orthopnea, or palpitations GI: No nausea, vomiting, or diarrhea/constipation. No hematochezia/melena. No heartburn or reflux symptoms. : No history of dysuria, frequency or incontinence MUSCULOSKELETAL: + Back/Hip Pain SKIN: Negative for lesions, rash, and itching ENDOCRINE: Negative for cold or heat intolerance, polyuria, polydipsia and goiter NEURO: No h (more content not included)... [facility] 06-24-2023 Instructions Eliazar Maldonado APRN.[facility] - 06/24/2023 10:27 AM EST Increase Gabapentin 600 mg three times daily Continue to take all medication as prescribed. Monitor glucose at home, if needed may need to decrease insulin. Consult placed for general surgery to discuss colonoscopy, order is good for a year. Get repeat labs in 3 months. Keep scheduled appointments with Orthopedics and Clinical pharmacy. Follow up in 3 months. Example insulin titration schedule: Start taking 10 units daily of Lantus. Check your blood sugar every morning before eating or drinking anything (fasting blood sugar level). Adjust your insulin every 3 days as follows: If your blood sugar is above 129, INCREASE your insulin by 2 unit. If your blood sugar is 80-129, CONTINUE your current insulin dose. If your blood sugar is less than 80, DECREASE your insulin by 2 unit. Continue this method until you reach your target fasting blood sugar level consistently (80-130) documented in this encounter [facility] 06-24-2023 History of Present illness Narrative This is a 47 year old male who presents today with: Patient presents with: Follow Up: 3 month of follow up HISTORY OF PRESENT ILLNESS: Yosvany Yu is a 47 year old male. Patient presents with: Follow Up: 3 month of follow up 3 month follow up HTN: Taking lisinopril 40 mg, Lopressor 50 mg, and hydrochlorothiazide 25 mg daily. Not currently checking blood pressure at home. Denies chest pain, palpitations, dizziness, or edema. DM: Reports overall feeling well. Medication side effects: No. Home sugar checks: 107-110 Hypoglycemic spells: No. Watching diet: Yes. Unexpected weight loss: No. Polyuria, polydipsia: No. Vision Changes: No. Foot lesions or numbness or pain: Yes. Had consult with clinical pharmacy. Still taking Victoza 1.8 mg daily, metformin extended release 1000 mg twice daily, and Lantus 80 units daily. Added on Jardiance 10 mg daily. Next follow-up will be June 30. Goal is to get A1c under 7% so that he can have back surgery. A1C 6.3! Back pain/Neuropathy: At last office visit increase gabapentin to 300 mg 3 times daily. Has not noticed much improvement with pain or numbness/tingling in the feet. Had consult today with Ortho, concerned that the pain could be caused from the hips and not the back. Had xrays completed and MRI has been ordered. Allergies: Having runny nose and sinus pressure. Has been using Benadryl and flonase. Colonoscopy: Has never had completed. Paternal Uncle had colon cancer. Family history of prostate Vaccines: Denied wanting any vaccines at this time. PAST MEDICAL HISTORY: PAST MEDICAL HISTORY Diagnosis Date DM II (diabetes mellitus, type II), controlled (HCC) Hypertension past med Enlarged heart PAST SURGICAL HISTORY Procedure Laterality Date KNEE SURGERY HX Left 07/26/[address] guided Robotic Assisted-Dr. Ivan PAST SURGICAL HISTORY OF 2000? torn acl/mcl, surgery R knee PAST SURGICAL HISTORY OF 06/29/2016 bx, vestibule of mouth PAST SURGICAL HISTORY OF Left 02/08/2017 left knee surgery-[facility]. Dr. Johnson ALLERGIES Amitriptyline, Penicillins, and Trulicity [Dulaglutide] MEDICATIONS Current Outpatient Medications Medication Sig metFORMIN ER (GLUCOPHAGE XR) 500 mg 24 hr tablet Take 2 tablets by mouth two times a day before meals. empagliflozin (JARDIANCE) 10 mg tablet Take 1 tablet by mouth daily with breakfast. insulin glargine (LANTUS SOLOSTAR U-100 INSULIN) 100 unit/mL (3 mL) Inject 80 Units subcutaneously daily at bedtime. gabapentin (NEURONTIN) 300 mg capsule Take 1 capsule by mouth three times a day for 180 days. liraglutide (VICTOZA) 0.6 mg/ 0.1 ml subcutaneous pen injector Inject 1.8 mg subcutaneously once daily. ibuprofen (MOTRIN) 200 mg tablet Take 200 mg by mouth every 6 hours. As needed Blood-Glucose Meter,Continuous (DEXCOM G7 SALESPERSON HEARING AIDS) misc Use to check blood sugar at least four (4) times daily. Blood-Glucose Sensor (DEXCOM G7 SENSOR) madhavi Apply new sensor every ten (10) days. insulin needles, DISPOSABLE, (PEN NEEDLE) 31 gauge x 5/16 Use to inject insulin and victoza daily (2 injections per day) lisinopril (ZESTRIL) 40 mg tablet Take 1 tablet by mouth once daily. metoprolol tartrate, short acting, (LOPRESSOR) 50 mg tablet Take 1 tablet by mouth once daily. hydroCHLOROthiazide 25 mg tablet Take 1 tablet by mouth once daily. acetaminophen (TYLENOL EXTRA STRENGTH) 500 mg tablet Take 1 tablet by mouth every 6 hours as needed for pain. aspirin 81 mg chewable tablet Take 1 tablet by mouth once daily. cyanocobalamin (VITAMIN B-12) 100 mcg tab Take 100 mcg by mouth once daily. No current facility-administered medications for this visit. FAMILY HISTORY Problem Relation Age of Onset Stroke Paternal Grandmother Hypertension Father Diabetes Maternal Grandmother other (obesity [Other]) Maternal Grandmother Social History Tobacco Use Smoking status: Never Smokeless tobacco: Former Quit date: 01/14/2010 Vaping Use Vaping Use: Never used Substance Use Topics Alcohol use: Yes Comment: weekends Drug use: No REVIEW OF SYSTEMS GENERAL: No weight loss, malaise or fevers/chills HEENT: + Runny nos/Sinus pressure NECK: Negative for lumps, goiter, pain and significant neck swelling RESPIRATORY: Negative for cough, hemoptysis, wheezing, dyspnea or shortness of breath CARDIOVASCULAR: Negative for chest pain, leg swelling, orthopnea, or palpitations GI: No nausea, vomiting, or diarrhea/constipation. No hematochezia/melena. No heartburn or reflux symptoms. : No history of dysuria, frequency or incontinence MUSCULOSKELETAL: + Back/Hip Pain SKIN: Negative for lesions, rash, and itching ENDOCRINE: Negative for cold or heat intolerance, polyuria, polydipsia and goiter NEURO: No history of headaches, syncope, paralysis, seizures or tremors MOOD: Negative for depression, anxiety, or suicidal ideation. EXAM: BP 108/80 Pulse 79 Resp 16 Wt 112.5 kg (248 lb) SpO2 97% BMI 35.91 kg/m PHYSICAL EXAM: General Appearance: Well appearing, alert, in no acute distress, well-hydrated, well nourished. Skin: Skin color, texture, turgor normal, no suspicious rashes or lesions. Head: Normocephalic, no masses, lesions, tenderness or abnormalities. Eyes: Anicteric sclera. Extraocular movements are intact. Nose/Sinuses: Nares normal, septum midline, mucosa normal, no drainage or sinus tenderness, Positive findings: clear rhinorrhea. Lungs: Lungs clear to auscultation. No wheezing, rhonchi, rales. Heart: RRR without murmur, gallop, or rubs. No ectopy. Extremities: No deformities, edema, skin discoloration, clubbing or cyanosis. Good capillary refill. Musculoskeletal: Reduced ROM, had to stand up for visit due to pain. Will get low midline back pain, radiates down into the hips. Peripheral Pulses: Normal, Capillary refill <2secs, strong peripheral pulses, Pulses palpable. Neurologic: Gait normal. Reflexes normal and symmetric. Sensation grossly intact. Component Latest Ref Rng & Units 06/15/2023 WBC 3.70 - 11.00 k/uL 9.83 RBC 4.20 - 6.00 m/uL 5.53 Hemoglobin 13.0 - 17.0 g/dL 16.3 Hematocrit 39.0 - 51.0 % 48.7 MCV 80.0 - 100.0 fL 88.1 MCH 26.0 - 34.0 pg 29.5 MCHC 30.5 - 36.0 g/dL 33.5 RDW-CV 11.5 - 15.0 % 13.5 Platelet Count 150 - 400 k/uL 229 MPV 9.0 - 12.7 fL 9.7 Neut% % 53.0 Abs Neut (ANC) 1.45 - 7.50 k/uL 5.20 Lymph% % 37.7 Abs Lymph 1.00 - 4.00 k/uL 3.71 Fulton% % 7.1 Abs [place]ulton <0.87 k/uL 0.70 Eosin% % 1.0 Abs Eosin <0.46 k/uL 0.10 Baso% % 0.8 Abs Baso <0.11 k/uL 0.08 Immature Gran % % 0.4 IMMATURE GRANS (ABS) <0.10 k/uL 0.04 NRBC /100 WBC 0.0 Absolute nRBC <0.01 k/uL <0.01 DTYPE Auto Protein, Total 6.3 - 8.0 g/dL 6.9 Albumin 3.9 - 4.9 g/dL 4.2 Calcium 8.5 - 10.2 mg/dL 9.2 Bilirubin, Total 0.2 - 1.3 mg/dL 0.5 Alkaline Phosphatase 38 - 113 U/L 34 (L) AST 14 - 40 U/L 36 ALT 10 - 54 U/L 56 (H) Glucose 74 - 99 mg/dL 70 (L) BUN 9 - 24 mg/dL 19 Creatinine 0.73 - 1.22 mg/dL 0.90 Sodium 136 - 144 mmol/L 140 Potassium 3.7 - 5.1 mmol/L 4.3 Chloride 97 - 105 mmol/L 105 CO2 22 - 30 mmol/L 24 Anion Gap 9 - 18 mmol/L 11 eGFR >=60 mL/min/1.73m 106 Cholesterol, Total <200 mg/dL 123 Triglyceride <150 mg/dL 167 (H) HDL Cholesterol >39 mg/dL 24 (L) Non HDL Cholesterol <130 mg/dL 99 Fasting Time hrs 14.5 VLDL Cholesterol <30 mg/dL 33 (H) TC:HDL Ratio <5.10 5.13 (H) LDL Cholesterol <100 mg/dL 66 LDL:HDL Ratio <2.54 2.75 (H) Hemoglobin A1C 4.3 - 5.6 % 6.3 (H) Estimated Average Glucose mg/dL 134 ASSESSMENT/PLAN: 1. Type 2 diabetes mellitus without complication, without long-term current use of insulin (HCC) - ICD9: 250.00, ICD10: E11.9 (primary diagnosis) - Controlled - Continue current medications - Counseled on healthy diet and regular exercise - Discussed need for and benefit of weight loss. BMI 35.91 kg/(m^2) - Keep scheduled appointments with clinical pharmacy. - Get repeat labs in 3 months prior to office visit. - COMP METABOLIC PANEL - HGB A1C 2. Neuropathy - ICD9: 355.9, ICD10: G62.9 - Increase gabapentin 600 mg 3 times daily. - GABAPENTIN 600 MG TABLET 3. Back pain at L4-L5 level - ICD9: 724.2, ICD10: M54.50 - Keep scheduled appointments with orthopedics. - GABAPENTIN 600 MG TABLET 4. Hypertension, unspecified type - ICD9: 401.9, ICD10: I10 - Controlled - Continue current medications - Recommend home blood pressure monitoring, to bring results to next visit - Encouraged sodium restriction, DASH or Mediterranean diet - Recommend regular aerobic exercise 5. Seasonal allergies - ICD9: 477.9, ICD10: J30.2 - CETIRIZINE 5 MG-PSEUDOEPHEDRINE ER 120 MG TABLET,EXTENDED RELEASE,12HR 6. Screening for colon cancer - ICD9: V76.51, ICD10: Z12.11 - CONSULT TO GENERAL SURGERY Follow-up in 3 months or sooner as needed. Discussed treatment plan and patient voices understanding. Patient's questions answered appropriately. Medications and potential side effects were discussed and patient voices understanding. Eliazar Maldonado APRN.KAREN This note was partially generated using Unicon voice recognition system. Note was reviewed for accuracy. There may be minor misspellings or grammar miscues with Unicon voice recognition. documented in this encounter [facility] 05-27-2023 Miscellaneous Notes The following approved medication requests have been transmitted electronically. Requested Prescriptions Pending Prescriptions Disp Refills metFORMIN ER (GLUCOPHAGE XR) 500 mg 24 hr tablet 360 tablet 3 Sig: Take 2 tablets by mouth two times a day before meals. Hugo Ibarra APRN.KAREN Patient has been identified by name and date of : Yes, Provider Cuauhtemoc Rasmussen MD Date 05/27/2023 Time 11:46 Patient phones for refill(s): Requested Prescriptions Pending Prescriptions Disp Refills metFORMIN ER (GLUCOPHAGE XR) 500 mg 24 hr tablet 360 tablet 3 Sig: Take 2 tablets by mouth two times a day before meals. Date of last office visit in primary care: 03/25/2024 Date of next office visit in primary care: 06/25/2023 Please advise. Thank you. Dafne Salamanca. documented in this encounter [facility] 04-01-2023 Note HNO ID: [id number] Author: Keli Arellano RPh Service: ? Author Type: Pharmacist Type: Progress Notes Filed: 04/01/2023 10:04 AM Note Text: Primary Care Pharmacy Visit CC (Reason for Consult): Diabetes (E11.9) Type 2 diabetes mellitus without complication, without long-term current use of insulin (HCC) (primary encounter diagnosis) Goal: A1c < 7% Last Collaborating Provider Visit: 03/25/23 Yosvany Yu is a 47 year old male presenting for follow up visit telephone call. Patient consents to pharmacy collaborative practice agreement. Interim Events: 12/21: Ozempic increased to 2mg weekly. This was later denied by insurance even after appeal. Insulin dose adjustments made, switched to Victoza, and PharmD referral placed 02/04: initial PharmD visit; glimepiride stopped, Victoza and insulin increased; also advised to switch timing of Lantus to dinner time to improve adherence; Dexcom G7 ordered 03/04: Lantus decreased due to lower blood sugars 03/25: gabapentin increased HPI: Has noticed that without glimepiride his sugars are steadily on the rise. He resumed 80 units of Lantus, sugars are still higher. Has been without Dexcom sensor since Saturday. Had a faulty sensor, now needs to wait for a refill for . Personal goals: get sugar improved, have back surgery, weight loss Current DM Medications: Metformin ER 500mg tabs - 1000mg BID Liraglutide (Victoza) 1.8mg daily Insulin glargine (Lantus) 72 units daily + self-titration (increase by 2 units every 3 days for goal FBG <130) (taking 80 units) Past DM medications: Trulicity - diarrhea, last tried >1 year ago Ozempic - insurance stopped covering Januvia CGM Data Preventative Medications: On ANICETO/ARB: Yes On Statin: No DIET/EXERCISE/SOCIAL Hx: No changes MEDICATIONS: Pill bottles are not present. Adherence: denies missed doses. Pharmacy: [facility] [address] [place] [phone] [id number] [facility] [phone] [id number] Rx coverage: Payor: [facility] MEDICA[facility] / Plan: [facility] MEDICAID / Product Type: Medicaid / Medications affordable? 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 ALLERGIES Allergen Reactions Amitriptyline Diarrhea Penicillins Intolerance Trulicity [Dulaglut* Diarrhea Medication List Medication Directions Comments Action/Plan acetaminophen (TYLENOL EXTRA STRENGTH) 500 mg tablet Take 1 tablet by mouth every 6 hours as needed for pain. aspirin 81 mg chewable tablet Take 1 tablet by mouth once daily. Blood-Glucose Meter,Continuous (DEXCOM G7 SALESPERSON HEARING AIDS) misc Use to check blood sugar at least four (4) times daily. Blood-Glucose Sensor (DEXCOM G7 SENSOR) madhavi Apply new sensor every ten (10) days. cyanocobalamin (VITAMIN B-12) 100 mcg tab Take 100 mcg by mouth once daily. Discontinued: 03/25/2023 8:29 AM gabapentin (NEURONTIN) 300 mg capsule Take 1 capsule by mouth three times a day for 180 days. hydroCHLOROthiazide 25 mg tablet Take 1 tablet by mouth once daily. ibuprofen (MOTRIN) 200 mg tablet Take 200 mg by mouth every 6 hours. As needed Discontinued: 03/25/2023 8:23 AM insulin glargine (LANTUS SOLOSTAR U-100 INSULIN) 100 unit/mL (3 mL) Inject 80 Units subcutaneously daily at bedtime. insulin needles, DISPOSABLE, (PEN NEEDLE) 31 gauge x 5/16 Use to inject insulin and victoza daily (2 injections per day) liraglutide (VICTOZA) 0.6 mg/ 0.1 ml subcutaneous pen injector Inject 1.8 mg subcutaneously once daily. lisinopril (ZESTRIL) 40 mg tablet Take 1 tablet by mouth once daily. metFORMIN ER (GLUCOPHAGE XR) 500 mg 24 hr tablet Take 2 tablets by mouth twice daily before meals. metoprolol tartrate, short acting, (LOPRESSOR) 50 mg tablet Take 1 tablet by mouth once daily. Exam: There were no vitals taken for this visit. Last 3 Encounter BP Readings: Date: BP: 03/25/2023 132/90 12/21/2022 118/78 10/16/2022 139/90 Wt: 112.9 kg (249 lb) BMI: 36.05 kg/(m2) LABS: Reviewed Lab Results Component Value Date HBA1C 7.3 03/22/2023 HBA1C 9.4 12/19/2022 HBA1C 11.5 09/03/2022 HBA1C 7.2 09/30/2020 HBA1C 6.8 06/30/2020 HBA1C 10.5 05/02/2020 CMP: Glucose 151 03/22/2023 BUN 20 03/22/2023 Creatinine 0.84 03/22/2023 Sodium 136 03/22/2023 Potassium 4.2 03/22/2023 Chloride 103 03/22/2023 CO2 21 03/22/2023 Protein, Total 7.5 03/22/2023 Albumin 4.5 03/22/2023 Calcium 10.1 03/22/2023 Alkaline Phosphatase 47 03/22/2023 Bilirubin, Total 0.5 03/22/2023 AST 42 03/22/2023 ALT 80 03/22/2023 (more content not included)... [facility] 04-01-2023 History of Present illness Narrative Images from the original note were not included. Primary Care Pharmacy Visit CC (Reason for Consult): Diabetes (E11.9) Type 2 diabetes mellitus without complication, without long-term current use of insulin (HCC) (primary encounter diagnosis) Goal: A1c < 7% Last Collaborating Provider Visit: 03/25/23 Yosvany Yu is a 47 year old male presenting for follow up visit telephone call. Patient consents to pharmacy collaborative practice agreement. Interim Events: 12/21: Ozempic increased to 2mg weekly. This was later denied by insurance even after appeal. Insulin dose adjustments made, switched to Victoza, and PharmD referral placed 02/04: initial PharmD visit; glimepiride stopped, Victoza and insulin increased; also advised to switch timing of Lantus to dinner time to improve adherence; Dexcom G7 ordered 03/04: Lantus decreased due to lower blood sugars 03/25: gabapentin increased HPI: Has noticed that without glimepiride his sugars are steadily on the rise. He resumed 80 units of Lantus, sugars are still higher. Has been without Dexcom sensor since Saturday. Had a faulty sensor, now needs to wait for a refill for . Personal goals: get sugar improved, have back surgery, weight loss Current DM Medications: Metformin ER 500mg tabs - 1000mg BID Liraglutide (Victoza) 1.8mg daily Insulin glargine (Lantus) 72 units daily + self-titration (increase by 2 units every 3 days for goal FBG <130) (taking 80 units) Past DM medications: Trulicity - diarrhea, last tried >1 year ago Ozempic - insurance stopped covering Januvia CGM Data Preventative Medications: On ANICETO/ARB: Yes On Statin: No DIET/EXERCISE/SOCIAL Hx: No changes MEDICATIONS: Pill bottles are not present. Adherence: denies missed doses. Pharmacy: [facility] [address] [place] [phone] [facility] [phone] 1812 Rx coverage: Payor: [facility] MEDICAID / Plan: [facility] MEDICAID / Product Type: Medicaid / Medications affordable? Yes Diabetes Supplies: Yes Organization system: ACTIVE PROBLEM LIST Type 2 Diabetes Mellitus Without Complication, Without Long-Term Current Use of Insulin (Hcc) Hypertension Obstructive Sleep Apnea Syndrome Mixed Hyperlipidemia snf current use of anticoagulant Personal History of Dvt (Deep Vein Thrombosis) Anxiety With Depression PAST MEDICAL HISTORY Diagnosis Date DM II (diabetes mellitus, type II), controlled (HCC) Hypertension past med Enlarged heart Past medical history reviewed. ALLERGIES Allergen Reactions Amitriptyline Diarrhea Penicillins Intolerance Trulicity [Dulaglut* Diarrhea Medication List Medication Directions Comments Action/Plan acetaminophen (TYLENOL EXTRA STRENGTH) 500 mg tablet Take 1 tablet by mouth every 6 hours as needed for pain. aspirin 81 mg chewable tablet Take 1 tablet by mouth once daily. Blood-Glucose Meter,Continuous (DEXCOM G7 SALESPERSON HEARING AIDS) misc Use to check blood sugar at least four (4) times daily. Blood-Glucose Sensor (DEXCOM G7 SENSOR) madhavi Apply new sensor every ten (10) days. cyanocobalamin (VITAMIN B-12) 100 mcg tab Take 100 mcg by mouth once daily. Discontinued: 03/25/2023 8:29 AM gabapentin (NEURONTIN) 300 mg capsule Take 1 capsule by mouth three times a day for 180 days. hydroCHLOROthiazide 25 mg tablet Take 1 tablet by mouth once daily. ibuprofen (MOTRIN) 200 mg tablet Take 200 mg by mouth every 6 hours. As needed Discontinued: 03/25/2023 8:23 AM insulin glargine (LANTUS SOLOSTAR U-100 INSULIN) 100 unit/mL (3 mL) Inject 80 Units subcutaneously daily at bedtime. insulin needles, DISPOSABLE, (PEN NEEDLE) 31 gauge x 5/16 Use to inject insulin and victoza daily (2 injections per day) liraglutide (VICTOZA) 0.6 mg/ 0.1 ml subcutaneous pen injector Inject 1.8 mg subcutaneously once daily. lisinopril (ZESTRIL) 40 mg tablet Take 1 tablet by mouth once daily. metFORMIN ER (GLUCOPHAGE XR) 500 mg 24 hr tablet Take 2 tablets by mouth twice daily before meals. metoprolol tartrate, short acting, (LOPRESSOR) 50 mg tablet Take 1 tablet by mouth once daily. Exam: There were no vitals taken for this visit. Last 3 Encounter BP Readings: Date: BP: 03/25/2023 132/90 12/21/2022 118/78 10/16/2022 139/90 Wt: 112.9 kg (249 lb) BMI: 36.05 kg/(m^2) LABS: Reviewed Lab Results Component Value Date HBA1C 7.3 03/22/2023 HBA1C 9.4 12/19/2022 HBA1C 11.5 09/03/2022 HBA1C 7.2 09/30/2020 HBA1C 6.8 06/30/2020 HBA1C 10.5 05/02/2020 CMP: Glucose 151 03/22/2023 BUN 20 03/22/2023 Creatinine 0.84 03/22/2023 Sodium 136 03/22/2023 Potassium 4.2 03/22/2023 Chloride 103 03/22/2023 CO2 21 03/22/2023 Protein, Total 7.5 03/22/2023 Albumin 4.5 03/22/2023 Calcium 10.1 03/22/2023 Alkaline Phosphatase 47 03/22/2023 Bilirubin, Total 0.5 03/22/2023 AST 42 03/22/2023 ALT 80 03/22/2023 No results found for: GFR CrCl cannot be calculated (Unknown ideal weight.). Lab Results Component Value Date CHOL 138 12/19/2022 CHOL 136 09/30/2020 LDL 59 12/19/2022 LDL 64 09/30/2020 HDL 23 12/19/2022 HDL 19 09/30/2020 TG 278 12/19/2022 TG 267 09/30/2020 The 10-year ASCVD risk score (Charleen RODRIGUEZ, et al., 2019) is: 8.1% Values used to calculate the score: Age: 47 years Sex: Male Is Non- : No Diabetic: Yes Tobacco smoker: No Systolic Blood Pressure: 132 mmHg Is BP treated: Yes HDL Cholesterol: 23 mg/dL Total Cholesterol: 138 mg/dL Albumin/Creat Ratio (mg/g) Date Value 12/19/2022 13 PHARMACOTHERAPY ASSESSMENT/PLAN: 1. Type 2 diabetes mellitus without complication, without long-term current use of insulin (HCC) - ICD9: 250.00, ICD10: E11.9 A1c goal < 7%; improved control (last A1c 9.4-->7.3%); TIR below goal, slightly worse control compared to last month; personal goals include BG reduction and weight loss; will start Jardiance today and f/up after next labs; in 2023 should try to see if [employer] will go back to covering Ozempic INITIATE Jardiance 10mg daily A1c and CMP already ordered Counseled on increased frequency of urination, dehydration, risk of genital infections; advised increasing water intake and contacting doctor's office if any s/sx of infection CONTINUE Victoza 1.8mg daily, metformin ER 1000mg BID, and Lantus 80 units daily Advised to cut back on insulin if starts having low Bgs. Advised to contact PharmD via [employer] if any issues with med access, ADRs, low Bgs, etc Follow-up Patient is scheduled to see PCP team on 06/23. Patient to have f/up with PharmD team on 06/30. Patient verbalized understanding of instructions. Keli Arellano, Miranda, [facility] Primary Care Clinical Pharmacist The majority of the pharmacy visit (> 50%) was spent counseling and/or coordinating care for the patient. interaction: telephonic time was 22 minutes. documented in this encounter [facility] 03-25-2023 Note HNO ID: [id number] Author: Hugo Ibarra APRN.INSTITUTIONAL CUSTODIAN Service: ? Author Type: Nurse Practitioner Type: Progress Notes Filed: 03/25/2023 8:38 AM Note Text: Chief Complaint Patient presents with: F/U 3 Month HPI Yosvany Yu is a 47 year old male who presents here today for Chronic Medical Conditions. follow up for DM, HTN, HLP. HTN: Patient is compliant with meds Yes Monitors bp at home: Yes. Denies side effects: Yes. Chest pain: No. Dyspnea: No. Edema: No. Palpitations: No. Syncope: No. Headache: No. Dizziness: No. DM: Reports overall feeling well. Medication side effects: Yes. Home sugar checks: using dexcom Hypoglycemic spells: No. Watching diet: Yes. Unexpected weight loss: No. Polyuria, polydipsia: No. Vision Changes: No. Foot lesions or numbness or pain: Yes. Needing to get to Hgb 7.0 to have back surgery. Has a considerable amount of pain in the lower back and feet. He has been taking gabapentin 300 mg nightly. Has not gone up on any other dosing. Also has ibuprofen on board. Declines any narcotics as he does not want any addiction problems. Past medical history, appointments, medications, allergies reviewed. EXAM: BP 132/90 Pulse 88 Resp 18 Wt 112.9 kg (249 lb) SpO2 97% BMI 36.05 kg/m? General Appearance: Well appearing, alert, in no acute distress, well-hydrated, well nourished.. Lungs: Lungs clear to auscultation. No wheezing, rhonchi, rales.. Heart: RRR without murmur, gallop, or rubs. No ectopy. Component Latest Ref Rng AND Units 03/22/2023 Protein, Total 6.3 - 8.0 g/dL 7.5 Albumin 3.9 - 4.9 g/dL 4.5 Calcium 8.5 - 10.2 mg/dL 10.1 Bilirubin, Total 0.2 - 1.3 mg/dL 0.5 Alkaline Phosphatase 38 - 113 U/L 47 AST 14 - 40 U/L 42 (H) ALT 10 - 54 U/L 80 (H) Glucose 74 - 99 mg/dL 151 (H) BUN 9 - 24 mg/dL 20 Creatinine 0.73 - 1.22 mg/dL 0.84 Sodium 136 - 144 mmol/L 136 Potassium 3.7 - 5.1 mmol/L 4.2 Chloride 97 - 105 mmol/L 103 CO2 22 - 30 mmol/L 21 (L) Anion Gap 9 - 18 mmol/L 12 eGFR >=60 mL/min/1.73mA? 108 Hemoglobin A1C 4.3 - 5.6 % 7.3 (H) Estimated Average Glucose mg/dL 163 ASSESSMENT/PLAN: 1. Type 2 diabetes mellitus without complication, with long-term current use of insulin ([facility]) - ICD9: 250.00, V58.67, ICD10: E11.9, Z79.4 (primary diagnosis) -Much improved. Continue with current dosing. Has appointment with clinical pharmacy within the next week. Increase gabapentin for neuropathic pain. Recheck hemoglobin A1c in 1 month to see if we can get him to 7% so that he can undergo much-needed intervention for disc herniation. - INSULIN GLARGINE (U-100) 100 UNIT/ML (3 ML) SUBCUTANEOUS PEN - GABAPENTIN 300 MG CAPSULE 2. Mixed hyperlipidemia - ICD9: 272.2, ICD10: E78.2 - Control undetermined, due for labs - Counseled on healthy diet and regular exercise - COMP METABOLIC PANEL - LIPID PANEL BASIC 3. Hypertension, unspecified type - ICD9: 401.9, ICD10: I10 - Controlled - Continue current medications - Recommend home blood pressure monitoring, to bring results to next visit - Encouraged sodium restriction, DASH or Mediterranean diet - Recommend regular aerobic exercise - COMP METABOLIC PANEL 4. Back pain at L4-L5 level - ICD9: 724.2, ICD10: M54.50 -Continue following with neurosurgery. Trial increasing gabapentin to 3 times daily. - GABAPENTIN 300 MG CAPSULE 5. Screening for diabetic retinopathy - ICD9: V80.2, ICD10: Z13.5 - CONSULT TO OPHTHALMOLOGY Hugo Ibarra APRN.INSTITUTIONAL CUSTODIAN RTO in 3 months, sooner if needed. This note was partly generated using [employer] voice recognition dictation and may contain some misspelled or inaccurate words missed on review. [facility] 03-04-2023 Note HNO ID: [id number] Author: Keli Arellano RPh Service: ? Author Type: Pharmacist Type: Progress Notes Filed: 03/04/2023 11:25 AM Note Text: Primary Care Pharmacy Visit CC (Reason for Consult): Diabetes (E11.9) Type 2 diabetes mellitus without complication, without long-term current use of insulin (HCC) (primary encounter diagnosis) Goal: A1c < 7% Last Collaborating Provider Visit: 12/21/22 Yosvany Yu is a 47 year old male presenting for follow up visit telephone call. Patient consents to pharmacy collaborative practice agreement. Interim Events: 12/21: Ozempic increased to 2mg weekly. This was later denied by insurance even after appeal. Insulin dose adjustments made, switched to Victoza, and PharmD referral placed 02/04: initial PharmD visit; glimepiride stopped, Victoza and insulin increased; also advised to switch timing of Lantus to dinner time to improve adherence; Dexcom G7 ordered HPI: Picked up Dexcom, using on his phone for the past month. Learning how different foods and portion affects BG. Surprised by how much pasta and potatoes increase BG. Got a cold recently, feels congested. Breathing is fine, just clogged up. Eating is roughly the same as before he was sick. Increased the the Victoza, on 1.8mg daily for several weeks. Tolerating fine, no GI issues. Doesn't feel it has improved appetite at all. Since sugars have been coming down, has noticed back doesn't hurt as much. Has more energy. No change in thirst or dry mouth. Nocturia decreased from 3-4x to 1-2x per night. Has noticed better BP at home, usually 110s/70s. Has lost 2 lbs since last month. Wants to have back surgery, needs A1c <7%. Needs refill of Victoza and Lantus Current DM Medications: Metformin ER 500mg tabs - 1000mg BID Liraglutide (Victoza) 1.2mg daily (taking 1.8mg) Insulin glargine (Lantus) 68 units daily + self-titration (increase by 2 units every 3 days for goal FBG <130) (taking 80 units daily) Past DM medications: Trulicity - diarrhea, last tried >1 year ago Ozempic - insurance stopped covering Januvia CGM Data Sensor usage: (Goal >70%) Hypoglycemia events: 1%, ? Events; recalls having BG overnight at 59 and 62 mg/dL on different nights - confirmed with fingerstick it was low; corrected with candy bar; happened this past week while he was sick; felt slightly light-headed Date range Overall AVG 12a-6a 6a-12p 12p-6p 6p-12a TIME IN RANGE 14 day (%) 7 day 158 80 143 172 165 ABOVE 31 14 day 163 IN (70-180) '68 30 day 191 BELOW 1 90 day Preventative Medications: On ANICETO/ARB: Yes On Statin: No ROS: Patient denies CP, SOB, DISLA, blurred vision, dizziness or lightheadedness Patient denies symptoms of hypoglycemia (sweating, anxiety, palpitations, hunger, and tremor) Patient denies symptoms of hyperglycemia (polyuria, polydipsia, polyphagia) Patient denies potential medication adverse effects DIET/EXERCISE/SOCIAL Hx: No changes Has back issues, no exercise; minimal physical activity MEDICATIONS: Pill bottles are not present. Adherence: denies missed doses. Pharmacy: [facility] [address] [place] [phone] [facility] [phone] 1812 Rx coverage: Payor: [facility] MEDICAID / Plan: [facility] MEDICAID / Product Type: Medicaid / Medications affordable? Yes Diabetes Supplies: Yes Organization system: original bottles on bathroom counter ACTIVE PROBLEM LIST Type 2 Diabetes Mellitus Without Complication, Without Long-Term Current Use of Insulin (Hcc) Hypertension Obstructive Sleep Apnea Syndrome Mixed Hyperlipidemia snf current use of anticoagulant Personal History of Dvt (Deep Vein Thrombosis) Anxiety With Depression PAST MEDICAL HISTORY Diagnosis Date DM II (diabetes mellitus, type II), controlled (HCC) Hypertension past med Enlarged heart Past medical history reviewed. ALLERGIES Allergen Reactions Amitriptyline Diarrhea Penicillins Intolerance Trulicity [Dulaglut* Diarrhea Medication List Medication Directions Comments Action/Plan acetaminophen (TYLENOL EXTRA STRENGTH) 500 mg tablet Take 1 tablet by mouth every 6 hours as needed for pain. aspirin 81 mg chewable tablet Take 1 tablet by mouth once daily. Blood-Glucose Meter,Continuous (DEXCOM G7 SALESPERSON HEARING AIDS) misc Use to check blood sugar at least four (4) times daily. Blood-Glucose Sensor (DEXCOM G7 SENSOR) madhavi Apply new sensor every ten (10) days. cyanocobalamin (VITAMIN B-12) 100 mcg tab Take 100 mcg by mouth once daily. gabapentin (NEURONTIN) 300 mg capsule Take 1 capsule by mouth daily at bedtime for 360 days. hydroCHLOROthiazide 25 mg tablet Take 1 tablet by mouth once daily. ibuprofen (MOTRIN) 200 mg tablet Take 200 mg by mouth every 6 hours. As needed insulin glargine (LANTUS SOLOSTAR U-100 INSULIN) 100 unit/mL (3 mL) Inject 68 Units subcutaneously daily at bedtime. Increase dose by 2 units weekly until fasting blood sugar <130. (more content not included)... [facility] 03-04-2023 History of Present illness Narrative Primary Care Pharmacy Visit CC (Reason for Consult): Diabetes (E11.9) Type 2 diabetes mellitus without complication, without long-term current use of insulin (HCC) (primary encounter diagnosis) Goal: A1c < 7% Last Collaborating Provider Visit: 12/21/22 Yosvany Yu is a 47 year old male presenting for follow up visit telephone call. Patient consents to pharmacy collaborative practice agreement. Interim Events: 12/21: Ozempic increased to 2mg weekly. This was later denied by insurance even after appeal. Insulin dose adjustments made, switched to Victoza, and PharmD referral placed 02/04: initial PharmD visit; glimepiride stopped, Victoza and insulin increased; also advised to switch timing of Lantus to dinner time to improve adherence; Dexcom G7 ordered HPI: Picked up Dexcom, using on his phone for the past month. Learning how different foods and portion affects BG. Surprised by how much pasta and potatoes increase BG. Got a cold recently, feels congested. Breathing is fine, just clogged up. Eating is roughly the same as before he was sick. Increased the the Victoza, on 1.8mg daily for several weeks. Tolerating fine, no GI issues. Doesn't feel it has improved appetite at all. Since sugars have been coming down, has noticed back doesn't hurt as much. Has more energy. No change in thirst or dry mouth. Nocturia decreased from 3-4x to 1-2x per night. Has noticed better BP at home, usually 110s/70s. Has lost 2 lbs since last month. Wants to have back surgery, needs A1c <7%. Needs refill of Victoza and Lantus Current DM Medications: Metformin ER 500mg tabs - 1000mg BID Liraglutide (Victoza) 1.2mg daily (taking 1.8mg) Insulin glargine (Lantus) 68 units daily + self-titration (increase by 2 units every 3 days for goal FBG <130) (taking 80 units daily) Past DM medications: Trulicity - diarrhea, last tried >1 year ago Ozempic - insurance stopped covering Januvia CGM Data Sensor usage: (Goal >70%) Hypoglycemia events: 1%, ? Events; recalls having BG overnight at 59 and 62 mg/dL on different nights - confirmed with fingerstick it was low; corrected with candy bar; happened this past week while he was sick; felt slightly light-headed Date range Overall AVG 12a-6a 6a-12p 12p-6p 6p-12a TIME IN RANGE 14 day (%) 7 day 158 80 143 172 165 ABOVE 31 14 day 163 IN (70-180) '68 30 day 191 BELOW 1 90 day Preventative Medications: On ANICETO/ARB: Yes On Statin: No ROS: Patient denies CP, SOB, DISLA, blurred vision, dizziness or lightheadedness Patient denies symptoms of hypoglycemia (sweating, anxiety, palpitations, hunger, and tremor) Patient denies symptoms of hyperglycemia (polyuria, polydipsia, polyphagia) Patient denies potential medication adverse effects DIET/EXERCISE/SOCIAL Hx: No changes Has back issues, no exercise; minimal physical activity MEDICATIONS: Pill bottles are not present. Adherence: denies missed doses. Pharmacy: [facility] [address] [place] [phone] [facility] [phone] 1812 Rx coverage: Payor: [facility] MEDICAID / Plan: [facility] MEDICAID / Product Type: Medicaid / Medications affordable? Yes Diabetes Supplies: Yes Organization system: original bottles on bathroom counter ACTIVE PROBLEM LIST Type 2 Diabetes Mellitus Without Complication, Without Long-Term Current Use of Insulin (Hcc) Hypertension Obstructive Sleep Apnea Syndrome Mixed Hyperlipidemia snf current use of anticoagulant Personal History of Dvt (Deep Vein Thrombosis) Anxiety With Depression PAST MEDICAL HISTORY Diagnosis Date DM II (diabetes mellitus, type II), controlled (HCC) Hypertension past med Enlarged heart Past medical history reviewed. ALLERGIES Allergen Reactions Amitriptyline Diarrhea Penicillins Intolerance Trulicity [Dulaglut* Diarrhea Medication List Medication Directions Comments Action/Plan acetaminophen (TYLENOL EXTRA STRENGTH) 500 mg tablet Take 1 tablet by mouth every 6 hours as needed for pain. aspirin 81 mg chewable tablet Take 1 tablet by mouth once daily. Blood-Glucose Meter,Continuous (DEXCOM G7 SALESPERSON HEARING AIDS) misc Use to check blood sugar at least four (4) times daily. Blood-Glucose Sensor (DEXCOM G7 SENSOR) madhavi Apply new sensor every ten (10) days. cyanocobalamin (VITAMIN B-12) 100 mcg tab Take 100 mcg by mouth once daily. gabapentin (NEURONTIN) 300 mg capsule Take 1 capsule by mouth daily at bedtime for 360 days. hydroCHLOROthiazide 25 mg tablet Take 1 tablet by mouth once daily. ibuprofen (MOTRIN) 200 mg tablet Take 200 mg by mouth every 6 hours. As needed insulin glargine (LANTUS SOLOSTAR U-100 INSULIN) 100 unit/mL (3 mL) Inject 68 Units subcutaneously daily at bedtime. Increase dose by 2 units weekly until fasting blood sugar <130. Max dose of 80 units daily insulin needles, DISPOSABLE, (PEN NEEDLE) 31 gauge x 5/16 Use to inject insulin and victoza daily (2 injections per day) liraglutide (VICTOZA) 0.6 mg/ 0.1 ml subcutaneous pen injector Inject 1.2 mg subcutaneously once daily for 7 days, THEN 1.8 mg once daily. lisinopril (ZESTRIL) 40 mg tablet Take 1 tablet by mouth once daily. metFORMIN ER (GLUCOPHAGE XR) 500 mg 24 hr tablet Take 2 tablets by mouth twice daily before meals. metoprolol tartrate, short acting, (LOPRESSOR) 50 mg tablet Take 1 tablet by mouth once daily. Exam: There were no vitals taken for this visit. Last 3 Encounter BP Readings: Date: BP: 12/21/2022 118/78 10/16/2022 139/90 09/04/2022 168/98 Wt: 114.6 kg (252 lb 9.6 oz) BMI: 36.57 kg/(m^2) LABS: Reviewed Lab Results Component Value Date HBA1C 9.4 12/19/2022 HBA1C 11.5 09/03/2022 HBA1C 9.8 04/06/2022 HBA1C 7.2 09/30/2020 HBA1C 6.8 06/30/2020 HBA1C 10.5 05/02/2020 CMP: Glucose 193 12/19/2022 BUN 13 12/19/2022 Creatinine 0.72 12/19/2022 Sodium 135 12/19/2022 Potassium 4.3 12/19/2022 Chloride 102 12/19/2022 CO2 19 12/19/2022 Protein, Total 7.0 12/19/2022 Albumin 4.3 12/19/2022 Calcium 10.5 12/19/2022 Alkaline Phosphatase 54 12/19/2022 Bilirubin, Total 0.7 12/19/2022 AST 56 12/19/2022 ALT 99 12/19/2022 Lab Results Component Value Date CHOL 138 12/19/2022 CHOL 136 09/30/2020 LDL 59 12/19/2022 LDL 64 09/30/2020 HDL 23 12/19/2022 HDL 19 09/30/2020 TG 278 12/19/2022 TG 267 09/30/2020 The 10-year ASCVD risk score (Charleen RODRIGUEZ, et al., 2019) is: 6.7% Values used to calculate the score: Age: 47 years Sex: Male Is Non- : No Diabetic: Yes Tobacco smoker: No Systolic Blood Pressure: 118 mmHg Is BP treated: Yes HDL Cholesterol: 23 mg/dL Total Cholesterol: 138 mg/dL Albumin/Creat Ratio (mg/g) Date Value 12/19/2022 13 PHARMACOTHERAPY ASSESSMENT/PLAN: 1. Type 2 diabetes mellitus without complication, without long-term current use of insulin ([facility]) - ICD9: 250.00, ICD10: E11.9 A1c goal < 7%; uncontrolled (last A1c 9.4%); SMBGs improving; occasional lows overnight so will decrease insulin; f/up after next A1c DECREASE Lantus to 72 units daily CONTINUE metformin ER 1000mg BID and Victoza 1.8mg daily Had pt download [employer]ony and set up sharing data during visit Indicated for statin; last CMP showed elevated LFTs, will get updated labs and consider initiating in future 2. Hypertension, unspecified type - ICD9: 401.9, ICD10: I10 BP goal <130/80; reported home BP readings at goal; doesn't appear to have indication for metoprolol tartrate, which should be dosed BID given short duration of action; appears to have tried amlodipine in the past but was d/c'd in 2015 due to low BP and diarrhea; since unable to check BP/HR via phone will not make changes, but will send msg to [facility] to discuss at upcoming appt in March CONTINUE lisinopril 40mg daily and HCTZ 25mg daily CONTINUE metoprolol tartrate 50mg daily for now Applauded on dietary mods, encouraged continued home BP checks Follow-up Patient is scheduled to see PCP team on 03/25. Patient to have f/up with PharmD team on 04/01. Patient verbalized understanding of instructions. Keli Arellano PharmD, [facility] Primary Care Clinical Pharmacist The majority of the pharmacy visit (> 50%) was spent counseling and/or coordinating care for the patient. interaction: telephonic time was 26 minutes. documented in this encounter [facility] 02-04-2023 Note HNO ID: [id number] Author: Keli Arellano RPh Service: ? Author Type: Pharmacist Type: Progress Notes Filed: 02/04/2023 2:38 PM Note Text: Primary Care Pharmacy Visit CC (Reason for Consult): Diabetes Goal: A1c < 7% Last Collaborating Provider Visit: 12/21/22 Yosvany Yu is a 47 year old male presenting for initial visit: This initial consult was conducted by telephone with the patient where the consult agreement was explained. The patient may decline or cancel the agreement at any time. After consideration, the patient consented to the pharmacy consult agreement and agreed to allow medications be collaboratively managed by a pharmacist. Interim Events: 12/21: Ozempic increased to 2mg weekly. This was later denied by insurance even after appeal. Insulin dose adjustments made, switched to Victoza, and PharmD referral placed. HPI: States insurance no longer covering Ozempic since dose was increased to 2mg. Had been taking it for several months prior, tolerating well. Did start Ozempic, started it last week and has had 4 doses of the 0.6mg so far. Tolerating fine, does have more gas (burping and flatulence) but tolerable. Thinks diagnosed with DM within the past 8-10 years. Has family hx of T1DM, not aware of anyone with T2DM. Personal understanding of T2DM: he eats the wrong things which increases his sugar levels; knows it can cause heart attack, stroke, neuropathy in feet Has back issues. Planning to have back surgery, needs A1c <7%. Surgery not scheduled, seeing neurologist for second opinion next week. Always feels tired. Does feel thirsty during the day. Up 2-3x/night to urinate. Does have dry mouth. Does have neuropathy in feet - taking gabapentin. Checks feet daily. Says right foot is starting to turn purple a little, has discussed with PCP who suggest seeing container repairer if worsens. No recent vision changes. He thinks he has a hx of mini stroke. Current DM Medications: Metformin ER 500mg tabs - 1000mg BID Glimepiride 2mg tabs - 4mg QAM Liraglutide (Victoza) 1.2mg daily (currently on 0.6mg for 3 more days) Insulin glargine (Lantus) 52 units daily (taking 62 units QPM; will increase dose by 2 units weekly if FBG still elevated; was told to stop if reaches 80 units) Past DM medications: Trulicity - diarrhea, last tried >1 year ago Ozempic - insurance stopped covering Januvia SMBGS (Fingersticks) - FBGs were 150s-160s when on Ozempic; when off Ozempic for 2-3 weeks FBGs now in the 180s-190s; hasn't noticed change in FBG since starting Victoza this past Saturday; evening readings (after dinner) usually 210s-220s - No issues with low blood sugars recently. Did have issues in the past, several years ago; will get sweaty, carries candy bar or sweetened beverage if needed at work; has glucose tabs at home if needed Preventative Medications: On ANICETO/ARB: Yes On Statin: No ROS: Patient denies CP, SOB, DISLA, blurred vision, dizziness or lightheadedness Patient denies symptoms of hypoglycemia (sweating, anxiety, palpitations, hunger, and tremor) Patient denies symptoms of hyperglycemia (polyuria, polydipsia, polyphagia) Patient denies potential medication adverse effects DIET/EXERCISE/SOCIAL Hx: Breakfast: couple eggs and 2 toast (slovenian bread or sourdough; doesn't like wheat bread) Lunch: lunch meat wrap Dinner: last night had chili with Ritz crackers (a few crackers) Snacks: low sodium chips (used to eat fruit but heard it was too high in sugar) Beverages: water; Powerade Zero Exercise: limited Tobacco: none Alcohol: several beers per week Illicits: none MEDICATIONS: Pill bottles are not present. Adherence: reports missed doses of night time insulin once weekly because falling asleep. Pharmacy: [facility] [address] [place] [id number] [address] [facility] [phone] [id number] Rx coverage: Payor: [facility] MEDICAID / Plan: [facility] MEDICAID / Product Type: Medicaid / Medications affordable? 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 ALLERGIES Allergen Reactions Amitriptyline Diarrhea Penicillins Intolerance Trulicity [Dulaglut* Diarrhea Medication List Medication Directions Comments Action/Plan acetaminophen (TYLENOL EXTRA STRENGTH) 500 mg tablet Take 1 tablet by mouth every 6 hours as needed for pain. Uses PRN for pain; taking 500mg up to 4x/day aspirin 81 mg chewable tablet Take 1 tablet by mouth once da (more content not included)... [facility] 02-04-2023 History of Present illness Narrative Primary Care Pharmacy Visit CC (Reason for Consult): Diabetes Goal: A1c < 7% Last Collaborating Provider Visit: 12/21/22 Yosvany Yu is a 47 year old male presenting for initial visit: This initial consult was conducted by telephone with the patient where the consult agreement was explained. The patient may decline or cancel the agreement at any time. After consideration, the patient consented to the pharmacy consult agreement and agreed to allow medications be collaboratively managed by a pharmacist. Interim Events: 12/21: Ozempic increased to 2mg weekly. This was later denied by insurance even after appeal. Insulin dose adjustments made, switched to Victoza, and PharmD referral placed. HPI: States insurance no longer covering Ozempic since dose was increased to 2mg. Had been taking it for several months prior, tolerating well. Did start Ozempic, started it last week and has had 4 doses of the 0.6mg so far. Tolerating fine, does have more gas (burping and flatulence) but tolerable. Thinks diagnosed with DM within the past 8-10 years. Has family hx of T1DM, not aware of anyone with T2DM. Personal understanding of T2DM: he eats the wrong things which increases his sugar levels; knows it can cause heart attack, stroke, neuropathy in feet Has back issues. Planning to have back surgery, needs A1c <7%. Surgery not scheduled, seeing neurologist for second opinion next week. Always feels tired. Does feel thirsty during the day. Up 2-3x/night to urinate. Does have dry mouth. Does have neuropathy in feet - taking gabapentin. Checks feet daily. Says right foot is starting to turn purple a little, has discussed with PCP who suggest seeing container repairer if worsens. No recent vision changes. He thinks he has a hx of mini stroke. Current DM Medications: Metformin ER 500mg tabs - 1000mg BID Glimepiride 2mg tabs - 4mg QAM Liraglutide (Victoza) 1.2mg daily (currently on 0.6mg for 3 more days) Insulin glargine (Lantus) 52 units daily (taking 62 units QPM; will increase dose by 2 units weekly if FBG still elevated; was told to stop if reaches 80 units) Past DM medications: Trulicity - diarrhea, last tried >1 year ago Ozempic - insurance stopped covering Januvia SMBGS (Fingersticks) - FBGs were 150s-160s when on Ozempic; when off Ozempic for 2-3 weeks FBGs now in the 180s-190s; hasn't noticed change in FBG since starting Victoza this past Saturday; evening readings (after dinner) usually 210s-220s - No issues with low blood sugars recently. Did have issues in the past, several years ago; will get sweaty, carries candy bar or sweetened beverage if needed at work; has glucose tabs at home if needed Preventative Medications: On ANICETO/ARB: Yes On Statin: No ROS: Patient denies CP, SOB, DISLA, blurred vision, dizziness or lightheadedness Patient denies symptoms of hypoglycemia (sweating, anxiety, palpitations, hunger, and tremor) Patient denies symptoms of hyperglycemia (polyuria, polydipsia, polyphagia) Patient denies potential medication adverse effects DIET/EXERCISE/SOCIAL Hx: Breakfast: couple eggs and 2 toast (slovenian bread or sourdough; doesn't like wheat bread) Lunch: lunch meat wrap Dinner: last night had chili with Ritz crackers (a few crackers) Snacks: low sodium chips (used to eat fruit but heard it was too high in sugar) Beverages: water; Powerade Zero Exercise: limited Tobacco: none Alcohol: several beers per week Illicits: none MEDICATIONS: Pill bottles are not present. Adherence: reports missed doses of night time insulin once weekly because falling asleep. Pharmacy: [facility] [address] [place] [id number] [address] [facility] [phone] [id number] Rx coverage: Payor: [facility] MEDICAID / Plan: [facility] MEDICAID / Product Type: Medicaid / Medications affordable? Yes Diabetes Supplies: Yes Organization system: original bottles on bathroom counter ACTIVE PROBLEM LIST Type 2 Diabetes Mellitus Without Complication, Without Long-Term Current Use of Insulin (Hcc) Hypertension Obstructive Sleep Apnea Syndrome Mixed Hyperlipidemia snf current use of anticoagulant Personal History of Dvt (Deep Vein Thrombosis) Anxiety With Depression PAST MEDICAL HISTORY Diagnosis Date DM II (diabetes mellitus, type II), controlled (HCC) Hypertension past med Enlarged heart Past medical history reviewed. ALLERGIES Allergen Reactions Amitriptyline Diarrhea Penicillins Intolerance Trulicity [Dulaglut* Diarrhea Medication List Medication Directions Comments Action/Plan acetaminophen (TYLENOL EXTRA STRENGTH) 500 mg tablet Take 1 tablet by mouth every 6 hours as needed for pain. Uses PRN for pain; taking 500mg up to 4x/day aspirin 81 mg chewable tablet Take 1 tablet by mouth once daily. taking cyanocobalamin (VITAMIN B-12) 100 mcg tab Take 100 mcg by mouth once daily. Not taking Suggested restarting gabapentin (NEURONTIN) 300 mg capsule Take 1 capsule by mouth daily at bedtime for 360 days. taking glimepiride (AMARYL) 2 mg tablet Take 2 tablets by mouth daily with breakfast. Patient taking differently: Take by mouth daily with breakfast. 4 tablets daily taking hydroCHLOROthiazide 25 mg tablet Take 1 tablet by mouth once daily. taking insulin glargine (LANTUS SOLOSTAR U-100 INSULIN) 100 unit/mL (3 mL) Inject 52 Units subcutaneously daily at bedtime. Patient taking differently: Inject 60 Units subcutaneously daily at bedtime. Taking 62 units insulin needles, DISPOSABLE, (PEN NEEDLE) 31 gauge x 5/16 Use to inject victoza daily supplies liraglutide (VICTOZA) 0.6 mg/ 0.1 ml subcutaneous pen injector Inject 0.6 mg subcutaneously once daily for 7 days, THEN 1.2 mg once daily. Inject 0.6 mg daily via pen. Still taking 0.6mg daily lisinopril (ZESTRIL) 40 mg tablet Take 1 tablet by mouth once daily. taking metFORMIN ER (GLUCOPHAGE XR) 500 mg 24 hr tablet Take 2 tablets by mouth twice daily before meals. taking metoprolol tartrate, short acting, (LOPRESSOR) 50 mg tablet Take 1 tablet by mouth once daily. Taking QPM Rx meds not listed in EPIC: none OTCs: Ibuprofen 200mg 4x/day PRN Herbals: none Exam: There were no vitals taken for this visit. Last 3 Encounter BP Readings: Date: BP: 12/21/2022 118/78 10/16/2022 139/90 09/04/2022 168/98 Wt: 114.6 kg (252 lb 9.6 oz) BMI: 36.57 kg/(m^2) LABS: Reviewed Lab Results Component Value Date HBA1C 9.4 12/19/2022 HBA1C 11.5 09/03/2022 HBA1C 9.8 04/06/2022 HBA1C 7.2 09/30/2020 HBA1C 6.8 06/30/2020 HBA1C 10.5 05/02/2020 CMP: Glucose 193 12/19/2022 BUN 13 12/19/2022 Creatinine 0.72 12/19/2022 Sodium 135 12/19/2022 Potassium 4.3 12/19/2022 Chloride 102 12/19/2022 CO2 19 12/19/2022 Protein, Total 7.0 12/19/2022 Albumin 4.3 12/19/2022 Calcium 10.5 12/19/2022 Alkaline Phosphatase 54 12/19/2022 Bilirubin, Total 0.7 12/19/2022 AST 56 12/19/2022 ALT 99 12/19/2022 No results found for: GFR CrCl cannot be calculated (Unknown ideal weight.). Lab Results Component Value Date CHOL 138 12/19/2022 CHOL 136 09/30/2020 LDL 59 12/19/2022 LDL 64 09/30/2020 HDL 23 12/19/2022 HDL 19 09/30/2020 TG 278 12/19/2022 TG 267 09/30/2020 The 10-year ASCVD risk score (Charleen RODRIGUEZ, et al., 2019) is: 6.7% Values used to calculate the score: Age: 47 years Sex: Male Is Non- : No Diabetic: Yes Tobacco smoker: No Systolic Blood Pressure: 118 mmHg Is BP treated: Yes HDL Cholesterol: 23 mg/dL Total Cholesterol: 138 mg/dL Albumin/Creat Ratio (mg/g) Date Value 12/19/2022 13 PHARMACOTHERAPY ASSESSMENT/PLAN: 1. Type 2 diabetes mellitus without complication, without long-term current use of insulin ([facility]) - ICD9: 250.00, ICD10: E11.9 (primary diagnosis) A1c goal < 7%; uncontrolled (last A1c 9.4%); SMBG elevated; symptomatic hyperglycemia; no issues with lows; will stop glimepiride and increase insulin and Victoza; f/up in 1 mo; renal fxn and LFTs sufficient for use DISCONTINUE glimepiride 4mg daily INCREASE Lantus to 68 units daily and continue self-titration of 2 units weekly for goal FBG <130 SWITCH TIMING from HS to with dinner for improved adherence INCREASE Victoza to 1.2mg daily x 7 days then INCREASE to 1.8mg daily as tolerated CONTINUE metformin ER 1000mg BID Dexcom G7 ordered PharmD will send MyC with info of how to know if smartphone is compatible. Advised pt to reach out to PharmD if approved by insurance for further counseling and set up with [facility] account Diabetic Education given re: disease pathology, signs of high blood sugar, signs and symptoms and management of hypoglycemia, risks of poor control, diabetic diet, need for aerobic exercise, importance of weight loss, need for an annual dilated eye exam and daily foot exams, and timing for home glucose monitoring with a review of target ranges ACEi/ARB for renal protection: yes Statin: no but indicated; LFTs were slightly elevated --> will plan to discuss in future - INSULIN GLARGINE (U-100) 100 UNIT/ML (3 ML) SUBCUTANEOUS PEN - LIRAGLUTIDE 0.6 MG/0.1 ML (18 MG/3 ML) SUBCUTANEOUS PEN INJECTOR - PEN NEEDLE, DIABETIC 31 GAUGE X 09/04 2. Mixed hyperlipidemia - ICD9: 272.2, ICD10: E78.2 Pt is indicated for a high-intensity statin for primary prevention d/t diabetes and risk enhancer of neuropathy (pt also reports hx of mini-stroke, though not confirmed in record); patient is not on statin therapy at this time; patient has tried atorvastatin - uncertain why it was discontinued; will discuss benefits of statin therapy at f/up visit; note, last LFTs were slightly elevated - may consider getting new baseline prior to initiating treatment 3. Medication management - ICD9: V58.69, ICD10: Z79.899 Reviewed all medications, indications, dosing, frequency, administration with patient. Medication list updated as described above. Uncertain of indication of metoprolol and the appropriateness of once daily dosing of tartrate formulation --> to review at future visits Follow-up Patient is scheduled to see PCP team on 03/25. Patient to have f/up with PharmD team on 03/04. Patient verbalized understanding of instructions. Keli Arellano, RegisD, [facility] Primary Care Clinical Pharmacist The majority of the pharmacy visit (> 50%) was spent counseling and/or coordinating care for the patient. interaction: telephonic time was 65 minutes. documented in this encounter [facility] 02-04-2023 Miscellaneous Notes Called patient for scheduled phone visit at 9 AM. Patient reports only having 10 mins to talk, preferred to rescheduled for this afternoon. Appt scheduled for 1 PM. Keli Arellano, PharmD, BCPS Primary Care Clinical Pharmacist documented in this encounter [facility] 01-30-2023 Miscellaneous Notes Spoke with pt and information listed below given. Pt verbalizes understanding. Estela Camacho LPN Okay please let him know that I have sent. I have him taking 0.6 mg daily for 7 days and then increasing to 1.2 mg daily. Continue with plan to see Keli on 02/04 as scheduled. The following approved medication requests have been transmitted electronically. Requested Prescriptions Signed Prescriptions Disp Refills liraglutide (VICTOZA) 0.6 mg/ 0.1 ml subcutaneous pen injector 4 Each 1 Sig: Inject 0.6 mg subcutaneously once daily for 7 days, THEN 1.2 mg once daily. Inject 0.6 mg daily via pen. Authorizing Provider: HUGO IBARRA insulin needles, DISPOSABLE, (PEN NEEDLE) 31 gauge x 16 100 Each 3 Sig: Use to inject victoza daily Authorizing Provider: HUGO IBARRA APRN.KAREN Called pt and explained all the information below. At this time, pt states he will try the Victoza. It can be sent to [facility]. Blood sugars are now running in the 180's to 190's. He is checking them in the morning and at bedtime. He is currently taking 62 units of Lantus. Pt transferred to scheduling to set up pharmacy referral. Please call pt when prescription sent to pharmacy. Please let the patient know that his insurance again denied ozempic. He has to try Trulicty for 120 days or alternatively, try victoza (which is like trulicity but given daily) or twice daily Byetta. Please see how his BGs have been at home and ask how many units of Lantus he is administering daily. I also placed a referral to clinical pharmacy. I would like to have him see Keli Arellano to see what she can offer for recommendations. She is available for phone and virtual encounters. Hugo Ibarra APRN.KAREN Please see [facility] called again and Vu says this was denied on 01/21/23. No fax rec'd. They will fax again. This call reference number is [id number]. Called George julian to check with status of appeal for ozempic. They report appeal was rec'd on 01/04/23 and could take up to 15 days for review. They will fax response. They believe there will be a response this week. This reference number is [id number]. Mychart message with insulin instructions sent. We will wait for response from insurance. Hugo Ibarra APRN.INSTITUTIONAL CUSTODIAN Patient calls to check on status of appeal and ask provider what he should be doing in the mean time to control his blood sugars. Patient reports that his fasting blood sugars are increasing each morning. This mornings reading was 290. Asymptomatic. No other readings. Patient will re-check later today when at home. Taking Lantus, metformin er, and glimepiride per med list. Kesha Byrd RN appeal letter completed,printed and faxed for review. Gave them this info he has tried it.On med list it didn't note a side effect. Can complete appeal letter for them to review. Yara and others, can we resubmit regarding patient previously on Trulicity in 2020 and causing diarrhea? Hugo Ibarra APRN.KAREN Patient called and notified of of below. Patient states that he had already taken Trulicity and it had given him diarrhea. Patient was on Trulicity on 10/07/2020. Please review and advise, Yajaira Koch RN Message left for pt to call back. Marge Dorado Ma, Please let the patient know that his insurance denied his ozempic. They are requiring 120 days of an alternate medication. I sent in Trulicity 3 mg, which is a moderate dose, that aligns with their requirement and his current dose of ozempic. It is given weekly like ozempic and is in the same drug class. The following approved medication requests have been transmitted electronically. Requested Prescriptions Signed Prescriptions Disp Refills dulaglutide (TRULICITY) 3 mg/0.5 mL pen injector 4 Each 4 Sig: Inject 3 mg subcutaneously one time a week. Authorizing Provider: HUGO IBARRA APRN.KAREN Rec'd fax denial for semaglude. They note this could be covered after pt has had a 120 trial and failure of formularies. One of the 120 days must be byetta(5mcg and 10 mcg),victoza(18mg/3mlpen)or trulicity (0.75mg,1.5mg 3 mg and 4.5). They reviewed notes and pts fill history they said no fill history of trulicity. [facility] Faxed to number on the form . PRIOR AUTHORIZATION Medication for Prior Authorization: Semaglutide 2 mg/dose Insurance Company: [employer] Patient insurance ID number: [id number] Yajaira Koch RN documented in this encounter [facility] 12-21-2022 Note HNO ID: [id number] Author: Hugo Ibarra APRN.KAREN Service: ? Author Type: Nurse Practitioner Type: Progress Notes Filed: 12/21/2022 9:19 AM Note Text: Chief Complaint Patient presents with: 2 month f/u HPI Yosvany Yu is a 47 year old male who presents here today for Chronic Medical Conditions. Follow up for DM2. Reports checking sugars at home: 170-190s in the mornings. Reports less hunger. Reports eating proteins in diet. No lows reported. Less eating, peeing, eating. Denies dysuria. No dizziness or headaches. Reports sulfur breath/burps. Taking medications as prescribed. He is following with neurosurgery at [facility]. Had ablation completed yesterday related to lumbar radiculopathy. He has a repeat intervention planned in a few weeks. He appears in pain but less so than previously when he was in our office. He does have known neuropathy of the bilateral lower extremities likely secondary to his lower back disease and poorly controlled diabetes. Lengthy discussion today on blood work results, recommendations. Past medical history, appointments, medications, allergies reviewed. EXAM: BP 118/78 Pulse 70 Resp 16 Wt 114.6 kg (252 lb 9.6 oz) SpO2 97% BMI 36.57 kg/m? General Appearance: Well appearing, alert, in no acute distress, well-hydrated, well nourished.. Component Latest Ref Rng AND Units 09/03/2022 12/19/2022 Protein, Total 6.3 - 8.0 g/dL 7.4 7.0 Albumin 3.9 - 4.9 g/dL 4.3 4.3 Calcium 8.5 - 10.2 mg/dL 9.4 10.5 (H) Bilirubin, Total 0.2 - 1.3 mg/dL 0.7 0.7 Alkaline Phosphatase 38 - 113 U/L 75 54 AST 14 - 40 U/L 31 56 (H) ALT 10 - 54 U/L 58 (H) 99 (H) Glucose 74 - 99 mg/dL 343 (H) 193 (H) BUN 9 - 24 mg/dL 16 13 Creatinine 0.73 - 1.22 mg/dL 0.71 (L) 0.72 (L) Sodium 136 - 144 mmol/L 134 (L) 135 (L) Potassium 3.7 - 5.1 mmol/L 4.2 4.3 Chloride 97 - 105 mmol/L 100 102 CO2 22 - 30 mmol/L 20 (L) 19 (L) Anion Gap 9 - 18 mmol/L 14 14 eGFR >=60 mL/min/1.73mA? 114 113 Cholesterol, Total <200 mg/dL 138 Triglyceride <150 mg/dL 278 (H) HDL Cholesterol >39 mg/dL 23 (L) Non HDL Cholesterol <130 mg/dL 115 Fasting Time hrs 13 VLDL Cholesterol <30 mg/dL 56 (H) TC:HDL Ratio <5.10 6.00 (H) LDL Cholesterol <100 mg/dL 59 LDL:HDL Ratio <2.54 2.57 (H) Creatinine, Ur Random (UCRR) 20.0 - 300.0 mg/dL 264.0 Albumin, Urine Random mg/L 33.7 Albumin/Creat Ratio <30 mg/g 13 Hemoglobin A1C 4.3 - 5.6 % 11.5 (H) 9.4 (H) Estimated Average Glucose mg/dL 283 223 ASSESSMENT/PLAN: 1. Type 2 diabetes mellitus without complication, without long-term current use of insulin (HCC) - ICD9: 250.00, ICD10: E11.9 (primary diagnosis) -Improving control but still uncontrolled. Tolerating Ozempic. Increase Ozempic to 2 mg weekly. Discussed with patient that there is a possibility of hypoglycemia with sulfonylurea medications and Ozempic. Advised to call office with hypoglycemia likely will reduce glimepiride to 4 mg. Anticipate improved control with more mobility as back pain improves. Repeat hemoglobin A1c in 3 months - GABAPENTIN 300 MG CAPSULE - SEMAGLUTIDE 2 MG/DOSE (8 MG/3 ML) SUBCUTANEOUS PEN INJECTOR - HGB A1C - COMP METABOLIC PANEL 2. Essential hypertension - ICD9: 401.9, ICD10: I10 -Stable continue current medications as prescribed. - COMP METABOLIC PANEL 3. Back pain at L4-L5 level - ICD9: 724.2, ICD10: M54.50 -Improving, continue following with specialty 4. Elevated LFTs - ICD9: 790.6, ICD10: R79.89 -Mildly elevated today, reviewing past CMP's reveal mildly elevated AST ALT. Likely secondary to fatty liver disease. No ultrasound of the liver on file. If continuing to be elevated, consider ultrasound to further evaluate. - COMP METABOLIC PANEL Hugo Ibarra APRN.INSTITUTIONAL CUSTODIAN RTO in 3 months, sooner if needed. This note was partly generated using [employer] voice recognition dictation and may contain some misspelled or inaccurate words missed on review. [facility] 11-23-2022 Miscellaneous Notes The following approved medication requests have been transmitted electronically. Requested Prescriptions Pending Prescriptions Disp Refills semaglutide (OZEMPIC) 1 mg/dose (4 mg/3 mL) pen 4 Each 3 Sig: Inject 1 mg subcutaneously one time a week. Hugo Ibarra APRN.CNP Patient has been identified by name and date of : Yes Last office visit in this department: 10/16/2022 Labs-09/03/22 NOV-12/21/22 RX INSTRUCTIONS: Patient aware RX will be sent to pharmacy. No need to notify patient. Patient stated that the pharmacy said he needs a prior auth for this refill and that the pharmacy stated they faxed it. Patient phones requesting refills as follows: Requested Prescriptions Pending Prescriptions Disp Refills semaglutide (OZEMPIC) 1 mg/dose (4 mg/3 mL) pen 4 Each 3 Sig: Inject 1 mg subcutaneously one time a week. Please review and advise. Vielka López documented in this encounter [facility] 10-16-2022 Note HNO ID: [id number] Author: Hugo Ibarra APRN.KAREN Service: ? Author Type: Nurse Practitioner Type: Progress Notes Filed: 10/16/2022 8:05 AM Note Text: Chief Complaint Patient presents with: 6 week f/u: DM HPI Yosvany Yu is a 47 year old male who presents here today for Chronic Medical Conditions. follow up for DM, HTN. Last month, had ran out of some of his medications. We got him back on Lisinopril. BP was elevated. Also his glucose had been running high at home. Hgb A1c had climbed to 11.5%. Restarted ozempic. Increased his lantus, gave titration schedule to patient. At this time, the patient's BP is improved. No CP, SOB, Syncope. Tolerating medications present. In terms of glucose, glucose is improved. States today was 170. Prior was in the mid 300s. Currently taking Lantus 60 units nightly. Ozempic 0.5 mg weekly. Continues to take metformin 2000 mg daily and glimepiride 8 mg daily. Denies any lows. Discussing that he has ongoing back pain. He is following with Dr. Gaytan at [facility]. Insurance denied ablation. Discussing on possibility of surgery. Given tramadol for trial. But only making him sleepy. Past medical history, appointments, medications, allergies reviewed. EXAM: BP 139/90 Pulse 72 Temp 36.3 ?C (97.4 ?F) (Left Tympanic) Resp 16 Wt 115.1 kg (253 lb 12.8 oz) SpO2 97% BMI 36.75 kg/m? General Appearance: Well appearing, alert, in no acute distress, well-hydrated, well nourished.. Lungs: Lungs clear to auscultation. No wheezing, rhonchi, rales.. Heart: RRR without murmur, gallop, or rubs. No ectopy. ASSESSMENT/PLAN: 1. Type 2 diabetes mellitus without complication, without long-term current use of insulin ([facility]) - ICD9: 250.00, ICD10: E11.9 (primary diagnosis) - Improving control. Continue oral medications as prescribed. Stay 60 units of Lantus. Increase Ozempic to 1 mg weekly after using remaining Ozempic. Report any hypoglycemic events as we might need to decrease dose of glimepiride. - Increase semaglutide (Ozempic) - HGB A1C - COMP METABOLIC PANEL - LIPID PANEL BASIC - SEMAGLUTIDE 1 MG/DOSE (4 MG/3 ML) SUBCUTANEOUS PEN INJECTOR - ALBUMIN/CREAT RATIO RND UR 2. Primary hypertension - ICD9: 401.9, ICD10: I10 - Controlled - Improving control - Continue current medications - Recommend home blood pressure monitoring, to bring results to next visit - Encouraged sodium restriction, DASH or Mediterranean diet - Recommend regular aerobic exercise - COMP METABOLIC PANEL Hugo Ibarra APRN.INSTITUTIONAL CUSTODIAN RTO in 2 months, sooner if needed. This note was partly generated using [employer] voice recognition dictation and may contain some misspelled or inaccurate words missed on review. [facility] 10-16-2022 History of Present illness Narrative Chief Complaint Patient presents with: 6 week f/u: DM HPI Yosvany Yu is a 47 year old male who presents here today for Chronic Medical Conditions. follow up for DM, HTN. Last month, had ran out of some of his medications. We got him back on Lisinopril. BP was elevated. Also his glucose had been running high at home. Hgb A1c had climbed to 11.5%. Restarted ozempic. Increased his lantus, gave titration schedule to patient. At this time, the patient's BP is improved. No CP, SOB, Syncope. Tolerating medications present. In terms of glucose, glucose is improved. States today was 170. Prior was in the mid 300s. Currently taking Lantus 60 units nightly. Ozempic 0.5 mg weekly. Continues to take metformin 2000 mg daily and glimepiride 8 mg daily. Denies any lows. Discussing that he has ongoing back pain. He is following with Dr. Gaytan at [facility]. Insurance denied ablation. Discussing on possibility of surgery. Given tramadol for trial. But only making him sleepy. Past medical history, appointments, medications, allergies reviewed. EXAM: BP 139/90 Pulse 72 Temp 36.3 C (97.4 F) (Left Tympanic) Resp 16 Wt 115.1 kg (253 lb 12.8 oz) SpO2 97% BMI 36.75 kg/m General Appearance: Well appearing, alert, in no acute distress, well-hydrated, well nourished.. Lungs: Lungs clear to auscultation. No wheezing, rhonchi, rales.. Heart: RRR without murmur, gallop, or rubs. No ectopy. ASSESSMENT/PLAN: 1. Type 2 diabetes mellitus without complication, without long-term current use of insulin (HCC) - ICD9: 250.00, ICD10: E11.9 (primary diagnosis) - Improving control. Continue oral medications as prescribed. Stay 60 units of Lantus. Increase Ozempic to 1 mg weekly after using remaining Ozempic. Report any hypoglycemic events as we might need to decrease dose of glimepiride. - Increase semaglutide (Ozempic) - HGB A1C - COMP METABOLIC PANEL - LIPID PANEL BASIC - SEMAGLUTIDE 1 MG/DOSE (4 MG/3 ML) SUBCUTANEOUS PEN INJECTOR - ALBUMIN/CREAT RATIO RND UR 2. Primary hypertension - ICD9: 401.9, ICD10: I10 - Controlled - Improving control - Continue current medications - Recommend home blood pressure monitoring, to bring results to next visit - Encouraged sodium restriction, DASH or Mediterranean diet - Recommend regular aerobic exercise - COMP METABOLIC PANEL Hugo Ibarra APRN.CNP RTO in 2 months, sooner if needed. This note was partly generated using [employer] voice recognition dictation and may contain some misspelled or inaccurate words missed on review. documented in this encounter [facility] 10-16-2022 Instructions Hugo Ibarra APRN.CNP - 10/16/2022 8:00 AM EDT No changes to BP meds Start next week giving 1 mg of Ozempic. Stay at current dose of lantus. Continue glimepride and metformin. Report any lows. Hugo Ibarra APRN.CNP documented in this encounter [facility] 09-04-2022 Note HNO ID: [id number] Author: Hugo Ibarra APRN.CNP Service: ? Author Type: Nurse Practitioner Type: Progress Notes Filed: 09/04/2022 11:51 AM Note Text: Chief Complaint Patient presents with: Follow Up HPI Yosvany Yu is a 47 year old male who presents here today for Chronic Medical Conditions. follow up for DM. Here for follow up. Had some martial problems. Also has been having problems with his lower back. Following with Dr. Bates at [facility]. Also seeing Dr. Card with pain management on Saturday. Considering a nerve ablation. Has been off of work. Has been out of his medications for a few months. Only has metformin and lisinopril. Tolerating the ozempic but ran out. DM: Reports overall feeling well. Medication side effects: No. Home sugar checks: BG 328 this am. Hypoglycemic spells: No. Watching diet: somewhat. Unexpected weight loss: Yes. Polyuria, polydipsia: Yes. Vision Changes: Yes. Foot lesions or numbness or pain: Yes. Past medical history, appointments, medications, allergies reviewed. EXAM: BP 168/98 Pulse 82 Temp 36.4 ?C (97.6 ?F) (Left Tympanic) Resp 16 Wt 111.1 kg (245 lb) SpO2 97% BMI 35.47 kg/m? General Appearance: Well appearing, alert, in no acute distress, well-hydrated, well nourished.. Lungs: Lungs clear to auscultation. No wheezing, rhonchi, rales.. Heart: RRR without murmur, gallop, or rubs. No ectopy. Component Latest Ref Rng AND Units 04/06/2022 09/03/2022 Protein, Total 6.3 - 8.0 g/dL 6.8 7.4 Albumin 3.9 - 4.9 g/dL 3.9 4.3 Calcium 8.5 - 10.2 mg/dL 8.7 9.4 Bilirubin, Total 0.2 - 1.3 mg/dL 0.4 0.7 Alkaline Phosphatase 38 - 113 U/L 72 75 AST 14 - 40 U/L 20 31 ALT 10 - 54 U/L 42 58 (H) Glucose 74 - 99 mg/dL 260 (H) 343 (H) BUN 9 - 24 mg/dL 22 16 Creatinine 0.73 - 1.22 mg/dL 0.81 0.71 (L) Sodium 136 - 144 mmol/L 135 (L) 134 (L) Potassium 3.7 - 5.1 mmol/L 4.3 4.2 Chloride 97 - 105 mmol/L 105 100 CO2 22 - 30 mmol/L 19 (L) 20 (L) Anion Gap 9 - 18 mmol/L 11 14 eGFR >=60 mL/min/1.73mA? 110 114 Hemoglobin A1C 4.3 - 5.6 % 9.8 (H) 11.5 (H) Estimated Average Glucose mg/dL 235 283 PSA Screening <2.60 ng/mL 0.22 ASSESSMENT/PLAN: 1. Screening for diabetic retinopathy - ICD9: V80.2, ICD10: Z13.5 (primary diagnosis) - CONSULT TO OPHTHALMOLOGY 2. Essential hypertension - ICD9: 401.9, ICD10: I10 - suboptimal control - noncompliance -Plan is to get back on his blood pressure medications and follow-up in 6 weeks to recheck. - LISINOPRIL 40 MG TABLET - METOPROLOL TARTRATE 50 MG TABLET - HYDROCHLOROTHIAZIDE 25 MG TABLET 3. Type 2 diabetes mellitus without complication, without long-term current use of insulin ([facility]) - ICD9: 250.00, ICD10: E11.9 -Poorly controlled due to not being on half of his medication for diabetes. We will get him back on Ozempic at 0.25 weekly then up to 0.5 weekly. Also restarting and provided him with a Lantus titration schedule. Asked that he do not go over 80 units nightly. If no improvement in 6 weeks, we should consider mealtime insulin. - METFORMIN ER 500 MG TABLET,EXTENDED RELEASE 24 HR - GLIMEPIRIDE 2 MG TABLET - OZEMPIC 0.25 MG OR 0.5 MG (2 MG/1.5 ML) SUBCUTANEOUS PEN INJECTOR INSULIN GLARGINE (U-100) 100 UNIT/ML (3 ML) SUBCUTANEOUS PEN 4. Screening for colon cancer - ICD9: V76.51, ICD10: Z12.11 -Family history of colon cancer. Likely will need to get blood sugar down, back situation under control prior to undergoing. - CONSULT TO GENERAL SURGERY Hugo Ibarra APRN.INSTITUTIONAL CUSTODIAN RTO in 1.5 months, sooner if needed. This note was partly generated using [employer] voice recognition dictation and may contain some misspelled or inaccurate words missed on review. [facility] 04-11-2022 Instructions Eliazar Maldonado APRN.KAREN - 04/11/2022 6:10 PM EST Start ozempic 0.25 mg weekly. Continue to take all medication as prescribed. Get repeat labs in 3 months prior to next office visit. Continue to eat a low carb diet, increase protein, veggies. Keep scheduled appointments with spine May use Robaxin 500 mg as needed for muscle tension, may make you sleepy. Follow up in 3 months or sooner. Example insulin titration schedule: Start taking 10 units daily of Lantus. Check your blood sugar every morning before eating or drinking anything (fasting blood sugar level). Adjust your insulin every 3 days as follows: If your blood sugar is above 129, INCREASE your insulin by 2 unit. If your blood sugar is 80-129, CONTINUE your current insulin dose. If your blood sugar is less than 80, DECREASE your insulin by 2 unit. Continue this method until you reach your target fasting blood sugar level consistently (80-130) documented in this encounter [facility] 04-11-2022 History of Present illness Narrative This is a 46 year old male who presents today with: Patient presents with: Follow Up: 3 month DM and labs HISTORY OF PRESENT ILLNESS: Yosvany Yu is a 46 year old male. Patient presents with: Follow Up: 3 month DM and labs In the office for 3-month follow-up. DM: Reports overall feeling well. Medication side effects: No. Home sugar checks: 170-200 Hypoglycemic spells: No. Watching diet: Yes. Unexpected weight loss: No. Polyuria, polydipsia: Yes. Increased thirst. Vision Changes: Yes. Making appt with eye dr. Foot lesions or numbness or pain: No. Labs completed prior to this office visit. A1c went down from 11.4 to 9.8. Currently taking glimepiride 2 mg, 3 tablets daily, metformin XR 500 mg, 2 tablets twice daily with food. Lantus 50 units at bedtime. Stopped trulicity because of diarrhea. Has been working on diet. Trying to cut out higher processed carbohydrates. Having ongoing low left-sided back pain. Refers that he is following with spine. Concerns for herniated disc. Working on getting MRI approved by insurance. Refers that he may need surgery. Pain radiates down to left ankle. PAST MEDICAL HISTORY: PAST MEDICAL HISTORY Diagnosis Date DM II (diabetes mellitus, type II), controlled (HCC) Hypertension past med Enlarged heart PAST SURGICAL HISTORY Procedure Laterality Date KNEE SURGERY HX Left 07/26/[address] guided Robotic Assisted-Dr. Ivan PAST SURGICAL HISTORY OF 2000? torn acl/mcl, surgery R knee PAST SURGICAL HISTORY OF 06/29/2016 bx, vestibule of mouth PAST SURGICAL HISTORY OF Left 02/08/2017 left knee surgery-[facility]. Dr. Johnson ALLERGIES Amitriptyline and Penicillins MEDICATIONS Current Outpatient Medications Medication Sig metoprolol tartrate, short acting, (LOPRESSOR) 50 mg tablet Take 1 tablet by mouth once daily. hydroCHLOROthiazide (HYDRODIURIL, ESIDRIX) 25 mg tablet Take 1 tablet by mouth once daily. glimepiride (AMARYL) 2 mg tablet Take 2 tablets by mouth daily with breakfast. insulin glargine (LANTUS SOLOSTAR U-100 INSULIN) 100 unit/mL (3 mL) Inject 48 Units subcutaneously daily at bedtime. metFORMIN ER (GLUCOPHAGE XR) 500 mg 24 hr tablet Take 2 tablets by mouth twice daily before meals. lisinopril (ZESTRIL, PRINIVIL) 40 mg tablet Take 1 tablet by mouth once daily. gabapentin (NEURONTIN) 300 mg capsule Take 1 capsule by mouth daily at bedtime for 90 days. acetaminophen (TYLENOL EXTRA STRENGTH) 500 mg tablet Take 1 tablet by mouth every 6 hours as needed for pain. dulaglutide (TRULICITY) 0.75 mg/0.5 mL pen injector Inject 0.75 mg subcutaneously one time a week. Inject dose once per week. Discard Pen After (Patient not taking: Reported on 01/10/2022) dulaglutide (TRULICITY) 1.5 mg/0.5 mL pen injector Inject 1.5 mg subcutaneously one time a week. Inject once per week. Discard Pen After insulin needles, DISPOSABLE, (PEN NEEDLE) 31 gauge x 5/16 Use to inject insulin daily aspirin 81 mg chewable tablet Take 1 tablet by mouth once daily. ASCORBIC ACID (VITAMIN C ORAL) Take by mouth. (Patient not taking: Reported on 01/10/2022) cyanocobalamin (VITAMIN B-12) 100 mcg tab Take 100 mcg by mouth once daily. No current facility-administered medications for this visit. FAMILY HISTORY Problem Relation Age of Onset Stroke Paternal Grandmother Hypertension Father Diabetes Maternal Grandmother other (obesity [Other]) Maternal Grandmother Social History Tobacco Use Smoking status: Never Smokeless tobacco: Former Quit date: 01/14/2010 Vaping Use Vaping Use: Never used Substance Use Topics Alcohol use: Yes Comment: weekends Drug use: No REVIEW OF SYSTEMS GENERAL: No weight loss, malaise or fevers/chills HEENT: Negative for frequent or significant headaches, No changes in hearing or vision. NECK: Negative for lumps, goiter, pain and significant neck swelling RESPIRATORY: Negative for cough, hemoptysis, wheezing, dyspnea or shortness of breath CARDIOVASCULAR: Negative for chest pain, leg swelling, orthopnea, or palpitations GI: No nausea, vomiting, or diarrhea/constipation. No hematochezia/melena. No heartburn or reflux symptoms. : No history of dysuria, frequency or incontinence MUSCULOSKELETAL: + Back Pain SKIN: Negative for lesions, rash, and itching ENDOCRINE: Negative for cold or heat intolerance, polyuria, polydipsia and goiter NEURO: No history of headaches, syncope, paralysis, seizures or tremors MOOD: Negative for depression, anxiety, or suicidal ideation. Component Latest Ref Rng & Units 04/06/2022 Protein, Total 6.3 - 8.0 g/dL 6.8 Albumin 3.9 - 4.9 g/dL 3.9 Calcium 8.5 - 10.2 mg/dL 8.7 Bilirubin, Total 0.2 - 1.3 mg/dL 0.4 Alkaline Phosphatase 38 - 113 U/L 72 AST 14 - 40 U/L 20 ALT 10 - 54 U/L 42 Glucose 74 - 99 mg/dL 260 (H) BUN 9 - 24 mg/dL 22 Creatinine 0.73 - 1.22 mg/dL 0.81 Sodium 136 - 144 mmol/L 135 (L) Potassium 3.7 - 5.1 mmol/L 4.3 Chloride 97 - 105 mmol/L 105 CO2 22 - 30 mmol/L 19 (L) Anion Gap 9 - 18 mmol/L 11 eGFR >=60 mL/min/1.73m 110 Hemoglobin A1C 4.3 - 5.6 % 9.8 (H) Estimated Average Glucose mg/dL 235 PSA Screening <2.60 ng/mL 0.22 EXAM: BP 134/74 Pulse 73 Resp 16 Wt 115.8 kg (255 lb 3.2 oz) SpO2 97% BMI 36.95 kg/m PHYSICAL EXAM: General Appearance: Well appearing, alert, in no acute distress, well-hydrated, well nourished. Skin: Skin color, texture, turgor normal, no suspicious rashes or lesions. Head: Normocephalic, no masses, lesions, tenderness or abnormalities. Eyes: Anicteric sclera. Extraocular movements are intact. Back:no pain to palpation of vertebrae, reflexes are 2+ and symmetric, motor and sensory appear to be normal, no evidence of scoliosis.+ Low left-sided back pain with palpation, buttock, and hamstring. Unable to sit during appointment. Lungs: Lungs clear to auscultation. No wheezing, rhonchi, rales. Heart: RRR without murmur, gallop, or rubs. No ectopy. Extremities: No deformities, edema, skin discoloration, clubbing or cyanosis. Good capillary refill. Peripheral Pulses: Normal, Capillary refill <2secs, strong peripheral pulses, Pulses palpable. Neurologic: Gait normal. Sensation grossly intact. ASSESSMENT/PLAN: 1. Type 2 diabetes mellitus without complication, with long-term current use of insulin ([facility]) - ICD9: 250.00, V58.67, ICD10: E11.9, Z79.4 (primary diagnosis) improved control - Continue current medications - Add Ozempic 0.25 mg weekly. - Continue to work on eating low-carb diet. - Get repeat labs in 3 months prior to next office visit. - Encouraged regular aerobic exercise and weight loss - OZEMPIC 0.25 MG OR 0.5 MG (2 MG/1.5 ML) SUBCUTANEOUS PEN INJECTOR - INSULIN GLARGINE (U-100) 100 UNIT/ML (3 ML) SUBCUTANEOUS PEN - COMP METABOLIC PANEL - HGB A1C 2. Back pain at L4-L5 level - ICD9: 724.2, ICD10: M54.50 - Denies wanting pain medication at this time. Will continue with ibuprofen as needed. - May try Robaxin 500 mg as needed for muscle tension. - Keep scheduled appointments with personal security specialist. - METHOCARBAMOL 500 MG TABLET Follow-up in 3 months or sooner as needed. Discussed treatment plan and patient voices understanding. Patient's questions answered appropriately. Medications and potential side effects were discussed and patient voices understanding. Eliazar Maldonado APRN.KAREN This note was partially generated using [employer] voice recognition system. Note was reviewed for accuracy. There may be minor misspellings or grammar miscues with [employer] voice recognition. documented in this encounter [facility] 04-09-2022 Miscellaneous Notes Patient notified of results, verbalizes understanding of instructions. Cici Byrne LPN Can you please call the patient and let him know that I reviewed his lab results. PSA was within normal limits. A1c has gone down from 11.4 to 9.8 ! He can keep upcoming appointment. Please let me know if he has any questions. Thank you. Eliazar Maldonado APRN.CNP documented in this encounter [facility] 01-10-2022 Instructions Eliazar Maldonado APRN.CNP - 01/10/2022 5:04 PM EDT 1.) Get repeat labs in 3 months. 2.) Continue to take all medication as prescribed. 3.) Continue to titrate insulin as needed. 4.) Work on eating low carb diet, increase protein, veggies, and get some form of exercise. 5.) Get MRI completed this weekend, have copy sent to our office. 6.) Continue with NSAIDs as needed for pain. You were given Toradol in office today, wait 6-8 hours till next dosing. 7.) May use Flexeril as needed for muscle tension. May make you sleepy. 8.) Follow up in 3 months. Example insulin titration schedule: Start taking 10 units daily of Lantus. Check your blood sugar every morning before eating or drinking anything (fasting blood sugar level). Adjust your insulin every 3 days as follows: If your blood sugar is above 129, INCREASE your insulin by 2 unit. If your blood sugar is 80-129, CONTINUE your current insulin dose. If your blood sugar is less than 80, DECREASE your insulin by 2 unit. Continue this method until you reach your target fasting blood sugar level consistently (80-130) documented in this encounter [facility] 01-10-2022 History of Present illness Narrative This is a 46 year old male who presents today with: Patient presents with: Physical HISTORY OF PRESENT ILLNESS: Yosvany Yu is a 46 year old male. Patient presents with: Physical Here in the office for wellness exam. Diet: Working on eating a well balanced diet. Exercise: Stays active work, up an down stairs. Vision: Due in june, wears glasses. Dental: Due for exam, no difficulties. Sleep: 5.5-6 hours per night. Mood: Some increased anxiety due ongoing back pain. No Si/HI. HTN: Taking lisinopril 40 mg, metoprolol tartrate 50 mg, hydrochlorothiazide 25 mg daily. Checking blood pressure at home, 120-130's/80's. Denies chest pain, palpitations, dizziness, or edema. DM: Reports overall feeling well. Medication side effects: Yes. Nausea with Trulicity that is intermittent. Home sugar checks: 150-200's Hypoglycemic spells: Yes. If he skips a meal. Watching diet: No. Family of 6, eats whatever is prepared by . Unexpected weight loss: No. Polyuria, polydipsia: No. Vision Changes: No. Foot lesions or numbness or pain: No. Taking metformin XR 1000 mg twice daily. Amaryl 2 mg, 2 tablets daily with breakfast, and trulicity 1.5 mg weekly. Lantus 38 units at bedtime, has been titrating insulin pending fasting sugar, now taking 48 units. Using gabapentin 300 mg at bedtime for neuropathy. A1c went from 7.2 to 11.4. Low Back Pain: Has been ongoing for 2 to 2.5 months. Chiropractor ordered a MRI, having completed this weekend. Has been using Ibuprofen and tylenol daily. Colonoscopy: has never had completed, would like to wait to have completed at a later date. PSA: Family history of prostate cancer, 2 uncles and father have been diagnosed. Father passed. Never had PSA completed. Vaccines: Denies wanting any vaccines at this time. Labs completed prior to this visit. Lipids: Triglycerides 225, HDL 24. CMP: ALT 61, glucose 299, creatinine 0.66, however GFR normal at 116. PAST MEDICAL HISTORY: PAST MEDICAL HISTORY Diagnosis Date DM II (diabetes mellitus, type II), controlled (HCC) Hypertension past med Enlarged heart PAST SURGICAL HISTORY Procedure Laterality Date KNEE SURGERY HX Left 07/26/[address] guided Robotic Assisted-Dr. Ivan PAST SURGICAL HISTORY OF 2000? torn acl/mcl, surgery R knee PAST SURGICAL HISTORY OF 06/29/2016 bx, vestibule of mouth PAST SURGICAL HISTORY OF Left 02/08/2017 left knee surgery-[facility]. Dr. Johnson ALLERGIES Amitriptyline and Penicillins MEDICATIONS Current Outpatient Medications Medication Sig metFORMIN ER (GLUCOPHAGE XR) 500 mg 24 hr tablet Take 2 tablets by mouth twice daily before meals. lisinopril (ZESTRIL, PRINIVIL) 40 mg tablet Take 1 tablet by mouth once daily. metoprolol tartrate, short acting, (LOPRESSOR) 50 mg tablet Take 1 tablet by mouth once daily. hydroCHLOROthiazide (HYDRODIURIL, ESIDRIX) 25 mg tablet Take 1 tablet by mouth once daily. glimepiride (AMARYL) 2 mg tablet Take 2 tablets by mouth daily with breakfast. gabapentin (NEURONTIN) 300 mg capsule Take 1 capsule by mouth daily at bedtime for 90 days. insulin glargine (LANTUS SOLOSTAR U-100 INSULIN) 100 unit/mL (3 mL) Inject 38 Units subcutaneously daily at bedtime. acetaminophen (TYLENOL EXTRA STRENGTH) 500 mg tablet Take 1 tablet by mouth every 6 hours as needed for pain. dulaglutide (TRULICITY) 0.75 mg/0.5 mL pen injector Inject 0.75 mg subcutaneously one time a week. Inject dose once per week. Discard Pen After dulaglutide (TRULICITY) 1.5 mg/0.5 mL pen injector Inject 1.5 mg subcutaneously one time a week. Inject once per week. Discard Pen After insulin needles, DISPOSABLE, (PEN NEEDLE) 31 gauge x 5/16 Use to inject insulin daily aspirin 81 mg chewable tablet Take 1 tablet by mouth once daily. ASCORBIC ACID (VITAMIN C ORAL) Take by mouth. cyanocobalamin (VITAMIN B-12) 100 mcg tab Take 100 mcg by mouth once daily. No current facility-administered medications for this visit. FAMILY HISTORY Problem Relation Age of Onset Stroke Paternal Grandmother Hypertension Father Diabetes Maternal Grandmother other (obesity [Other]) Maternal Grandmother Social History Tobacco Use Smoking status: Never Smokeless tobacco: Former Quit date: 01/14/2010 Vaping Use Vaping Use: Never used Substance Use Topics Alcohol use: Yes Comment: weekends Drug use: No REVIEW OF SYSTEMS GENERAL: No weight loss, malaise or fevers/chills HEENT: Negative for frequent or significant headaches, No changes in hearing or vision. NECK: Negative for lumps, goiter, pain and significant neck swelling RESPIRATORY: Negative for cough, hemoptysis, wheezing, dyspnea or shortness of breath CARDIOVASCULAR: Negative for chest pain, leg swelling, orthopnea, or palpitations GI: No nausea, vomiting, or diarrhea/constipation. No hematochezia/melena. No heartburn or reflux symptoms. : No history of dysuria, frequency or incontinence MUSCULOSKELETAL: + Back Pain SKIN: Negative for lesions, rash, and itching ENDOCRINE: Negative for cold or heat intolerance, polyuria, polydipsia and goiter NEURO: No history of headaches, syncope, paralysis, seizures or tremors MOOD: Negative for depression, anxiety, or suicidal ideation. EXAM: BP 132/90 Pulse 75 Resp 16 Ht 177 cm (5' 9.69 ) Wt 112.5 kg (248 lb) SpO2 97% BMI 35.91 kg/m PHYSICAL EXAM: General Appearance: Well appearing, alert, in no acute distress, well-hydrated, well nourished. Skin: Skin color, texture, turgor normal, no suspicious rashes or lesions. Head: Normocephalic, no masses, lesions, tenderness or abnormalities. Eyes: Anicteric sclera. Pupils are equally round and reactive to light. Extraocular movements are intact. Ears: External ears normal, canals clear. TM's pearly drummond Neck: Supple, no adenopathy; thyroid symmetric, normal size, no bruits. Back:no pain to palpation of vertebrae, reflexes are 2+ and symmetric, motor and sensory appear to be normal, negative SLR test, no evidence of scoliosis. + Tenderness noted in the low left-sided back with muscle tension. Decreased range of motion. Had to stand up several times during exam due to pain. Lungs: Lungs clear to auscultation. No wheezing, rhonchi, rales. Heart: RRR without murmur, gallop, or rubs. No ectopy. Abdomen: Abdomen soft, non-tender. Bowel sounds normal. No masses, organomegaly, Negative CVA tenderness. Extremities: No deformities, edema, skin discoloration, clubbing or cyanosis. Good capillary refill. Musculoskeletal: No joint swelling, deformity, or tenderness. See back Peripheral Pulses: Normal, Capillary refill <2secs, strong peripheral pulses, Pulses palpable. Neurologic: Gait normal. Reflexes normal and symmetric. Sensation grossly intact. Mood: Pleasant, good eye contact, and engaged. ASSESSMENT/PLAN: 1. Wellness examination - ICD9: V70.0, ICD10: Z00.00 (primary diagnosis) - Counseled on healthy diet and regular exercise - Discussed need for and benefit of weight loss. BMI 35.91 kg/(m^2) - Colorectal cancer screening recommended - screening declined - Risks/benefits of prostate cancer screening discussed. screening PSA ordered - Depression screening tool completed and reviewed with patient. Based on score and interview, patient is not at risk for depression and recommended no further intervention at this time. - Follow up for annual exam in one year 2. Type 2 diabetes mellitus without complication, without long-term current use of insulin (HCC) - ICD9: 250.00, ICD10: E11.9 worsening control - Continue current medications/ continue to titrate insulin. - Would like to wait on consult to clinical pharmacy, will work on lifestyle changes at home. - Encouraged regular aerobic exercise and weight loss - Get repeat labs in 3 months. - GLIMEPIRIDE 2 MG TABLET - INSULIN GLARGINE (U-100) 100 UNIT/ML (3 ML) SUBCUTANEOUS PEN - METFORMIN ER 500 MG TABLET,EXTENDED RELEASE 24 HR - GABAPENTIN 300 MG CAPSULE - COMP METABOLIC PANEL - HGB A1C 3. Essential hypertension - ICD9: 401.9, ICD10: I10 - suboptimal control - Continue current medication(s) - Recommended regular aerobic exercise. - Recommend home blood pressure monitoring, to bring results in on next visit - Goal of BP <130/80 - METOPROLOL TARTRATE 50 MG TABLET - HYDROCHLOROTHIAZIDE 25 MG TABLET - LISINOPRIL 40 MG TABLET 4. Chronic midline low back pain without sciatica - ICD9: 724.2, 338.29, ICD10: M54.50, G89.29 - Gave Toradol in office. - Keep scheduled appointment for MRI, instructed to have results faxed to office. - Continue with NSAIDs at home, may use Flexeril as needed for muscle tension - KETOROLAC 60 MG/2 ML INTRAMUSCULAR SOLUTION - CYCLOBENZAPRINE 10 MG TABLET 5. Screening for prostate cancer - ICD9: V76.44, ICD10: Z12.5 - Due to family history of prostate cancer recommend starting screening at this time. - PSA/PROSTSPECAG SCRN Follow up in 3 months or sooner as needed. Discussed treatment plan and patient voices understanding. Patient's questions answered appropriately. Medications and potential side effects were discussed and patient voices understanding. Eliazar Maldonado APRN.CNP This note was partially generated using Unicon voice recognition system. Note was reviewed for accuracy. There may be minor misspellings or grammar miscues with [employer] voice recognition. documented in this encounter [facility] 12-21-2021 Miscellaneous Notes Patient notified of results, verbalizes understanding of instructions. Cici Byrne LPN Can you please call the patient and let him know that I reviewed his lab results. A1c has gone up from 7.2 to 11.4. Triglycerides are elevated which is more than likely due to the glucose level. HDL which is the good cholesterol is low, and glucose was noted at 299. I would like him to check fasting sugars and keep a log, and bring to next visit. He can titrate his insulin pending what his fasting sugars are. See below for an example. I want him to work on eating a low-carb diet, increasing protein and vegetables, and get some form of exercise. He can keep his upcoming appointment or move it to be seen earlier. Example insulin titration schedule: Start taking 10 units daily of Lantus. Check your blood sugar every morning before eating or drinking anything (fasting blood sugar level). Adjust your insulin every 3 days as follows: If your blood sugar is above 129, INCREASE your insulin by 2 unit. If your blood sugar is 80-129, CONTINUE your current insulin dose. If your blood sugar is less than 80, DECREASE your insulin by 2 unit. Continue this method until you reach your target fasting blood sugar level consistently (80-130) Eliazar Maldonado APRN.KAREN documented in this encounter [facility] 12-20-2021 Miscellaneous Notes Patient requesting lab orders to be placed for upcoming appointment next month. A1c, CMP and lipid has been ordered. Eliazar Maldonado APRN.CNP documented in this encounter [facility] 10-06-2021 Miscellaneous Notes Pt notified. Scheduled appt with Eliazar Maldonado and advised to get fasting labs and urine test prior. Reminder mailed with reminder of urine and labs prior. Marge Dorado Ma OK for three months; needs labs (ordered) and office visit Cuauhtemoc Rasmussen MD Last office visit: 10/07/20 F/u scheduled: none Pt needs appt to follow up on DM. Marge Dorado Ma Patient has been identified by name and date of : Yes Pending Prescriptions Disp Refills METFORMIN ER 500 MG TABLET,EXTENDED RELEASE 24 HR 120 tablet 11 Sig: Take 2 tablets by mouth twice daily before meals. HARALN: No LISINOPRIL 40 MG TABLET 90 tablet 3 Sig: Take 1 tablet by mouth once daily. HARLAN: No METOPROLOL TARTRATE 50 MG TABLET 90 tablet 3 Sig: Take 1 tablet by mouth once daily. HARLAN: No HYDROCHLOROTHIAZIDE 25 MG TABLET 90 tablet 3 Sig: Take 1 tablet by mouth once daily. HARLAN: No GLIMEPIRIDE 2 MG TABLET 180 tablet 3 Sig: Take 2 tablets by mouth daily with breakfast. HARLAN: No GABAPENTIN 300 MG CAPSULE 90 capsule 3 Sig: Take 1 capsule by mouth daily at bedtime for 90 days. HARLAN: No LANTUS SOLOSTAR U-100 INSULIN 100 UNIT/ML (3 ML) SUBCUTANEOUS PEN 15 mL 3 Sig: Inject 38 Units subcutaneously daily at bedtime. HARLAN: No RX INSTRUCTIONS: out of most of medications Patient aware RX will be sent to pharmacy. No need to notify patient. Monique Wood documented in this encounter [facility] Diagnosis Type 2 diabetes mellitus without complication, without long-term current use of insulin (HCC)- Primary Mixed hyperlipidemia [facility] Diagnosis Wellness examination- Primary Type 2 diabetes mellitus without complication, without long-term current use of insulin (HCC) Essential hypertension Unspecified essential hypertension Chronic midline low back pain without sciatica Screening for prostate cancer Special screening for malignant neoplasm of prostate [facility] Diagnosis Type 2 diabetes mellitus without complication, with long-term current use of insulin (HCC)- Primary Back pain at L4-L5 level [facility] Diagnosis Type 2 diabetes mellitus without complication, without long-term current use of insulin (HCC) Essential hypertension Unspecified essential hypertension [facility] Diagnosis Type 2 diabetes mellitus without complication, without long-term current use of insulin (HCC)- Primary Primary hypertension Unspecified essential hypertension [facility] Diagnosis Type 2 diabetes mellitus without complication, without long-term current use of insulin (HCC) [facility] Diagnosis Type 2 diabetes mellitus with hyperglycemia, with long-term current use of insulin (HCC)- Primary Type 2 diabetes mellitus without complication, without long-term current use of insulin (HCC) [facility] Diagnosis Type 2 diabetes mellitus without complication, without long-term current use of insulin (HCC)- Primary Mixed hyperlipidemia Medication management Encounter for long-term (current) use of other medications Type 2 diabetes mellitus without complication, with long-term current use of insulin (HCC) Type 2 diabetes mellitus with hyperglycemia, with long-term current use of insulin (HCC) [facility] Diagnosis Type 2 diabetes mellitus without complication, without long-term current use of insulin (HCC)- Primary Type 2 diabetes mellitus without complication, with long-term current use of insulin (HCC) Medication management Encounter for long-term (current) use of other medications Hypertension, unspecified type [facility] Diagnosis Type 2 diabetes mellitus without complication, without long-term current use of insulin (HCC)- Primary [facility] Diagnosis Type 2 diabetes mellitus without complication, without long-term current use of insulin (HCC) [facility] Diagnosis Type 2 diabetes mellitus without complication, without long-term current use of insulin (HCC)- Primary Neuropathy Mononeuritis of unspecified site Back pain at L4-L5 level Hypertension, unspecified type Seasonal allergies Allergic rhinitis, cause unspecified Screening for colon cancer Special screening for malignant neoplasms, colon [facility] Diagnosis Type 2 diabetes mellitus without complication, without long-term current use of insulin (HCC)- Primary Type 2 diabetes mellitus without complication, with long-term current use of insulin (HCC) Medication management Encounter for long-term (current) use of other medications documented in this encounter [facility] Reason for Referral Specialty Diagnoses / Procedures Referred By Contac t Referred To Contact Diagnoses Type 2 diabetes mellitus without complication, without long-term current use of insulin (HCC) Eliazar Maldonado APRN.INSTITUTIONAL CUSTODIAN [address] [place] [address] Referral ID Status Reason Start Date Expiration Date Visits Re quested Visits Authorized [id number] Closed 1 1 Specialty Diagnoses / Procedures Referred By Contac t Referred To Contact Diagnoses Type 2 diabetes mellitus without complication, with long-term current use of insulin (HCC) Eliazar Maldonado APRN.INSTITUTIONAL CUSTODIAN [address] [place] [address] Referral ID Status Reason Start Date Expiration Date V isits Requested Visits Authorized [id number] Pending Review 1 1 Referral ID Status Reason Start Date Expiration Date V isits Requested Visits Authorized [id number] Pending Review 1 1 Specialty Diagnoses / Procedures Referred By Contac t Referred To Contact General Surgery Diagnoses Screening for colon cancer Procedures CONSULT TO GENERAL SURGERY OFFICE/OUTPATIENT [facility] 60 MINUTES Eliazar Maldonado APRN.INSTITUTIONAL CUSTODIAN [address] [place] [address] Referral ID Status Reason Start Date Expiration Date Visits Requested Visits Authorized [id number] Authorized PCP Requested Referral 06/24/2023 06/23/2024 1 1 Medications Administered Section Inactive Administered Medications - up to 3 most recent administrations Medication Order MAR Action Action Date Dose Rate Site keTORolac 60 mg injection (TORADOL) 60 mg, INTRAMUSCULAR, ONCE, 1 dose, On Sat01/10/22 at 1700, Ketorolac (Toradol) is indicated for the short-term (up to 5 days) management of moderately severe acute pain. Continuation of ketorolac (Toradol) beyond 5 days increases the risk of developing serious adverse events. Please verify the duration of therapy for ketorolac (Toradol)., If ordered PRN for pain, patient/guardian may elect to receive this medication for higher pain levels INSTEAD of the opioid, if preferred: Yes Given 01/10/2022 5:14 PM EDT 60 mg Arm, Right Summary Purpose Family History No Family History Records Found Advance Directives No Advanced Directives Records Found Additional Source Comments Source Comments (unrecognize d section and content) In the event this informatio n is protected by the Federal Confidentiality of Alcohol and Drug Abuse Patient Records regulations: The Federal rules restrict any use of the information to criminally investigate or prosecute any alcohol or drug abuse patient.[facility] event this information is protected by the Federal Confidentiality of Alcohol and Drug Abuse Patient Records regulations: The Federal rules restrict any use of the information to criminally investigate or prosecute any alcohol or drug abuse patient.[facility] the event this information is protected by the Federal Confidentiality of Alcohol and Drug Abuse Patient Records regulations: The Federal rules restrict any use of the information to criminally investigate or prosecute any alcohol or drug abuse patient.[facility] the event this information is protected by the Federal Confidentiality of Alcohol and Drug Abuse Patient Records regulations: The Federal rules restrict any use of the information to criminally investigate or prosecute any alcohol or drug abuse patient.[facility] the event this information is protected by the Federal Confidentiality of Alcohol and Drug Abuse Patient Records regulations: The Federal rules restrict any use of the information to criminally investigate or prosecute any alcohol or drug abuse patient.[facility] the event this information is protected by the Federal Confidentiality of Alcohol and Drug Abuse Patient Records regulations: The Federal rules restrict any use of the information to criminally investigate or prosecute any alcohol or drug abuse patient.[facility] the event this information is protected by the Federal Confidentiality of Alcohol and Drug Abuse Patient Records regulations: The Federal rules restrict any use of the information to criminally investigate or prosecute any alcohol or drug abuse patient.[facility] the event this information is protected by the Federal Confidentiality of Alcohol and Drug Abuse Patient Records regulations: The Federal rules restrict any use of the information to criminally investigate or prosecute any alcohol or drug abuse patient.[facility] the event this information is protected by the Federal Confidentiality of Alcohol and Drug Abuse Patient Records regulations: The Federal rules restrict any use of the information to criminally investigate or prosecute any alcohol or drug abuse patient.[facility] the event this information is protected by the Federal Confidentiality of Alcohol and Drug Abuse Patient Records regulations: The Federal rules restrict any use of the information to criminally investigate or prosecute any alcohol or drug abuse patient.[facility] the event this information is protected by the Federal Confidentiality of Alcohol and Drug Abuse Patient Records regulations: The Federal rules restrict any use of the information to criminally investigate or prosecute any alcohol or drug abuse patient.[facility] the event this information is protected by the Federal Confidentiality of Alcohol and Drug Abuse Patient Records regulations: The Federal rules restrict any use of the information to criminally investigate or prosecute any alcohol or drug abuse patient.[facility] the event this information is protected by the Federal Confidentiality of Alcohol and Drug Abuse Patient Records regulations: The Federal rules restrict any use of the information to criminally investigate or prosecute any alcohol or drug abuse patient.[facility] the event this information is protected by the Federal Confidentiality of Alcohol and Drug Abuse Patient Records regulations: The Federal rules restrict any use of the information to criminally investigate or prosecute any alcohol or drug abuse patient.[facility] the event this information is protected by the Federal Confidentiality of Alcohol and Drug Abuse Patient Records regulations: The Federal rules restrict any use of the information to criminally investigate or prosecute any alcohol or drug abuse patient.[facility] the event this information is protected by the Federal Confidentiality of Alcohol and Drug Abuse Patient Records regulations: The Federal rules restrict any use of the information to criminally investigate or prosecute any alcohol or drug abuse patient.[facility] the event this information is protected by the Federal Confidentiality of Alcohol and Drug Abuse Patient Records regulations: The Federal rules restrict any use of the information to criminally investigate or prosecute any alcohol or drug abuse patient.[facility] the event this information is protected by the Federal Confidentiality of Alcohol and Drug Abuse Patient Records regulations: The Federal rules restrict any use of the information to criminally investigate or prosecute any alcohol or drug abuse patient.[facility] Reason for Visit (unrecogniz ed section and content) Reason Comments Orders Reason Comments Results Orders Labs Reason Comments Physical Reason Comments Results Labs Reason Comments Follow Up 3 month DM and labs Reason Comments Refill Request Reason Comments 6 week f/u DM Reason Comments Insurance Authorization Reason Comments Appointment Reason Comments Diabetes Reason Comments Follow Up 3 month of follow up Care Teams (unrecognized sec tion and content) Cvt Tech Relationship Specialty Start Date End Date Cuauhtemoc Rasmussen MD [address] [place] [address] PCP - General Family Practice 08/01/15 [facility] [address] [place] [address] Pharmacist Pharmacy 05/05/20 Cvt Tech Relationship Specialty Start Date End Date Cuauhtemoc Rasmussen MD [address] [place] [address] PCP - General Family Practice 08/01/15 [facility] [address] [place] [address] Pharmacist Pharmacy 05/05/20 Cvt Tech Relationship Specialty Start Date End Date Cuauhtemoc Rasmussen MD [address] [place] [address] PCP - General Family Medicine 08/01/15 [facility] [address] [place] [address] Pharmacist Pharmacy 05/05/20 Cvt Tech Relationship Specialty Start Date End Date Cuauhtemoc Rasmussen MD [address] [place] [address] PCP - General Family Medicine 08/01/15 Maria C Molina [facility] [address] [place] [address] Pharmacist Pharmacy 05/05/20 Cvt Tech Relationship Specialty Start Date End Date Cuauhtemoc Rasmussen MD [address] [place] [address] PCP - General Family Medicine 08/01/15 Maria C Molina, [facility] [address] [place] [address] Pharmacist Pharmacy 05/05/20 Cvt Tech Relationship Specialty Start Date End Date Cuauhtemoc Rasmussen MD [address] [place] [address] PCP - General Family Medicine 08/01/15 [facility] [address] [place] [address] Pharmacist Pharmacy 05/05/20 Cvt Tech Relationship Specialty Start Date End Date Cuauhtemoc Rasmussen MD [address] [place] [address] PCP - General Family Medicine 08/01/15 [facility] [address] [place] [address] Pharmacist Pharmacy 05/05/20 Cvt Tech Relationship Specialty Start Date End Date Cuauhtemoc Rasmussen MD [address] [place] [address] PCP - General Family Medicine 08/01/15 Maria C Mloina, [facility] [address] [place] [address] Pharmacist Pharmacy 05/05/20 Cvt Tech Relationship Specialty Start Date End Date Cuauhtemoc Rasmussen MD [address] [place] [address] PCP - General Family Medicine 08/01/15 Maria C Molina, [facility] [address] [place] [address] Pharmacist Pharmacy 05/05/20 Cvt Tech Relationship Specialty Start Date End Date Cuauhtemoc Rasmussen MD [address] [place] [address] PCP - General Family Medicine 08/01/15 [place] [address] [place] [address] Pharmacist Pharmacy 02/04/23 Cvt Tech Relationship Specialty Start Date End Date Cuauhtemoc Rasmussen MD [address] [place] [address] PCP - General Family Medicine 08/01/15 [place] [address] [place] [address] Pharmacist Pharmacy 02/04/23 Cvt Tech Relationship Specialty Start Date End Date Cuauhtemoc Rasmussen MD [address] [place] [address] PCP - General Family Medicine 08/01/15 Keli Arellano, [place] [address] [place] [address] Pharmacist Pharmacy 02/04/23 Cvt Tech Relationship Specialty Start Date End Date Cuauhtemoc Rasmussen MD [address] [place] [address] PCP - General Family Medicine 08/01/15 [place] [address] [place] [address] Pharmacist Pharmacy 02/04/23 Cvt Tech Relationship Specialty Start Date End Date Cuauhtemoc Rasmussen MD [address] [place] [address] PCP - General Family Medicine 08/01/15 [place] [address] [address] Pharmacist Pharmacy 02/04/23 Cvt Tech Relationship Specialty Start Date End Date Cuauhtemoc Rasmussen MD [address] [place] [address] PCP - General Family [facility] 08/01/15 [place] [address] [address] Pharmacist Pharmacy 02/04/23 Cvt Tech Relationship Specialty Start Date End Date Cuauhtemoc Rasmussen MD [address] [place] [address] PCP - General Family [facility] 08/01/15 [place] [address] [address] Pharmacist Pharmacy 02/04/23 (unrecognized sect ion and content) No Status Records Found INFORMATION SOURCE (unrecogn ized section and content) FOR RECORDS PERTAINING TO PATIENTS WHO ARE OR HAVE BEEN ENROLLED IN A CHEMICAL DEPENDENCY/SUBSTANCEABUSE PROGRAM, SOME INFORMATION MAY BE OMITTED. This clinical summary was aggregated from multiple sources. Caution should be exercised in using it in the provision of clinical care. This summary normalizes information from multiple sources, and as a consequence, information in this document may materially change the coding, format and clinical context of patient data. In addition, data may be omitted in some cases. CLINICAL DECISIONS SHOULD BE BASED ON THE PRIMARY CLINICAL RECORDS. [facility]. provides no warranty or guarantee of the accuracy or completeness of information in this document.
--- NOTE | 2023-07-06 07:42 | MRI_ITS ---
STUDY: MRI LEFT HIP REASON FOR EXAM: Male, 47 years old. Pain X 1 YEAR NO KNOWN INJURY TECHNIQUE: Standardized fat and water weighted pulse sequences were obtained in all 3 orthogonal planes. COMPARISON: X-ray June 20, 2023 FINDINGS: There is mild articular narrowing of the hip joint, with less than 50% loss of the hyaline cartilage. There is small joint effusion. There is an os acetabuli. There is tear of the superior labrum , series 5 images 14 and 15 . There is cam deformity with spurring of the lateral femoral head neck junction . There is no demonstrated fracture. Normal gluteus minimus, medius and iliopsoas tendons and distal insertions. There is no trochanteric, iliopsoas or iliopectineal bursitis. Normal superior and inferior pubic rami. Normal pubic symphysis. Normal ischial tuberosity. Normal origin of the hamstring tendons. Normal visualized iliac wing, sacroiliac joint, and sacral ala. Normal visualized soft tissue structures of the pelvis. 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 Degenerative change with tear of the labrum. No fracture or avascular necrosis. Electronically Signed: Drew Olson MD at 9:12 EDT ,
== END | disposition home or self-care (01) ==
LOC: MRI 07:27
PROVIDERS: PCP Family Medicine; Referring Provider Orthopaedic Surgery; Visit Provider Orthopaedic Surgery
DX: M87.059 Idiopathic aseptic necrosis of unspecified femur (principal)
CPT/HCPCS: 73721

== ENCOUNTER 2023-10-12 17:58 | Inpatient (IN) | payer MEDICAID, SELFPAY ==
[2023-10-12] VITALS (8 sets, daily range): BP systolic 83–131; BP diastolic 51–72; PULSE 72–103; RESP 14–25; TEMP 35.6–36.6; O2SAT 96–99; BMI 33.1; BMI 33.2
--- NOTE | 2023-10-12 18:19 | EKG12_ITS ---
Test Reason : HYPOTENSION Blood Pressure : / mmHG Vent. Rate : 076 BPM Atrial Rate : 076 BPM P-R Int : 150 ms QRS Dur : 072 ms QT Int : 384 ms P-R-T Axes : 023 075 037 degrees QTc Int : 432 ms Normal sinus rhythm NSTW CHANGES Abnormal ECG Confirmed by Gwyn Vasquez ([id number]), index editor RADHA JASMINE ([id number]) on 10/14/2023 9:39:56 AM Referred By: Confirmed By:Gwyn Vasquez
--- NOTE | 2023-10-12 18:22 | EDS_ITS ---
HPI History of Present Illness Chief Complaint: Hypotension Detail of Chief Complaint: Low blood pressure causing dizziness when he stands. Informant: patient and spouse/S.O. Onset/Context/Timing Onset: Days Context: Gradual Onset Timing: Continuous Current Severity: Mild Maximum Severity: Mild Narrative Narrative: 48-year-old male history of hypertension on lisinopril, metoprolol and hydrochlorothiazide and history diabetes. States since Saturday he has been lightheaded and dizzy with standing. Patient recently had multiple food. Was put on clindamycin for his head diarrhea since then. States he may be dehydrated in combination with blood pressure medications causing his pressure to run low. Denies fever. Denies vomiting. Denies melena. Denies chest pain. Prior similar symptoms: No Recent Illness/Hospitalization: No PFSH PFSH Home Medications ?Medication ?Instructions ?Recorded ?Last Taken ?Type hydrochlorothiazide 25 mg tablet 25 mg PO DAILY #30 tabs 07/19/15 07/28/17 Rx lisinopril 40 mg tablet 40 mg PO DAILY #30 tabs 07/19/15 07/26/20 Rx metformin 500 mg tablet 1,000 mg PO BIDCM diabetes 03/19/16 07/28/17 History acetaminophen 500 mg tablet 1,000 mg (2 x 500 mg) PO Q6H PRN 07/26/20 Unknown Rx #100 TABLETS insulin glargine 100 unit/mL (3 80 unit subcut QHS 09/05/20 Unknown History mL) subcutaneous pen metoprolol tartrate 50 mg tablet 50 mg PO DAILY 10/13/21 Unknown History meloxicam 7.5 mg tablet 15 mg PO DAILY 07/20/22 Unknown History liraglutide 0.6 mg/0.1 mL (18 mg/3 1.8 mg subcut DAILY 02/01/23 Unknown History mL) subcutaneous pen injector (Victoza 2-Yves) empagliflozin 10 mg tablet 25 mg PO DAILY 04/04/23 Unknown History (Jardiance) gabapentin 300 mg capsule 800 mg PO TID nerve pain 04/04/23 Unknown History rosuvastatin 20 mg tablet 20 mg PO QHS 07/10/23 Unknown History clindamycin HCl 300 mg capsule 300 mg PO TID 10/12/23 Unknown History Allergy/AdvReac Type Severity Reaction Status Date / Time strawberry Allergy Intermediate Hives Verified 10/12/23 18:01 Penicillins Allergy Other Verified 10/12/23 18:01 acetaminophen (From [place]) AdvReac Upset Verified 10/12/23 18:01 Stomach hydrocodone (From [place]) AdvReac Upset Verified 10/12/23 18:01 Stomach Social History Smoking Status: Former smoker ROS ROS ED ROS Narrative Diarrhea. Dizziness with standing. No fever. No chest pain. No abdominal pain. Review of Systems ROS Unobtainable: Denies due to encephalopathy Constitutional Constitutional ED: Denies chills or fever(s) Eyes Eyes: Denies blurry vision ENT ENT ED: Denies ear pain Cardiovascular Cardiovascular: Denies chest pain Respiratory/Chest Respiratory/Chest: Denies cough or dyspnea Gastrointestinal Gastrointestinal: Reports diarrhea; Denies abdominal pain, constipation, melena, nausea or vomiting Genitourinary Genitourinary ED: Denies dysuria or hematuria Musculoskeletal Musculoskeletal: Denies arthralgias, back pain, myalgias or neck pain Integumentary Denies abscess or Abrasions Neurologic Neurologic: Denies headache(s) Psychiatric Psychiatric: Denies anxiety or depression Endocrine Endocrinology: Denies cold intolerance Hematologic/Lymphatic Hematologic/Lymphatic: Reports none Allergic/Immunologic Allergic/Immunologic ED: Denies mouth swelling, tongue swelling or urticaria EXAM Physical Exam Narrative Exam Narrative: 48-year-old male sitting upright in bed. Clinically looks well. His blood pressure is 93/65 he is tolerating it quite well. Afebrile. He does not look septic or toxic. He is in no distress. Significant other is at bedside. H EENT exam unremarkable. Moist extremities. Neck nontender. Lungs clear to auscultation bilaterally. Heart regular rhythm rate about 85 no murmur. Chest wall and ribs nontender. Abdomen soft nontender. Moving all 4 extremities. Calves are nontender without edema or cords. Normal motor strength with community liaison and dorsi plantarflexion. Back nontender. Patient is awake and alert with no focal motor deficits. Const Vital Signs: 10/12/23 17:59 10/12/23 17:59 10/12/23 18:30 Temperature 97.5 F L Temperature Source Temporal Pulse Rate 87 84 Pulse Rate [Lying] Pulse Rate [Sitting (for 1 minute prior to obtaining)] Pulse Rate [Standing (for 1 minute prior to obtaining)] Respiratory Rate 14 16 Respiratory Effort Normal Non-Labored Respiratory Pattern Normal Blood Pressure 93/65 93/65 Blood Pressure [Lying] Blood Pressure [Sitting (for 1 minute prior to obtaining)] Blood Pressure [Standing (for 1 minute prior to obtaining)] Blood Pressure Mean 74 74 Blood Pressure Mean [Lying] Blood Pressure Mean [Sitting (for 1 minute prior to obtaining)] Blood Pressure Mean [Standing (for 1 minute prior to obtaining)] Pulse Ox 96 97 Oxygen Delivery Method Room Air Room Air 10/12/23 18:31 10/12/23 20:03 10/12/23 20:35 Temperature Temperature Source Pulse Rate 76 77 Pulse Rate [Lying] 77 Pulse Rate [Sitting (for 1 minute prior to obtaining)] 74 Pulse Rate [Standing (for 1 minute prior to obtaining)] 78 Respiratory Rate 25 H 15 Respiratory Effort Respiratory Pattern Blood Pressure 83/51 L 110/64 Blood Pressure [Lying] 113/64 Blood Pressure [Sitting (for 1 minute prior to obtaining)] 99/61 Blood Pressure [Standing (for 1 minute prior to obtaining)] 84/65 L Blood Pressure Mean 61 79 Blood Pressure Mean [Lying] 80 Blood Pressure Mean [Sitting (for 1 minute prior to obtaining)] 73 Blood Pressure Mean [Standing (for 1 minute prior to obtaining)] 71 Pulse Ox 96 98 Oxygen Delivery Method Room Air Room Air Positive well nourished and well developed; Negative for cachectic, contractures or unkempt General Appearance ED: well developed and NAD; Negative for unkempt, cachectic, contractures, cyanotic, diaphoretic or pallor Nutritional Appearance: Negative for cachectic HEENT Reports moist mucous membranes; Denies dry mucous membranes Negative for trauma or tenderness Mouth ED: No dry mucous membranes Mouth: No dry mucous membranes Eyes PERRL and EOMs intact bilaterally General Eye ED: Negative for pale conjunctiva or scleral icterus Neck no lymphadenopathy, supple and no JVD General: Negative for tenderness Lymph Lymphatic: Negative for other Chest Wall inspection of chest normal and palpation of chest normal Chest: Negative for other Resp normal respiratory effort and clear to auscultation bilaterally Effort and Inspection: Negative for retractions Auscultation: Negative for rales, rhonchi, wheezes or diminished lung sounds Cardio regular rate, regular rhythm, S1 normal heart sound, S2 normal heart sound and no murmurs Rate: Negative for bradycardia or tachycardic Rhythm: Negative for abnormal rhythm GI normal to inspection, nondistended, normoactive bowel sounds, non-tender, non- distended and no masses Palpation: soft; Negative for tender, guarding or rebound tenderness present Back/Spine no CVA tenderness General Back: Negative for CVA tenderness Cervical Spine: Negative for cervical spine tenderness Thoracic Spine / Upper Back: Negative for thoracic spinal tenderness Lumbar Spine / Lower Back: Negative for lumbar spinal tenderness Extremity normal to inspection General Extremety ED: Negative for edema, tenderness or other findings General Extremity: Negative for edema or other findings Neuro oriented x3 and CN's II-XII intact bilaterally Sensorium / Orientation: alert; Negative for orientation impaired, lethargic or stuporous Motor Exam: strength 5/5 throughout Psych mental status grossly normal Appearance: Negative for unkempt Attitude: No agitated Mood & Affect: Negative for depressed, anxious or tearful Skin no rashes or lesions noted and no wounds General Skin Exam: Negative for jaundice or pallor Lesions: No lesion noted Rashes: No rashes noted Trauma: Negative for abrasion Wounds: Negative for wounds noted MDM MDM MDM Narrative Medical decision making narrative: 48-year-old male had teeth pulled and has had diarrhea from clindamycin. He has hypotension with headache may be secondary to him being on 3 different blood pressure medications or being dehydrated. Labs, chest x-ray and EKG will be obt ained. He will be treated with a liter normal saline. Reassess. Multiple repeat exams patient is doing well. His blood pressure supine is 120s over 80s. Over he stands up he becomes hypotensive and his systolic pressures in the 80s again. He gets lightheaded. I will receive a second liter of fluid. I spoken to the hospitalist. He will admit the patient. Lab Data Attestation: I reviewed the patient's lab results. Lab results narrative: CBC normal. White count 9. H&H of 14 and 42. Platelets 223. Lactic acid elevated 4.2 I think at secondary to hypotension not sepsis. Chest x-ray and EKG unremarkable. Labs: Laboratory Results - last 24 hr 10/12/23 10/12/23 18:25 20:20 WBC 9.0 RBC 5.02 Hgb 14.7 Hct 42.7 MCV 85.1 MCH 29.3 MCHC 34.4 RDW Std Deviation 42.8 RDW Coeff of Janiya 13.9 Plt Count 223 MPV 9.3 Immature Gran % (Auto) 0.300 Neut % (Auto) 49.7 Lymph % (Auto) 39.9 [place] % (Auto) 8.1 Eos % (Auto) 1.1 Baso % (Auto) 0.9 Absolute Neuts (auto) 4.5 Absolute Lymphs (auto) 3.58 Nucleated RBC % 0 Sodium 137 Potassium 4.6 Chloride 112 H Carbon Dioxide 17.0 L Anion Gap 8 BUN 46 H Creatinine 2.01 H Estim Creat Clear Calc 54.52 Est GFR (MDRD) Af Amer 46 L Est GFR (MDRD) Non-Af 38 L BUN/Creatinine Ratio 22.9 H Glucose 84 Lactic Acid 4.2 H* Calcium 8.6 Total Bilirubin 0.50 AST 24 ALT 36 Alkaline Phosphatase 42 L Troponin I High Sens 9 Total Protein 7.1 Albumin 3.7 Globulin 3.4 Albumin/Globulin Ratio 1.1 Radiography Chest X-Ray - ED: Read by ED Physician, Heart, Lungs, Mediastinum, Bony Structures, No Acute Disease and Chronic Changes Diagnostic Testing: Clinical Impression(s) from Imaging Studies Chest X-Ray 10/12/23 19:10 IMPRESSION: 1. No evidence of acute cardiopulmonary process Electronically Signed: Kali Mendez MD at 19:40 EDT , Chest x-ray, portable, single view, interpreted by myself shows no acute abnormality. Normal cardiac silhouette. Normal mediastinum. Normal lung craven. Rhythm Strip Rhythm Strip: Sinus Rhythm Rate: 76 Ectopy: None EKG Initial EKG: Attestation: I personally reviewed and interpreted this EKG as follows: Interpretation: Sinus Rhythm and No Acute Injury Pattern Comments: Normal sinus rhythm rate of 76 no acute signs of RI or ischemia. Discharge Plan Dx/Rx/DC Orders Clinical Impression: Acute hypotension, Acute kidney injury, Acute dehydration, History of diabetes mellitus, History of hypertension, Diarrhea Disposition Disposition: [facility]
[2023-10-12] MEDS: 0.9% Normal Saline (1000mL) 1,000 ML 1000 ML IV (18:26)
[2023-10-12 19:01] LABS: Lactic Acid 4.2 mmol/L (0.4-1.9)
--- NOTE | 2023-10-12 19:10 | RAD_ITS ---
INDICATION: HYPOTENSION EXAMINATION/TECHNIQUE: X-RAY - XR Chest 1 View COMPARISON: 05/20/2019 FINDINGS: LIFE-SUPPORT AND LINES: 1. None HEART AND VESSELS: The cardiac silhouette, pulmonary vasculature have normal appearance. No evidence of congestive failure. LUNGS AND PLEURAL SPACES: Lungs are clear. No focal infiltrate, consolidation or effusions. No evidence of pneumothorax. No pulmonary mass is noted. MEDIASTINUM AND HILAR REGIONS: No masses adenopathy noted. No areas of calcification. Visualized upper airway is normal in position. BONY ELEMENTS: No acute bony changes noted. RAD/Chest 1 View (Portable) IMPRESSION: 1. No evidence of acute cardiopulmonary process Electronically Signed: Kali Mendez MD at 19:40 EDT ,
[2023-10-12 20:32] LABS: Absolute Lymphocyte Count 3.58 X10^3/uL (0.83-4.51); Absolute Neutrophil Count 4.5 X10^3/uL (2.0-7.7); Basophil# 0.08 X10^3/uL; Basophil% 0.9 % (0-1); Eosinophils% 1.1 % (0-5); Hematocrit 42.7 % (40-54); Hemoglobin 14.7 g/dL (13.0-16.5); Lymphocyte # 3.58 X10^3/ul (0.83-4.51); Lymphocyte % 39.9 % (19-41); Mean Corp Hgb Conc 34.4 g/dL (32-36); Mean Corpuscular Hgb 29.3 pg (27.0-32.0); Mean Corpuscular Volume 85.1 fL (80-94); Mean Platelet Vol. 9.3 fl (6.2-12.0); Monocyte# 0.73 X10^3/uL; Monocyte% 8.1 % (0-10); NRBC Flagged by Analyzer 0 % (0-5); Neutrophil # 4.46 X10^3/uL (2.7-7.7); Neutrophil % 49.7 % (47-70); Platelet Count 223 K/mm3 (150-450); RBC Distribution Width CV 13.9 % (11.6-14.6); RBC Distribution Width SD 42.8 fl (35.1-43.9); Red Blood Count 5.02 M/mm3 (4.6-6.2)
[2023-10-12 20:51] LABS: ALB/GLOB Ratio 1.1 RATIO (0.9-2.4); AST(SGOT) 24 U/L (15-37); Alanine Aminotransfer ALT/SGPT 36 U/L (16-61); Albumin, Serum 3.7 g/dL (3.2-5.0); Alkaline Phosphatase 42 U/L (45-117); Anion Gap 8 (5-15); BUN 46 mg/dL (7-18); BUN/Creat Ratio 22.9 RATIO (10-20); Calcium,Total 8.6 mg/dL (8.5-10.1); Chloride 112 mmol/L (98-107); Creatinine, Serum 2.01 mg/dL (0.70-1.30); EST Glomerular Filtration Rate 38 mL/min (>60); Est Glom Filt Rate - Afr Amer 46 mL/min (>60); Estimated Creatinine Clearance 54.52 ml/min; Globulin 3.4 g/dL (2.2-4.2); Glucose 84 mg/dL (74-106); Potassium 4.6 mmol/L (3.5-5.1); Protein, Total 7.1 g/dL (6.4-8.2); Sodium Level 137 mmol/L (136-145); Troponin-I HS 9 pg/mL (3.0-78.0)
--- NOTE | 2023-10-12 21:10 | PCM.HP.STD ---
[facility] - General General Date of Admission: 10/12/23 Date of Service: 10/12/23 Chief Complaint: Dizziness with Standing, Diarrhea and Hypotension. HPI Narrative RIGO YU, is a 48 M with a past medical history of essential hypertension; on lisinopril, and metoprolol, hyperlipidemia, hyperlipidemia, obesity; with BMI of 33.2 this admission, DM-2; of unknown control, history of herniated nucleus pulposus of the lumbar spine, chronic sacroiliac pain, history of femoral acetabular impingement, osteoarthritis, history of avascular necrosis of hip; with impending total hip replacement and recent oral surgery with the extraction of four wisdom teeth; with patient subsequently started on oral clindamycin because of a history of TKR with subsequent diarrhea patient having 3-4 loose bowel movements per day who presents to [facility] ER complaining of dizziness with standing, diarrhea and hypotension. Mr. Yu reports his symptoms began approximately 3 days prior to admission on Saturday, October 09, 2023 when he first noticed he was becoming a lightheaded and dizzy with standing. His symptoms gradually worsened since that time after his recent dental surgery and diarrhea with patient feeling dehydrated but continuing to take his blood pressure medications as prescribed. He denies associated fever, chills, vomiting, chest pain or SOB. In the ER he was noted to have laboratory evidence of acute renal failure with elevated serum creatinine of 2.01 mg/dL and a BUN of 46 mg/dL present on admission likely due to the dehydration complicated by lactic acidosis of 4.2 mmol/L present on admission in the setting of recent antibiotic administration with subsequent diarrhea and volume depletion likely due at least in part to adverse drug reaction to lisinopril and HCTZ causing orthostatic hypotension and he was then admitted to the general medical floor for ongoing care for stay that expected to extend beyond 2 midnights. [facility] Home Medications ?Medication ?Instructions ?Recorded ?Last Taken ?Type hydrochlorothiazide 25 mg tablet 25 mg PO DAILY #30 tabs 07/19/15 07/28/17 Rx lisinopril 40 mg tablet 40 mg PO DAILY #30 tabs 07/19/15 07/26/20 Rx metformin 500 mg tablet 1,000 mg PO BIDCM diabetes 03/19/16 07/28/17 History acetaminophen 500 mg tablet 1,000 mg (2 x 500 mg) PO Q6H PRN 07/26/20 Unknown Rx #100 TABLETS insulin glargine 100 unit/mL (3 80 unit subcut QHS 09/05/20 Unknown History mL) subcutaneous pen metoprolol tartrate 50 mg tablet 50 mg PO DAILY 10/13/21 Unknown History meloxicam 7.5 mg tablet 15 mg PO DAILY 07/20/22 Unknown History liraglutide 0.6 mg/0.1 mL (18 mg/3 1.8 mg subcut DAILY 02/01/23 Unknown History mL) subcutaneous pen injector (Victoza 2-Yves) empagliflozin 10 mg tablet 25 mg PO DAILY 04/04/23 Unknown History (Jardiance) gabapentin 300 mg capsule 800 mg PO TID nerve pain 04/04/23 Unknown History rosuvastatin 20 mg tablet 20 mg PO QHS 07/10/23 Unknown History clindamycin HCl 300 mg capsule 300 mg PO TID 10/12/23 Unknown History Allergy/AdvReac Type Severity Reaction Status Date / Time strawberry Allergy Intermediate Hives Verified 10/12/23 18:01 Penicillins Allergy Other Verified 10/12/23 18:01 acetaminophen (From [place]) AdvReac Upset Verified 10/12/23 18:01 Stomach hydrocodone (From [place]) AdvReac Upset Verified 10/12/23 18:01 Stomach Social History Smoking Status: Former smoker ROS ROS Narrative Review of systems: General: Patient admits to dizziness with standing but he denies denies fever or chills. HENT: Denies headache, denies stuffy nose, denies sore throat EYES: Denies changes in vision or discharge from eyes. Resp: Denies cough, denies shortness of breath Cardiac: Denies chest pain, palpitations or heart racing. GI: Patient admits to nonbloody diarrhea but he denies abdominal pain, denies changes in bowel, denies nausea or vomiting. : Denies changes in urination Extremity: Denies swelling Musculoskeletal: Feels somewhat generally weak and unwell but he denies arthralgias or myalgias. Neuro: Patient denies headache, paresthesias or focal neurologic deficits. Heme: Denies any bleeding or bruising Skin: Denies rashes Psychiatric: No complaints voiced related uncontrolled depression or anxiety. Endocrine: No polyuria, polydipsia or polyphagia. The rest of the 14 point ROS was negative except for positives in HPI. Vital Signs Vital Signs Vital Signs: 10/12/23 17:59 10/12/23 17:59 10/12/23 18:30 Temperature 97.5 F L Temperature Source Temporal Pulse Rate 87 84 Pulse Rate [Lying] Pulse Rate [Sitting (for 1 minute prior to obtaining)] Pulse Rate [Standing (for 1 minute prior to obtaining)] Respiratory Rate 14 16 Respiratory Effort Normal Non-Labored Respiratory Pattern Normal Blood Pressure 93/65 93/65 Blood Pressure [Lying] Blood Pressure [Sitting (for 1 minute prior to obtaining)] Blood Pressure [Standing (for 1 minute prior to obtaining)] Blood Pressure Mean 74 74 Blood Pressure Mean [Lying] Blood Pressure Mean [Sitting (for 1 minute prior to obtaining)] Blood Pressure Mean [Standing (for 1 minute prior to obtaining)] Pulse Ox 96 97 Oxygen Delivery Method Room Air Room Air 10/12/23 18:31 10/12/23 20:03 10/12/23 20:35 Temperature Temperature Source Pulse Rate 76 77 Pulse Rate [Lying] 77 Pulse Rate [Sitting (for 1 minute prior to obtaining)] 74 Pulse Rate [Standing (for 1 minute prior to obtaining)] 78 Respiratory Rate 25 H 15 Respiratory Effort Respiratory Pattern Blood Pressure 83/51 L 110/64 Blood Pressure [Lying] 113/64 Blood Pressure [Sitting (for 1 minute prior to obtaining)] 99/61 Blood Pressure [Standing (for 1 minute prior to obtaining)] 84/65 L Blood Pressure Mean 61 79 Blood Pressure Mean [Lying] 80 Blood Pressure Mean [Sitting (for 1 minute prior to obtaining)] 73 Blood Pressure Mean [Standing (for 1 minute prior to obtaining)] 71 Pulse Ox 96 98 Oxygen Delivery Method Room Air Room Air Weight Weight: 231 lb 4.238 oz Body Mass Index (BMI) 33.1 Physical Exam Const alert, oriented x3, no apparent distress, average body habitus and healthy appearing General Appearance: cooperative HEENT normocephalic, head/scalp atraumatic and hearing grossly normal bilaterally HEENT Narrative: Mucous membranes dry. Eyes PERRL and EOMs intact bilaterally Neck no lymphadenopathy and supple Resp normal respiratory effort, no retractions, no use of accessory muscles and clear to auscultation bilaterally Cardio regular rate and regular rhythm GI normal to inspection, nondistended, normoactive bowel sounds, soft to palpation, non-tender and non-distended Extremity normal to inspection, full ROM and no clubbing, cyanosis or edema Skin Skin Narrative: Patient has no evidence of rash, jaundice or abscess. Neuro oriented x3, CN's II-XII intact bilaterally, moves all extremities and no focal motor deficits Sensorium / Orientation: awake, alert, oriented to person, oriented to place and oriented to time Speech: speech normal Psych affect normal Results Medical Records Data Attestation: I reviewed the patient's medical records Lab / Micro Data Attestation: I reviewed the patient's lab results. 10/13/23 02:35 10/12/23 20:20 Labs: Laboratory Results - last 24 hr 10/12/23 18:25: Lactic Acid 4.2 H* 10/12/23 20:20: WBC 9.0, RBC 5.02, Hgb 14.7, Hct 42.7, MCV 85.1, MCH 29.3, MCHC 34.4, RDW Std Deviation 42.8, RDW Coeff of Janiya 13.9, Plt Count 223, MPV 9.3, Immature Gran % (Auto) 0.300, Neut % (Auto) 49.7, Lymph % (Auto) 39.9, [place] % (Auto) 8.1, Eos % (Auto) 1.1, Baso % (Auto) 0.9, Absolute Neuts (auto) 4.5, Absolute Lymphs (auto) 3.58, Nucleated RBC % 0, Sodium 137, Potassium 4.6, Chloride 112 H, Carbon Dioxide 17.0 L, Anion Gap 8, BUN 46 H, Creatinine 2.01 H, Estim Creat Clear Calc 54.52, Est GFR (MDRD) Af Amer 46 L, Est GFR (MDRD) Non-Af 38 L, BUN/Creatinine Ratio 22.9 H, Glucose 84, Calcium 8.6, Total Bilirubin 0.50, AST 24, ALT 36, Alkaline Phosphatase 42 L, Troponin I High Sens 9, Total Protein 7.1, Albumin 3.7, Globulin 3.4, Albumin/Globulin Ratio 1.1 Rhythm Strip Rhythm Strip: Sinus Rhythm Rate: 76 Ectopy: None Imaging Radiology Impression Chest X-Ray 10/12/23 19:10 IMPRESSION: 1. No evidence of acute cardiopulmonary process Electronically Signed: Kali Mendez MD at 19:40 EDT , Assessment & Plan Assessment/Plan (1) Acute renal failure: QUALIFIERS: Acute renal failure type: unspecified Qualified Code(s): N17.9 - Acute kidney failure, unspecified (2) Acute dehydration: (3) Lactic acidosis: (4) Diarrhea: QUALIFIERS: Diarrhea type: presumed infectious Qualified Code(s): R19.7 - Diarrhea, unspecified (5) Orthostatic hypotension: PLAN: Plan 1. Acute renal failure; evidenced by elevated serum creatinine of 2.01 mg/dL and a BUN of 46 mg/dL present on admission consistent with acute dehydration - Admit to general medical floor. Vigorously volume resuscitate and recheck BMP in the a.m. to ensure improvement. Avoid potentially nephrotoxic agents. 2. Lactic acidosis of 4.2 mmol/L present on admission complicating #1 - Serialize lactate, aggressively volume resuscitate and then monitor for improvement. 3. Recent oral surgery with four wisdom teeth extracted treated postoperatively with clindamycin because of his history of TKR with subsequent diarrhea compounding #1 & #2 - Check stool studies. Hold Clindamycin for now until infectious etiology ruled out. 4. Orthostatic hypotension arising from #1 - #3 - Noted. Check orthostatics after volume replaced to ensure resolution. 5. Essential hypertension; on lisinopril, HCTZ and metoprolol with suspected adverse drug reaction - Hold lisinopril and HCTZ until further notice. We will consider restarting metoprolol in a.m. if patient's orthostatic hypotension has resolved. 6. History of avascular necrosis of hip; with impending total hip replacement - Noted. 7. Hyperlipidemia - Resume statin. 8. Obesity; with BMI of 33.2 this admission - Weight loss will be recommended. Check TSH. 9. DM-2; of unknown control - ADA diet. FSBS q. AC/HS plus SSI. Check HgbA1c to objectively assess quality of diabetic control. 10. History of herniated nucleus pulposus of the lumbar spine - Noted. 11. Chronic sacroiliac pain - Noted. Give Tylenol prn. 12. History of femoral acetabular impingement - Noted. 13. Osteoarthritis - Stable. 14. DVT prophylaxis - Heparin 5,000 units sq TID. Total time: Approximately 75 minutes. Charges/Coding Visit Charges Inpatient E&M: 23353 Init Hosp L3
[2023-10-12] MEDS: 0.9% Normal Saline (1000mL) 1,000 ML 999 ML IV (21:15)
[2023-10-12] MEDS: Acetaminophen 500 MG Tablet 1000 MG PO (21:15)
--- NOTE | 2023-10-12 21:26 | NURSING ---
Text sent to Dr. Black about patients lactic acid level.
[2023-10-12 22:30] LABS: Reflex Lactate? Y
[2023-10-12 23:01] LABS: Lactic Acid 3.1 mmol/L (0.4-1.9)
--- NOTE | 2023-10-12 23:09 | NURSING ---
Patients lactic acid redraw is 3.[address] Black.
[2023-10-12] MEDS: 0.9% Normal Saline (1000mL) 1,000 ML 150 ML IV (23:17)
[2023-10-12] MEDS: Gabapentin 800 MG Tablet PO (23:24)
[2023-10-12] MEDS: Atorvastatin Calcium 40 MG Tablet PO (23:25)
[2023-10-12] MEDS: Heparin Injection (Vial) 5,000 UNIT/ML VIAL 5000 UNIT SC (23:26)
[2023-10-12 23:44] LABS: Hemoglobin A1c 5.3 % (3.8-5.6)
[2023-10-13 00:03] LABS: Bedside Glucose 83 mg/dL (74-106)
[2023-10-13 00:15] VITALS: BMI 33.1
[2023-10-13 02:16] LABS: Reflex Lactate? Y
[2023-10-13 02:45] LABS: Absolute Lymphocyte Count 3.66 X10^3/uL (0.83-4.51); Basophil# 0.07 X10^3/uL; Basophil% 0.9 % (0-1); Eosinophil# 0.08 X10^3/uL; Eosinophils% 1.1 % (0-5); Hematocrit 42.1 % (40-54); Hemoglobin 14.1 g/dL (13.0-16.5); Lymphocyte # 3.66 X10^3/ul (0.83-4.51); Lymphocyte % 49.7 % (19-41); Mean Corp Hgb Conc 33.5 g/dL (32-36); Mean Corpuscular Hgb 28.8 pg (27.0-32.0); Mean Corpuscular Volume 86.1 fL (80-94); Mean Platelet Vol. 9.3 fl (6.2-12.0); Monocyte# 0.54 X10^3/uL; Monocyte% 7.3 % (0-10); NRBC Flagged by Analyzer 0 % (0-5); Neutrophil # 3.01 X10^3/uL (2.7-7.7); Neutrophil % 40.9 % (47-70); Platelet Count 169 K/mm3 (150-450); RBC Distribution Width CV 13.9 % (11.6-14.6); RBC Distribution Width SD 43.2 fl (35.1-43.9); Red Blood Count 4.89 M/mm3 (4.6-6.2); White Blood Count 7.4 K/mm3 (4.4-11.0)
[2023-10-13 03:28] LABS: Lactic Acid 0.9 mmol/L (0.4-1.9)
[2023-10-13 03:33] LABS: ALB/GLOB Ratio 1.1 RATIO (0.9-2.4); AST(SGOT) 19 U/L (15-37); Alanine Aminotransfer ALT/SGPT 36 U/L (16-61); Albumin, Serum 3.5 g/dL (3.2-5.0); Alkaline Phosphatase 41 U/L (45-117); Anion Gap 8 (5-15); BUN 36 mg/dL (7-18); BUN/Creat Ratio 30.3 RATIO (10-20); Calcium,Total 8.9 mg/dL (8.5-10.1); Chloride 113 mmol/L (98-107); Creatinine, Serum 1.19 mg/dL (0.70-1.30); EST Glomerular Filtration Rate 69 mL/min (>60); Est Glom Filt Rate - Afr Amer 84 mL/min (>60); Estimated Creatinine Clearance 92.09 ml/min; Globulin 3.1 g/dL (2.2-4.2); Glucose 101 mg/dL (74-106); Magnesium 2.2 mg/dL (1.6-2.6); Phosphorus 3.3 mg/dL (2.5-4.9); Potassium 4.1 mmol/L (3.5-5.1); Protein, Total 6.6 g/dL (6.4-8.2); Sodium Level 141 mmol/L (136-145); Thyroid Stim Hormone (TSH) 0.55 uIU/mL (0.358-3.74)
[2023-10-13 06:00] VITALS: BP 137/81; PULSE 63; RESP 18; TEMP 36.5; O2SAT 98
[2023-10-13] MEDS: 0.9% Normal Saline (1000mL) 1,000 ML 150 ML IV (06:03)
[2023-10-13] MEDS: Gabapentin 800 MG Tablet PO ×2 (06:03→14:31)
[2023-10-13] MEDS: Heparin Injection (Vial) 5,000 UNIT/ML VIAL 5000 UNIT SC (06:06)
[2023-10-13] MEDS: Acetaminophen 325 MG Tablet 650 MG PO (06:09)
[2023-10-13 06:38] LABS: Bedside Glucose 99 mg/dL (74-106)
[2023-10-13] MEDS: Glucerna Shake 120 ML LIQUID PO ×2 (08:47→12:15)
[2023-10-13 09:09] VITALS: BP 139/91; BP 140/74; BP 140/91; PULSE 66; PULSE 70; PULSE 84
[2023-10-13 09:10] VITALS: BP 140/74; PULSE 70; RESP 16; TEMP 36.6; O2SAT 100
[2023-10-13 11:24] LABS: Bedside Glucose 119 mg/dL (74-106)
[2023-10-13 11:29] VITALS: BP 139/90; PULSE 68; RESP 16; TEMP 36.6; O2SAT 100
--- NOTE | 2023-10-13 14:17 | CPS ---
patient states he just had his wisdom teeth removed and cannot participate in IS
[2023-10-13] MEDS: Cephalexin 250 MG Capsule PO (14:43)
--- NOTE | 2023-10-13 15:50 | PCM.DC.SUM ---
Providers Date of Admission: 10/12/23 Date of Discharge: 10/13/23 Primary Care Physician: Dr. Ish Rasmussen MD Reason For Visit: Diarrhea, lactic acidosis, elevated Cr Diagnosis Discharge Diagnosis (1) Acute renal failure: Status: Acute Code(s): N17.9 - Acute kidney failure, unspecified Qualifiers: Acute renal failure type: unspecified Qualified Code(s): N17.9 - Acute kidney failure, unspecified (2) Acute dehydration: Status: Acute Code(s): E86.0 - Dehydration (3) Lactic acidosis: Status: Acute Code(s): E87.20 - Acidosis, unspecified (4) Diarrhea: Status: Acute Code(s): R19.7 - Diarrhea, unspecified Qualifiers: Diarrhea type: presumed infectious Qualified Code(s): R19.7 - Diarrhea, unspecified (5) Orthostatic hypotension: Status: Acute Code(s): I95.1 - Orthostatic hypotension Medications at Discharge Home Medications hydrochlorothiazide 25 mg tablet 25 mg PO DAILY #30 tabs 07/19/15 lisinopril 40 mg tablet 40 mg PO DAILY #30 tabs 07/19/15 metformin 500 mg tablet 1,000 mg PO BIDCM diabetes 03/19/16 acetaminophen 500 mg tablet 1,000 mg (2 x 500 mg) PO Q6H PRN #100 TABLETS 07/26/20 insulin glargine 100 unit/mL (3 mL) subcutaneous pen 80 unit subcut QHS 09/05/20 metoprolol tartrate 50 mg tablet 50 mg PO DAILY 10/13/21 meloxicam 7.5 mg tablet 15 mg PO DAILY 07/20/22 liraglutide 0.6 mg/0.1 mL (18 mg/3 mL) subcutaneous pen injector (Victoza 2-Yves) 1.8 mg subcut DAILY 02/01/23 empagliflozin 10 mg tablet (Jardiance) 25 mg PO DAILY 04/04/23 gabapentin 300 mg capsule 800 mg PO TID nerve pain 04/04/23 rosuvastatin 20 mg tablet 20 mg PO QHS 07/10/23 cephalexin 250 mg capsule 250 mg PO Q8H 2 days #6 caps 10/13/23 Hospital Course Summary of Care Provided Minutes Spent on Discharge: 33 Hospital Course: 48-year-old male history of hypertension, diabetes, lumbar spinal herniation, femoral acetabular impingement, OA, history of avascular necrosis of the hip pending total hip replacement and recent oral surgery who presented to [facility] ED 10/12/2023 due to diarrhea. He has been on clindamycin for his oral surgery due to history of total knee replacement and is supposed to have a deep cleaning next week and is restarted on clinda. For 3 days he has been having dizziness with standing, diarrhea, lightheadedness and has gradually worsened. In ED he had a creatinine of 2.01 and BUN of 46 and a lactic acid of 4.2 and was orthostatic positive. Stool studies obtained and patient given IV fluids and taken off clindamycin, kidney function improved as did lactic acid and orthostatic hypotension resolved with medication adjustments and fluids. Stool studies negative aside from a positive fecal lactoferrin but patient reports he already has a colonoscopy scheduled, had 1 somewhat more formed stool in the a.m. but tolerated diet without any further symptoms or diarrhea and patient expressed desire for discharge home, given stability and improvement seemed reasonable. Patient adamant about antibiotic prophylaxis for his dental surgery. Discussed guidelines and patient very anxious about not getting the surgery if his antibiotics or not continued. Given his a Saturday we are unable to contact patient's dental office to discuss further, given his penicillin allergy and reaction to clindamycin we will give Keflex. Given his unclear penicillin reaction he was given a dose of Keflex before discharge and patient tolerated this without difficulty with no side effects but was only given a limited supply and instructed that he will need to contact his physician for further decisions on prophylaxis. Discharge instructions as followed: -You were on clindamycin in preparation for your dental cleaning, you will be sent home with 2 days of Keflex to bridge until you can discuss with your dentist regarding further prophylactic treatment, the Keflex has been sent to preferred pharmacy on file -Would recommend lab work (BMP) to check your kidney function in 2 to 3 days through your primary care physician's office. Please call their office upon discharge to obtain order for lab work. -You will be important that you keep your appointment for colonoscopy in February, if your diarrhea does not continue to improve please contact your primary care physician -Is important that you maintain your fluids to avoid dehydration and also continue to monitor your glucose closely -Jardiance and hydrochlorothiazide can both cause you to pee out more fluid so these have been held, please resume once her diarrhea has completely resolved and you are taking in adequate fluids and food -You are on 60 units of long-acting insulin in the hospital due to the diarrhea and not eating well, please increase to home dose of 80 units when eating a consistent regular diet and continue to monitor your blood glucose -Given your elevated creatinine on arrival due to dehydration it is recommended that you continue to hold your meloxicam until your repeat blood work through primary care physician's office is obtained and they clear you to do so -It was recommended that you go from laying to sitting and sitting to standing slowly and if you have any further problems with feeling dizzy or lightheaded during any of these transitions please contact your primary care physician or return to the emergency department if necessary -Please call your primary care provider's office upon discharge to schedule a hospital follow up within 1 week. -For any concerning signs or symptoms please call 911 or proceed to the nearest emergency department Physical Exam Narrative General: Alert, oriented, no apparent distress HEENT: Atraumatic, normocephalic Eyes: Anicteric, normal conjunctiva, extraocular movements grossly intact Neck: Supple Respiratory: Clear to auscultation bilaterally, normal respiratory effort Cardiovascular: Regular rate and rhythm GI: Soft, nontender, nondistended Extremities: No edema Musculoskeletal: Moving all extremities Neuro: No overt focal neurological deficits Skin: No rashes appreciated Psych: Cooperative Weight / BMI Weight Weight: 104.9 kg Body Mass Index (BMI) 33.1 ABG / Lab / Microbiology Data 10/13/23 02:35 10/13/23 02:35 Laboratory: Laboratory Results - last 24 hr 10/12/23 18:25: Lactic Acid 4.2 H* 10/12/23 20:20: WBC 9.0, RBC 5.02, Hgb 14.7, Hct 42.7, MCV 85.1, MCH 29.3, MCHC 34.4, RDW Std Deviation 42.8, RDW Coeff of Janiya 13.9, Plt Count 223, MPV 9.3, Immature Gran % (Auto) 0.300, Neut % (Auto) 49.7, Lymph % (Auto) 39.9, Boundary % (Auto) 8.1, Eos % (Auto) 1.1, Baso % (Auto) 0.9, Absolute Neuts (auto) 4.5, Absolute Lymphs (auto) 3.58, Nucleated RBC % 0, Sodium 137, Potassium 4.6, Chloride 112 H, Carbon Dioxide 17.0 L, Anion Gap 8, BUN 46 H, Creatinine 2.01 H, Estim Creat Clear Calc 54.52, Est GFR (MDRD) Af Amer 46 L, Est GFR (MDRD) Non-Af 38 L, BUN/Creatinine Ratio 22.9 H, Glucose 84, Hemoglobin A1c 5.3, Calcium 8.6, Total Bilirubin 0.50, AST 24, ALT 36, Alkaline Phosphatase 42 L, Troponin I High Sens 9, Total Protein 7.1, Albumin 3.7, Globulin 3.4, Albumin/Globulin Ratio 1.1 10/12/23 22:11: Lactic Acid 3.1 H* 10/12/23 23:21: POC Glucose 83 10/13/23 02:35: WBC 7.4, RBC 4.89, Hgb 14.1, Hct 42.1, MCV 86.1, MCH 28.8, MCHC 33.5, RDW Std Deviation 43.2, RDW Coeff of Janiya 13.9, Plt Count 169, MPV 9.3, Immature Gran % (Auto) 0.100, Neut % (Auto) 40.9 L, Lymph % (Auto) 49.7 H, Boundary % (Auto) 7.3, Eos % (Auto) 1.1, Baso % (Auto) 0.9, Absolute Neuts (auto) 3.0, Absolute Lymphs (auto) 3.66, Nucleated RBC % 0, Sodium 141, Potassium 4.1, Chloride 113 H, Carbon Dioxide 20.0 L, Anion Gap 8, BUN 36 H, Creatinine 1.19, Estim Creat Clear Calc 92.09, Est GFR (MDRD) Af Amer 84, Est GFR (MDRD) Non-Af 69, BUN/Creatinine Ratio 30.3 H, Glucose 101, Lactic Acid 0.9, Calcium 8.9, Phosphorus 3.3, Magnesium 2.2, Total Bilirubin 0.40, AST 19, ALT 36, Alkaline Phosphatase 41 L, Total Protein 6.6, Albumin 3.5, Globulin 3.1, Albumin/Globulin Ratio 1.1, TSH 0.55 10/13/23 06:09: POC Glucose 99 10/13/23 11:03: POC Glucose 119 H Microbiology: Microbiology 10/12/23 22:45 Stool Enteric Bacteriology - Final 10/12/23 22:45 Stool Clostridioides difficile (PCR) - Final 10/12/23 22:45 Stool Stool Lactoferrin - Final Radiography Diagnostic Testing: Radiology Impression Chest X-Ray 10/12/23 19:10 IMPRESSION: 1. No evidence of acute cardiopulmonary process Electronically Signed: Kali Mendez MD at 19:40 EDT Reading Location ID and State: [facility] / [place] Tel , Service support , D/C Instructions Discharge Diet: Light diet - advance as tolerated Meaningful Use Info Meaningful Use Meaningful Use Diagnoses (Choose all that apply): None applicable Ischemic Stroke Statin Dosing Therapy Reference: STATIN DOSE THERAPY REFERENCE: * Patients > 75 years receive moderate or high dose statin therapy. * Patients 75 years or YOUNGER should receive HIGH intensity statin dose unless contraindicated. You will be required to document reason for non-treatment if statin daily dose does not meet guidelines. HIGH DOSE STATIN THERAPY DAILY Atorvastatin > than or = to 40 mg Rosuvastatin > than or = to 20 mg Amlodipine + Atorvastatin > than or = to 2.5/40 mg Ezetimibe + Simvastatin 10/80 mg Simvastatin 80mg Discharge Plan Admission Admit Date/Time: 10/12/23 21:34 Primary Reason for Your Visit: Diarrhea Attending Provider: Aretha Bai Primary Care Provider: Ish Rasmussen Consulting Providers: Ravin Benito Instructions Patient Instructions: Bowel Movements, ED Diarrhea, Unknown Cause Additional Instructions / Restrictions: DISCHARGE INSTRUCTIONS PLEASE READ *Please take this with you to your next doctors appointment* -You were on clindamycin in preparation for your dental cleaning, you will be sent home with 2 days of Keflex to bridge until you can discuss with your dentist regarding further prophylactic treatment, the Keflex has been sent to preferred pharmacy on file -Would recommend lab work (BMP) to check your kidney function in 2 to 3 days through your primary care physician's office. Please call their office upon discharge to obtain order for lab work. -You will be important that you keep your appointment for colonoscopy in February, if your diarrhea does not continue to improve please contact your primary care physician -Is important that you maintain your fluids to avoid dehydration and also continue to monitor your glucose closely -Jardiance and hydrochlorothiazide can both cause you to pee out more fluid so these have been held, please resume once her diarrhea has completely resolved and you are taking in adequate fluids and food -You are on 60 units of long-acting insulin in the hospital due to the diarrhea and not eating well, please increase to home dose of 80 units when eating a consistent regular diet and continue to monitor your blood glucose -Given your elevated creatinine on arrival due to dehydration it is recommended that you continue to hold your meloxicam until your repeat blood work through primary care physician's office is obtained and they clear you to do so -It was recommended that you go from laying to sitting and sitting to standing slowly and if you have any further problems with feeling dizzy or lightheaded during any of these transitions please contact your primary care physician or return to the emergency department if necessary -Please call your primary care provider's office upon discharge to schedule a hospital follow up within 1 week. -For any concerning signs or symptoms please call 911 or proceed to the nearest emergency department Discharge Orders/Prescriptions Prescriptions: New cephalexin 250 mg capsule 250 mg PO Q8H 2 Days Qty: 6 0RF Continued insulin glargine 100 unit/mL (3 mL) insulin pen 80 unit subcut QHS Victoza 2-Yves 0.6 mg/0.1 mL (18 mg/3 mL) pen injector 1.8 mg subcut DAILY rosuvastatin 20 mg tablet 20 mg PO QHS lisinopril 40 MG tablet 40 mg PO DAILY Qty: 30 0RF Patient Comments: blood pressure metformin 500 MG tablet 1,000 mg PO BIDCM Patient Comments: diabetes gabapentin 300 mg capsule 800 mg PO TID Patient Comments: TAKE 1 CAPSULE BY MOUTH ONCE DAILY AT BEDTIME FOR 90 DAYS acetaminophen 500 MG tablet 1,000 mg PO Q6H PRN Qty: 100 0RF metoprolol tartrate 50 mg Tablet 50 mg PO DAILY Held meloxicam 7.5 mg tablet 15 mg PO DAILY Hold Instructions: Resume on 10/17/23. Patient Comments: TAKE 1 TABLET BY MOUTH ONCE DAILY ON A FULL STOMACH Jardiance 10 mg tablet 25 mg PO DAILY Hold Instructions: Resume on 10/16/23. hydrochlorothiazide 25 MG tablet 25 mg PO DAILY Qty: 30 0RF Hold Instructions: Resume on 06/26/24. Patient Comments: blood pressure Discontinued clindamycin HCl 300 mg capsule 300 mg PO TID Rx Instructions: x7 days Referrals / Follow Up: Ish Rasmussen MD [Primary Care Provider] - Within 1 Week Disposition Disposition (needs filled in before D/C Order can be placed): Home, Self Care Charges/Coding Visit Charges Inpatient E&M: 97021 Disch Hosp >30min
== END 2023-10-13 16:41 | disposition home or self-care (01) | DRG 469 ==
LOC: ED 21:13 → MS3 22:39
PROVIDERS: Admitting Provider Internal Medicine; Emergency Provider Emergency Medicine; PCP Family Medicine; Visit Provider Internal Medicine
DX: N17.9 Acute kidney failure, unspecified (principal); E11.9 Type 2 diabetes mellitus without complications; I10 Essential (primary) hypertension; E66.9 Obesity, unspecified; Z79.4 Long term (current) use of insulin; M19.90 Unspecified osteoarthritis, unspecified site; R19.7 Diarrhea, unspecified; E78.5 Hyperlipidemia, unspecified; Z87.891 Personal history of nicotine dependence; Z79.84 Long term (current) use of oral hypoglycemic drugs; Z79.899 Other long term (current) drug therapy; Z68.33 Body mass index [BMI] 33.0-33.9, adult
CPT/HCPCS: 36415; 71045; 80053; 82962; 83036; 83605; 83630; 83735; 84100; 84443; 84484; 85025; 87177; 87209; 87493; 87506; 93005; 97802; 99285

== ENCOUNTER 2024-08-04 17:35 | Observation (INO) | payer MEDICAID, SELFPAY ==
[2024-08-04] VITALS (7 sets, daily range): BP systolic 138–150; BP diastolic 58–94; PULSE 64–80; RESP 16–18; TEMP 36.4–36.7; O2SAT 95–99; BMI 30.9
[2024-08-04 18:31] LABS: Absolute Lymphocyte Count 3.13 X10^3/uL (0.83-4.51); Absolute Neutrophil Count 4.9 X10^3/uL (2.0-7.7); Basophil# 0.07 X10^3/uL; Basophil% 0.8 % (0-1); Eosinophil# 0.09 X10^3/uL; Hematocrit 47.7 % (40-54); Hemoglobin 16.1 g/dL (13.0-16.5); Lymphocyte # 3.13 X10^3/ul (0.83-4.51); Lymphocyte % 36.1 % (19-41); Mean Corp Hgb Conc 33.8 g/dL (32-36); Mean Corpuscular Hgb 27.6 pg (27.0-32.0); Mean Corpuscular Volume 81.8 fL (80-94); Mean Platelet Vol. 9.2 fl (6.2-12.0); Monocyte# 0.47 X10^3/uL; Monocyte% 5.4 % (0-10); NRBC Flagged by Analyzer 0 % (0-5); Neutrophil # 4.88 X10^3/uL (2.7-7.7); Neutrophil % 56.5 % (47-70); Platelet Count 176 K/mm3 (150-450); RBC Distribution Width CV 14.2 % (11.6-14.6); RBC Distribution Width SD 41.4 fl (35.1-43.9); Red Blood Count 5.83 M/mm3 (4.6-6.2); White Blood Count 8.7 K/mm3 (4.4-11.0)
[2024-08-04 18:52] LABS: ALB/GLOB Ratio 1.6 RATIO (0.9-2.4); AST(SGOT) 24 U/L (<=37); Alanine Aminotransfer ALT/SGPT 23 U/L (<=46); Albumin, Serum 4.4 g/dL (3.5-5.0); Alkaline Phosphatase 64 U/L (40-129); Anion Gap 12 (5-15); BUN 14 mg/dL (4-19); BUN/Creat Ratio 15.3 RATIO (10-20); Calcium,Total 9.4 mg/dL (7.6-11.0); Carbon Dioxide 20.9 mmol/L (21.0-32.0); Chloride 109 mmol/L (98-108); Creatinine, Serum 0.92 mg/dL (0.70-1.20); EST Glomerular Filtration Rate 102 (>60); Estimated Creatinine Clearance 115.16 ml/min (50-250); Globulin 2.7 g/dL (2.2-4.2); Glucose 137 mg/dL (70-99); Lipase 33 U/L (13-75); Potassium 3.9 mmol/L (3.3-5.1); Protein, Total 7.1 g/dL (5.9-8.4); Sodium Level 142 mmol/L (133-145); Total Bilirubin 0.39 mg/dL (0.00-1.30)
--- NOTE | 2024-08-04 18:54 | ED.RN ---
PT. FAMILY MEMBER CAME UP TO THE TRIAGE DESK AND SHOWED ME CT RESULTS. MOVED UP IN TRIAGE ORDER D/T PROBABLE APPENDIX READ ON SCAN AND DOCTORS NOTE PROVIDED.
--- NOTE | 2024-08-04 19:19 | ED.VIS.GI ---
HPI HPI - GI History of Present Illness Chief Complaint: Abd Pain Informant: patient Abdominal Pain/Flank Pain Onset: Month(s) Context: Gradual Onset Timing: Intermittent Quality: Sharp and Stabbing Location: RLQ Worsened by: Nothing Relieved by: Nothing Nausea/Vomiting/Emesis GI Symptom: Positive for Nausea and Vomiting Quality: Positive for Nonbilious; Negative for Blood streaks, Coffee ground or Hematemesis Diarrhea/Melena/Hematochezia GI Symptom: Positive for Diarrhea; Negative for Melena or Hematochezia Associated Symptoms Associated Symptoms: Negative for Dysuria, Frequency or Hematuria Narrative Narrative: Patient presents with right lower abdominal pain that has been getting worse over the past couple months. Patient states it became worse over the past couple days. Patient states he had an outpatient CT scan done today which showed inflamed appendix that was dilated up to 15 mm. Patient states his pain is sharp and stabbing. Patient states his pain is localized to the right lower abdomen. Patient states nothing makes it better nothing makes it worse. Patient admits to some nausea and vomiting. Patient denies any hematemesis or coffee-ground emesis. Patient admits to some diarrhea but denies any melena or hematochezia. Patient admits to decreased appetite. Patient states he is not hungry at all. [facility] Medical History Raynaud disease Neuropathy Essential hypertension History of diabetes mellitus Home Medications ?Medication ?Instructions ?Recorded ?Last Taken ?Type lisinopril 40 mg tablet 40 mg PO DAILY #30 tabs 07/19/15 07/26/20 Rx metformin 500 mg tablet 1,000 mg PO BIDCM diabetes 03/19/16 07/28/17 History Held on 08/05/24. Instructions: Resume on 08/07/24. acetaminophen 500 mg tablet 1,000 mg (2 x 500 mg) PO Q6H PRN 07/26/20 Unknown Rx #100 TABLETS insulin glargine 100 unit/mL (3 60 unit subcut QHS 09/05/20 Unknown History mL) subcutaneous pen liraglutide 0.6 mg/0.1 mL (18 mg/3 1.8 mg subcut DAILY 02/01/23 Unknown History mL) subcutaneous pen injector (Victoza 2-Yves) rosuvastatin 20 mg tablet 20 mg PO QHS 07/10/23 Unknown History amlodipine 5 mg tablet 5 mg PO DAILY 08/04/24 Unknown History ascorbic acid (vitamin C) 500 mg 500 mg PO BID 08/04/24 Unknown History tablet (Vitamin C) aspirin 81 mg tablet,delayed 81 mg PO DAILY 08/04/24 Unknown History release cyclobenzaprine 10 mg tablet 10 mg PO BID PRN 08/04/24 Unknown History empagliflozin 25 mg tablet 25 mg PO DAILY 08/04/24 Unknown History (Jardiance) ergocalciferol (vitamin D2) 1,250 1,250 mcg PO QWEEK 08/04/24 Unknown History mcg (50,000 unit) capsule mecobalamin (vitamin B12) 1,000 1,000 mcg PO DAILY 08/04/24 Unknown History mcg chewable tablet pregabalin 300 mg capsule 300 mg PO BID 08/04/24 Unknown History terbinafine HCl 250 mg tablet 250 mg PO DAILY 08/04/24 Unknown History oxycodone 5 mg tablet 5 - 10 mg (1 - 2 x 5 mg) PO Q4H 08/05/24 Unknown Rx PRN PRN Pain Score 4-10 5 days #20 tabs Allergy/AdvReac Type Severity Reaction Status Date / Time strawberry Allergy Intermediate Hives Verified 08/04/24 17:36 Penicillins Allergy Other Verified 08/04/24 17:36 acetaminophen (From [place]) AdvReac Upset Verified 08/04/24 17:36 Stomach hydrocodone (From [place]) AdvReac Upset Verified 08/04/24 17:36 Stomach Surgical History History of total left knee replacement Hx of bilateral hip replacements Social History Smoking Status: Never smoker alcohol intake: current alcohol intake frequency: a few times a month ROS ROS ED Constitutional Constitutional ED: Denies chills or fever(s) Eyes Eyes: Denies blurry vision or change in vision ENT ENT ED: Denies rhinorrhea or sore throat Cardiovascular Cardiovascular: Denies chest pain or palpitations Respiratory/Chest Respiratory/Chest: Denies cough or dyspnea Gastrointestinal Gastrointestinal: Reports abdominal pain, diarrhea, nausea and vomiting; Denies melena Genitourinary Genitourinary ED: Denies dysuria or hematuria Musculoskeletal Musculoskeletal: Reports neck pain; Denies back pain Integumentary Denies abscess or rash Neurologic Neurologic: Denies headache(s) or weakness Allergic/Immunologic Allergic/Immunologic ED: Denies mouth swelling or urticaria EXAM Physical Exam Const Vital Signs: 08/04/24 17:35 08/04/24 18:28 08/04/24 20:00 Temperature 97.5 F L 98.1 F Temperature Source Temporal Oral Pulse Rate 80 78 65 Respiratory Rate 18 16 18 Blood Pressure 143/94 H 144/58 H 141/70 H Blood Pressure Mean 110 86 93 Pulse Ox 98 99 97 Oxygen Delivery Method Room Air Room Air Positive well nourished and well developed General Appearance ED: well developed and NAD HEENT Reports moist mucous membranes normocephalic and atraumatic Neck supple and no JVD Resp normal respiratory effort and clear to auscultation bilaterally Cardio regular rate and regular rhythm GI non-distended Palpation: soft and tender RLQ, McBurney's point and Rovsing's sign Neuro CN's II-XII intact bilaterally, moves all extremities and no sensory deficits noted Sensorium / Orientation: alert Motor Exam: strength 5/5 throughout Psych mental status grossly normal and thought process normal MDM MDM MDM Narrative Medical decision making narrative: Differential diagnosis includes appendicitis, diverticulitis, bowel obstruction, and perforation. CBC will be obtained to assess for leukocytosis and anemia. Comprehensive metabolic profile will be obtained to assess for electrolyte abnormality, renal function, and hepatic function. Lipase will be obtained to assess for pancreatitis. Lab Data Attestation: I reviewed the patient's lab results. Lab results narrative: CBC was reviewed and was essentially within normal limits. Comprehensive metabolic profile was reviewed. Glucose was mildly elevated at 137. The remainder is within normal limits. Lipase was reviewed and was normal at 33. Urinalysis was reviewed. There is no evidence of urinary tract infection or hematuria. Labs: Laboratory Results - last 24 hr 08/04/24 08/04/24 18:22 20:21 WBC 8.7 RBC 5.83 Hgb 16.1 Hct 47.7 MCV 81.8 MCH 27.6 MCHC 33.8 RDW Std Deviation 41.4 RDW Coeff of Janiya 14.2 Plt Count 176 MPV 9.2 Immature Gran % (Auto) 0.200 Neut % (Auto) 56.5 Lymph % (Auto) 36.1 [place] % (Auto) 5.4 Eos % (Auto) 1.0 Baso % (Auto) 0.8 Absolute Neuts (auto) 4.9 Absolute Lymphs (auto) 3.13 Nucleated RBC % 0 Sodium 142 Potassium 3.9 Chloride 109 H Carbon Dioxide 20.9 L Anion Gap 12 BUN 14 Creatinine 0.92 Estim Creat Clear Calc 115.16 Est GFR (MDRD) Non-Af 102 BUN/Creatinine Ratio 15.3 Glucose 137 H Calcium 9.4 Total Bilirubin 0.39 AST 24 ALT 23 Alkaline Phosphatase 64 Total Protein 7.1 Albumin 4.4 Globulin 2.7 Albumin/Globulin Ratio 1.6 Lipase 33 Urine Color Yellow Urine Clarity Clear Urine pH 6.0 Ur Specific [place] 1.010 Urine Protein 15 H Urine Glucose (UA) 1000 H Urine Ketones Negative Urine Occult Blood Negative Urine Nitrite Negative Urine Bilirubin Negative Urine Urobilinogen 4 H Ur Leukocyte Esterase Negative Urine RBC 0-5 SEEN Urine WBC 0-5 SEEN Ur Squamous Epith Cells 0-5 SEEN Urine Bacteria 0 SEEN Urine Mucus 0 SEEN Radiography Diagnostic Testing: Clinical Impression(s) from Imaging Studies Abdomen/Pelvis CT 08/04/24 20:52 IMPRESSION: Findings consistent with acute appendicitis. No free air. No abscess formation. Reading Location: [facility] Out[facility] CT report was reviewed. There is dilation of the appendix to 15 mm. There is some mild periappendiceal stranding. This was interpreted by the radiologist. CT scan of the abdomen and pelvis with oral and IV contrast was reviewed. There is dilation of the appendix to 1.4 cm with some periappendiceal stranding. This is consistent with acute appendicitis. This was interpreted by the radiologist and was also independently reviewed by myself. Treatment and Re-Evaluation :: Patient was given IV fluids, morphine, and Zofran. Patient was given a dose of meropenem. Case was discussed with Dr. Crabtree from general surgery. He was in to evaluate the patient. He will repeat the CT scan with oral and IV contrast. He will admit the patient to his service. Patient and family understood and were agreeable with the plan. All questions were answered. CT scan findings were relayed to Dr. Crabtree. He will plan on taking the patient to surgery tomorrow. Discharge Plan Dx/Rx/DC Orders Clinical Impression: Acute appendicitis, Diabetes mellitus, Essential hypertension Disposition Disposition: Acute Care Hospital [facility] Discharge Date/Time: 08/05/24 00:15
[2024-08-04] MEDS: Meropenem 1 GM in 0.9% Normal Saline (100mL MB+) 100 ML IV (19:56)
[2024-08-04] MEDS: 0.9% Normal Saline (1000mL) 1,000 ML 999 ML IV (19:56)
[2024-08-04] MEDS: Morphine 4 MG/ML Syringe IV ×2 (19:57→23:13)
[2024-08-04] MEDS: Ondansetron 4 MG/2 ML Vial IV (19:57)
--- NOTE | 2024-08-04 20:04 | ED.RN ---
THIS WATER RESOURCE MANAGER CALLED [facility] THROUGH THE TRAVEL RN AND SPOKE TO THE NURSE MALCOLM [employer]END[employer], TRYING TO GET PTS CT RESULTS FAXED TO ED FOR DOCTOR TO SEE. CT RESULTS WERE TO BE FAXED WHEN PT WAS SENT IN ORIGINALLY. MALCOLM SAID THERE WAS NO WAY TO GETTING CT RESULTS NOW BECAUSE NO DOCTOR WAS AVAILABLE NOW THAT ITS AFTER HOURS. NO DOCTOR IS [employer]OTH D[employer]ING RANGE TENDER. I INFORMED ER DR OF THIS.
[2024-08-04 20:27] LABS: Bacteria 0 SEEN /hpf (None Seen); Mucous, Urine 0 SEEN /hpf (<or=2+)
[2024-08-04 20:38] LABS: Color, Urine Yellow (Yellow); Glucose, Dipstick 1000 mg/dl (Normal); Ketone-Dipstick Negative (Negative); Leukocyte Esterase-Dipstick Negative /ul (Negative); Nitrite-Dipstick Negative (Negative); Occult Blood-Urine Negative /ul (Negative); Protein-Dipstick 15 mg/dl (Negative); Urine Bilirubin Dipstick Negative (Negative); Urine Clarity Clear (Clear); Urine Urobilinogen 4 mg/dl (Normal)
--- NOTE | 2024-08-04 20:49 | PCM.HP.STD ---
HPI - General HPI Narrative RIGO MASTERS, is a 48 M who presents with abdominal pain and nausea and vomiting. Patient reports he had an abdominal pain for months. He says over the last 2 weeks it got worse. He reports no fevers or chills. He says been vomiting for 2 weeks. He says that some foods make him vomit some foods do not but the pain is worsened over the last 3 days. He had a CT scan done at outside hospital which reportedly showed possible dilation at the tip of the appendix [facility] Medical History (Updated 08/04/24 @ 20:[address] Paul Crabtree MD) History of diabetes mellitus Essential hypertension Neuropathy Home Medications ?Medication ?Instructions ?Recorded ?Last Taken ?Type lisinopril 40 mg tablet 40 mg PO DAILY #30 tabs 07/19/15 07/26/20 Rx metformin 500 mg tablet 1,000 mg PO BIDCM diabetes 03/19/16 07/28/17 History acetaminophen 500 mg tablet 1,000 mg (2 x 500 mg) PO Q6H PRN 07/26/20 Unknown Rx #100 TABLETS insulin glargine 100 unit/mL (3 60 unit subcut QHS 09/05/20 Unknown History mL) subcutaneous pen liraglutide 0.6 mg/0.1 mL (18 mg/3 1.8 mg subcut DAILY 02/01/23 Unknown History mL) subcutaneous pen injector (Victoza 2-Yves) rosuvastatin 20 mg tablet 20 mg PO QHS 07/10/23 Unknown History amlodipine 5 mg tablet 5 mg PO DAILY 08/04/24 Unknown History ascorbic acid (vitamin C) 500 mg 500 mg PO BID 08/04/24 Unknown History tablet (Vitamin C) aspirin 81 mg tablet,delayed 81 mg PO DAILY 08/04/24 Unknown History release cyclobenzaprine 10 mg tablet 10 mg PO BID PRN 08/04/24 Unknown History empagliflozin 25 mg tablet 25 mg PO DAILY 08/04/24 Unknown History (Jardiance) ergocalciferol (vitamin D2) 1,250 1,250 mcg PO QWEEK 08/04/24 Unknown History mcg (50,000 unit) capsule mecobalamin (vitamin B12) 1,000 1,000 mcg PO DAILY 08/04/24 Unknown History mcg chewable tablet pregabalin 300 mg capsule 300 mg PO BID 08/04/24 Unknown History terbinafine HCl 250 mg tablet 250 mg PO DAILY 08/04/24 Unknown History Allergy/AdvReac Type Severity Reaction Status Date / Time strawberry Allergy Intermediate Hives Verified 08/04/24 17:36 Penicillins Allergy Other Verified 08/04/24 17:36 acetaminophen (From [place]) AdvReac Upset Verified 08/04/24 17:36 Stomach hydrocodone (From [place]) AdvReac Upset Verified 08/04/24 17:36 Stomach Surgical History (Updated 08/04/24 @ 19:[address] Levi Garcia DO) History of total left knee replacement Hx of bilateral hip replacements Social History (Updated 08/04/24 @ 19:[address] Levi Garcia DO) Smoking Status: Former smoker alcohol intake: current alcohol intake frequency: a few times a month ROS Constitutional Constitutional: Reports anorexia; Denies chills or fatigue Eyes Eyes: Denies blurry vision ENT HEENT: Denies abnormal hearing Cardiovascular Cardiovascular: Denies chest pain Respiratory/Chest Respiratory/Chest: Denies cough or dyspnea Gastrointestinal Gastrointestinal: Reports abdominal pain, diarrhea, nausea and vomiting Genitourinary Genitourinary: Denies change in urinary stream Musculoskeletal Musculoskeletal: Denies abnormal gait Integumentary Integumentary: Denies jaundice Psychiatric Psychiatric: Denies anxiety Endocrine Endocrinology: Denies flushing Hematologic/Lymphatic Hematologic/Lymphatic: Denies easy bleeding Vital Signs Vital Signs Vital Signs: 08/04/24 17:35 08/04/24 18:28 08/04/24 20:00 Temperature 97.5 F L 98.1 F Temperature Source Temporal Oral Pulse Rate 80 78 65 Respiratory Rate 18 16 18 Blood Pressure 143/94 H 144/58 H 141/70 H Blood Pressure Mean 110 86 93 Pulse Ox 98 99 97 Oxygen Delivery Method Room Air Room Air Weight Weight: 215 lb 9.6 oz Body Mass Index (BMI) 30.9 Physical Exam Const oriented x3 and no apparent distress Resp normal respiratory effort Cardio regular rate and regular rhythm GI soft to palpation Palpation: tender RLQ Results Lab / Micro Data 08/04/24 18:22 08/04/24 18:22 Labs: Laboratory Results - last 24 hr 08/04/24 18:22: WBC 8.7, RBC 5.83, Hgb 16.1, Hct 47.7, MCV 81.8, MCH 27.6, MCHC 33.8, RDW Std Deviation 41.4, RDW Coeff of Janiya 14.2, Plt Count 176, MPV 9.2, Immature Gran % (Auto) 0.200, Neut % (Auto) 56.5, Lymph % (Auto) 36.1, [place] % (Auto) 5.4, Eos % (Auto) 1.0, Baso % (Auto) 0.8, Absolute Neuts (auto) 4.9, Absolute Lymphs (auto) 3.13, Nucleated RBC % 0, Sodium 142, Potassium 3.9, Chloride 109 H, Carbon Dioxide 20.9 L, Anion Gap 12, BUN 14, Creatinine 0.92, Estim Creat Clear Calc 115.16, Est GFR (MDRD) Non-Af 102, BUN/Creatinine Ratio 15.3, Glucose 137 H, Calcium 9.4, Total Bilirubin 0.39, AST 24, ALT 23, Alkaline Phosphatase 64, Total Protein 7.1, Albumin 4.4, Globulin 2.7, Albumin/Globulin Ratio 1.6, Lipase 33 Assessment & Plan Assessment/Plan (1) Right lower quadrant pain: PLAN: The patient had a CT done at an outside hospital and I am unable to review the images. The read stated that there were multiple fluid-filled loops of small bowel suggestive of enteritis as well. I am not sure how far the oral contrast mated on the CT scan. I would like to repeat a CT scan with oral and IV contrast as we cannot get the images at this time. I discussed admitting him for observation and I will possibly take him for laparoscopic appendectomy tomorrow. Paul Crabtree MD Pager: [facility] [address] [place] [address], [address] [place] [address] Office:
--- NOTE | 2024-08-04 20:52 | CT_ITS ---
PROCEDURE: ABDOMEN/PELVIS WITH CONTRAST 08/04/2024 REASON FOR EXAM: PO AND IV TECHNIQUE: Abdomen and pelvis CT with intravenous contrast. Coronal and Sagittal reconstruction series were provided. PATIENT PREPARATION: Per protocol ORAL CONTRAST TYPE: Yes AMOUNT: Not provided mL CONTRAST: Not provided VOLUME: Not provided mL Not Provided Gauge IV One or more dose reduction techniques were used (e.g., Automated exposure control, adjustment of the mA and/or kV according to patient size, use of iterative reconstruction technique. RADIATION DOSE SUMMARY: CTDlvol: 40 mGy DLP: 1680 mGycm COMPARISON: None FINDINGS: Lung bases: Mild dependent atelectasis Liver: Normal size. No mass. Gallbladder: Unremarkable Spleen: Normal size. Pancreas: Normal size without evidence of mass surrounding inflammation or ductal dilation. Adrenals: Unremarkable Kidneys: Normal renal sizes. No hydronephrosis. Bladder: Contrast filled urinary bladder. Reproductive Organs: Unremarkable Bowel: Oral contrast reaches the descending colon without evidence of obstruction. The stomach is unremarkable. No inflammatory changes of the small or large bowel. Appendix: The appendix is distended measuring 1.4 cm with subtle adjacent stranding, concerning for acute appendicitis. Lymph nodes: Unremarkable. Vasculature: Mild diffuse atherosclerotic calcifications are noted. Peritoneum / Retroperitoneum: No free air or free fluid. Bones: Bilateral hip arthroplasties. CT/Abdomen/Pelvis WITH Contrast IMPRESSION: Findings consistent with acute appendicitis. No free air. No abscess formatio n. Reading [facility]
[2024-08-04 21:12] LABS: Red Blood Cells-Urine 0-5 SEEN /hpf (0-5); White Blood Cells 0-5 SEEN /hpf (0-5)
[2024-08-04 21:13] LABS: Squamous Epithelial Cells - UA 0-5 SEEN /hpf (0-5)
[2024-08-05] VITALS (12 sets, daily range): BP systolic 135–153; BP diastolic 86–100; PULSE 58–78; RESP 14–18; TEMP 36.1–36.9; O2SAT 94–100; BMI 31.0
[2024-08-05] MEDS: 0.9% Normal Saline (1000mL) 1,000 ML 100 ML IV (00:37)
--- NOTE | 2024-08-05 03:39 | EKG12_ITS ---
Test Reason : PRE-OP Blood Pressure : */* mmHG Vent. Rate : 66 BPM Atrial Rate : 66 BPM P-R Int : 160 ms QRS Dur : 80 ms QT Int : 408 ms P-R-T Axes : 35 60 16 degrees QTcB Int : 427 ms Normal sinus rhythm Normal ECG When compared with ECG of 12-Oct-2023 18:29, No significant change was found Confirmed by Gwyn Vasquez ([id number]), newspaper photo editor GILES WING ([id number]) on 08/06/2024 9:40:05 AM Referred By: RAMON Confirmed By: Gwyn Vasquez
[2024-08-05 07:17] LABS: Absolute Lymphocyte Count 2.58 X10^3/uL (0.83-4.51); Absolute Neutrophil Count 3.5 X10^3/uL (2.0-7.7); Basophil# 0.07 X10^3/uL; Eosinophil# 0.12 X10^3/uL; Eosinophils% 1.8 % (0-5); Hematocrit 44.3 % (40-54); Hemoglobin 15.1 g/dL (13.0-16.5); Lymphocyte # 2.58 X10^3/ul (0.83-4.51); Mean Corp Hgb Conc 34.1 g/dL (32-36); Mean Corpuscular Hgb 28.2 pg (27.0-32.0); Mean Corpuscular Volume 82.6 fL (80-94); Monocyte# 0.51 X10^3/uL; Monocyte% 7.5 % (0-10); NRBC Flagged by Analyzer 0 % (0-5); Neutrophil % 51.6 % (47-70); Platelet Count 143 K/mm3 (150-450); RBC Distribution Width CV 14.4 % (11.6-14.6); RBC Distribution Width SD 43.1 fl (35.1-43.9); Red Blood Count 5.36 M/mm3 (4.6-6.2); White Blood Count 6.8 K/mm3 (4.4-11.0)
--- NOTE | 2024-08-05 07:24 | PN.SURG_ITS ---
Subjective Subjective Patient still having right lower quadrant pain Objective Data Objective Data Vital Signs: Vital Signs Temp Pulse Resp BP Pulse Ox O2 Del Method 97.6 F L 78 18 149/100 H 97 Room Air 08/05/24 05:37 08/05/24 05:37 08/05/24 05:37 08/05/24 05:37 08/05/24 05:37 08/05/24 05:37 Oxygen Delivery Method Room Air Weight: 216 lb 4.8 oz Body Mass Index (BMI) 31.0 Intake & Output: Intake and Output for Last 24 Hours 08/03/24 08/04/24 08/05/24 23:59 23:59 23:59 Intake Total 1120 / 1120 Balance 1120 / 1120 Lab / Micro Data 08/05/24 06:30 08/04/24 18:22 Labs: Laboratory Results - last 24 hr 08/04/24 18:22: WBC 8.7, RBC 5.83, Hgb 16.1, Hct 47.7, MCV 81.8, MCH 27.6, MCHC 33.8, RDW Std Deviation 41.4, RDW Coeff of Janiya 14.2, Plt Count 176, MPV 9.2, Immature Gran % (Auto) 0.200, Neut % (Auto) 56.5, Lymph % (Auto) 36.1, [place] % (Auto) 5.4, Eos % (Auto) 1.0, Baso % (Auto) 0.8, Absolute Neuts (auto) 4.9, Absolute Lymphs (auto) 3.13, Nucleated RBC % 0, Sodium 142, Potassium 3.9, C hloride 109 H, Carbon Dioxide 20.9 L, Anion Gap 12, BUN 14, Creatinine 0.92, Estim Creat Clear Calc 115.16, Est GFR (MDRD) Non-Af 102, BUN/Creatinine Ratio 15.3, Glucose 137 H, Calcium 9.4, Total Bilirubin 0.39, AST 24, ALT 23, Alkaline Phosphatase 64, Total Protein 7.1, Albumin 4.4, Globulin 2.7, Albumin/Globulin Ratio 1.6, Lipase 33 08/04/24 20:21: Urine Color Yellow, Urine Clarity Clear, Urine pH 6.0, Ur Specific [place] 1.010, Urine Protein 15 H, Urine Glucose (UA) 1000 H, Urine Ketones Negative, Urine Occult Blood Negative, Urine Nitrite Negative, Urine Bilirubin Negative, Urine Urobilinogen 4 H, Ur Leukocyte Esterase Negative, Urine RBC 0-5 SEEN, Urine WBC 0-5 SEEN, Ur Squamous Epith Cells 0-5 SEEN, Urine Bacteria 0 SEEN, Urine Mucus 0 SEEN 08/05/24 06:30: WBC 6.8, RBC 5.36, Hgb 15.1, Hct 44.3, MCV 82.6, MCH 28.2, MCHC 34.1, RDW Std Deviation 43.1, RDW Coeff of Janiya 14.4, Plt Count 143 L, MPV 9.0, Immature Gran % (Auto) 0.100, Neut % (Auto) 51.6, Lymph % (Auto) 38.0, [place] % (Auto) 7.5, Eos % (Auto) 1.8, Baso % (Auto) 1.0, Absolute Neuts (auto) 3.5, Absolute Lymphs (auto) 2.58, Nucleated RBC % 0 Radiography Diagnostic Testing: Radiology Impression Abdomen/Pelvis CT 08/04/24 20:52 IMPRESSION: Findings consistent with acute appendicitis. No free air. No abscess formation. Reading [facility] Physical Exam Const oriented x3 and no apparent distress Resp normal respiratory effort GI soft to palpation Palpation: tender RLQ Assessment & Plan Assessment/Plan (1) Acute appendicitis: PLAN: The patient had repeat CT scan that did show acute appendicitis at the tip. Plan for laparoscopic appendectomy today. I discussed the surgery in detail with the patient. I discussed the risks including but not limited to bleeding, infection, injury to surrounding organs such as the colon, bowel, ureter. All the patient's questions were answered. Patient is willing to proceed. Paul Crabtree MD Pager: [facility] [address] [place] [address], [address] [place] [address] Office:
[2024-08-05 07:50] LABS: Hemoglobin A1c 5.2 % (<=5.6)
[2024-08-05 07:53] LABS: Anion Gap 9 (5-15); BUN 10 mg/dL (4-19); BUN/Creat Ratio 12.9 RATIO (10-20); Calcium,Total 8.6 mg/dL (7.6-11.0); Carbon Dioxide 23.7 mmol/L (21.0-32.0); Chloride 109 mmol/L (98-108); EST Glomerular Filtration Rate 109 (>60); Estimated Creatinine Clearance 132.64 ml/min (50-250); Glucose 79 mg/dL (70-99); Potassium 3.8 mmol/L (3.3-5.1); Sodium Level 141 mmol/L (133-145)
--- NOTE | 2024-08-05 09:12 | PCM.PRE.AN2 ---
ASA Classification* ASA Classification ASA Classification: 2 and E Assessment & Plan Anesthesia* Anesthesia Assessment Anesthesia Assessment: Discussed sedation and/or anesthesia options, risks, benefits, and alternatives with patient/parents/legal guardian/POA. Questions invited. The patient/parents/legal guardian/POA seems to understand and agrees to proceed with anesthesia plan. Reviewed the physical assessment, medical history, allergy history and patient home medications list prior to surgery/procedure/anesthetic and documented any changes. Performed airway and anesthesia risk assessments. Anesthesia Type Anesthesia Type: General Anesthesia Focused Assessment* Temperature: 98.4 F Pulse Rate: 68 Blood Pressure: 145/96 Respiratory Rate: 16 Pulse Ox: 97 Airway Assessment Mouth opens: >3 cm Mallampati Score: II Focused Labs Anesthesia Preop lab: CBC WBC 6.8 K/mm3 (4.4-11.0) 08/05/24 06:30 08/05/24 RBC 5.36 M/mm3 (4.6-6.2) 08/05/24 06:30 08/05/24 Hgb 15.1 g/dL (13.0-16.5) 08/05/24 06:30 08/05/24 Hct 44.3 % (40-54) 08/05/24 06:30 08/05/24 Plt Count 143 K/mm3 (150-450) L 08/05/24 06:30 08/05/24 CHEMISTRY Potassium 3.8 mmol/L (3.3-5.1) 08/05/24 06:30 08/05/24 Sodium 141 mmol/L (133-145) 08/05/24 06:30 08/05/24 Magnesium 2.2 mg/dL (1.6-2.6) 10/13/23 02:35 10/13/23 Phosphorus 3.3 mg/dL (2.5-4.9) 10/13/23 02:35 10/13/23 BUN 10 mg/dL (4-19) 08/05/24 06:30 08/05/24 Creatinine 0.80 mg/dL (0.70-1.20) 08/05/24 06:30 08/05/24 Glucose 79 mg/dL (70-99) 08/05/24 06:30 08/05/24 POC Glucose 119 mg/dL (74-106) H 10/13/23 11:03 10/13/23 TSH 0.55 uIU/mL (0.358-3.74) 10/13/23 02:35 10/13/23 COAG PT 13.6 SECONDS (11.7-14.9) 07/18/20 06:44 07/18/20 Pre-Assessment Diagnosis/Proposed Procedure Planned Operative Procedure(s): Laparoscopic appendectomy Anesthesia History 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 When Was Last Pacemaker Check QUESTION #4 FULL TEXT: You/Your Family Experience fever (hyperthermia) with Anesthesia Last Oral Intake Last Oral intake: Last Oral Intake NPO since Meds taken in AM with sips of water? Meds patient instructed to take am of surgery PONV PONV - vehicle body sander: PONV - vehicle body sander Female HX of Motion Sickness HX of N/V After Surgery Non-Smoker Duration of Surgery greater than 60 minutes Number of Risk Factors PONV Score Height & Weight Height & Weight: Anesthesia: Height & Weight Height 5 ft 10 in 08/05/24 00:24 Weight: 98.112 kg 08/05/24 00:24 Body Mass Index (BMI) 31.0 08/05/24 00:24 Respiratory Assessment Respiratory Assessment - vehicle body sander: Respiratory Tract Infection Hx - vehicle body sander Hx Respiratory Tract Infection No 08/05/24 03:05 STOP Sleep Apnea STOP Sleep Apnea - vehicle body sander: STOP Sleep Apnea - vehicle body sander Hx Hypertension Yes 08/05/24 00:24 Hx Sleep Apnea Yes 08/05/24 00:24 CPAP Yes: doesnt wear 08/05/24 00:24 BIPAP No 08/05/24 00:24 Do you snore loudly (louder than talking or can be heard Do you often feel tired/ fatigued/ sleepy during daytime? Has anyone observed you stop breathing during sleep? STOP Results Positive 08/05/24 00:24 QUESTION #5 FULL TEXT : Do you snore loudly (louder than talking or can be heard through closed doors)? 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 Specify any problems Hx of Preganancy in last 3 N/A 08/05/24 00:24 Months Nurse Filling Out Transfusion LFORREST 08/05/24 00:24 & Questions: Date: 08/05/24 08/05/24 00:24 Time: 00:27 08/05/24 00:24 Patient unable to answer at this time (ie. confused, unrespo /Reproduction History /Reproductive History - vehicle body sander: /Reproductive Hx- vehicle body sander Hx Now No 08/05/24 03:05 Gestational Age (in weeks): EDC: Hx Hx Para Hx Section SAB No 08/05/24 03:05 Active Medications Active Medications: Current Medications Generic Name Dose Route Start Last Admin Trade Name Freq PRN Reason Stop Dose Admin Amlodipine Besylate 5 mg 08/05/24 10:00 Amlodipine 5 Mg Tablet PO DAILY MICHAEL Protocol Atorvastatin Calcium 40 mg 08/05/24 22:00 Atorvastatin Calcium 40 Mg Tablet PO QHS MICHAEL Sodium Chloride 1,000 mls @ 100 mls/hr 08/04/24 20:55 08/05/24 00:37 IV 100 mls/hr .Q10H MICHAEL Administration Sodium Chloride 100 mls @ 15 mls/hr 08/05/24 00:21 IV .Q6H40M PRN Saline Flush Sodium Chloride 100 mls @ 15 mls/hr 08/05/24 00:21 IV .Q6H40M PRN Additional IVPB Infusion Clindamycin Phosphate 900 mg in 50 mls @ 75 mls/hr 08/05/24 10:28 Cleocin IV 08/05/24 11:07 PREOP ONE Ketorolac Tromethamine 15 mg 08/04/24 20:53 Ketorolac 15 Mg/Ml Vial IV 08/06/24 20:53 Q8H PRN PRN Pain Score 4-10 Lisinopril 40 mg 08/05/24 10:00 Lisinopril 40 Mg Tablet PO DAILY MICHAEL Protocol Morphine Sulfate 2 - 4 mg 08/04/24 20:53 Morphine 2 Mg/Ml Syringe IV Q2H PRN PRN Pain Score 4-10 Morphine Sulfate 2 - 4 mg 08/04/24 22:16 Morphine 4 Mg/Ml Syringe IV Q2H PRN PRN Pain Score 4-10 Ondansetron HCl 4 mg 08/04/24 20:53 Ondansetron 4 Mg/2 Ml Vial IV Q6H PRN PRN NAUSEA/VOMITING Sodium Chloride 10 - 40 ml 08/04/24 20:53 0.9% Saline Lock 10 Ml Syringe IV UD PRN SALINE FLUSH Sodium Chloride 10 - 40 ml 08/04/24 20:53 0.9% Saline Lock 10 Ml Syringe IV UD PRN SALINE FLUSH Sodium Chloride 10 - 40 ml 08/05/24 00:21 0.9% Saline Lock 10 Ml Syringe IV UD PRN SALINE FLUSH PFSH Medical History Raynaud disease Neuropathy Essential hypertension History of diabetes mellitus Home Medications ?Medication ?Instructions ?Recorded ?Last Taken ?Type lisinopril 40 mg tablet 40 mg PO DAILY #30 tabs 07/19/15 07/26/20 Rx metformin 500 mg tablet 1,000 mg PO BIDCM diabetes 03/19/16 07/28/17 History acetaminophen 500 mg tablet 1,000 mg (2 x 500 mg) PO Q6H PRN 07/26/20 Unknown Rx #100 TABLETS insulin glargine 100 unit/mL (3 60 unit subcut QHS 09/05/20 Unknown History mL) subcutaneous pen liraglutide 0.6 mg/0.1 mL (18 mg/3 1.8 mg subcut DAILY 02/01/23 Unknown History mL) subcutaneous pen injector (Victoza 2-Yves) rosuvastatin 20 mg tablet 20 mg PO QHS 07/10/23 Unknown History amlodipine 5 mg tablet 5 mg PO DAILY 08/04/24 Unknown History ascorbic acid (vitamin C) 500 mg 500 mg PO BID 08/04/24 Unknown History tablet (Vitamin C) aspirin 81 mg tablet,delayed 81 mg PO DAILY 08/04/24 Unknown History release cyclobenzaprine 10 mg tablet 10 mg PO BID PRN 08/04/24 Unknown History empagliflozin 25 mg tablet 25 mg PO DAILY 08/04/24 Unknown History (Jardiance) ergocalciferol (vitamin D2) 1,250 1,250 mcg PO QWEEK 08/04/24 Unknown History mcg (50,000 unit) capsule mecobalamin (vitamin B12) 1,000 1,000 mcg PO DAILY 08/04/24 Unknown History mcg chewable tablet pregabalin 300 mg capsule 300 mg PO BID 08/04/24 Unknown History terbinafine HCl 250 mg tablet 250 mg PO DAILY 08/04/24 Unknown History Allergy/AdvReac Type Severity Reaction Status Date / Time strawberry Allergy Intermediate Hives Verified 08/04/24 17:36 Penicillins Allergy Other Verified 08/04/24 17:36 acetaminophen (From [place]) AdvReac Upset Verified 08/04/24 17:36 Stomach hydrocodone (From [place]) AdvReac Upset Verified 08/04/24 17:36 Stomach Surgical History History of total left knee replacement Hx of bilateral hip replacements Social History Smoking Status: Never smoker alcohol intake: current alcohol intake frequency: a few times a month Review of Systems (Anesthesia) ROS Narrative System reviewed and no additional complaints, except as documented.
[2024-08-05 10:06] LABS: Bedside Glucose 71 mg/dL (74-106)
--- NOTE | 2024-08-05 10:30 | APP_PTH ---
PATIENT: RIGO MASTERS LOC: MS2 U#:[id number] AGE/SX: 48/M ROOM: [facility] RE08/04/[address]: Dr. Paul Crabtree MD : 1975 BED: 1 DIS: 08/05/2024 SPEC #: [id number] RECD: 08/05/24 14:28 STATUS: CHRISTOPHER RESaulo #: [id number] GEMA: 08/05/24 10:[address]: Paul Crabtree DEPT: SURGICAL PATHOLOGY RECD BY: Adama Bar ENTERED: 08/05/24 14:28 SP TYPE: APPENDIX OTHR DR: Dr. Ish Rasmussen MD Tissues: A - Appendix, NOS Procedures: Surgery Specimen Level III HEADER OPERATION: Laparoscopic appendectomy PRE-OP DIAGNOSIS: Acute appendicitis TISSUE SUBMITTED: A- Appendix MICROSCOPIC DIAGNOSIS A. Appendix, acute appendicitis, appendectomy: * Fibrous obliteration of the lumen with chronic inflammation. * Diverticulum, intact, distal aspect. * No significant acute inflammation observed. MICROSCOPIC DESCRIPTION Slides are reviewed. GROSS DESCRIPTION A. Received in formalin in a container labeled with the patient's name, date of , and appendix is an intact appendectomy specimen. The appendix is 7 cm in length with a diameter ranging from 0.8 cm toward the margin, and 1.5 cm at the tip. The serosa is tobar-pink, predominately smooth, with a scant amount of adherent possible exudate. The stapled resection margin is inked black and serial sections reveal a pinpoint lumen with bulging tobar-pink mucosa and thickened cagle measuring up to 0.8 cm. The tip is bisected to reveal a possible nonperforated diverticulum. No distinct perforation, fecalith, or mass-like lesion is grossly recognized. [employer] Planner sections:A1. Resection margin, en face with cross-sectionsA2. Cross-sections with bulging mucosaA3-4. Tip, bisected with possible diverticulum [facility] 08/05/2024 CPT:71495
[2024-08-05] MEDS: Clindamycin 900 MG/50 ML BAG 75 MG IV (10:41)
[2024-08-05] MEDS: Bupiv/Epi 0.25% 30 ML Vial (10:55)
--- NOTE | 2024-08-05 11:14 | PCM.OPRPT ---
Operative Report (Standard) Operative Information Date of Procedure: 08/05/24 Pre-Operative Diagnosis: Acute appendicitis Post-Operative Diagnosis: Acute appendicitis Surgery/Procedure Performed: Laparoscopic appendectomy thermograph operator: No Type of Anesthesia: General/Regional RN Documented Start/Stop Times: Operation Date: 08/05/24 10:30 Case Time Into Pre-Op 08/05/24 09:30 Out of Pre-Op 08/05/24 10:24 Anesthesia Start 08/05/24 10:27 Into Room 08/05/24 10:27 Procedure Start 08/05/24 10:45 Procedure End 08/05/24 10:59 Anesthesia End 08/05/24 11:08 Out of Room 08/05/24 11:08 Procedure Start Time: 10:45 Procedure Stop Time: :59 Select all DRAINS/GRAFTS/IMPLANTS that apply: None Estimated Blood Loss: 5 Specimen collected: Yes Description of specimen(s) removed: Appendix Description of surgery: The patient was brought into the operating room and general anesthesia was induced. The left arm was tucked and the abdomen was prepped and draped in usual sterile fashion. A small midline incision was made superior to the umbilicus and deepened to the level of the fascia. The fascia was elevated and incised. The peritoneum was also elevated and incised. A finger sweep was performed and a balloon trocar was placed into the abdomen and inflated. The abdomen was insufflated to 15 mmHg and the camera was inserted and the abdomen was inspected for any injuries upon entering the abdomen. There were none. The patient was placed in Trendelenburg position and a 5 mm ports placed in the left lower quadrant and suprapubic areas under direct visualization. Next using atraumatic bowel graspers the appendix was identified. The appendix was grasped and elevated and Enseal was used to take down the mesoappendix. A stapler was used to come across the base of the appendix. The appendix was then placed in Endo Catch bag and removed through the umbilical incision. The staple line was inspected and found to be hemostatic and intact. The 2 5 mm ports are removed under direct visualization. The balloon trocar was deflated and removed and all the air was removed from the abdomen. The umbilical incision fascia was closed with an 0 Vicryl [id number] suture. The incisions were then irrigated with saline and dried. Local anesthetic was injected into the incision sites. The skin incisions were then closed with interrupted 4-0 Monocryl suture and Steri-Strips. Bandages were applied and the patient was awoken and taken to PACU in stable condition. Patient tolerated the procedure well. Surgical Findings: Inflamed appendix, contaminated wound class Complications Complications: No Admit VTE Documentation VTE Mechan Device Prophylaxis: SCD's
--- NOTE | 2024-08-05 11:15 | PCM.POST.ANE ---
Anesthesia: Postop Eval I Current Vital Signs Temperature: 97 F Pulse Rate: 71 Blood Pressure: 153/87 Respiratory Rate: 16 Pulse Ox: 99 Oxygen Delivery Method: Room Air Assessment Airway patent: Yes Spontaneous unlabored respirations: Yes Mental status: Awake nausea: No Vomiting: No Anesthesia Complication: No Fluid Hydration Crystalloid volume administer (ml): 1,200 Total IV fluid infused: 1,200 Progress Note Anesthesia document: Postop Eval 1 completed: Yes
--- NOTE | 2024-08-05 11:17 | DCINST_ITS ---
Discharge Instructions Procedure Appendectomy Diet Discharge Diet: Light diet - advance as tolerated Activity Discharge Activity: May Not Drive (for 2-3 days or while taking narcotic pain medications.) May shower in (days): 1 Lifting Restrictions: 20 lbs for 2 weeks Dressing / Incision Call your doctor if your incision/area has: Continuous Slow Oozing, Sudden Increased Bleeding, Increased Pain/ Swelling, Increased Redness and Foul Smelling Discharge Call your doctor if you observe: Fever of 101 or Higher Suture Line Care: Avoid Pulling/Pushing and Avoid Pinching/Bending Remove Dressing in: 2 days Cleanse incision/area with: Soap & Water Additional Dressing/Incision Instructions:: Keep dressing clean and dry. Change or remove dressing in 2 days. Leave steri strips for 1 week. May protect with a gauze bandaid. Follow Up Care Please Follow Up With: Paul Crabtree MD When: Please call to schedule 2 week follow up appointment. [phone] Test Results: Test results from this visit will be discussed in further detail at your follow- up appointment, if applicable. Discharge Plan Admission Admit Date/Time: 08/04/24 20:53 Attending Provider: Paul Crabtree Primary Care Provider: Ish Rasmussen Discharge Orders/Prescriptions Prescriptions: New oxycodone 5 mg Tablet 5 - 10 mg PO Q4H PRN PRN (Reason: Pain Score 4-10) 5 Days Qty: 20 0RF Continued insulin glargine 100 unit/mL (3 mL) insulin pen 60 unit subcut QHS liraglutide [Victoza 2-Yves] 0.6 mg/0.1 mL (18 mg/3 mL) pen injector 1.8 mg subcut DAILY rosuvastatin 20 mg tablet 20 mg PO QHS lisinopril 40 MG tablet 40 mg PO DAILY Qty: 30 0RF Patient Comments: blood pressure acetaminophen 500 MG tablet 1,000 mg PO Q6H PRN Qty: 100 0RF cyclobenzaprine 10 mg tablet 10 mg PO BID PRN terbinafine HCl 250 mg tablet 250 mg PO DAILY ergocalciferol (vitamin D2) 1,250 mcg (50,000 unit) capsule 1,250 mcg PO QWEEK pregabalin 300 mg capsule 300 mg PO BID Jardiance 25 mg tablet 25 mg PO DAILY aspirin 81 mg tablet,delayed release (DR/EC) 81 mg PO DAILY amlodipine 5 mg tablet 5 mg PO DAILY ascorbic acid (vitamin C) [Vitamin C] 500 mg tablet 500 mg PO BID mecobalamin (vitamin B12) 1,000 mcg tablet,chewable 1,000 mcg PO DAILY Held metformin 500 MG tablet 1,000 mg PO BIDCM Hold Instructions: Resume on 08/07/24. Patient Comments: diabetes Referrals / Follow Up: Ish Rasmussen MD [Primary Care Provider] - Disposition Disposition (needs filled in before D/C Order can be placed): Home, Self Care
--- NOTE | 2024-08-05 11:25 | POSTOPAN2_ITS ---
Anesthesia Postop Eval I Sum Postop Eval Completion status Anesthesia document: Postop Eval 1 completed: Yes Anesthesia Postop Eval I Summary Anesthesia Postop Eval I Summary: Anesthesia Postop Eval I: Assessment Summary Airway patent Yes 08/05/24 11:16 CERTIFIED CODING [email or web address] Spontaneous unlabored Yes 08/05/24 11:16 CERTIFIED CODING [email or web address] respirations Mental status Awake 08/05/24 11:16 CERTIFIED CODING [email or web address] nausea No 08/05/24 11:16 CERTIFIED CODING [email or web address] Vomiting No 08/05/24 11:16 CERTIFIED CODING [email or web address] Anesthesia Postop Eval I: Fluid Summary Crystalloid volume administer 1,200 08/05/24 11:16 CERTIFIED CODING [email or web address].[email or web address] (ml) Colloids volume administered ( ml) Blood Product volume administered (ml) Total IV fluid infused 1,200 08/05/24 11:16 CERTIFIED CODING SPECIALIST.[email or web address] Anesthesia Postop Eval I: Summary Notes Anesthesia Complication No 08/05/24 11:16 CERTIFIED CODING [email or web address] Anesthesia Complication Comment: Post-operative progress note Anesthesia: Postop Eval II Evaluation Mental status: Awake Pain Level: 0 nausea: No Vomiting: No
--- NOTE | 2024-08-05 11:25 | PCM.POSTANE2 ---
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 Spontaneous unlabored Yes 08/05/24 11:16 [email or web address] respirations Mental status Awake 08/05/24 11:16 [email or web address] nausea No 08/05/24 11:16 [email or web address] Vomiting No 08/05/24 11:16 [email or web address] Anesthesia Postop Eval I: Fluid Summary Crystalloid volume administer 1,200 08/05/24 11:16 [email or web address] (ml) Colloids volume administered ( ml) Blood Product volume administered (ml) Total IV fluid infused 1,200 08/05/24 11:16 [email or web address] Anesthesia Postop Eval I: Summary Notes Anesthesia Complication No 08/05/24 11:16 [email or web address] Anesthesia Complication Comment: Post-operative progress note Anesthesia: Postop Eval II Evaluation Mental status: Awake Pain Level: 0 nausea: No Vomiting: No
[2024-08-05 12:38] LABS: Bedside Glucose 73 mg/dL (74-106)
[2024-08-05] MEDS: amLODIPine 5 MG Tablet PO (14:04)
[2024-08-05] MEDS: Lisinopril 40 MG Tablet PO (14:07)
--- NOTE | 2024-08-05 14:26 | PHA.DC.MC.R ---
Pharmacy [facility] Pharmacy Service has performed discharge medication reconciliation and counseling for this patient. 1. Oxycodone 5-10mg PO Q4H PRN pain 2. Hold metformin until 08/07/24 The patient's discharge medication list was reviewed for discrepancies and discrepancies were resolved. The patient was counseled on the following discharge medications and changes in medications for homegoing were reviewed. The Reason for Use, instructions for use, and potential side effects were reviewed for all new medications. The patient's questions regarding all of their medications were answered. The patient was able to verbally demonstrate an understanding of their discharge medications. Patient counseled by pharmacy intern, Yan. Medications at Discharge Home Medications lisinopril 40 mg tablet 40 mg PO DAILY #30 tabs 07/19/15 metformin 500 mg tablet 1,000 mg PO BIDCM diabetes 03/19/16 Held on 08/05/24. Instructions: Resume on 08/07/24. acetaminophen 500 mg tablet 1,000 mg (2 x 500 mg) PO Q6H PRN #100 TABLETS 07/26/20 insulin glargine 100 unit/mL (3 mL) subcutaneous pen 60 unit subcut QHS 09/05/20 liraglutide 0.6 mg/0.1 mL (18 mg/3 mL) subcutaneous pen injector (Victoza 2-Yves) 1.8 mg subcut DAILY 02/01/23 rosuvastatin 20 mg tablet 20 mg PO QHS 07/10/23 amlodipine 5 mg tablet 5 mg PO DAILY 08/04/24 ascorbic acid (vitamin C) 500 mg tablet (Vitamin C) 500 mg PO BID 08/04/24 aspirin 81 mg tablet,delayed release 81 mg PO DAILY 08/04/24 cyclobenzaprine 10 mg tablet 10 mg PO BID PRN 08/04/24 empagliflozin 25 mg tablet (Jardiance) 25 mg PO DAILY 08/04/24 ergocalciferol (vitamin D2) 1,250 mcg (50,000 unit) capsule 1,250 mcg PO QWEEK 08/04/24 mecobalamin (vitamin B12) 1,000 mcg chewable tablet 1,000 mcg PO DAILY 08/04/24 pregabalin 300 mg capsule 300 mg PO BID 08/04/24 terbinafine HCl 250 mg tablet 250 mg PO DAILY 08/04/24 oxycodone 5 mg tablet 5 - 10 mg (1 - 2 x 5 mg) PO Q4H PRN PRN Pain Score 4-10 5 days #20 tabs 08/05/24
== END 2024-08-05 14:28 | disposition home or self-care (01) ==
LOC: ED 21:44 → MS2 22:12
PROVIDERS: Anesthesiology; Admitting Provider Surgery; Emergency Provider Emergency Medicine; PCP Family Medicine; Visit Provider Surgery
PROC: 0DTJ4ZZ Resection of Appendix, Percutaneous Endoscopic Approach (ICD-10-PCS; CPT 44970; principal; 2024-08-05 10:10)
DX: K35.80 Unspecified acute appendicitis (principal); Z79.4 Long term (current) use of insulin; E11.40 Type 2 diabetes mellitus with diabetic neuropathy, unspecified; E11.65 Type 2 diabetes mellitus with hyperglycemia; K36 Other appendicitis; I10 Essential (primary) hypertension; Z79.84 Long term (current) use of oral hypoglycemic drugs; Z79.82 Long term (current) use of aspirin; Z79.899 Other long term (current) drug therapy; Z87.891 Personal history of nicotine dependence
CPT/HCPCS: 44970; 00840; 36415; 74177; 80048; 80053; 81001; 82962; 83036; 83690; 85025; 88304; 93005; 96361; 96365; 96375; 96376; 99221; 99284; J2185; Q9967; A4216; G0378; J2405

== ENCOUNTER 2024-09-03 12:16 | Emergency (ER) | payer MEDICAID, SELFPAY ==
[2024-09-03 12:16] VITALS: BP 132/87; PULSE 73; RESP 18; TEMP 36.6; O2SAT 100; BMI 30.4
[2024-09-03 14:09] LABS: Absolute Lymphocyte Count 2.49 X10^3/uL (0.83-4.51); Absolute Neutrophil Count 5.5 X10^3/uL (2.0-7.7); Basophil# 0.07 X10^3/uL; Basophil% 0.8 % (0-1); Eosinophil# 0.13 X10^3/uL; Eosinophils% 1.5 % (0-5); Hematocrit 50.1 % (40-54); Hemoglobin 16.8 g/dL (13.0-16.5); Lymphocyte # 2.49 X10^3/ul (0.83-4.51); Lymphocyte % 28.6 % (19-41); Mean Corp Hgb Conc 33.5 g/dL (32-36); Mean Corpuscular Hgb 28.2 pg (27.0-32.0); Mean Corpuscular Volume 84.1 fL (80-94); Mean Platelet Vol. 9.4 fl (6.2-12.0); Monocyte# 0.49 X10^3/uL; Monocyte% 5.6 % (0-10); NRBC Flagged by Analyzer 0 % (0-5); Neutrophil # 5.52 X10^3/uL (2.7-7.7); Neutrophil % 63.3 % (47-70); Platelet Count 175 K/mm3 (150-450); RBC Distribution Width CV 14.7 % (11.6-14.6); RBC Distribution Width SD 44.4 fl (35.1-43.9); Red Blood Count 5.96 M/mm3 (4.6-6.2); White Blood Count 8.7 K/mm3 (4.4-11.0)
[2024-09-03 14:16] VITALS: PULSE 72; RESP 18; O2SAT 99
--- NOTE | 2024-09-03 14:26 | ED.VIS.LOWEX ---
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 Patient states for a month or so he has had increased pain of his feet. He states his feet always feel very cold. He had outpatient PVRs bilaterally performed 2 days ago. He was contacted today about abnormal results and told to go to the ER for further evaluation. He has been following with the [facility]. He notes he is having pain and worsening his neuropathy pain even at rest now for the past month or so. He knows by the end of the day his feet are purple/blue color. He denies any systemic symptoms such as fever or chills. He is not on any blood thinners. Denies any abdominal pain or chest pain. No other complaints or concerns reported at this time. Bilateral lower extremity arterial physiology study is reviewed. Patient has monophasic dorsal pedis and multiphasic posterior tibial on the right at rest with brachial pressure of 112 and ankle dorsal pedis pressure of 112 with an DAVID greater than 1.0. Ankle posterior tibial pressure greater than 255 mmHg with DAVID of 2.28 and noncompressible arteries. Digit is 0 mmHg. He has severely dampened and PVR waveforms of the digit and moderately dampened of the transmetatarsal with normal ankle waveforms. Left?multiphasic dorsal pedis and posterior tibial pulses. Left pressures brachial 108, ankle dorsal pedis greater than 255 mmHg DAVID: Greater than 2.28 noncompressible arteries. Ankle dorsal tibials: Greater than 255 mmHg DAVID: 2.28 noncompressible arteries. Digit 72 mmHg. He has mildly dampened digit PVR waveforms with normal transmetatarsal and ankle PVR waveforms. [facility] Medical History Incisional pain Raynaud disease Neuropathy Essential hypertension History of diabetes mellitus Home Medications ?Medication ?Instructions ?Recorded ?Last Taken ?Type lisinopril 40 mg tablet 40 mg PO DAILY #30 tabs 07/19/15 09/03/24 Rx acetaminophen 500 mg tablet 1,000 mg (2 x 500 mg) PO Q6H PRN 07/26/20 Unknown Rx #100 TABLETS insulin glargine 100 unit/mL (3 60 unit subcut QHS 09/05/20 09/02/24 History mL) subcutaneous pen liraglutide 0.6 mg/0.1 mL (18 mg/3 1.8 mg subcut DAILY 02/01/23 09/02/24 History mL) subcutaneous pen injector (Victoza 2-Yves) rosuvastatin 20 mg tablet 20 mg PO QHS 07/10/23 09/02/24 History amlodipine 5 mg tablet 5 mg PO DAILY 08/04/24 09/03/24 History ascorbic acid (vitamin C) 500 mg 500 mg PO BID 08/04/24 09/03/24 History tablet (Vitamin C) aspirin 81 mg tablet,delayed 81 mg PO DAILY 08/04/24 09/03/24 History release empagliflozin 25 mg tablet 25 mg PO DAILY 08/04/24 09/03/24 History (Jardiance) ergocalciferol (vitamin D2) 1,250 1,250 mcg PO QWEEK 08/04/24 08/31/24 History mcg (50,000 unit) capsule mecobalamin (vitamin B12) 1,000 1,000 mcg PO DAILY 08/04/24 09/03/24 History mcg chewable tablet pregabalin 300 mg capsule 300 mg PO BID 08/04/24 09/03/24 History terbinafine HCl 250 mg tablet 250 mg PO DAILY 08/04/24 09/03/24 History cilostazol 50 mg tablet 50 mg PO BID #30 tabs 09/03/24 Unknown Rx metformin 500 mg tablet,extended 1,000 mg PO BID 09/03/24 09/03/24 History release 24 hr Allergy/AdvReac Type Severity Reaction Status Date / Time strawberry Allergy Intermediate Hives Verified 09/03/24 12:18 Penicillins Allergy Other Verified 09/03/24 12:18 hydrocodone (From [place]) AdvReac Upset Verified 09/03/24 12:18 Stomach Surgical History S/P appendectomy History of total left knee replacement Hx of bilateral hip replacements Social History Smoking Status: Never smoker alcohol intake: current alcohol intake frequency: a few times a month ROS ROS ED Constitutional Constitutional ED: Reports chills and other Details: MassPAT shows he says yes because he always feels cold ; Denies fever(s) Cardiovascular Cardiovascular: Denies chest pain Respiratory/Chest Respiratory/Chest: Denies cough or dyspnea Gastrointestinal Gastrointestinal: Denies abdominal pain, nausea or vomiting Musculoskeletal Musculoskeletal: Reports other Details: Worsening bilateral foot pain Integumentary Reports other Details: Skin changes to the bilateral lower feet, worse to the of the day Neurologic Neurologic: Reports paresthesias; Denies weakness Psychiatric Psychiatric: Denies anxiety Hematologic/Lymphatic Hematologic/Lymphatic: Denies easy bleeding or easy bruising EXAM Physical Exam Const Vital Signs: 09/03/24 12:16 09/03/24 14:16 09/03/24 16:00 Temperature 97.8 F Temperature Source Oral Pulse Rate 73 72 67 Respiratory Rate 18 18 18 Blood Pressure 132/87 H 136/78 H Blood Pressure Mean 102 97 Pulse Ox 100 99 100 Oxygen Delivery Method Room Air Room Air Room Air 09/03/24 17:18 Temperature 98 F Temperature Source Pulse Rate 82 Respiratory Rate 18 Blood Pressure 139/78 H Blood Pressure Mean 98 Pulse Ox 97 Oxygen Delivery Method Positive well nourished and well developed General Appearance ED: well developed and NAD HEENT Reports moist mucous membranes Chest Wall inspection of chest normal Resp normal respiratory effort and clear to auscultation bilaterally Cardio regular rate and regular rhythm GI non-distended GI Narrative: Mildly tender abdominal pain associated with recent surgical incision/appendectomy. Denies any acute pain. Extremity full ROM Extremity Narrative: No peripheral edema appreciated. Thready DP pulses bilaterally. Delayed capillary refill of the bilateral feet. At this time chronic skin changes noted to the mid feet bilaterally, slightly more pronounced on the right compared to the left over the elbows look hyperemic. There is pinpoint area of ischemia to the distal right toe. No splinter hemorrhages appreciated. No other rash. Neuro oriented x3 and moves all extremities Neuro Narrative: Sensation intact to light touch but he reports bilateral lower extremity paresthesias. Sensorium / Orientation: alert Motor Exam: strength 5/5 throughout Psych mental status grossly normal Skin Skin Narrative: Chronic appearing erythematous changes to the bilateral feet most pronounced in the distal aspect. Pinpoint area of ischemic skin changes noted to the distal aspect of the right great toe. MDM MDM MDM Narrative Medical decision making narrative: Patient is evaluated for abnormal outpatient PVRs and worsening foot pain. He has not had acute change in his symptoms with has been more of a progression over the past year. Differential includes acute ischemia, peripheral vascular disease (acute on chronic), endocarditis and worsening of his neuropathy. I will obtain CTA of the abdomen frown to the extremities to look for acute occlusion and lab including CBC, BMP, CPK and CRP. Workup largely normal. CTA does not show runoff bilateral distal popliteal arteries. Case discussed with vascular surgery Leora PATEL. She came down to the ER to evaluate the patient. Patient has acceptable pulses and she suspects the decrease in contrast/runoff is more consistent with poor bolus timing. I do not feel that he needs emergent surgery at this time but outpatient follow-up is appropriate. Do recommend starting him on Pletal 50 mg twice daily. This will be prescribed. Patient can either follow-up with our vascular surgery or [facility] whichever he prefers. Is given information for vascular surgery and the clinic will call him this week. Patient given return precautions. He is agreeable this plan of care discharged home in stable condition. At time of discharge patient does request referral for local neurology as well (he does not want have to go to [place] for his neuropathy). Is given referral for neurology?Dr. Maynard. Lab Data Attestation: I reviewed the patient's lab results. Labs: Laboratory Results - last 24 hr 09/03/24 13:45 WBC 8.7 RBC 5.96 Hgb 16.8 H Hct 50.1 MCV 84.1 MCH 28.2 MCHC 33.5 RDW Std Deviation 44.4 H RDW Coeff of Janiya 14.7 H Plt Count 175 MPV 9.4 Immature Gran % (Auto) 0.200 Neut % (Auto) 63.3 Lymph % (Auto) 28.6 [place] % (Auto) 5.6 Eos % (Auto) 1.5 Baso % (Auto) 0.8 Absolute Neuts (auto) 5.5 Absolute Lymphs (auto) 2.49 Nucleated RBC % 0 Sodium 142 Potassium 4.2 Chloride 108 Carbon Dioxide 23.7 Anion Gap 10 BUN 11 Creatinine 0.71 Estim Creat Clear Calc 146.48 Est GFR (MDRD) Non-Af 112 BUN/Creatinine Ratio 14.9 Glucose 70 Calcium 9.6 Total Creatine Kinase 68 C-React Prot Ext Range < 3.00 Radiography Diagnostic Testing: Clinical Impression(s) from Imaging Studies Abdomen/Pelvis CTA 09/03/24 14:42 IMPRESSION: Poor runoff distal to the popliteal arteries bilaterally. OVERALL FINAL ASSESSMENT: . LI-RADS is not meant to be used in patients <18 years or patients with cirrhosis due to congenital hepatic fibrosis or due to vascular disorders, because these patients have a lower chance of developing HCC. Reading Location: [id number] Management Discussion w/another healthcare provider: Broadcast Producer Discharge Plan Triage Chief Complaint: Lower Extremity Injury ED Provider: Angy Pepe Dx/Rx/DC Orders Clinical Impression: Bilateral foot pain, Peripheral vascular disease Instructions: ED Peripheral Artery Disease (PAD) Prescriptions: New cilostazol 50 mg tablet 50 mg PO BID Qty: 30 0RF No Action insulin glargine 100 unit/mL (3 mL) insulin pen 60 unit subcut QHS liraglutide [Victoza 2-Yves] 0.6 mg/0.1 mL (18 mg/3 mL) pen injector 1.8 mg subcut DAILY rosuvastatin 20 mg tablet 20 mg PO QHS lisinopril 40 MG tablet 40 mg PO DAILY Qty: 30 0RF Patient Comments: blood pressure acetaminophen 500 MG tablet 1,000 mg PO Q6H PRN Qty: 100 0RF terbinafine HCl 250 mg tablet 250 mg PO DAILY ergocalciferol (vitamin D2) 1,250 mcg (50,000 unit) capsule 1,250 mcg PO QWEEK pregabalin 300 mg capsule 300 mg PO BID Jardiance 25 mg tablet 25 mg PO DAILY aspirin 81 mg tablet,delayed release (DR/EC) 81 mg PO DAILY amlodipine 5 mg tablet 5 mg PO DAILY ascorbic acid (vitamin C) [Vitamin C] 500 mg tablet 500 mg PO BID mecobalamin (vitamin B12) 1,000 mcg tablet,chewable 1,000 mcg PO DAILY metformin 500 mg tablet extended release 24 hr 1,000 mg PO BID Primary Care Provider: Ish Rasmussen Referrals: Levi Medeiros MD [Med Staff - Active Staff] - Ish Rasmussen MD [Primary Care Provider] - Terry Maynard MD [Non-Staff -Ordering Privileges] - Print Language: Filipino Disposition Disposition: Home, Self Care Discharge Date/Time: 09/03/24 17:19
[2024-09-03 14:31] LABS: Anion Gap 10 (5-15); BUN 11 mg/dL (4-19); BUN/Creat Ratio 14.9 RATIO (10-20); CPK Total, Creatine Kinase 68 U/L (24-195); CRP < 3.00 mg/L (0.0-3.0); Calcium,Total 9.6 mg/dL (7.6-11.0); Carbon Dioxide 23.7 mmol/L (21.0-32.0); Chloride 108 mmol/L (98-108); Creatinine, Serum 0.71 mg/dL (0.70-1.20); EST Glomerular Filtration Rate 112 (>60); Estimated Creatinine Clearance 146.48 ml/min (50-250); Glucose 70 mg/dL (70-99); Potassium 4.2 mmol/L (3.3-5.1); Sodium Level 142 mmol/L (133-145)
--- NOTE | 2024-09-03 14:42 | CT_ITS ---
PROCEDURE: CTA ABD W/RUNOFF W/WO CONTRAST 09/03/2024 REASON FOR EXAM: LIMB ISCHEMIA, PAIN TECHNIQUE: CTA imaging of the abdomen and pelvis with intravenous contrast. Multiplanar and multisequence images were obtained. CONTRAST: Isovue 370 VOLUME: 100 mL One or more dose reduction techniques were used (e.g., Automated exposure control, adjustment of the mA and/or kV according to patient size, use of iterative reconstruction technique). RADIATION DOSE SUMMARY: CTDlvol: 8.75 mGy DLP: 1533.9 mGycm COMPARISON: None FINDINGS: Coronary artery calcification. Aorta: Unremarkable. Iliac Arteries: Mild degree of non stenotic calcific plaques of both common iliac arteries. Celiac: Unremarkable. Atherosclerotic plaque formation of the splenic artery. SMA: Unremarkable Right Renal: Unremarkable Left Renal: Unremarkable Poor runoff seen distal to both popliteal arteries. Other Findings: Fatty infiltration of the liver. Status post bilateral hip replacement and left knee replacement. CT/CTA Abd w/Runoff W/WO Contrast IMPRESSION: Poor runoff distal to the popliteal arteries bilaterally. OVERALL FINAL ASSESSMENT: . LI-RADS is not meant to be used in patients <18 years or patients with cirrhosi s due to congenital hepatic fibrosis or due to vascular disorders, because these patients have a lower chance of developing HC C. Reading Location: [facility]
[2024-09-03 16:00] VITALS: BP 136/78; PULSE 67; RESP 18; O2SAT 100
--- NOTE | 2024-09-03 16:36 | EX.PCM.CON.S ---
Assessment & Plan Assessment/Plan (1) PAD (peripheral artery disease): PLAN: Plan Reviewed CTA images which show poor contrast transit past the popliteal arteries bilaterally which, based on intact palpable PT and dopplerable DP signals bilaterally, is secondary to poor contrast timing rather than acute occlusion. He does have moderate PAD, primarily infrapopliteal consistent with his history of diabetes but no indication for emergent vascular intervention. I do think much of his pain is related to his neuropathy. I recommend initiation of cilostazol 50mg BID to see if this offers any improvement in his pain; continue ASA and statin. Monitor the small area of discoloration on the R great toe, this may represent atheroembolic event but management in this case is expectant. In discussion, he indicated he would prefer to follow-up in [place] vs continuing follow-up in [place] so will plan for him to follow-up on an outpatient basis and our office will contact him to schedule. 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 He has had significant lower extremity peripheral diabetic neuropathy for a few years, he has significant numbness from foot to mid-distal calf by report. However, over the last year has had increased burning pain and hypersensitivity to touch particularly in the feet, R worse than L. These symptoms are present at rest, overall worse with exercise yet he also get some relief with moving his feet/ankle circles. His feet are always cool, this is long-standing and he does have a history of Raynaud's as well. He had outpatient vascular testing on Friday 09/01 which reported bilateral ABIs >1 consistent with noncompressible vessels, R PT multiphasic, R DP monophasic, severely dampened R digit waveforms, L PT and DP multiphasic, mildly dampened L digit waveforms per ER physician note. He has not had any prior peripheral vascular interventions. He has a history of prior mild VA but no history of CHF. As noted, he is diabetic. He is not a smoker. [facility] Medical History Incisional pain Raynaud disease Neuropathy Essential hypertension History of diabetes mellitus Home Medications ?Medication ?Instructions ?Recorded ?Last Taken ?Type lisinopril 40 mg tablet 40 mg PO DAILY #30 tabs 07/19/15 09/03/24 Rx acetaminophen 500 mg tablet 1,000 mg (2 x 500 mg) PO Q6H PRN 07/26/20 Unknown Rx #100 TABLETS insulin glargine 100 unit/mL (3 60 unit subcut QHS 09/05/20 09/02/24 History mL) subcutaneous pen liraglutide 0.6 mg/0.1 mL (18 mg/3 1.8 mg subcut DAILY 02/01/23 09/02/24 History mL) subcutaneous pen injector (Victoza 2-Yves) rosuvastatin 20 mg tablet 20 mg PO QHS 07/10/23 09/02/24 History amlodipine 5 mg tablet 5 mg PO DAILY 08/04/24 09/03/24 History ascorbic acid (vitamin C) 500 mg 500 mg PO BID 08/04/24 09/03/24 History tablet (Vitamin C) aspirin 81 mg tablet,delayed 81 mg PO DAILY 08/04/24 09/03/24 History release empagliflozin 25 mg tablet 25 mg PO DAILY 08/04/24 09/03/24 History (Jardiance) ergocalciferol (vitamin D2) 1,250 1,250 mcg PO QWEEK 08/04/24 08/31/24 History mcg (50,000 unit) capsule mecobalamin (vitamin B12) 1,000 1,000 mcg PO DAILY 08/04/24 09/03/24 History mcg chewable tablet pregabalin 300 mg capsule 300 mg PO BID 08/04/24 09/03/24 History terbinafine HCl 250 mg tablet 250 mg PO DAILY 08/04/24 09/03/24 History metformin 500 mg tablet,extended 1,000 mg PO BID 09/03/24 09/03/24 History release 24 hr Allergy/AdvReac Type Severity Reaction Status Date / Time strawberry Allergy Intermediate Hives Verified 09/03/24 12:18 Penicillins Allergy Other Verified 09/03/24 12:18 hydrocodone (From [place]) AdvReac Upset Verified 09/03/24 12:18 Stomach Surgical History S/P appendectomy History of total left knee replacement Hx of bilateral hip replacements Social History Smoking Status: Never smoker alcohol intake: current alcohol intake frequency: a few times a month Physical Exam Const alert and oriented x3 General Appearance: cooperative HEENT normocephalic, head/scalp atraumatic and external nose normal Eyes General Eye: normal appearance of both eyes Neck General: normal visual inspection Resp normal respiratory effort and no retractions Effort and Inspection: able to speak in complete sentences Cardio Rate: regular rate Rhythm: regular rhythm Extremity Extremity Narrative: Bilateral feet with rubrous, slightly cool to palpation, he reports significant burning pain/hypersensitivity even to light touch and otherwise numbness. Motor function intact bilaterally. Skin integrity intact throughout, no wounds. There is a very small, focal area of purple discoloration on the tip of the R great toe. R PT palpable, R DP dopplerable with monophasic signal L PT palpable, L DP diminished but lightly palpable, biphasic signal Psych mental status grossly normal Appearance: grossly normal Lab / Micro Data 09/03/24 13:45 09/03/24 13:45 Labs: Laboratory Results - last 24 hr 09/03/24 13:45: WBC 8.7, RBC 5.96, Hgb 16.8 H, Hct 50.1, MCV 84.1, MCH 28.2, MCHC 33.5, RDW Std Deviation 44.4 H, RDW Coeff of Janiya 14.7 H, Plt Count 175, MPV 9.4, Immature Gran % (Auto) 0.200, Neut % (Auto) 63.3, Lymph % (Auto) 28.6, [place] % (Auto) 5.6, Eos % (Auto) 1.5, Baso % (Auto) 0.8, Absolute Neuts (auto) 5.5, Absolute Lymphs (auto) 2.49, Nucleated RBC % 0, Sodium 142, Potassium 4.2, Chloride 108, Carbon Dioxide 23.7, Anion Gap 10, BUN 11, Creatinine 0.71, Estim Creat Clear Calc 146.48, Est GFR (MDRD) Non-Af 112, BUN/Creatinine Ratio 14.9, Glucose 70, Calcium 9.6, Total Creatine Kinase 68, C-React Prot Ext Range < 3.00 Imaging Radiology Impression Abdomen/Pelvis CTA 09/03/24 14:42 IMPRESSION: Poor runoff distal to the popliteal arteries bilaterally. OVERALL FINAL ASSESSMENT: . LI-RADS is not meant to be used in patients <18 years or patients with cirrhosis due to congenital hepatic fibrosis or due to vascular disorders, because these patients have a lower chance of developing HCC. Reading Location: [id number] Charges/Coding Visit Charges Inpatient E&M: 99285 Init Hosp L1
[2024-09-03 17:18] VITALS: BP 139/78; PULSE 82; RESP 18; TEMP 36.6; O2SAT 97
== END 2024-09-03 17:19 | disposition home or self-care (01) ==
PROVIDERS: Emergency Provider Emergency Medicine; PCP Family Medicine; Visit Provider Emergency Medicine
DX: M79.672 Pain in left foot (principal); E11.51 Type 2 diabetes mellitus with diabetic peripheral angiopathy without gangrene; Z79.4 Long term (current) use of insulin; E11.42 Type 2 diabetes mellitus with diabetic polyneuropathy; Z79.84 Long term (current) use of oral hypoglycemic drugs; I10 Essential (primary) hypertension; Z79.82 Long term (current) use of aspirin; M79.671 Pain in right foot; R20.2 Paresthesia of skin; Z96.643 Presence of artificial hip joint, bilateral; Z96.652 Presence of left artificial knee joint
CPT/HCPCS: 75635; 80048; 82550; 85025; 86140; 99283; Q9967; A4216